=== PATIENT | female | born 1940 | race Asian ===

== ENCOUNTER 2018-07-10 20:07 | Observation (INO) | payer OTHER, MEDICARE ==
--- NOTE | 2018-07-10 20:14 | PDOC ---
History of Present Illness - General Stated Complaint: SICK Time Seen by Provider: 07/10/18 20:11 - History of Present Illness Initial Comments: 07/10/18 20:13 Ms. Ricardo is a 77 yo female w/ pmh of HTN and L ear tinnitus / hearing loss who presents for evaluation after syncopal episode earlier tonight. Patient reports she was with friends when she experienced blurry vision for 2-3 minutes before losing consciousness. Her friend caught her on the way down and she did not hit her head. Was unconcious for 2 minutes before waking up. Was not confused after. Currently back to her baseline. Ms. Ricardo also endorses approximately a month of increased weakness while on her feet. She also reports she had an echo in April which showed only mild mitral regurg and trace tricuspid regurg. The patient denies chest pain, shortness of breath, headache and dizziness. Denies fever, chills, nausea, vomit, diarrhea and constipation. Denies dysuria, frequency, urgency and hematuria. Past History - Past Medical History Allergies/Adverse Reactions: Allergies Allergy/AdvReac Type Severity Reaction Status Date / Time acetaminophen Allergy Mild Nausea Verified 07/10/18 20:14 [From Darvocet-N 100] propoxyphene napsylate Allergy Mild Nausea Verified 07/10/18 20:14 [From Darvocet-N 100] codeine Allergy Verified 07/10/18 20:14 Home Medications: Ambulatory Orders Amlodipine Besylate [Norvasc -] 5 mg PO DAILY 07/01/14 Lisinopril [Prinivil] 20 mg PO DAILY 07/01/14 Aspirin [ASA -] 81 mg PO DAILY 07/10/18 Simvastatin 5 mg PO HS 07/10/18 HTN: Yes - Immunization History Immunization Up to Date: Yes - Suicide/Smoking/Psychosocial Hx Smoking Status: No Smoking History: Never smoked Have you smoked in the past 12 months: No Number of Cigarettes Smoked Daily: 0 Hx Alcohol Use: No Drug/Substance Use Hx: No Substance Use Type: None Hx Substance Use Treatment: No Review of Systems - Review of Systems Comments:: 07/10/18 20:14 GENERAL/CONSTITUTIONAL: +Mild generalized weakness. No fever or chills. HEAD, EYES, EARS, NOSE AND THROAT: No change in vision. No ear pain or discharge. No sore throat. CARDIOVASCULAR: No chest pain or shortness of breath RESPIRATORY: No cough, wheezing, or hemoptysis. GASTROINTESTINAL: No nausea, vomiting, diarrhea or constipation. GENITOURINARY: No dysuria, frequency, or change in urination. MUSCULOSKELETAL: No joint or muscle swelling or pain. No neck or back pain. SKIN: No rash NEUROLOGIC: +LOC as described. No headache, vertigo, or change in strength/ sensation. ENDOCRINE: No increased thirst. No abnormal weight change HEMATOLOGIC/LYMPHATIC: No anemia, easy bleeding, or history of blood clots. ALLERGIC/IMMUNOLOGIC: No hives or skin allergy. *Physical Exam - Physical Exam Comments: 07/10/18 20:14 GENERAL: Awake, alert, and fully oriented, in no acute distress HEAD: No signs of trauma, normocephalic, atraumatic EYES: PERRLA, EOMI, sclera anicteric, conjunctiva clear ENT: Auricles normal inspection, hearing grossly normal, nares patent, oropharynx clear without exudates. Moist mucosa NECK: Normal ROM, supple, no lymphadenopathy, JVD, or masses LUNGS: No distress, speaks full sentences, clear to auscultation bilaterally HEART: Regular rate and rhythm, normal S1 and S2, no murmurs, rubs or gallops, peripheral pulses normal and equal bilaterally. ABDOMEN: Soft, nontender, normoactive bowel sounds. No guarding, no rebound. No masses EXTREMITIES: Normal inspection, Normal range of motion, no edema. No clubbing or cyanosis. NEUROLOGICAL: Cranial nerves II through XII grossly intact. Normal speech, normal gait, no focal sensorimotor deficits SKIN: Warm, Dry, normal turgor, no rashes or lesions noted. ED Treatment Course - LABORATORY CBC & Chemistry Diagram: 07/10/18 21:10 07/10/18 21:10 Medical Decision Making - Medical Decision Making 07/10/18 23:29 Ms. Ricardo is a 77 yo female w/ pmh as described who presents for evaluation after syncopal episode earlier this evening. Workup for cause done to include cardiac and neurological process as below. EKG non-concerning. CXR negative. Head CT negative. Labs grossly wnl as below. Will admit patient for tele-obs for further workup/evaluation. Laboratory Results - last 24 hr 07/10/18 07/10/18 07/10/18 21:10 21:10 21:10 WBC 9.2 RBC 4.40 Hgb 13.9 Hct 39.1 MCV 88.8 MCH 31.5 MCHC 35.5 RDW 14.2 Plt Count 246 MPV 8.6 Absolute Neuts (auto) 6.8 Neutrophils % 74.2 D Lymphocytes % 19.0 D Monocytes % 6.1 Eosinophils % 0.4 Basophils % 0.3 Nucleated RBC % 0 Sodium 144 Potassium 3.6 Chloride 109 H Carbon Dioxide 25 Anion Gap 10 BUN 13 Creatinine 0.8 Creat Clearance w eGFR > 60 Random Glucose 102 Calcium 7.7 L Total Bilirubin 0.2 AST 14 L ALT 24 Alkaline Phosphatase 53 Creatine Kinase Troponin I Total Protein 6.1 L Albumin 3.2 L Urine Color Urine Appearance Urine pH Ur Specific [place] Urine Protein Urine Glucose (UA) Urine Ketones Urine Blood Urine Nitrite Urine Bilirubin Urine Urobilinogen Ur Leukocyte Esterase Urine WBC (Auto) Urine RBC (Auto) Ur Epithelial Cells Hyaline Casts Urine Mucus Blood Type A POSITIVE Antibody Screen Negative 07/10/18 07/10/18 21:10 22:36 WBC RBC Hgb Hct MCV MCH MCHC RDW Plt Count MPV Absolute Neuts (auto) Neutrophils % Lymphocytes % Monocytes % Eosinophils % Basophils % Nucleated RBC % Sodium Potassium Chloride Carbon Dioxide Anion Gap BUN Creatinine Creat Clearance w eGFR Random Glucose Calcium Total Bilirubin AST ALT Alkaline Phosphatase Creatine Kinase 74 Troponin I < 0.02 Total Protein Albumin Urine Color Straw Urine Appearance Clear Urine pH 7.0 Ur Specific [place] 1.008 L Urine Protein Negative Urine Glucose (UA) 1+ H Urine Ketones Negative Urine Blood Negative Urine Nitrite Negative Urine Bilirubin Negative Urine Urobilinogen Negative Ur Leukocyte Esterase Trace Urine WBC (Auto) 2 Urine RBC (Auto) <1 Ur Epithelial Cells Rare Hyaline Casts 5 Urine Mucus Rare Blood Type Antibody Screen *DC/Admit/Observation/Transfer Diagnosis at time of Disposition: Blurry vision Syncope Qualifiers: Syncope type: unspecified Qualified Code(s): R55 - Syncope and collapse - Discharge Dispostion Decision to Admit order: Yes - Referrals Referrals: Jessie Elliott MD [Primary Care Provider] - - Patient Instructions - Post Discharge Activity
--- NOTE | 2018-07-10 20:54 | PDOC ---
Attending Attestation - HPI HPI: 07/10/18 21:47 77 year old female with past medical history of left ear hearing loss/tinnitus, hypertension who presents to the ED after syncopal episode this evening while with her friends when she experienced blurred vision and soon lost consciousness for about 1-2 minutes. Patients friends witnessed the incident. No head trauma, no seizure like activity. Patient reports a similar episode of blurred vision back in 2013 and reports shes felt weak for the past three month and stating she hasnt felt like herself. Had an echocardiogram in June by PCP and found she had mitral valve prolapse. Denies any focal neurological deficits. Denies fevers, chills, NVD, CP, palpitations, cough, SOB , or urinary complaints. - Physicial Exam PE: 07/10/18 21:47 GENERAL: Awake, alert, and fully oriented, in no acute distress HEAD: No signs of trauma EYES: PERRLA, EOMI NECK: Normal ROM, supple, no lymphadenopathy, JVD, or masses LUNGS: Clear to auscultation bilaterally. HEART: Regular rate and rhythm. ABDOMEN: Soft, nontender, normoactive bowel sounds. NEUROLOGICAL: Cranial nerves II through XII grossly intact. Normal speech, normal gait SKIN: Warm, Dry, normal turgor, no rashes - Medical Decision Making 07/10/18 21:48 Documentation prepared by Seema Johnson, acting as medical transcription for Dottie Vickers DO. <Seema Johnson - Last Filed: 07/10/18 21:47> - Resident Resident Name: Steven Messer - ED Attending Attestation I have performed the following: I have examined & evaluated the patient, The case was reviewed & discussed with the resident, I agree w/resident's findings & plan, Exceptions are as noted - Medical Decision Making 07/10/18 20:54 I, Dr. Dottie Vickers DO, attest that this document has been prepared under my direction and personally reviewed by me in its entirety. I further attest, that it accurately reflects all work, treatment, procedures and medical decision -making performed by me. 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, lightheaded, cp/sob/palpitations -pt denies abd pain, no n/v/d -no dysuria -will send labs, ekg, cxr, head ct -had blurred vision prior to syncopal episode -will most likely need obs for syncopal episode eval -pt also states she has felt weak for about 3 months, generalized weakness 07/10/18 23:[address] negative - pending official read cxr clear trop negative will place in obs for further eval of syncope 07/11/18 00:43 resident discussed the case with SMITH who accepts pt to service <Dottie Vickers - Last Filed: 07/11/18 00:43> Heart Score/ECG Review - ECG Intrepretation Comment:: 07/10/18 22:38 sinus at 78, nl axis, nl interval, no acute st/t wave findings <Dottie Vickers - Last Filed: 07/11/18 00:43>
[2018-07-10 21:23] LABS: BASO % 0.3 % (0-2.0); EOS % 0.4 % (0-4.5); HEMATOCRIT 39.1 % (32.4-45.2); HEMOGLOBIN 13.9 GM/dL (10.7-15.3); MCH 31.5 pg (25.7-33.7); MCHC 35.5 g/dl (32.0-36.0); MEAN CELL VOLUME 88.8 fl (80-96); MEAN PLT VOLUME 8.6 fl (7.5-11.1); MONO % 6.1 % (3.8-10.2); NEUT % 74.2 % (42.8-82.8); PLATELET COUNT 246 K/MM3 (134-434); RDW 14.2 % (11.6-15.6); WHITE BLOOD COUNT 9.2 K/mm3 (4.0-10.0)
[2018-07-10 21:44] LABS: ALBUMIN 3.2 g/dl (3.4-5.0); ALK PHOS 53 U/L (45-117); ANION GAP 10 MMOL/L (8-16); BILIRUBIN,TOTAL 0.2 mg/dL (0.2-1); BLOOD UREA NITROGEN 13 mg/dL (7-18); CALCIUM 7.7 mg/dL (8.5-10.1); CHLORIDE 109 mmol/L (98-107); CO2 25 mmol/L (21-32); CREATININE 0.8 mg/dL (0.55-1.3); GLUCOSE,RANDOM 102 mg/dL (74-106); POTASSIUM 3.6 mmol/L (3.5-5.1); SGOT/AST 14 U/L (15-37); SGPT/ALT 24 U/L (13-61); SODIUM 144 mmol/L (136-145); TOT PROT 6.1 g/dl (6.4-8.2)
[2018-07-10 22:52] LABS: URINE APPEARANCE CLEAR; URINE BILIRUBIN NEGATIVE (<2.0 mg/dL); URINE COLOR STRAW; URINE GLUCOSE (UA) 1+ (NEGATIVE); URINE KETONE NEGATIVE (NEGATIVE); URINE LEUK ESTERASE TRACE (NEGATIVE); URINE NITRITE NEGATIVE (NEGATIVE); URINE PROTEIN NEGATIVE (NEGATIVE); URINE UROBILINOGEN NEGATIVE mg/dL (0.2-1.0)
[2018-07-10 22:56] LABS: EPI CELLS RARE /HPF (FEW); URINE HYALINE CAST 5 /lpf; URINE MUCUS RARE
--- NOTE | 2018-07-11 00:32 | PN ---
Teaching Attending Note Name of Resident: Mil Sandoval ATTENDING PHYSICIAN STATEMENT I saw and evaluated the patient. I reviewed the resident's note and discussed the case with the resident. I agree with the resident's findings and plan as documented. SUBJECTIVE: Patient is a 77 year old woman with PMH of HTN, HLD and left ear hearing loss/ tinnitus, hypertension who presents to the ER after syncopal episode this evening while with her friends when she experienced blurred vision and soon lost consciousness for about 1-2 minutes. Patients friends witnessed the incident. No head trauma, no seizure like activity. Patient reports a similar episode of blurred vision back in 2013 and reports shes felt weak for the past three month and stating she hasnt felt like herself. Had an echocardiogram in June by PCP and found she had mitral valve prolapse. Denies any focal neurological deficits. Denies fevers, chills, NVD, CP, palpitations, cough, SOB , or urinary complaints. OBJECTIVE: Alert. Not orthostatic Vital Signs Period Temp Pulse Resp BP Sys/Zhong Pulse Ox Last 24 Hr 98.5 F 78 18 148/69 99 HEENT: No Jaundice, eye redness or discharge, PERRLA, EOMI. Normocephalic, atraumatic. External ears are normal and hearing is grossly intact. No nasal discharge. Neck: Supple, nontender. No palpable adenopathy or thyromegaly. No JVD Chest: Good effort. Clear to auscultation and percussion. Heart: Regular. No S3, rub or murmur Abdomen: Not distended, soft, nontender and no HSM. No rebound or guarding. Normoactive bowel sounds. Ext: Peripheral pulses intact. No leg edema. Skin: Warm and dry. No petechiae, rash or ecchymosis. Neuro: Alert. Oriented x3. CN 2-12 grossly intact. Sensation grossly intact in all four extremities and DTR are symmetric. Home Medications Medication Instructions Recorded Amlodipine Besylate [Norvasc -] 5 mg PO DAILY 07/01/14 Lisinopril [Prinivil] 20 mg PO DAILY 07/01/14 Aspirin [ASA -] 81 mg PO DAILY 07/10/18 Simvastatin 5 mg PO HS 07/10/18 Abnormal Lab Results 07/10/18 07/10/18 21:10 22:36 Chloride 109 H Calcium 7.7 L AST 14 L Total Protein 6.1 L Albumin 3.2 L Ur Specific [place] 1.008 L Urine Glucose (UA) 1+ H ASSESSMENT AND PLAN: 1. Syncope - No obvious etiology. No acute pathology on Head CT and EKG. Admit to telemetry, get ECHO, EEG, carotid doppler and brain MRI/MRA with additional inner ear cuts. Consult neurology. 2. DVT prophylaxis - Lovenox 40 mg SQ q 24 hours. 3. Advance directives - Full code
--- NOTE | 2018-07-11 02:53 | HP ---
CHIEF COMPLAINT: syncope PCP: Earl HISTORY OF PRESENT ILLNESS: Pt is a 77 y/o F with PMH L tinnitus, vertigo, HTN, HLD who presented to ED with complaint of fainting. Pt was at a friend's house with a group of friends and suddenly felt her vision become blurry. This lasted 2 min before she fell unconscious. Her friends caught her and prevented head trauma. She had no shaking, no loss of bowl/bladder control, no confusion on waking 2 min later. Denies palpitations or aura preceding syncople episode. Of note, pt had an echo in Apr, which revealed mild MR and trace TR. Pt has had similar episodes in the past consisting of vertigo, however, she has never passed out. She has been worked up in the past including a brain MRI in 2014, which has all been unremarkable. She saw Dr. Espana (neuro) in the past, as well as an ENT whose name she cannot recall. No other complaints. 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 ER course was notable for: (1) BP 148/69 (2) (3) Recent Travel: denies PAST MEDICAL HISTORY: as above PAST SURGICAL HISTORY: Social History: Smoking: denies Alcohol: denies Drugs: denies Family History: Allergies acetaminophen [From Darvocet-N 100] Allergy (Mild, Verified 07/10/18 20:14) Nausea propoxyphene napsylate [From Darvocet-N 100] Allergy (Mild, Verified 07/10/18 20 :14) Nausea codeine Allergy (Verified 07/10/18 20:14) HOME MEDICATIONS: Home Medications Medication Instructions Recorded Amlodipine Besylate [Norvasc -] 5 mg PO DAILY 07/01/14 Lisinopril [Prinivil] 20 mg PO DAILY 07/01/14 Aspirin [ASA -] 81 mg PO DAILY 07/10/18 Simvastatin 5 mg PO HS 07/10/18 REVIEW OF SYSTEMS CONSTITUTIONAL: Absent: fever, chills, diaphoresis, generalized weakness, malaise, loss of appetite, weight change HEENT: Absent: rhinorrhea, nasal congestion, throat pain, throat swelling, difficulty swallowing, mouth swelling, ear pain, eye pain, visual changes CARDIOVASCULAR: syncope, Absent: chest pain, palpitations, irregular heart rate, lightheadedness, peripheral edema RESPIRATORY: Absent: cough, shortness of breath, dyspnea with exertion, orthopnea, wheezing, stridor, hemoptysis GASTROINTESTINAL: Absent: abdominal pain, abdominal distension, nausea, vomiting, diarrhea, constipation, melena, hematochezia GENITOURINARY: Absent: dysuria, frequency, urgency, hesitancy, hematuria, flank pain, genital pain MUSCULOSKELETAL: Absent: myalgia, arthralgia, joint swelling, back pain, neck pain SKIN: Absent: rash, itching, pallor HEMATOLOGIC/IMMUNOLOGIC: Absent: easy bleeding, easy bruising, lymphadenopathy, frequent infections ENDOCRINE: Absent: unexplained weight gain, unexplained weight loss, heat intolerance, cold intolerance NEUROLOGIC: Absent: headache, focal weakness or paresthesias, dizziness, unsteady gait, seizure, mental status changes, bladder or bowel incontinence PSYCHIATRIC: Absent: anxiety, depression, suicidal or homicidal ideation, hallucinations. PHYSICAL EXAMINATION Vital Signs - 24 hr 07/10/18 20:15 Temperature 98.5 F Pulse Rate 78 Respiratory 18 Rate Blood Pressure 148/69 O2 Sat by Pulse 99 Oximetry (%) GEN: NAD, AAOx3 HEENT: NCAT, EOMI, PERRL Neck: supple, no jvd, no bruits Cardio: rrr, normal s1s2, no mrg Pulm: cta b/l Abd: nondistended, soft, nontender Ext: 2+ pulses, no edema Neuro: CN 2-12 intact, sensation intact throughout, strength intact throughout. Finger to nose, heel-lopez unremarkable, dysdiadochokinesia all negative. HINTS negative. Vertigo not postural. Laboratory Results - last 24 hr 07/10/18 07/10/18 07/10/18 21:10 21:10 21:10 WBC 9.2 RBC 4.40 Hgb 13.9 Hct 39.1 MCV 88.8 MCH 31.5 MCHC 35.5 RDW 14.2 Plt Count 246 MPV 8.6 Absolute Neuts (auto) 6.8 Neutrophils % 74.2 D Lymphocytes % 19.0 D Monocytes % 6.1 Eosinophils % 0.4 Basophils % 0.3 Nucleated RBC % 0 Sodium 144 Potassium 3.6 Chloride 109 H Carbon Dioxide 25 Anion Gap 10 BUN 13 Creatinine 0.8 Creat Clearance w eGFR > 60 Random Glucose 102 Calcium 7.7 L Total Bilirubin 0.2 AST 14 L ALT 24 Alkaline Phosphatase 53 Creatine Kinase Troponin I Total Protein 6.1 L Albumin 3.2 L Urine Color Urine Appearance Urine pH Ur Specific [place] Urine Protein Urine Glucose (UA) Urine Ketones Urine Blood Urine Nitrite Urine Bilirubin Urine Urobilinogen Ur Leukocyte Esterase Urine WBC (Auto) Urine RBC (Auto) Ur Epithelial Cells Hyaline Casts Urine Mucus Blood Type A POSITIVE Antibody Screen Negative 07/10/18 07/10/18 21:10 22:36 WBC RBC Hgb Hct MCV MCH MCHC RDW Plt Count MPV Absolute Neuts (auto) Neutrophils % Lymphocytes % Monocytes % Eosinophils % Basophils % Nucleated RBC % Sodium Potassium Chloride Carbon Dioxide Anion Gap BUN Creatinine Creat Clearance w eGFR Random Glucose Calcium Total Bilirubin AST ALT Alkaline Phosphatase Creatine Kinase 74 Troponin I < 0.02 Total Protein Albumin Urine Color Straw Urine Appearance Clear Urine pH 7.0 Ur Specific [place] 1.008 L Urine Protein Negative Urine Glucose (UA) 1+ H Urine Ketones Negative Urine Blood Negative Urine Nitrite Negative Urine Bilirubin Negative Urine Urobilinogen Negative Ur Leukocyte Esterase Trace Urine WBC (Auto) 2 Urine RBC (Auto) <1 Ur Epithelial Cells Rare Hyaline Casts 5 Urine Mucus Rare Blood Type Antibody Screen ASSESSMENT/PLAN: Pt is a pleasant 77 y/o F with PMH L tinnitus, vertigo, HLD, HTN who presented to ED with syncope. On tele/obs for monitoring. #Syncope/vertigo -unclear etiology. ? relation to vertigo -monitor for arrhythmia -MRI/MRA -Carotid duplex -Neuro consult #HTN -c/w home Norvasc, Lisinopril #HLD -c/w home ASA, simvastatin #FEN -not on fluids -lytes wnl -Na control diet #PPx hep subQ #Dispo -obs Mil Sandoval MD PGY-2 IM Visit type - Emergency Visit Emergency Visit: Yes ED Registration Date: 07/10/18 Care time: The patient presented to the Emergency Department on the above date and was hospitalized for further evaluation of their emergent condition. - New Patient This patient is new to me today: Yes Date on this admission: 07/11/18 - Critical Care Critical Care patient: No
[2018-07-11] MEDS ORDERED: HEPARIN NA (PORCINE) 5,000 UNITS/ML 1ML VIAL ONE ×2 (06:11→14:21)
[2018-07-11] MEDS: HEPARIN NA (PORCINE) 5,000 UNITS/ML 1ML VIAL SQ SCH ×3 (06:20→21:46)
[2018-07-11 07:52] LABS: HEMATOCRIT 39.5 % (32.4-45.2); MCH 31.6 pg (25.7-33.7); MCHC 35.4 g/dl (32.0-36.0); MEAN CELL VOLUME 89.2 fl (80-96); MEAN PLT VOLUME 8.8 fl (7.5-11.1); PLATELET COUNT 261 K/MM3 (134-434); RBC 4.43 M/mm3 (3.60-5.2); RDW 13.8 % (11.6-15.6)
[2018-07-11 08:17] LABS: ANION GAP 6 MMOL/L (8-16); BLOOD UREA NITROGEN 13 mg/dL (7-18); CALCIUM 8.9 mg/dL (8.5-10.1); CHLORIDE 105 mmol/L (98-107); CO2 27 mmol/L (21-32); CREATININE 0.7 mg/dL (0.55-1.3); GLUCOSE,RANDOM 107 mg/dL (74-106); POTASSIUM 4.2 mmol/L (3.5-5.1); SODIUM 139 mmol/L (136-145)
--- NOTE | 2018-07-11 13:33 | EKG ---
Test Reason : Blood Pressure : / mmHG Vent. Rate : 073 BPM Atrial Rate : 073 BPM P-R Int : 158 ms QRS Dur : 070 ms QT Int : 408 ms P-R-T Axes : 047 044 065 degrees QTc Int : 449 ms NORMAL SINUS RHYTHM NORMAL ECG WHEN COMPARED WITH ECG OF 10-JUL-2018 22:23, NO SIGNIFICANT CHANGE WAS FOUND Confirmed by AQUILINO NELSON MD ([id number]) on 07/11/2018 1:33:13 PM Referred By: Confirmed By:AQUILINO NELSON MD
--- NOTE | 2018-07-11 13:37 | EKG ---
Test Reason : Blood Pressure : / mmHG Vent. Rate : 078 BPM Atrial Rate : 078 BPM P-R Int : 152 ms QRS Dur : 070 ms QT Int : 382 ms P-R-T Axes : 049 025 034 degrees QTc Int : 435 ms NORMAL SINUS RHYTHM POSSIBLE LEFT ATRIAL ENLARGEMENT NONSPECIFIC ST ABNORMALITY ABNORMAL ECG WHEN COMPARED WITH ECG OF 03-MAY-2015 00:10, NO SIGNIFICANT CHANGE WAS FOUND Confirmed by AQUILINO NELSON MD ([id number]) on 07/11/2018 1:36:55 PM Referred By: Confirmed By:AQUILINO NELSON MD
[2018-07-11 16:48] VITALS: BMI 23.8
[2018-07-11] MEDS: LISINOPRIL 20 MG TABLET (FP) PO SCH (17:21)
[2018-07-11] MEDS: ASPIRIN 81 MG CHEWABLE TABLETS PO SCH (17:21)
[2018-07-11] MEDS: amLODIPine BESYLATE 5 MG TABLET (FP) PO SCH (17:21)
[2018-07-11] MEDS ORDERED: ATORVASTATIN CA 10 MG TABLET (FP) PO SCH (22:00)
[2018-07-12] MEDS ORDERED: IBUPROFEN 400 MG TABLET (FP) PO ONE (03:48)
[2018-07-12 05:48] VITALS: TEMP 97
[2018-07-12] MEDS: HEPARIN NA (PORCINE) 5,000 UNITS/ML 1ML VIAL SQ SCH (05:54)
--- NOTE | 2018-07-12 09:33 | CON.NEURO ---
Consult Consult Specialty:: [facility] Referred by:: PCP - History of Present Illness History of Present Illness: 77 years old woman with fainting spell - History Source History Provided By: Patient Limitations to Obtaining History: No Limitations - Past Medical History Cardio/Vascular: Yes: HTN - Past Surgical History Past Surgical History: Yes: None - Alcohol/Substance Use Hx Alcohol Use: No History of Substance Use: reports: None - Smoking History Smoking history: Never smoked Have you smoked in the past 12 months: No Aproximately how many cigarettes per day: 0 - Social History ADL: Independent History of Recent Travel: No Home Medications - Allergies Allergies/Adverse Reactions: Allergies Allergy/AdvReac Type Severity Reaction Status Date / Time acetaminophen Allergy Mild Nausea Verified 07/10/18 20:14 [From Darvocet-N 100] propoxyphene napsylate Allergy Mild Nausea Verified 07/10/18 20:14 [From Darvocet-N 100] codeine Allergy Verified 07/10/18 20:14 - Home Medications Home Medications: Ambulatory Orders Amlodipine Besylate [Norvasc -] 5 mg PO DAILY 07/01/14 Lisinopril [Prinivil] 20 mg PO DAILY 07/01/14 Aspirin [ASA -] 81 mg PO DAILY 07/10/18 Simvastatin 5 mg PO HS 07/10/18 Family Disease History - Family Disease History Family History: Denies (CVA) Review of Systems - Review of Systems Constitutional: reports: No Symptoms Eyes: reports: No Symptoms Physical Exam-Neuro Vital Signs: Vital Signs Temperature 97.0 F L 07/12/18 05:47 Pulse Rate 56 L 07/12/18 05:47 Respiratory Rate 20 07/12/18 05:47 Blood Pressure 122/57 L 07/12/18 05:47 O2 Sat by Pulse Oximetry (%) 96 07/12/18 02:00 Constitutional: Yes: Well Nourished Neck: Yes: WNL Cardiovascular: Yes: WNL Labs: CBC, BMP 07/11/18 06:47 07/11/18 06:47 Imaging - Results Cat Scan: Image Reviewed MRI: Image Reviewed Problem List - Problems (1) Syncope Code(s): R55 - SYNCOPE AND COLLAPSE Qualifiers: Syncope type: unspecified Qualified Code(s): R55 - Syncope and collapse
[2018-07-12] MEDS: ASPIRIN 81 MG CHEWABLE TABLETS PO SCH (10:09)
[2018-07-12] MEDS: LISINOPRIL 20 MG TABLET (FP) PO SCH (10:09)
[2018-07-12] MEDS: amLODIPine BESYLATE 5 MG TABLET (FP) PO SCH (10:09)
--- NOTE | 2018-07-12 10:13 | CON.CARD ---
Consult Consult Specialty:: Cardiology Referred by:: Hospitalist Medicine Reason for Consultation:: Syncope - History of Present Illness Chief Complaint: Syncope History of Present Illness: Patient is a 77 year old woman with PMH of HTN, HLD and left ear hearing loss/ tinnitus presented after syncopal episode preceded by blurred vision, but denies palpitations, orthopnea, diaphoresis, nausea, flushing, PND or LE edema. Reports sharp, pleuritic, reproducible left chest wall discomfort. Had an echocardiogram in June by PCP and found she had mitral valve prolapse. Denies any focal neurological deficits. - History Source History Provided By: Patient Limitations to Obtaining History: No Limitations - Past Medical History Cardio/Vascular: Yes: HTN - Past Surgical History Past Surgical History: Yes: None - Alcohol/Substance Use Hx Alcohol Use: No History of Substance Use: reports: None - Smoking History Smoking history: Never smoked Have you smoked in the past 12 months: No Aproximately how many cigarettes per day: 0 - Social History ADL: Independent History of Recent Travel: No Home Medications - Allergies Allergies/Adverse Reactions: Allergies Allergy/AdvReac Type Severity Reaction Status Date / Time acetaminophen Allergy Mild Nausea Verified 07/10/18 20:14 [From Darvocet-N 100] propoxyphene napsylate Allergy Mild Nausea Verified 07/10/18 20:14 [From Darvocet-N 100] codeine Allergy Verified 07/10/18 20:14 - Home Medications Home Medications: Ambulatory Orders Amlodipine Besylate [Norvasc -] 5 mg PO DAILY 07/01/14 Lisinopril [Prinivil] 20 mg PO DAILY 07/01/14 Aspirin [ASA -] 81 mg PO DAILY 07/10/18 Simvastatin 5 mg PO HS 07/10/18 Review of Systems - Review of Systems Eyes: reports: Blurred Vision Cardiovascular: reports: No Symptoms Respiratory: reports: No Symptoms Gastrointestinal: reports: No Symptoms Musculoskeletal: reports: No Symptoms Neurological: reports: No Symptoms, Syncope Vital Signs: Vital Signs Temperature 97.0 F L 07/12/18 05:47 Pulse Rate 66 07/12/18 10:00 Respiratory Rate 18 07/12/18 10:00 Blood Pressure 139/64 07/12/18 10:00 O2 Sat by Pulse Oximetry (%) 96 07/12/18 02:00 Constitutional: Yes: No Distress, Calm Neck: Yes: Supple Respiratory: Yes: Regular, CTA Bilaterally Gastrointestinal: Yes: Normal Bowel Sounds, Soft Cardiovascular: Yes: Regular Rate and Rhythm JVD: No Carotid Bruit: No Heart Sounds: Yes: S1, S2 Edema: No - Other Data Labs, Other Data: CBC, BMP 07/11/18 06:47 07/11/18 06:47 NSR @ 78 LAE Tele: No sustained arrhythmias Imaging - Results Chest X-ray: Report Reviewed (NAD) Cat Scan: Report Reviewed (Normal HCT) Ultrasound: Report Reviewed (No sig carotid steonsis) MRI: Report Reviewed (Brain MRI shows SVID o/w normal MRA/MRI) Problem List - Problems (1) Hyperlipidemia Code(s): E78.5 - HYPERLIPIDEMIA, UNSPECIFIED Qualifiers: Hyperlipidemia type: pure hypercholesterolemia Qualified Code(s): E78.00 - Pure hypercholesterolemia, unspecified; E78.0 - Pure hypercholesterolemia (2) Blurry vision Code(s): H53.8 - OTHER VISUAL DISTURBANCES (3) Syncope Code(s): R55 - SYNCOPE AND COLLAPSE Qualifiers: Syncope type: vasovagal syncope Qualified Code(s): R55 - Syncope and collapse (4) Hypertension Code(s): I10 - ESSENTIAL (PRIMARY) HYPERTENSION Qualifiers: Hypertension type: essential hypertension Qualified Code(s): I10 - Essential (primary) hypertension Assessment/Plan 03/30/2018 Echo: Normal LV size and fxn, LVEF 65%, tr MR, TR 1. Syncope - with prodromal sxs suspect neurocardiogenic/vasovagal etiology 2. HTN heart disease 3. Hyperlipidemia P:1. F/u repeat echo results, check orthostatic VS, addressed abortive maneuvers once prodromal sxs experienced 2. Continue ASA 81 qd, Norvasc 5 qd, lisinopril 20 qd, Zocor 5 qhs 3. F/u EEG results, sz unlikely 4. Thank you for consultative opportunity
--- NOTE | 2018-07-12 11:17 | ECHO ---
Name: JONAS CHINO Exam:Adult Echocardiogram Study Date: 07/12/2018 09:32 AM Age: 77 yrs Reason For Study: SYNCOPE Height: 65 in Weight: 142 lb BSA: 1.7 m2 MMode/2D Measurements & Calculations IVSd: 1.0 cm Ao root diam: 2.3 cm LVIDd: 3.5 cm ACS: 1.9 cm LVIDs: 2.8 cm LVPWd: 0.94 cm EDV(Teich): 49.5 ml LVOT diam: 1.8 cm ESV(Teich): 30.2 ml RV S Walter: 15.7 cm/sec Doppler Measurements & Calculations Med Peak E' Walter: 6.8 cm/sec Lat Peak E' Walter: 7.5 cm/sec Procedure A complete two-dimensional transthoracic echocardiogram was performed (2D, M-mode, Doppler and color flow Doppler). Technically limited study. Left Ventricle The left ventricle is normal in size. Left ventricular systolic function is normal. Ejection Fraction = 65- 70%. TDI reveals mild impaired relaxation with normal filling pressure (E/E' 12). No regional wall mo tion abnormalities noted. Right Ventricle The right ventricle is normal size. The right ventricular systolic function is normal. RV systolic TD I is 16 cm/s. Atria The left atrial size is normal. Right atrial size is normal. Mitral Valve The mitral valve is normal in structure and function. There is no mitral regurgitation noted. Tricuspid Valve The tricuspid valve is normal in structure and function. No tricuspid regurgitation. Aortic Valve There is mild aortic sclerosis.;. No aortic regurgitation is present. Pulmonic Valve The pulmonic valve is not well visualized. Great Vessels The aortic root is normal size. Pericardium/Pleura There is no pericardial effusion. Interpretation Summary Technically limited study The left ventricle is normal in size. Left ventricular systolic function is normal. No regional wall motion abnormalities noted. Ejection Fraction = 65-70%. TDI reveals mild impaired relaxation with normal filling pressure (E/E' 12) The right ventricular systolic function is normal. The left atrial size is normal. Right atrial size is normal. There is mild aortic sclerosis. No significant valvular regurgitations are seen There is no pericardial effusion. When compared to study dated 03/30/18, no significant changes are seen Shaun Hughes MD 07/12/2018 11:16 AM
[2018-07-12 12:04] VITALS: BP 157/61; PULSE 61
--- NOTE | 2018-07-12 13:20 | DS ---
Physical Examination Vital Signs: Vital Signs Temperature 97.0 F L 07/12/18 05:47 Pulse Rate 61 07/12/18 12:04 Respiratory Rate 18 07/12/18 10:00 Blood Pressure 157/61 07/12/18 12:04 O2 Sat by Pulse Oximetry (%) 96 07/12/18 02:00 Findings/Remarks: pt seen/ examined . feels well no complains wants to go home denies cp/sob/ abd pain denies headache/ dizziness Constitutional: Yes: No Distress Eyes: Yes: Conjunctiva Clear, PERRL HENT: Yes: WNL Neck: Yes: Supple, Trachea Midline Cardiovascular: Yes: Regular Rate and Rhythm Respiratory: Yes: CTA Bilaterally Gastrointestinal: Yes: Normal Bowel Sounds, Soft Edema: No Neurological: Yes: WNL, Alert Psychiatric: Yes: Alert Labs: CBC, BMP 07/11/18 06:47 07/11/18 06:47 Discharge Summary Reason For Visit: BLURRING OF VISUAL IMAGE,SYNCOPE Current Active Problems Blurry vision (Acute) Hyperlipidemia (Acute) Syncope (Acute) Hospital Course: Admitted for syncope work up essentially -ve eeg/ echo - pending pt stable and wants to go home f/u above studies as out pt d/c today pt strongly advised to follow with her pmd in one week. pt in agreement Discussed with nursing staff also. Condition: Stable - Instructions Referrals: Jessie Elliott MD [Primary Care Provider] - Disposition: HOME - Home Medications Comprehensive Discharge Medication List: Ambulatory Orders Amlodipine Besylate [Norvasc -] 5 mg PO DAILY 07/01/14 Lisinopril [Prinivil] 20 mg PO DAILY 07/01/14 Aspirin [ASA -] 81 mg PO DAILY 07/10/18 Simvastatin 5 mg PO HS 07/10/18
== END 2018-07-12 14:24 | disposition home or self-care (01) ==
LOC: SUPCPDRO 20:07 → JER 20:07 → JERBED 23:36 → J4W 07-11 16:55
PROVIDERS: ADMIT Internal Medicine; ATTEND Internal Medicine
PROC: 3E013GC Introduction of Other Therapeutic Substance into Subcutaneous Tissue, Percutaneous Approach (ICD-10-PCS; principal; 2018-07-10)
DX: R55 Syncope and collapse (principal); H53.8 Other visual disturbances; I10 Essential (primary) hypertension; H91.92 Unspecified hearing loss, left ear; H93.12 Tinnitus, left ear; E78.5 Hyperlipidemia, unspecified
CPT/HCPCS: 36415; 70450-TC; 70544-TC; 70551-TC; 71046-TC-FY; 80048; 80053; 81003; 81015; 82550; 83090; 84484; 85025; 85027; 86850; 86900; 86901; 87086; 93005; 93010; 93306-TC; 93880-TC; 95816; 96372; 99285-25; G0378; J1644

== ENCOUNTER 2018-12-24 22:20 | Inpatient (IN) | payer OTHER, MEDICARE ==
--- NOTE | 2018-12-24 22:49 | PDOC ---
History of Present Illness <Rubina Hoff - Last Filed: 12/25/18 00:23> - History of Present Illness Initial Comments: 12/24/18 23:06 78 yo F with PMhx of HTN and HLD presents with one week history of worsening abdominal pain. She describes progressive constant non radiating 9/10 RLQ abdominal pain. Aggrevated by movement and palpation. No alleviating factors. Denies fever or chills. Last BM was this morning and was watery. Decreased PO intake. Went to her PMD today and had CTAP this afternoon which showed <Homer Richardson - Last Filed: 12/25/18 20:31> - General Chief Complaint: Pain Stated Complaint: SENT BY HER DOCTOR Time Seen by Provider: 12/24/18 22:36 Past History <Rubina Hoff - Last Filed: 12/25/18 00:23> - Past Medical History COPD: No HTN: Yes Hypercholesterolemia: Yes - Immunization History Immunization Up to Date: Yes - Suicide/Smoking/Psychosocial Hx Smoking Status: No Smoking History: Never smoked Have you smoked in the past 12 months: No Number of Cigarettes Smoked Daily: 0 Information on smoking cessation initiated: No Hx Alcohol Use: No Drug/Substance Use Hx: No Substance Use Type: None Hx Substance Use Treatment: No <Homer Richardson - Last Filed: 12/25/18 20:31> - Past Medical History Allergies/Adverse Reactions: Allergies Allergy/AdvReac Type Severity Reaction Status Date / Time No Known Allergies Allergy Verified 12/25/18 06:35 Home Medications: Ambulatory Orders RX: Amlodipine Besylate [Norvasc -] 5 mg PO DAILY 07/01/14 RX: Lisinopril [Prinivil] 20 mg PO DAILY 07/01/14 RX: Aspirin [ASA -] 81 mg PO DAILY 07/10/18 RX: Simvastatin 5 mg PO HS 07/10/18 *Physical Exam - Vital Signs Last Vital Signs Temp Pulse Resp BP Pulse Ox 98.7 F 80 17 139/47 L 100 12/24/18 22:30 12/24/18 22:30 12/24/18 22:30 12/24/18 22:30 12/24/18 22:30 <Rubina Hoff - Last Filed: 12/25/18 00:23> - Vital Signs Last Vital Signs Temp Pulse Resp BP Pulse Ox 98.7 F 80 17 139/47 L 100 12/24/18 22:30 12/24/18 22:30 12/24/18 22:30 12/24/18 22:30 12/24/18 22:30 <Homer Richardson - Last Filed: 12/25/18 20:31> ED Treatment Course - LABORATORY CBC & Chemistry Diagram: 12/24/18 23:10 12/24/18 23:10 - ADDITIONAL ORDERS Additional order review: Laboratory Results 12/24/18 12/24/18 23:10 23:10 PT with INR 12.90 INR 1.09 Sodium 128 L Potassium 4.0 Chloride 94 L Carbon Dioxide 22 Anion Gap 11 BUN 11 Creatinine 0.5 L Est GFR (CKD-EPI)AfAm 107.44 Est GFR (CKD-EPI)NonAf 92.70 Random Glucose 100 Calcium 9.1 Total Bilirubin 1.0 AST 28 ALT 27 Alkaline Phosphatase 145 H Total Protein 6.7 Albumin 2.8 L 12/24/18 23:10 RBC 4.08 MCV 88.9 MCHC 33.2 RDW 13.8 MPV 8.8 Neutrophils % 87.1 H Lymphocytes % 6.7 L D Monocytes % 5.8 Eosinophils % 0.2 Basophils % 0.2 - Medications Given in the ED: ED Medications Discontinued Medications Generic Name Dose Route Start Last Admin Trade Name Freq PRN Reason Stop Dose Admin Piperacillin Sod/Tazobactam 100 mls @ 200 mls/hr 12/24/18 23:21 12/25/18 00: 16 Sod 4.5 gm/ Dextrose IVPB 12/24/18 23:50 200 mls/hr ONCE ONE Administration Protocol <Rubina Hoff - Last Filed: 12/25/18 00:23> - LABORATORY CBC & Chemistry Diagram: 12/25/18 09:55 12/25/18 09:55 <Homer Richardson - Last Filed: 12/25/18 20:31> *DC/Admit/Observation/Transfer - Discharge Dispostion Decision to Admit order: Yes <Rubina Hoff - Last Filed: 12/25/18 00:23> - Discharge Dispostion Decision to Admit order: Yes <Homer Richardson - Last Filed: 12/25/18 20:31> Diagnosis at time of Disposition: Phlegmonous peritonitis - Discharge Dispostion Condition at time of disposition: Guarded
[2018-12-24] MEDS ORDERED: PIPERACILLIN/TAZOB 4.5 GM 4.5 GM in DEXTROSE 5%-WATER 100 ML IVPB ONE (23:21)
[2018-12-24 23:22] LABS: BASO % 0.2 % (0-2.0); EOS % 0.2 % (0-4.5); HEMATOCRIT 36.2 % (32.4-45.2); LYMPH % 6.7 % (8-40); MCH 29.5 pg (25.7-33.7); MCHC 33.2 g/dl (32.0-36.0); MEAN CELL VOLUME 88.9 fl (80-96); MEAN PLT VOLUME 8.8 fl (7.5-11.1); MONO % 5.8 % (3.8-10.2); NEUT % 87.1 % (42.8-82.8); PLATELET COUNT 237 K/MM3 (134-434); RBC 4.08 M/mm3 (3.60-5.2); RDW 13.8 % (11.6-15.6); WHITE BLOOD COUNT 15.1 K/mm3 (4.0-10.0)
[2018-12-24 23:56] LABS: ALBUMIN 2.8 g/dl (3.4-5.0); CALCIUM 9.1 mg/dL (8.5-10.1); CREATININE 0.5 mg/dL (0.55-1.3); TOT PROT 6.7 g/dl (6.4-8.2)
[2018-12-25 00:02] LABS: INR 1.09 (0.83-1.09); PROTHROMBIN TIME (PATIENT) 12.9 SEC (9.7-13.0)
[2018-12-25] MEDS ORDERED: PIPERACILLIN/TAZOB 4.5 GM 4.5 GM/100 ML BAG IVPB ONE (00:12)
[2018-12-25] MEDS ORDERED: PIPERACILLIN/TAZOB 4.5 GM 4.5 GM in DEXTROSE 5%-WATER 100 ML IVPB ONE (00:16)
[2018-12-25] MEDS ORDERED: SODIUM CHLORIDE 1,000 ML IV STA (00:23)
--- NOTE | 2018-12-25 00:41 | PDOC ---
Documentation entered by Tanvi Cifuentes SCRIBE, acting as scribe for Rubina Hoff MD. Rubina Hoff MD: This documentation has been prepared by the cristy, Tanvi Cifuentes SCRIBE, under my direction and personally reviewed by me in its entirety. I confirm that the documentation accurately reflects all work, treatment, procedures, and medical decision making performed by me. History of Present Illness - General Chief Complaint: Pain Stated Complaint: SENT BY HER DOCTOR Time Seen by Provider: 12/24/18 22:36 Attending Attestation - Resident Resident Name: DylanHomer - ED Attending Attestation I have performed the following: I have examined & evaluated the patient, The case was reviewed & discussed with the resident, I agree w/resident's findings & plan - HPI HPI: 12/25/18 00:17 Pt was sent by PMErwin Elliott for phlegmon/diverticular abscess seen on CT scan. He requests Dr. Rubin for ID and Dr Avila for surg. Scottie requests a dose of zosyn Pt will have pre-op labs and she will likely have drainiage of the abscess possibly by interventional radiology - Physicial Exam PE: 12/25/18 00:19 Agree with resident exam - Medical Decision Making 12/25/18 00:19 Pt's labs are stable; ABX one dose given. Pt admitted to the hospitalists who cover PMD alina at night. Pt is stable at this time. Past History - Past Medical History Allergies/Adverse Reactions: Allergies Allergy/AdvReac Type Severity Reaction Status Date / Time No Known Allergies Allergy Verified 12/25/18 06:35 Home Medications: Ambulatory Orders Amlodipine Besylate [Norvasc -] 5 mg PO DAILY 07/01/14 Lisinopril [Prinivil] 20 mg PO DAILY 07/01/14 Aspirin [ASA -] 81 mg PO DAILY 07/10/18 Simvastatin 5 mg PO HS 07/10/18 COPD: No HTN: Yes Hypercholesterolemia: Yes - Immunization History Immunization Up to Date: Yes - Suicide/Smoking/Psychosocial Hx Smoking Status: No Smoking History: Never smoked Have you smoked in the past 12 months: No Number of Cigarettes Smoked Daily: 0 Information on smoking cessation initiated: No Hx Alcohol Use: No Drug/Substance Use Hx: No Substance Use Type: None Hx Substance Use Treatment: No *Physical Exam - Vital Signs Last Vital Signs Temp Pulse Resp BP Pulse Ox 98.7 F 80 17 139/47 L 100 12/24/18 22:30 12/24/18 22:30 12/24/18 22:30 12/24/18 22:30 12/24/18 22:30 ED Treatment Course - LABORATORY CBC & Chemistry Diagram: 12/24/18 23:10 12/24/18 23:10 - ADDITIONAL ORDERS Additional order review: Laboratory Results 12/24/18 12/24/18 23:10 23:10 PT with INR 12.90 INR 1.09 Sodium 128 L Potassium 4.0 Chloride 94 L Carbon Dioxide 22 Anion Gap 11 BUN 11 Creatinine 0.5 L Est GFR (CKD-EPI)AfAm 107.44 Est GFR (CKD-EPI)NonAf 92.70 Random Glucose 100 Calcium 9.1 Total Bilirubin 1.0 AST 28 ALT 27 Alkaline Phosphatase 145 H Total Protein 6.7 Albumin 2.8 L 12/24/18 23:10 RBC 4.08 MCV 88.9 MCHC 33.2 RDW 13.8 MPV 8.8 Neutrophils % 87.1 H Lymphocytes % 6.7 L D Monocytes % 5.8 Eosinophils % 0.2 Basophils % 0.2 - Medications Given in the ED: ED Medications Discontinued Medications Generic Name Dose Route Start Last Admin Trade Name Freq PRN Reason Stop Dose Admin Piperacillin Sod/Tazobactam 100 mls @ 200 mls/hr 12/24/18 23:21 12/25/18 00: 16 Sod 4.5 gm/ Dextrose IVPB 12/24/18 23:50 200 mls/hr ONCE ONE Administration Protocol *DC/Admit/Observation/Transfer Diagnosis at time of Disposition: Phlegmonous peritonitis - Discharge Dispostion Condition at time of disposition: Guarded Decision to Admit order: Yes - Referrals - Patient Instructions - Post Discharge Activity
[2018-12-25] MEDS ORDERED: D5-1/2NS+10 MEQ KCL - 10 MEQ/1,000 ML INFUS.BAG IV SCH ×2 (00:45→15:30)
--- NOTE | 2018-12-25 01:10 | PN ---
Teaching Attending Note Name of Resident: Paxton Rojas ATTENDING PHYSICIAN STATEMENT I saw and evaluated the patient. I reviewed the resident's note and discussed the case with the resident. I agree with the resident's findings and plan as documented. SUBJECTIVE: Patient is a 78 year old woman with PMH of HTN, Syncope and HLD who presents with one week history of worsening abdominal pain. She describes progressive constant non radiating 9/10 LLQ abdominal pain. Aggravated by movement and palpation. No alleviating factors. Denies fever or chills. Last BM was this morning and was watery. Has not had anything to eat in several days. Had a similar pain last year and took tylenol for it at home and pain resolved. Went to her PMD today and had CTAP this afternoon which showed mid sigmoid diverticulitis with associated perforation/phlegmon and abscess. OBJECTIVE: Alert Vital Signs Period Temp Pulse Resp BP Sys/Zhong Pulse Ox Last 24 Hr 98.4 F-98.7 F 76-80 17-18 120-139/47-48 97-100 HEENT: No Jaundice, eye redness or discharge, PERRLA, EOMI. Normocephalic, atraumatic. External ears are normal and hearing is grossly intact. No nasal discharge. Neck: Supple, nontender. No palpable adenopathy or thyromegaly. No JVD Chest: Good effort. Clear to auscultation and percussion. Heart: Regular. No S3, rub or murmur Abdomen: Not distended, soft, LLQ tenderness and no HSM. No rebound or guarding. Normal bowel sounds. Ext: Peripheral pulses intact. No leg edema. Skin: Warm and dry. No petechiae, rash or ecchymosis. Neuro: Alert. Oriented x3. CN 2-12 grossly intact. Sensation grossly intact in all four extremities and DTR are symmetric. Psych: Appropriate mood and affect. Good insight. Current Medications Generic Name Dose Route Start Last Admin Trade Name Freq PRN Reason Stop Dose Admin Sodium Chloride 1,000 mls @ 1,000 mls/hr 12/25/18 00:23 12/25/18 00:29 Normal Saline - IV 12/25/18 01:22 1,000 mls/hr ASDIR STA Administration Potassium Chloride/Dextrose/Sod Cl 10 meq in 1,000 mls @ 75 mls/hr 12/25/18 00 :45 D5-1/2ns+10 Meq Kcl - IV ASDIR BABITA Home Medications Medication Instructions Recorded Amlodipine Besylate [Norvasc -] 5 mg PO DAILY 07/01/14 Lisinopril [Prinivil] 20 mg PO DAILY 07/01/14 Aspirin [ASA -] 81 mg PO DAILY 07/10/18 Simvastatin 5 mg PO HS 07/10/18 Abnormal Lab Results 12/24/18 12/24/18 23:10 23:10 WBC 15.1 H Absolute Neuts (auto) 13.2 H Neutrophils % 87.1 H Lymphocytes % 6.7 L D Sodium 128 L Chloride 94 L Creatinine 0.5 L Alkaline Phosphatase 145 H Albumin 2.8 L ASSESSMENT AND PLAN: 1. Sigmoid diverticulitis with perforation/phlegmon and abscess - ID and surgery consulted. Being treated with IV Zosyn and IV NS. Hyponatremia likely due to poor solute intake. EKG shows NSR with no significant ST-T wave changes. Being kept NPO for possible surgery/abscess drainage. Will get PT/INR and type and hold blood. 2, Hypoalbuminemia - Possibly due to combined effects of malnutrition and inflammation associated with comorbid chronic conditions. Will ensure adequate dietary protein intake and also consult machining and assembly supervisor. 3. Hypertension - Restart outpatient antihypertensive drugs when clinically appropriate. Nonpharmacologic measures to control hypertension like weight loss , salt restriction and exercise discussed. 4. DVT prophylaxis - Lovenox 40 mg SQ q 24 hours. 5. Advance directives - Full code
[2018-12-25] MEDS ORDERED: ONDANSETRON 4 MG/2 ML VIAL IVPB PRN (01:39)
--- NOTE | 2018-12-25 01:45 | HP ---
CHIEF COMPLAINT: pain abdomen PCP: dr garcia HISTORY OF PRESENT ILLNESS: 78 yo F with PMhx of HTN and HLD presents with 3 day history of worsening abdominal pain. She states that pain started in LLQ 3 days ago 9/10 in intensity, non radiating, intemittent, sharp in nature, Aggravated by movement and palpation. No alleviating factors. Denies fever or chills. Denies abdominal distension. Denies nausea and vomiting. Last BM was this morning and was watery and small in quantity. states she is passing flatus. Denies loss of weight and appetite. Denies blood in stool. Never had colonoscopy. Denies burning micturation. Denies change in frequency of urination. Denies vaginal discharge. ER course was notable for: (1)cbc, cmp, ct abdomen (2)IV fluid (3) Recent Travel: no PAST MEDICAL HISTORY: as above PAST SURGICAL HISTORY: no Social History: Smoking:no Alcohol: Drugs: Family History: Allergies acetaminophen [From Darvocet-N 100] Allergy (Mild, Verified 12/24/18 22:32) Nausea propoxyphene napsylate [From Darvocet-N 100] Allergy (Mild, Verified 12/24/18 22 :32) Nausea codeine Allergy (Verified 12/24/18 22:32) HOME MEDICATIONS: Home Medications Medication Instructions Recorded Amlodipine Besylate [Norvasc -] 5 mg PO DAILY 07/01/14 Lisinopril [Prinivil] 20 mg PO DAILY 07/01/14 Aspirin [ASA -] 81 mg PO DAILY 07/10/18 Simvastatin 5 mg PO HS 07/10/18 REVIEW OF SYSTEMS CONSTITUTIONAL: Absent: fever, chills, diaphoresis, generalized weakness, malaise, loss of appetite, weight change HEENT: Absent: rhinorrhea, nasal congestion, throat pain, throat swelling, difficulty swallowing, mouth swelling, ear pain, eye pain, visual changes CARDIOVASCULAR: Absent: chest pain, syncope, palpitations, irregular heart rate, lightheadedness , peripheral edema RESPIRATORY: Absent: cough, shortness of breath, dyspnea with exertion, orthopnea, wheezing, stridor, hemoptysis GASTROINTESTINAL: Absent: abdominal pain, abdominal distension, nausea, vomiting, diarrhea, constipation, melena, hematochezia GENITOURINARY: Absent: dysuria, frequency, urgency, hesitancy, hematuria, flank pain, genital pain MUSCULOSKELETAL: Absent: myalgia, arthralgia, joint swelling, back pain, neck pain SKIN: Absent: rash, itching, pallor HEMATOLOGIC/IMMUNOLOGIC: Absent: easy bleeding, easy bruising, lymphadenopathy, frequent infections ENDOCRINE: Absent: unexplained weight gain, unexplained weight loss, heat intolerance, cold intolerance NEUROLOGIC: Absent: headache, focal weakness or paresthesias, dizziness, unsteady gait, seizure, mental status changes, bladder or bowel incontinence PSYCHIATRIC: Absent: anxiety, depression, suicidal or homicidal ideation, hallucinations. PHYSICAL EXAMINATION Vital Signs - 24 hr 12/24/18 12/25/18 22:30 00:59 Temperature 98.7 F 98.4 F Pulse Rate 80 Pulse Rate [ 76 Left Radial] Respiratory 17 18 Rate Blood Pressure 139/47 L Blood Pressure 120/48 L [Left Arm] O2 Sat by Pulse 100 97 Oximetry (%) GENERAL: Awake, alert, and fully oriented, in no acute distress. HEAD: Normal with no signs of trauma. EARS, NOSE, THROAT: Moist mucous membranes. LUNGS: Breath sounds equal, clear to auscultation bilaterally. No wheezes, and no crackles. No accessory muscle use. HEART: Regular rate and rhythm, normal S1 and S2 without murmur, rub or gallop. ABDOMEN: Soft, tender llq , not distended, normoactive bowel sounds, no guarding , no rebound, no masses. MUSCULOSKELETAL: Normal range of motion at all joints. UPPER EXTREMITIES: 2+ pulses, warm, well-perfused. LOWER EXTREMITIES: 2+ pulses, warm, well-perfused. SKIN: Warm, dry,Laboratory Results - last 24 hr 12/24/18 12/24/18 12/24/18 23:10 23:10 23:10 WBC 15.1 H RBC 4.08 Hgb 12.0 Hct 36.2 MCV 88.9 MCH 29.5 MCHC 33.2 RDW 13.8 Plt Count 237 MPV 8.8 Absolute Neuts (auto) 13.2 H Neutrophils % 87.1 H Lymphocytes % 6.7 L D Monocytes % 5.8 Eosinophils % 0.2 Basophils % 0.2 Nucleated RBC % 0 PT with INR 12.90 INR 1.09 Sodium 128 L Potassium 4.0 Chloride 94 L Carbon Dioxide 22 Anion Gap 11 BUN 11 Creatinine 0.5 L Est GFR (CKD-EPI)AfAm 107.44 Est GFR (CKD-EPI)NonAf 92.70 Random Glucose 100 Calcium 9.1 Total Bilirubin 1.0 AST 28 ALT 27 Alkaline Phosphatase 145 H Total Protein 6.7 Albumin 2.8 L ASSESSMENT/PLAN: Complicated/ perforated diverticulitis NPO IV fluid pain control zofran prn Iv antibiotic zosyn pt/inr trype and screen surgery and id consult monitor vital monitor intake/output htn monitor vitals hld hold statin hold aspirin for now fluid: d51/2 ns with 10meq kcl electrolyte; repeat in am nutrition: npo dvt pro; scd b/l gi pro; protinix dispo; med surg Visit type - Emergency Visit Emergency Visit: Yes ED Registration Date: 12/25/18 Care time: The patient presented to the Emergency Department on the above date and was hospitalized for further evaluation of their emergent condition. - New Patient This patient is new to me today: Yes Date on this admission: 12/25/18 - Critical Care Critical Care patient: No
[2018-12-25] MEDS ORDERED: HEPARIN NA (PORCINE) 5,000 UNITS/ML 1ML VIAL SQ SCH (02:00)
[2018-12-25] MEDS ORDERED: PIPERACILLIN/TAZOBACTAM 4.5 GM VIAL IVPB ONE ×4 (02:34→21:36)
[2018-12-25] MEDS ORDERED: DEXTROSE 5%-WATER 100 ML IVPB ONE ×4 (02:34→21:36)
[2018-12-25 02:55] VITALS: BMI 25.4
[2018-12-25] MEDS: PIPERACILLIN/TAZOB 4.5 GM 4.5 GM in DEXTROSE 5%-WATER 100 ML IVPB SCH ×4 (02:59→22:14)
[2018-12-25] MEDS ORDERED: PIPERACILLIN/TAZOB 4.5 GM 4.5 GM in DEXTROSE 5%-WATER 100 ML IVPB SCH (03:00)
[2018-12-25] MEDS: PANTOPRAZOLE SODIUM 40 MG VIAL IVPUSH SCH (10:27)
[2018-12-25 10:39] LABS: BASO % 0.2 % (0-2.0); EOS % 0.2 % (0-4.5); HEMATOCRIT 36.4 % (32.4-45.2); HEMOGLOBIN 12.2 GM/dL (10.7-15.3); LYMPH % 8.2 % (8-40); MCH 30.1 pg (25.7-33.7); MCHC 33.5 g/dl (32.0-36.0); MEAN CELL VOLUME 89.8 fl (80-96); MEAN PLT VOLUME 8.3 fl (7.5-11.1); MONO % 6.5 % (3.8-10.2); NEUT % 84.9 % (42.8-82.8); PLATELET COUNT 299 K/MM3 (134-434); RBC 4.06 M/mm3 (3.60-5.2); RDW 14.1 % (11.6-15.6); WHITE BLOOD COUNT 11.3 K/mm3 (4.0-10.0)
[2018-12-25 10:48] LABS: ALBUMIN 2.8 g/dl (3.4-5.0); BILIRUBIN,TOTAL 0.8 mg/dL (0.2-1); CALCIUM 8.8 mg/dL (8.5-10.1); CREATININE 0.6 mg/dL (0.55-1.3); MAGNESIUM 2.5 mg/dL (1.8-2.4); PHOSPHOROUS 2.9 mg/dL (2.5-4.9); POTASSIUM 3.3 mmol/L (3.5-5.1); TOT PROT 6.5 g/dl (6.4-8.2)
[2018-12-25] MEDS ORDERED: SODIUM CHLORIDE 1,000 ML IV SCH (11:30)
--- NOTE | 2018-12-25 11:41 | EKG ---
Test Reason : Blood Pressure : / mmHG Vent. Rate : 078 BPM Atrial Rate : 078 BPM P-R Int : 144 ms QRS Dur : 078 ms QT Int : 382 ms P-R-T Axes : 030 037 040 degrees QTc Int : 435 ms NORMAL SINUS RHYTHM NORMAL ECG WHEN COMPARED WITH ECG OF 11-JUL-2018 05:40, NO SIGNIFICANT CHANGE WAS FOUND Confirmed by JACINTA SUAREZ MD ([id number]) on 12/25/2018 11:41:19 AM Referred By: JEAN PIERRE Confirmed By:JACINTA SUAREZ MD
[2018-12-25] MEDS ORDERED: D5-1/2NS+20 MEQ KCL - 20 MEQ/1,000 ML INFUS.BAG IV SCH (11:45)
--- NOTE | 2018-12-25 11:53 | PN ---
Progress Note (short form) - Note Progress Note: Events noted Pt does not appear toxic She c.o abd pain 3 days h/o abd pain no constipation or diarrhea No nausea no fever Vital Signs - 24 hr 12/24/18 12/25/18 12/25/18 22:30 00:59 02:24 Temperature 98.7 F 98.4 F 98.8 F Pulse Rate 80 85 Pulse Rate [ 76 Left Radial] Respiratory 17 18 18 Rate Blood Pressure 139/47 L 136/67 Blood Pressure 120/48 L [Left Arm] O2 Sat by Pulse 100 97 Oximetry (%) 12/25/18 12/25/18 12/25/18 02:26 02:52 06:30 Temperature 98.8 F 99 F Pulse Rate 85 79 Pulse Rate [ Left Radial] Respiratory 18 18 Rate Blood Pressure 136/67 142/58 L Blood Pressure [Left Arm] O2 Sat by Pulse 97 Oximetry (%) Current Medications Generic Name Dose Route Start Last Admin Trade Name Freq PRN Reason Stop Dose Admin Piperacillin Sod/Tazobactam 100 mls @ 200 mls/hr 12/25/18 15:00 Sod 4.5 gm/ Dextrose IVPB Q6H-IV [facility]AB[facility] Protocol Potassium Chloride/Dextrose/Sod Cl 20 meq in 1,000 mls @ 83 mls/hr 12/25/18 11 :45 D5-1/2ns+20 Meq Kcl - IV ASDIR [facility] Lisinopril 10 mg 12/25/18 11:45 Prinivil PO DAILY [facility] Ondansetron HCl 8 mg 12/25/18 01:39 Zofran Injection IVPB Q8H PRN NAUSEA Pantoprazole Sodium 40 mg 12/25/18 10:00 12/25/18 10:27 Protonix Iv IVPUSH 40 mg DAILY [facility] Administration Laboratory Results - last 24 hr 12/24/18 12/24/18 12/24/18 23:10 23:10 23:10 WBC 15.1 H RBC 4.08 Hgb 12.0 Hct 36.2 MCV 88.9 MCH 29.5 MCHC 33.2 RDW 13.8 Plt Count 237 MPV 8.8 Absolute Neuts (auto) 13.2 H Neutrophils % 87.1 H Lymphocytes % 6.7 L D Monocytes % 5.8 Eosinophils % 0.2 Basophils % 0.2 Nucleated RBC % 0 PT with INR 12.90 INR 1.09 Sodium 128 L Potassium 4.0 Chloride 94 L Carbon Dioxide 22 Anion Gap 11 BUN 11 Creatinine 0.5 L Est GFR (CKD-EPI)AfAm 107.44 Est GFR (CKD-EPI)NonAf 92.70 Random Glucose 100 Calcium 9.1 Phosphorus Magnesium Total Bilirubin 1.0 AST 28 ALT 27 Alkaline Phosphatase 145 H Total Protein 6.7 Albumin 2.8 L Blood Type Antibody Screen 12/24/18 12/25/18 12/25/18 23:10 09:55 09:55 WBC 11.3 H RBC 4.06 Hgb 12.2 Hct 36.4 MCV 89.8 MCH 30.1 MCHC 33.5 RDW 14.1 Plt Count 299 D MPV 8.3 Absolute Neuts (auto) 9.6 H Neutrophils % 84.9 H Lymphocytes % 8.2 D Monocytes % 6.5 Eosinophils % 0.2 Basophils % 0.2 Nucleated RBC % 0 PT with INR INR Sodium 135 L Potassium 3.3 L Chloride 100 Carbon Dioxide 27 Anion Gap 8 BUN 7 Creatinine 0.6 Est GFR (CKD-EPI)AfAm 101.18 Est GFR (CKD-EPI)NonAf 87.30 Random Glucose 111 H Calcium 8.8 Phosphorus 2.9 Magnesium 2.5 H Total Bilirubin 0.8 AST 19 ALT 30 Alkaline Phosphatase 163 H Total Protein 6.5 Albumin 2.8 L Blood Type A POSITIVE Antibody Screen Negative No pallor S1 S2 RRR Lungs clear Abd- soft, tender left > right quadrant, BS=, not distended No edema PLAN diverticulitis, perforation, abscess -- ct abd and pelvis noted -- iv antibiotics -- iv fluids -- keep NPO -- spoke with surgery-- will be seeing her today HTN -- may restart Lisinopril ith small sips of water DVT prophylaxis-- heparin sc Problem List - Problems (1) Phlegmonous peritonitis Code(s): K65.0 - GENERALIZED (ACUTE) PERITONITIS (2) Hyperlipidemia Code(s): E78.5 - HYPERLIPIDEMIA, UNSPECIFIED Qualifiers: Hyperlipidemia type: pure hypercholesterolemia Qualified Code(s): E78.00 - Pure hypercholesterolemia, unspecified; E78.0 - Pure hypercholesterolemia (3) Hypertension Code(s): I10 - ESSENTIAL (PRIMARY) HYPERTENSION Qualifiers: Hypertension type: essential hypertension Qualified Code(s): I10 - Essential (primary) hypertension (4) Diverticulitis Code(s): K57.92 - DVTRCLI OF INTEST, PART UNSP, W/O PERF OR ABSCESS W/O BLEED (5) Diverticulitis of intestine with abscess Code(s): K57.80 - DVTRCLI OF INTEST, PART UNSP, W PERF AND ABSCESS W/O BLEED
[2018-12-25] MEDS: LISINOPRIL 10 MG TABLET (FP) PO SCH (12:34)
--- NOTE | 2018-12-25 12:35 | CONSULT ---
Consult Consult Specialty:: Surgery Referred by:: Harmony Sorensen Reason for Consultation:: Acute diverticulitis with phlegmon and microperforation. - History of Present Illness Chief Complaint: C/O abdominal pain in left lower quadrant of abdomen since Thursday , 12/21/2018. Pain got worse , and she went bto her primary doctor who requested a CT scan of the abdomen , revealing acute sigmoid diverticulitis with contained microperforation , with abscess. She is admitted and placed on antibiotics. She had similar symptoms about a year ago, but did not seed her physician , and did not see go to the hospital. Since admission she is feeling better, and has very minimal pain in the left lower quadrant of her abdomen. No diarrhea, no chills. - History Source History Provided By: Patient Limitations to Obtaining History: No Limitations - Past Medical History Cardio/Vascular: Yes: HTN - Past Surgical History Past Surgical History: Yes: None - Alcohol/Substance Use Hx Alcohol Use: No History of Substance Use: reports: None - Smoking History Smoking history: Never smoked Have you smoked in the past 12 months: No Aproximately how many cigarettes per day: 0 - Social History ADL: Independent History of Recent Travel: No Home Medications - Allergies Allergies/Adverse Reactions: Allergies Allergy/AdvReac Type Severity Reaction Status Date / Time No Known Allergies Allergy Verified 12/25/18 06:35 - Home Medications Home Medications: Ambulatory Orders Amlodipine Besylate [Norvasc -] 5 mg PO DAILY 07/01/14 Lisinopril [Prinivil] 20 mg PO DAILY 07/01/14 Aspirin [ASA -] 81 mg PO DAILY 07/10/18 Simvastatin 5 mg PO HS 07/10/18 Physical Exam Vital Signs: Vital Signs Temperature 99 F 12/25/18 06:30 Pulse Rate 79 12/25/18 06:30 Respiratory Rate 18 12/25/18 06:30 Blood Pressure 142/58 L 12/25/18 06:30 O2 Sat by Pulse Oximetry (%) 97 12/25/18 02:26 Gastrointestinal: Yes: Other (? soft nontender,?mass in left lower quadrant of abdomen, no guarding .) Labs: CBC, BMP 12/25/18 09:55 12/25/18 09:55 Imaging - Results Cat Scan: Report Reviewed, Image Reviewed Problem List - Problems (1) Hyperlipidemia Code(s): E78.5 - HYPERLIPIDEMIA, UNSPECIFIED Qualifiers: Hyperlipidemia type: pure hypercholesterolemia Qualified Code(s): E78.00 - Pure hypercholesterolemia, unspecified; E78.0 - Pure hypercholesterolemia (2) Tinnitus Code(s): H93.19 - TINNITUS, UNSPECIFIED EAR Qualifiers: Laterality: left Qualified Code(s): H93.12 - Tinnitus, left ear (3) Hypertension Code(s): I10 - ESSENTIAL (PRIMARY) HYPERTENSION Qualifiers: Hypertension type: essential hypertension Qualified Code(s): I10 - Essential (primary) hypertension (4) Diverticulitis of large intestine with perforation and abscess Code(s): K57.20 - DVTRCLI OF LG INT W PERFORATION AND ABSCESS W/O BLEEDING Assessment/Plan Acute sigmoid diverticulitis with microperforation and abscess, feeling better. On antibiotics, followed by ID, Keep NPO. Monitor , if improved will gradually feed patient. If progresses to a localised abscess, will consider CT guided drainage. Conyinue antibiotics. Hydration.
--- NOTE | 2018-12-25 13:02 | CON.ID ---
Consult - History of Present Illness History of Present Illness: 78 y.o. female with PMH of HLD and HTN with c/o sharp intermittent lower abdominal pain x 4 days associated with mild nausea. She states she went to her PMD and had a CT Abd/Pelvis done on 12/24/18 which revealed acute diverticulitis with perforation and abscess formation and presented to the ER. Pt denies fever , chill or vomiting at home but had episode of vomiting last night. In the ER she was found to have LLQ abd pain on exam with leukocytosis wbc 16.1K. She has been started on IV antibiotics and today states she feels more of an abdominal soreness than acute pain. Current temp of 99F but decrease in wbc. Currently is comfortable without any other complaints. - History Source History Provided By: Patient, Medical Record - Past Medical History Cardio/Vascular: Yes: HTN, Hyperlipdemia - Past Surgical History Past Surgical History: Yes: None - Alcohol/Substance Use Hx Alcohol Use: No History of Substance Use: reports: None - Smoking History Smoking history: Never smoked Have you smoked in the past 12 months: No Aproximately how many cigarettes per day: 0 - Social History ADL: Independent History of Recent Travel: No Home Medications - Allergies Allergies/Adverse Reactions: Allergies Allergy/AdvReac Type Severity Reaction Status Date / Time No Known Allergies Allergy Verified 12/25/18 06:35 - Home Medications Home Medications: Ambulatory Orders Amlodipine Besylate [Norvasc -] 5 mg PO DAILY 07/01/14 Lisinopril [Prinivil] 20 mg PO DAILY 07/01/14 Aspirin [ASA -] 81 mg PO DAILY 07/10/18 Simvastatin 5 mg PO HS 07/10/18 Review of Systems - Review of Systems Constitutional: reports: No Symptoms. denies: Chills, Diaphoresis, Fever, Lethargy, Loss of Appetite, Malaise, Night Sweats, Unintentional Wgt. Loss, Weakness, Other Eyes: reports: No Symptoms HENT: reports: No Symptoms Neck: reports: No Symptoms Cardiovascular: reports: No Symptoms. denies: Chest Pain, Edema, Palpitations, Shortness of Breath, Other Respiratory: reports: No Symptoms. denies: Cough, Exercise Intolerance, Hemoptysis, Orthopnea, PND, Snoring, SOB, SOB on Exertion, Wheezing, Other Gastrointestinal: reports: Abdominal Pain (mild LLQ) Genitourinary: reports: No Symptoms. denies: Burning, Discharge, Dysuria, Flank Pain, Frequency, Hematuria, Incontinence, Lesions, Menses, Pain, Testicular Mass, Testicular Pain, Testicular Swelling, Urgency, Vaginal Bleeding , Other Musculoskeletal: reports: No Symptoms. denies: Back Pain, Crepitus, Decreased ROM, Extremity Pain, Joint Pain, Joint Swelling, Muscle Pain, Muscle Cramps, Muscle Weakness, Other Integumentary: reports: No Symptoms. denies: Blister, Bruising, Change in Color , Eczema, Erythema, Incision, Lesions, Lump, Pallor, Pruritis, Rash, Wound, Other Neurological: reports: No Symptoms. denies: Change in LOC, Change in Speech, Confusion, Dizziness, Headache, Incoordination, Numbness, Parasthesia, Pre- Existing Deficit, Seizure, Syncope, Tremors, Unsteady Gait, Weakness, Other Endocrine: reports: No Symptoms. denies: Excessive Sweating, Flushing, Increased Hunger, Increased Thirst, Intolerance to Cold, Intolerance to Heat, Unexplained Weight Gain, Unexplained Weight Loss, Other Pain Intensity: 2 Physical Exam Vital Signs: Vital Signs Temperature 99 F 12/25/18 06:30 Pulse Rate 79 12/25/18 06:30 Respiratory Rate 18 12/25/18 06:30 Blood Pressure 142/58 L 12/25/18 06:30 O2 Sat by Pulse Oximetry (%) 97 12/25/18 02:26 Constitutional: Yes: No Distress, Calm Eyes: Yes: Conjunctiva Clear HENT: Yes: Atraumatic Neck: Yes: Supple Cardiovascular: Yes: Regular Rate and Rhythm Respiratory: Yes: CTA Bilaterally Gastrointestinal: Yes: Normal Bowel Sounds, Soft, Tenderness (minimal LLQ, no guarding/rigidity, no distension) Renal/: Yes: WNL Extremities: Yes: WNL Integumentary: Yes: WNL Neurological: Yes: Alert, Oriented Psychiatric: Yes: Alert Labs: CBC, BMP 12/25/18 09:55 12/25/18 09:55 Blood cultures pending Imaging - Results Cat Scan: Report Reviewed Problem List - Problems (1) Diverticulitis of large intestine with perforation and abscess Code(s): K57.20 - DVTRCLI OF LG INT W PERFORATION AND ABSCESS W/O BLEEDING (2) Hyperlipidemia Code(s): E78.5 - HYPERLIPIDEMIA, UNSPECIFIED Qualifiers: Hyperlipidemia type: pure hypercholesterolemia Qualified Code(s): E78.00 - Pure hypercholesterolemia, unspecified; E78.0 - Pure hypercholesterolemia (3) Hypertension Code(s): I10 - ESSENTIAL (PRIMARY) HYPERTENSION Qualifiers: Hypertension type: essential hypertension Qualified Code(s): I10 - Essential (primary) hypertension Assessment/Plan 78 y.o. female with HTN, HLD presenting with c/o LLQ abdominal pain x [address] revealing mid sigmoid inflammation with collection Acute Sigmoid diverticulitis with perforation/Abscess Leukocytosis -- continue Zosyn for now -- May need drainage of abscess -- follow up blood culture results -- wbc trending down, monitor temperature trend -- surgery following Will follow Thank you
--- NOTE | 2018-12-25 14:47 | HP ---
Admitting History and Physical - Primary Care Physician PCP: Jessie Elliott - Admission Chief Complaint: Abd pain for last 4days Limitations to Obtaining History: No Limitations - Past Medical History Cardiovascular: Yes: HTN, Hyperlipdemia Gastrointestinal: Yes: Diverticulitis, Diverticulosis Psych: Yes: Anxiety - Past Surgical History Past Surgical History: Yes: None - Smoking History Smoking history: Never smoked Have you smoked in the past 12 months: No Aproximately how many cigarettes per day: 0 - Alcohol/Substance Use Hx Alcohol Use: No History of Substance Use: reports: None - Social History ADL: Independent History of Recent Travel: No Home Medications - Allergies Allergies/Adverse Reactions: Allergies Allergy/AdvReac Type Severity Reaction Status Date / Time No Known Allergies Allergy Verified 12/25/18 06:35 - Home Medications Home Medications: Ambulatory Orders Amlodipine Besylate [Norvasc -] 5 mg PO DAILY 07/01/14 Lisinopril [Prinivil] 20 mg PO DAILY 07/01/14 Aspirin [ASA -] 81 mg PO DAILY 07/10/18 Simvastatin 5 mg PO HS 07/10/18 Review of Systems - Review of Systems Constitutional: reports: Loss of Appetite Cardiovascular: reports: Other (No chest pain) Respiratory: reports: Other (NO SOB) Gastrointestinal: reports: Abdominal Pain, Nausea (No Fever) Musculoskeletal: reports: Joint Pain Neurological: reports: Weakness Physical Examination Vital Signs: Vital Signs Temperature 99 F 12/25/18 10:00 Pulse Rate 70 12/25/18 10:00 Respiratory Rate 18 12/25/18 10:00 Blood Pressure 157/54 L 12/25/18 10:00 O2 Sat by Pulse Oximetry (%) 97 12/25/18 09:00 Constitutional: Yes: No Distress Eyes: Yes: EOM Intact HENT: Yes: Atraumatic, Normocephalic Neck: Yes: Supple, Trachea Midline Cardiovascular: Yes: Regular Rate and Rhythm Respiratory: Yes: Regular, CTA Bilaterally Gastrointestinal: Yes: Normal Bowel Sounds ([place] LLQ) ...Rectal Exam: Yes: Deferred Extremities: Yes: Calf Tenderness, Other (No Oedema) Labs: CBC, BMP 12/25/18 09:55 12/25/18 09:55 Imaging - Results Chest X-ray: Report Reviewed, Image Reviewed Cat Scan: Report Reviewed, Image Reviewed Problem List - Problems (1) Diverticulitis of large intestine with perforation and abscess Code(s): K57.20 - DVTRCLI OF LG INT W PERFORATION AND ABSCESS W/O BLEEDING (2) Hyperlipidemia Code(s): E78.5 - HYPERLIPIDEMIA, UNSPECIFIED Qualifiers: Hyperlipidemia type: pure hypercholesterolemia Qualified Code(s): E78.00 - Pure hypercholesterolemia, unspecified; E78.0 - Pure hypercholesterolemia (3) Hypertension Code(s): I10 - ESSENTIAL (PRIMARY) HYPERTENSION Qualifiers: Hypertension type: essential hypertension Qualified Code(s): I10 - Essential (primary) hypertension (4) Diverticulitis Code(s): K57.92 - DVTRCLI OF INTEST, PART UNSP, W/O PERF OR ABSCESS W/O BLEED (5) Hypokalemia Code(s): E87.6 - HYPOKALEMIA Assessment/Plan (1) Diverticulitis of large intestine with perforation and abscess Code(s): K57.20 - DVTRCLI OF LG INT W PERFORATION AND ABSCESS W/O BLEEDING (2) Hyperlipidemia Code(s): E78.5 - HYPERLIPIDEMIA, UNSPECIFIED Qualifiers: Hyperlipidemia type: pure hypercholesterolemia Qualified Code(s): E78.00 - Pure hypercholesterolemia, unspecified; E78.0 - Pure hypercholesterolemia (3) Hypertension Code(s): I10 - ESSENTIAL (PRIMARY) HYPERTENSION Qualifiers: Hypertension type: essential hypertension Qualified Code(s): I10 - Essential (primary) hypertension (4) Diverticulitis Code(s): K57.92 - DVTRCLI OF INTEST, PART UNSP, W/O PERF OR ABSCESS W/O BLEED (5) Hypokalemia Code(s): E87.6 - HYPOKALEMIA case Discussed Yesterday night with Dr Avila Surgeon and ID Dr Valenzuela spoke with Radiology yesterday asked Pt to come to ER Pt is feeling better No Fever Abd pain Decreasing Did not Move her bowels today passing flatus
[2018-12-25] MEDS ORDERED: POTASSIUM CHLORIDE TABS 20 MEQ TABLET.ER (FP) PO ONE ×2 (15:15→17:53)
[2018-12-25] MEDS: D5-NS + 20 MEQ KCL - 20 MEQ/1,000 ML INFUS.BAG IV SCH (15:32)
[2018-12-25] MEDS ORDERED: PT OWN MED DRAWER 7, Y5N ONE (15:53)
[2018-12-25] MEDS: HEPARIN NA (PORCINE) 5,000 UNITS/ML 1ML VIAL SQ SCH ×2 (22:15→22:24)
[2018-12-26] MEDS: PIPERACILLIN/TAZOB 4.5 GM 4.5 GM in DEXTROSE 5%-WATER 100 ML IVPB SCH ×4 (03:16→20:04)
[2018-12-26] MEDS ORDERED: PIPERACILLIN/TAZOBACTAM 4.5 GM VIAL IVPB ONE ×4 (03:17→19:46)
[2018-12-26] MEDS ORDERED: DEXTROSE 5%-WATER 100 ML IVPB ONE ×4 (03:18→19:46)
[2018-12-26] MEDS: D5-NS + 20 MEQ KCL - 20 MEQ/1,000 ML INFUS.BAG IV SCH ×2 (03:22→19:51)
[2018-12-26 07:55] LABS: BASO % 0.4 % (0-2.0); EOS % 0.5 % (0-4.5); HEMOGLOBIN 11.7 GM/dL (10.7-15.3); LYMPH % 15.8 % (8-40); MCH 30.2 pg (25.7-33.7); MCHC 33.6 g/dl (32.0-36.0); MONO % 8.4 % (3.8-10.2); NEUT % 74.9 % (42.8-82.8); PLATELET COUNT 310 K/MM3 (134-434); RBC 3.88 M/mm3 (3.60-5.2); RDW 13.8 % (11.6-15.6); WHITE BLOOD COUNT 10.2 K/mm3 (4.0-10.0)
[2018-12-26 08:22] LABS: ALBUMIN 2.6 g/dl (3.4-5.0); BILIRUBIN,TOTAL 0.6 mg/dL (0.2-1); CALCIUM 8.6 mg/dL (8.5-10.1); CREATININE 0.6 mg/dL (0.55-1.3); MAGNESIUM 2.5 mg/dL (1.8-2.4); PHOSPHOROUS 2.8 mg/dL (2.5-4.9); POTASSIUM 4.4 mmol/L (3.5-5.1); TOT PROT 6.3 g/dl (6.4-8.2)
[2018-12-26 09:10] LABS: INR 1.03 (0.83-1.09); PROTHROMBIN TIME (PATIENT) 12.2 SEC (9.7-13.0)
[2018-12-26 09:13] LABS: ACTIVATED PTT 30.4 SECONDS (25.2-36.5)
[2018-12-26] MEDS: LISINOPRIL 10 MG TABLET (FP) PO SCH (09:15)
[2018-12-26] MEDS: PANTOPRAZOLE SODIUM 40 MG VIAL IVPUSH SCH (09:15)
[2018-12-26] MEDS: HEPARIN NA (PORCINE) 5,000 UNITS/ML 1ML VIAL SQ SCH ×2 (09:15→22:47)
[2018-12-26] MEDS: LACTOBACILLUS ACIDOPHILUS 1 TABLET PO SCH (09:15)
--- NOTE | 2018-12-26 09:40 | PN ---
Progress Note, Physician Chief Complaint: Pt has no abd pain Had loose stools No Fever - Current Medication List Current Medications: Active Medications Heparin Sodium (Porcine) (Heparin -) 5,000 unit SQ BID [facility] Last Admin: 12/26/18 09:15 Dose: 5,000 unit Piperacillin Sod/Tazobactam (Sod 4.5 gm/ Dextrose) 100 mls @ 200 mls/hr IVPB Q6H-IV BABITA; Protocol Last Admin: 12/26/18 09:14 Dose: 200 mls/hr Dextrose/Sodium Chloride (Dextrose 5%-Normal Saline+20 Meq Kcl -) 20 meq in 1, 000 mls @ 75 mls/hr IV ASDIR [facility] Last Admin: 12/26/18 03:22 Dose: 75 mls/hr Lactobacillus Acidophilus (Bacid -) 1 tab PO DAILY [facility] Last Admin: 12/26/18 09:15 Dose: 1 tab Lisinopril (Prinivil) 10 mg PO DAILY [facility] Last Admin: 12/26/18 09:15 Dose: 10 mg Ondansetron HCl (Zofran Injection) 8 mg IVPB Q8H PRN PRN Reason: NAUSEA Pantoprazole Sodium (Protonix Iv) 40 mg IVPUSH DAILY [facility] Last Admin: 12/26/18 09:15 Dose: 40 mg - Objective Vital Signs: Vital Signs Temperature 97.7 F 12/26/18 05:00 Pulse Rate 75 12/26/18 05:00 Respiratory Rate 20 12/26/18 05:00 Blood Pressure 133/56 L 12/26/18 05:00 O2 Sat by Pulse Oximetry (%) 97 12/25/18 21:00 Constitutional: Yes: No Distress Eyes: Yes: Conjunctiva Clear HENT: Yes: Atraumatic, Normocephalic Neck: Yes: Supple, Trachea Midline Cardiovascular: Yes: Regular Rate and Rhythm, S1, S2 Respiratory: Yes: Regular, CTA Bilaterally Gastrointestinal: Yes: Normal Bowel Sounds, Soft Edema: No Labs: CBC, BMP 12/26/18 06:45 12/26/18 06:45 INR, PTT INR 1.03 (0.83-1.09) 12/26/18 06:45 Problem List - Problems (1) Diverticulitis of large intestine with perforation and abscess Code(s): K57.20 - DVTRCLI OF LG INT W PERFORATION AND ABSCESS W/O BLEEDING (2) Hyperlipidemia Code(s): E78.5 - HYPERLIPIDEMIA, UNSPECIFIED Qualifiers: Hyperlipidemia type: pure hypercholesterolemia Qualified Code(s): E78.00 - Pure hypercholesterolemia, unspecified; E78.0 - Pure hypercholesterolemia (3) Hypertension Code(s): I10 - ESSENTIAL (PRIMARY) HYPERTENSION Qualifiers: Hypertension type: essential hypertension Qualified Code(s): I10 - Essential (primary) hypertension (4) Diverticulitis Code(s): K57.92 - DVTRCLI OF INTEST, PART UNSP, W/O PERF OR ABSCESS W/O BLEED (5) Hypokalemia Code(s): E87.6 - HYPOKALEMIA Assessment/Plan (1) Diverticulitis of large intestine with perforation and abscess Code(s): K57.20 - DVTRCLI OF LG INT W PERFORATION AND ABSCESS W/O BLEEDING (2) Hyperlipidemia Code(s): E78.5 - HYPERLIPIDEMIA, UNSPECIFIED Qualifiers: Hyperlipidemia type: pure hypercholesterolemia Qualified Code(s): E78.00 - Pure hypercholesterolemia, unspecified; E78.0 - Pure hypercholesterolemia (3) Hypertension Code(s): I10 - ESSENTIAL (PRIMARY) HYPERTENSION Qualifiers: Hypertension type: essential hypertension Qualified Code(s): I10 - Essential (primary) hypertension (4) Diverticulitis Code(s): K57.92 - DVTRCLI OF INTEST, PART UNSP, W/O PERF OR ABSCESS W/O BLEED (5) Hypokalemia Code(s): E87.6 - HYPOKALEMIA WBC coming down Pt is feeling better No Fever Abd pain Decreasing Had loose stools NPO
--- NOTE | 2018-12-26 09:55 | PN ---
Progress Note, Physician Chief Complaint: pain is better pt sitting up in chair had watery bm today - Current Medication List Current Medications: Active Medications Heparin Sodium (Porcine) (Heparin -) 5,000 unit SQ BID [facility] Last Admin: 12/26/18 09:15 Dose: 5,000 unit Piperacillin Sod/Tazobactam (Sod 4.5 gm/ Dextrose) 100 mls @ 200 mls/hr IVPB Q6H-IV [facility]AB[facility]; Protocol Last Admin: 12/26/18 09:14 Dose: 200 mls/hr Dextrose/Sodium Chloride (Dextrose 5%-Normal Saline+20 Meq Kcl -) 20 meq in 1, 000 mls @ 75 mls/hr IV ASDIR [facility] Last Admin: 12/26/18 03:22 Dose: 75 mls/hr Lactobacillus Acidophilus (Bacid -) 1 tab PO DAILY [facility] Last Admin: 12/26/18 09:15 Dose: 1 tab Lisinopril (Prinivil) 10 mg PO DAILY [facility] Last Admin: 12/26/18 09:15 Dose: 10 mg Ondansetron HCl (Zofran Injection) 8 mg IVPB Q8H PRN PRN Reason: NAUSEA Pantoprazole Sodium (Protonix Iv) 40 mg IVPUSH DAILY [facility] Last Admin: 12/26/18 09:15 Dose: 40 mg - Objective Vital Signs: Vital Signs Temperature 97.7 F 12/26/18 05:00 Pulse Rate 75 12/26/18 05:00 Respiratory Rate 20 12/26/18 05:00 Blood Pressure 133/56 L 12/26/18 05:00 O2 Sat by Pulse Oximetry (%) 97 12/25/18 21:00 Constitutional: Yes: No Distress, Calm Cardiovascular: Yes: Regular Rate and Rhythm Respiratory: Yes: CTA Bilaterally Gastrointestinal: Yes: Normal Bowel Sounds, Soft, Tenderness (LLQ+). No: Abdomen, Obese, Distention, Vomiting Edema: No Labs: CBC, BMP 12/26/18 06:45 12/26/18 06:45 INR, PTT INR 1.03 (0.83-1.09) 12/26/18 06:45 Problem List - Problems (1) Phlegmonous peritonitis Code(s): K65.0 - GENERALIZED (ACUTE) PERITONITIS (2) Hyperlipidemia Code(s): E78.5 - HYPERLIPIDEMIA, UNSPECIFIED Qualifiers: Hyperlipidemia type: pure hypercholesterolemia Qualified Code(s): E78.00 - Pure hypercholesterolemia, unspecified; E78.0 - Pure hypercholesterolemia (3) Hypertension Code(s): I10 - ESSENTIAL (PRIMARY) HYPERTENSION Qualifiers: Hypertension type: essential hypertension Qualified Code(s): I10 - Essential (primary) hypertension (4) Diverticulitis Code(s): K57.92 - DVTRCLI OF INTEST, PART UNSP, W/O PERF OR ABSCESS W/O BLEED (5) Diverticulitis of intestine with abscess Code(s): K57.80 - DVTRCLI OF INTEST, PART UNSP, W PERF AND ABSCESS W/O BLEED Assessment/Plan PLAN diverticulitis, perforation, abscess -- ct abd and pelvis noted -- iv antibiotics -- Xray abd ordered -- iv fluids -- keep NPO -- spoke with surgery-- strict NPO HTN -- on Lisinopril with small sips of water DVT prophylaxis-- heparin sc
--- NOTE | 2018-12-26 12:59 | PN ---
Progress Note, Physician - Current Medication List Current Medications: Active Medications Heparin Sodium (Porcine) (Heparin -) 5,000 unit SQ BID [facility] Last Admin: 12/26/18 09:15 Dose: 5,000 unit Piperacillin Sod/Tazobactam (Sod 4.5 gm/ Dextrose) 100 mls @ 200 mls/hr IVPB Q6H-IV [facility]; Protocol Last Admin: 12/26/18 09:14 Dose: 200 mls/hr Dextrose/Sodium Chloride (Dextrose 5%-Normal Saline+20 Meq Kcl -) 20 meq in 1, 000 mls @ 75 mls/hr IV ASDIR [facility] Last Admin: 12/26/18 03:22 Dose: 75 mls/hr Lactobacillus Acidophilus (Bacid -) 1 tab PO DAILY [facility] Last Admin: 12/26/18 09:15 Dose: 1 tab Lisinopril (Prinivil) 10 mg PO DAILY [facility] Last Admin: 12/26/18 09:15 Dose: 10 mg Ondansetron HCl (Zofran Injection) 8 mg IVPB Q8H PRN PRN Reason: NAUSEA Pantoprazole Sodium (Protonix Iv) 40 mg IVPUSH DAILY [facility] Last Admin: 12/26/18 09:15 Dose: 40 mg - Objective Vital Signs: Vital Signs Temperature 98.3 F 12/26/18 09:00 Pulse Rate 63 12/26/18 09:00 Respiratory Rate 20 12/26/18 09:00 Blood Pressure 114/60 12/26/18 09:00 O2 Sat by Pulse Oximetry (%) 97 12/26/18 09:00 Labs: CBC, BMP 12/26/18 06:45 12/26/18 06:45 INR, PTT INR 1.03 (0.83-1.09) 12/26/18 06:45 Problem List - Problems (1) Hyperlipidemia Code(s): E78.5 - HYPERLIPIDEMIA, UNSPECIFIED Qualifiers: Hyperlipidemia type: pure hypercholesterolemia Qualified Code(s): E78.00 - Pure hypercholesterolemia, unspecified; E78.0 - Pure hypercholesterolemia (2) Tinnitus Code(s): H93.19 - TINNITUS, UNSPECIFIED EAR Qualifiers: Laterality: left Qualified Code(s): H93.12 - Tinnitus, left ear (3) Hypertension Code(s): I10 - ESSENTIAL (PRIMARY) HYPERTENSION Qualifiers: Hypertension type: essential hypertension Qualified Code(s): I10 - Essential (primary) hypertension (4) Diverticulitis of large intestine with perforation and abscess Code(s): K57.20 - DVTRCLI OF LG INT W PERFORATION AND ABSCESS W/O BLEEDING Assessment/Plan 12/26/2018: Surgery: Patient has very minimal pain in left lower quadrant, She is hungry and wanting to eat Has had 3 bowel movements. Abdominalm X-ray : no free air within the abdominal cavity. Temp; normal. WBC [id number] Continue antibiotcs. Keep NPO. IV fluids. \ Patient is explained.
--- NOTE | 2018-12-26 15:53 | PN ---
Progress Note, Physician History of Present Illness: Pt is alert, afebrile. States she is comfortable, feels better. Minimal LLQ tenderness. No other complaints. - Current Medication List Current Medications: Active Medications Heparin Sodium (Porcine) (Heparin -) 5,000 unit SQ BID [facility] Last Admin: 12/26/18 09:15 Dose: 5,000 unit Piperacillin Sod/Tazobactam (Sod 4.5 gm/ Dextrose) 100 mls @ 200 mls/hr IVPB Q6H-IV [facility]; Protocol Last Admin: 12/26/18 14:17 Dose: 200 mls/hr Dextrose/Sodium Chloride (Dextrose 5%-Normal Saline+20 Meq Kcl -) 20 meq in 1, 000 mls @ 75 mls/hr IV ASDIR [facility] Last Admin: 12/26/18 03:22 Dose: 75 mls/hr Lactobacillus Acidophilus (Bacid -) 1 tab PO DAILY [facility] Last Admin: 12/26/18 09:15 Dose: 1 tab Lisinopril (Prinivil) 10 mg PO DAILY [facility] Last Admin: 12/26/18 09:15 Dose: 10 mg Ondansetron HCl (Zofran Injection) 8 mg IVPB Q8H PRN PRN Reason: NAUSEA Pantoprazole Sodium (Protonix Iv) 40 mg IVPUSH DAILY [facility] Last Admin: 12/26/18 09:15 Dose: 40 mg - Objective Vital Signs: Vital Signs Temperature 98 F 12/26/18 15:00 Pulse Rate 65 12/26/18 15:00 Respiratory Rate 17 12/26/18 15:00 Blood Pressure 140/56 L 12/26/18 15:00 O2 Sat by Pulse Oximetry (%) 97 12/26/18 09:00 Constitutional: Yes: No Distress, Calm Cardiovascular: Yes: Regular Rate and Rhythm Respiratory: Yes: CTA Bilaterally Gastrointestinal: Yes: Normal Bowel Sounds, Soft, Other (minimal LLQ tenderness with deep palpation) Genitourinary: Yes: WNL Integumentary: Yes: WNL Labs: CBC, BMP 12/26/18 06:45 12/26/18 06:45 INR, PTT INR 1.03 (0.83-1.09) 12/26/18 06:45 Microbiology 12/24/18 23:10 Blood - Peripheral Venous Blood Culture - Preliminary NO GROWTH OBTAINED AFTER 24 HOURS, INCUBATION TO CONTINUE FOR 4 DAYS. 12/24/18 23:10 Blood - Peripheral Venous Blood Culture - Preliminary NO GROWTH OBTAINED AFTER 24 HOURS, INCUBATION TO CONTINUE FOR 4 DAYS. Problem List - Problems (1) Diverticulitis of large intestine with perforation and abscess Code(s): K57.20 - DVTRCLI OF LG INT W PERFORATION AND ABSCESS W/O BLEEDING (2) Hyperlipidemia Code(s): E78.5 - HYPERLIPIDEMIA, UNSPECIFIED Qualifiers: Hyperlipidemia type: pure hypercholesterolemia Qualified Code(s): E78.00 - Pure hypercholesterolemia, unspecified; E78.0 - Pure hypercholesterolemia (3) Hypertension Code(s): I10 - ESSENTIAL (PRIMARY) HYPERTENSION Qualifiers: Hypertension type: essential hypertension Qualified Code(s): I10 - Essential (primary) hypertension Assessment/Plan 78 y.o. female with HTN, HLD presenting with c/o LLQ abdominal pain x [address] revealing mid sigmoid inflammation with collection Acute Sigmoid diverticulitis with perforation/Abscess Leukocytosis -- continue Zosyn -- wbc trended down, pt afebrile, less abd pain -- blood cultures neg 24hr -- surgery following, NPO
[2018-12-27] MEDS ORDERED: PIPERACILLIN/TAZOBACTAM 4.5 GM VIAL IVPB ONE ×4 (01:58→20:49)
[2018-12-27] MEDS ORDERED: DEXTROSE 5%-WATER 100 ML IVPB ONE ×4 (01:58→20:49)
[2018-12-27] MEDS: PIPERACILLIN/TAZOB 4.5 GM 4.5 GM in DEXTROSE 5%-WATER 100 ML IVPB SCH ×4 (02:18→20:54)
[2018-12-27 06:39] LABS: BASO % 0.4 % (0-2.0); EOS % 0.9 % (0-4.5); HEMATOCRIT 32.8 % (32.4-45.2); LYMPH % 16.9 % (8-40); MCH 30.2 pg (25.7-33.7); MCHC 33.6 g/dl (32.0-36.0); MEAN PLT VOLUME 8.1 fl (7.5-11.1); MONO % 8.7 % (3.8-10.2); NEUT % 73.1 % (42.8-82.8); PLATELET COUNT 274 K/MM3 (134-434); RBC 3.64 M/mm3 (3.60-5.2); RDW 13.9 % (11.6-15.6); WHITE BLOOD COUNT 8.8 K/mm3 (4.0-10.0)
[2018-12-27 07:14] LABS: ALBUMIN 2.3 g/dl (3.4-5.0); BILIRUBIN,TOTAL 0.7 mg/dL (0.2-1); CREATININE 0.4 mg/dL (0.55-1.3); POTASSIUM 4.2 mmol/L (3.5-5.1); TOT PROT 5.5 g/dl (6.4-8.2)
[2018-12-27] MEDS: LACTOBACILLUS ACIDOPHILUS 1 TABLET PO SCH (09:25)
[2018-12-27] MEDS: PANTOPRAZOLE SODIUM 40 MG VIAL IVPUSH SCH (09:25)
[2018-12-27] MEDS: LISINOPRIL 10 MG TABLET (FP) PO SCH (09:25)
[2018-12-27] MEDS: HEPARIN NA (PORCINE) 5,000 UNITS/ML 1ML VIAL SQ SCH ×3 (09:25→21:17)
--- NOTE | 2018-12-27 10:17 | PN ---
Progress Note, Physician History of Present Illness: patient doing well very minimal abd pain now wbc has normalized - Current Medication List Current Medications: Active Medications Heparin Sodium (Porcine) (Heparin -) 5,000 unit SQ BID [facility] Last Admin: 12/27/18 09:45 Dose: Not Given Piperacillin Sod/Tazobactam (Sod 4.5 gm/ Dextrose) 100 mls @ 200 mls/hr IVPB Q6H-IV [facility]; Protocol Last Admin: 12/27/18 09:24 Dose: 200 mls/hr Dextrose/Sodium Chloride (Dextrose 5%-Normal Saline+20 Meq Kcl -) 20 meq in 1, 000 mls @ 75 mls/hr IV ASDIR [facility] Last Admin: 12/26/18 19:51 Dose: 75 mls/hr Lactobacillus Acidophilus (Bacid -) 1 tab PO DAILY [facility] Last Admin: 12/27/18 09:25 Dose: 1 tab Lisinopril (Prinivil) 10 mg PO DAILY [facility] Last Admin: 12/27/18 09:25 Dose: 10 mg Ondansetron HCl (Zofran Injection) 8 mg IVPB Q8H PRN PRN Reason: NAUSEA Pantoprazole Sodium (Protonix Iv) 40 mg IVPUSH DAILY [facility] Last Admin: 12/27/18 09:25 Dose: 40 mg - Objective Vital Signs: Vital Signs Temperature 98.3 F 12/27/18 06:00 Pulse Rate 72 12/27/18 06:00 Respiratory Rate 20 12/27/18 06:00 Blood Pressure 151/62 12/27/18 06:00 O2 Sat by Pulse Oximetry (%) 97 12/26/18 09:00 Constitutional: Yes: No Distress, Calm Cardiovascular: Yes: S1, S2 Respiratory: Yes: Regular, CTA Bilaterally Gastrointestinal: Yes: Soft, Hypoactive Bowel Sounds Musculoskeletal: Yes: WNL Extremities: Yes: WNL Neurological: Yes: Alert, Oriented Psychiatric: Yes: Alert, Oriented Labs: CBC, BMP 12/27/18 05:30 12/27/18 05:30 INR, PTT INR 1.03 (0.83-1.09) 12/26/18 06:45 Assessment/Plan Problem List - Problems (1) Diverticulitis of large intestine with perforation and abscess Code(s): K57.20 - DVTRCLI OF LG INT W PERFORATION AND ABSCESS W/O BLEEDING (2) Hyperlipidemia Code(s): E78.5 - HYPERLIPIDEMIA, UNSPECIFIED Qualifiers: Hyperlipidemia type: pure hypercholesterolemia Qualified Code(s): E78.00 - Pure hypercholesterolemia, unspecified; E78.0 - Pure hypercholesterolemia (3) Hypertension Code(s): I10 - ESSENTIAL (PRIMARY) HYPERTENSION Qualifiers: Hypertension type: essential hypertension Qualified Code(s): I10 - Essential (primary) hypertension Assessment/Plan 78 y.o. female with HTN, HLD presenting with c/o LLQ abdominal pain x [address] revealing mid sigmoid inflammation with collection Acute Sigmoid diverticulitis with perforation/Abscess Leukocytosis -- continue Zosyn rest as per surgery and the team
--- NOTE | 2018-12-27 10:36 | ECHO ---
Name: JONAS CHINO Exam:Adult Echocardiogram Study Date: 12/27/2018 08:03 AM Age: 78 yrs Reason For Study: Cardiomyopathy Height: 64 in Weight: 148 lb BSA: 1.7 m2 MMode/2D Measurements & Calculations IVSd: 0.96 cm Ao root diam: 2.9 cm LVIDd: 4.1 cm LA dimension: 3.4 cm LVIDs: 2.4 cm LVPWd: 0.83 cm EDV(Teich): 75.6 ml LVOT diam: 2.0 cm ESV(Teich): 19.4 ml LAV (MOD-bp): 67.5 ml Doppler Measurements & Calculations MV E max walter: 115.0 cm/sec Ao V2 max: 184.6 cm/sec MV A max walter: 75.7 cm/sec Ao max P.6 mmHg MV E/A: 1.5 MV dec time: 0.17 sec ALEXANDRA(V,D): 1.6 cm2 LV V1 max P.6 mmHg MR max walter: 561.2 cm/sec LV V1 max: 94.6 cm/sec MR max P.0 mmHg TR max walter: 286.4 cm/sec PA V2 max: 99.1 cm/sec TR max P.0 mmHg PA max P.9 mmHg Med Peak E' Walter: 7.9 cm/sec PI Vmax: 198.2 cm/sec Med E/e': 14.5 Lat Peak E' Walter: 9.0 cm/sec Lat E/e': 12.7 Procedure A complete two-dimensional transthoracic echocardiogram was performed (2D, M-mode, Doppler and color flow Doppler). Left Ventricle The left ventricle is normal in size. Left ventricular systolic function is normal. Ejection Fraction = >70%. No regional wall motion abnormalities noted. Right Ventricle The right ventricle is normal size. The right ventricular systolic function is normal. Atria The left atrium is mildly dilated. LA volume index is 39 ml/m2. Right atrial size is normal. Mitral Valve There is mild mitral annular calcification. There is mild to moderate mitral regurgitation. Tricuspid Valve The tricuspid valve is normal in structure and function. There is mild tricuspid regurgitation. Pulmo nary artery systolic pressure is at least 41 mmHg assuming RA pressure of 3 mmHg. Aortic Valve The aortic valve is normal in structure and function. No aortic regurgitation is present. Pulmonic Valve The pulmonic valve is not well visualized. Trace pulmonic valvular regurgitation. Great Vessels The aortic root is normal size. Pericardium/Pleura There is no pericardial effusion. Interpretation Summary The left ventricle is normal in size. Left ventricular systolic function is normal. No regional wall motion abnormalities noted. Ejection Fraction = >70%. The right ventricular systolic function is normal. The left atrium is mildly dilated. LA volume index is 39 ml/m2 Right atrial size is normal. There is mild mitral annular calcification. There is mild to moderate mitral regurgitation. There is mild tricuspid regurgitation. Pulmonary artery systolic pressure is at least 41 mmHg assuming RA pressure of 3 mmHg Trace pulmonic valvular regurgitation. There is no pericardial effusion. Shaun Hughes MD 12/27/2018 10:35 AM
[2018-12-27] MEDS: D5-NS + 20 MEQ KCL - 20 MEQ/1,000 ML INFUS.BAG IV SCH (12:35)
--- NOTE | 2018-12-27 14:29 | PN ---
Progress Note (short form) - Note Progress Note: pt seen/ examined chart reviewed feels better denies pain has bm Vital Signs Temp 97.8 F 12/27/18 10:00 Pulse 64 12/27/18 10:00 Resp 18 12/27/18 10:00 BP 139/77 12/27/18 10:00 Pulse Ox 97 12/26/18 09:00 Intake & Output 12/26/18 12/27/18 12/27/18 23:59 11:59 23:59 Other: Voiding Method Toilet Toilet # Unmeasured Voids Void 2 3 Active Medications Heparin Sodium (Porcine) (Heparin -) 5,000 unit SQ BID [facility] Last Admin: 12/27/18 09:45 Dose: Not Given Piperacillin Sod/Tazobactam (Sod 4.5 gm/ Dextrose) 100 mls @ 200 mls/hr IVPB Q6H-IV [facility]; Protocol Last Admin: 12/27/18 09:24 Dose: 200 mls/hr Dextrose/Sodium Chloride (Dextrose 5%-Normal Saline+20 Meq Kcl -) 20 meq in 1, 000 mls @ 75 mls/hr IV ASDIR [facility] Last Admin: 12/27/18 12:35 Dose: 75 mls/hr Lactobacillus Acidophilus (Bacid -) 1 tab PO DAILY [facility] Last Admin: 12/27/18 09:25 Dose: 1 tab Lisinopril (Prinivil) 10 mg PO DAILY [facility] Last Admin: 12/27/18 09:25 Dose: 10 mg Ondansetron HCl (Zofran Injection) 8 mg IVPB Q8H PRN PRN Reason: NAUSEA Pantoprazole Sodium (Protonix Iv) 40 mg IVPUSH DAILY [facility] Last Admin: 12/27/18 09:25 Dose: 40 mg CBC, BMP 12/27/18 05:30 12/27/18 05:30 Microbiology 12/24/18 23:10 Blood Culture - Preliminary Blood - Peripheral Venous NO GROWTH OBTAINED AFTER 48 HOURS, INCUBATION TO CONTINUE FOR 3 DAYS. 12/24/18 23:10 Blood Culture - Preliminary Blood - Peripheral Venous NO GROWTH OBTAINED AFTER 48 HOURS, INCUBATION TO CONTINUE FOR 3 DAYS. Physical Constitutional: Yes: No Distress, Calm Cardiovascular: Yes: Regular Rate and Rhythm Respiratory: Yes: CTA Bilaterally Gastrointestinal: Yes: Normal Bowel Sounds, Soft, . No: Abdomen, Obese, Distention, Vomiting Edema: No Problem List - Problems (1) Phlegmonous peritonitis Code(s): K65.0 - GENERALIZED (ACUTE) PERITONITIS (2) Hyperlipidemia Code(s): E78.5 - HYPERLIPIDEMIA, UNSPECIFIED Qualifiers: Hyperlipidemia type: pure hypercholesterolemia Qualified Code(s): E78.00 - Pure hypercholesterolemia, unspecified; E78.0 - Pure hypercholesterolemia (3) Hypertension Code(s): I10 - ESSENTIAL (PRIMARY) HYPERTENSION Qualifiers: Hypertension type: essential hypertension Qualified Code(s): I10 - Essential (primary) hypertension (4) Diverticulitis Code(s): K57.92 - DVTRCLI OF INTEST, PART UNSP, W/O PERF OR ABSCESS W/O BLEED (5) Diverticulitis of intestine with abscess Code(s): K57.80 - DVTRCLI OF INTEST, PART UNSP, W PERF AND ABSCESS W/O BLEED Assessment/Plan PLAN diverticulitis, perforation, abscess -- ct abd and pelvis noted -- iv antibiotics -- Xray abd ordered -- iv fluids -- keep NPO till cleared by surgery-- later today ? will follow
--- NOTE | 2018-12-27 19:33 | PN ---
Progress Note, Physician - Current Medication List Current Medications: Active Medications Heparin Sodium (Porcine) (Heparin -) 5,000 unit SQ BID [facility] Last Admin: 12/27/18 09:45 Dose: Not Given Piperacillin Sod/Tazobactam (Sod 4.5 gm/ Dextrose) 100 mls @ 200 mls/hr IVPB Q6H-IV [facility]; Protocol Last Admin: 12/27/18 15:16 Dose: 200 mls/hr Dextrose/Sodium Chloride (Dextrose 5%-Normal Saline+20 Meq Kcl -) 20 meq in 1, 000 mls @ 75 mls/hr IV ASDIR [facility] Last Admin: 12/27/18 12:35 Dose: 75 mls/hr Lactobacillus Acidophilus (Bacid -) 1 tab PO DAILY [facility] Last Admin: 12/27/18 09:25 Dose: 1 tab Lisinopril (Prinivil) 10 mg PO DAILY [facility] Last Admin: 12/27/18 09:25 Dose: 10 mg Ondansetron HCl (Zofran Injection) 8 mg IVPB Q8H PRN PRN Reason: NAUSEA Pantoprazole Sodium (Protonix Iv) 40 mg IVPUSH DAILY [facility] Last Admin: 12/27/18 09:25 Dose: 40 mg - Objective Vital Signs: Vital Signs Temperature 98.4 F 12/27/18 17:41 Pulse Rate 67 12/27/18 17:41 Respiratory Rate 18 12/27/18 17:41 Blood Pressure 142/66 12/27/18 17:41 O2 Sat by Pulse Oximetry (%) 97 12/26/18 09:00 Labs: CBC, BMP 12/27/18 05:30 12/27/18 05:30 INR, PTT INR 1.03 (0.83-1.09) 12/26/18 06:45 Problem List - Problems (1) Hyperlipidemia Code(s): E78.5 - HYPERLIPIDEMIA, UNSPECIFIED Qualifiers: Hyperlipidemia type: pure hypercholesterolemia Qualified Code(s): E78.00 - Pure hypercholesterolemia, unspecified; E78.0 - Pure hypercholesterolemia (2) Tinnitus Code(s): H93.19 - TINNITUS, UNSPECIFIED EAR Qualifiers: Laterality: left Qualified Code(s): H93.12 - Tinnitus, left ear (3) Hypertension Code(s): I10 - ESSENTIAL (PRIMARY) HYPERTENSION Qualifiers: Hypertension type: essential hypertension Qualified Code(s): I10 - Essential (primary) hypertension (4) Diverticulitis of large intestine with perforation and abscess Code(s): K57.20 - DVTRCLI OF LG INT W PERFORATION AND ABSCESS W/O BLEEDING Assessment/Plan Surgery: Patient has no complaints. Has no abdominal pain. Abdomn is soft , not tender. She has had bowel movement. Wants to have some liquids. will start some clear liquids by mouth. Follow up abdominal CT scan on Thursday, 2018.
[2018-12-28] MEDS: D5-NS + 20 MEQ KCL - 20 MEQ/1,000 ML INFUS.BAG IV SCH ×2 (02:10→18:14)
[2018-12-28] MEDS ORDERED: DEXTROSE 5%-WATER 100 ML IVPB ONE ×4 (02:12→20:32)
[2018-12-28] MEDS ORDERED: PIPERACILLIN/TAZOBACTAM 4.5 GM VIAL IVPB ONE ×4 (02:12→20:31)
[2018-12-28] MEDS: PIPERACILLIN/TAZOB 4.5 GM 4.5 GM in DEXTROSE 5%-WATER 100 ML IVPB SCH ×4 (02:19→20:49)
[2018-12-28 06:26] LABS: BASO % 0.4 % (0-2.0); EOS % 0.8 % (0-4.5); HEMATOCRIT 37.3 % (32.4-45.2); HEMOGLOBIN 12.6 GM/dL (10.7-15.3); LYMPH % 19.1 % (8-40); MCH 30.1 pg (25.7-33.7); MCHC 33.8 g/dl (32.0-36.0); MEAN CELL VOLUME 89.1 fl (80-96); MEAN PLT VOLUME 7.6 fl (7.5-11.1); MONO % 8.3 % (3.8-10.2); NEUT % 71.4 % (42.8-82.8); PLATELET COUNT 357 K/MM3 (134-434); RBC 4.18 M/mm3 (3.60-5.2); RDW 14.1 % (11.6-15.6); WHITE BLOOD COUNT 8.9 K/mm3 (4.0-10.0)
[2018-12-28 07:05] LABS: ALBUMIN 2.7 g/dl (3.4-5.0); BILIRUBIN,TOTAL 0.6 mg/dL (0.2-1); CALCIUM 8.5 mg/dL (8.5-10.1); CREATININE 0.5 mg/dL (0.55-1.3); POTASSIUM 3.5 mmol/L (3.5-5.1); TOT PROT 6.6 g/dl (6.4-8.2)
--- NOTE | 2018-12-28 09:06 | PN ---
Progress Note, Physician History of Present Illness: theo no complaints abd soft - Current Medication List Current Medications: Active Medications Heparin Sodium (Porcine) (Heparin -) 5,000 unit SQ BID [facility] Last Admin: 12/27/18 21:17 Dose: Not Given Piperacillin Sod/Tazobactam (Sod 4.5 gm/ Dextrose) 100 mls @ 200 mls/hr IVPB Q6H-IV [facility]; Protocol Last Admin: 12/28/18 02:19 Dose: 200 mls/hr Dextrose/Sodium Chloride (Dextrose 5%-Normal Saline+20 Meq Kcl -) 20 meq in 1, 000 mls @ 75 mls/hr IV ASDIR [facility] Last Admin: 12/28/18 02:10 Dose: 75 mls/hr Lactobacillus Acidophilus (Bacid -) 1 tab PO DAILY [facility] Last Admin: 12/27/18 09:25 Dose: 1 tab Lisinopril (Prinivil) 10 mg PO DAILY [facility] Last Admin: 12/27/18 09:25 Dose: 10 mg Ondansetron HCl (Zofran Injection) 8 mg IVPB Q8H PRN PRN Reason: NAUSEA Pantoprazole Sodium (Protonix Iv) 40 mg IVPUSH DAILY [facility] Last Admin: 12/27/18 09:25 Dose: 40 mg - Objective Vital Signs: Vital Signs Temperature 98.6 F 12/28/18 06:00 Pulse Rate 69 12/28/18 06:00 Respiratory Rate 18 12/28/18 06:00 Blood Pressure 147/62 12/28/18 06:00 O2 Sat by Pulse Oximetry (%) 97 12/26/18 09:00 Constitutional: Yes: No Distress, Calm Cardiovascular: Yes: Regular Rate and Rhythm Respiratory: Yes: Regular, CTA Bilaterally Gastrointestinal: Yes: Normal Bowel Sounds, Soft Musculoskeletal: Yes: WNL Extremities: Yes: WNL Neurological: Yes: Alert, Oriented Psychiatric: Yes: Alert, Oriented Labs: CBC, BMP 12/28/18 05:20 12/28/18 05:20 INR, PTT INR 1.03 (0.83-1.09) 12/26/18 06:45 Assessment/Plan Problem List - Problems (1) Diverticulitis of large intestine with perforation and abscess Code(s): K57.20 - DVTRCLI OF LG INT W PERFORATION AND ABSCESS W/O BLEEDING (2) Hyperlipidemia Code(s): E78.5 - HYPERLIPIDEMIA, UNSPECIFIED Qualifiers: Hyperlipidemia type: pure hypercholesterolemia Qualified Code(s): E78.00 - Pure hypercholesterolemia, unspecified; E78.0 - Pure hypercholesterolemia (3) Hypertension Code(s): I10 - ESSENTIAL (PRIMARY) HYPERTENSION Qualifiers: Hypertension type: essential hypertension Qualified Code(s): I10 - Essential (primary) hypertension Assessment/Plan 78 y.o. female with HTN, HLD presenting with c/o LLQ abdominal pain x [address] revealing mid sigmoid inflammation with collection Acute Sigmoid diverticulitis with perforation/Abscess Leukocytosis continue abx repeat ct tomorrow surgery on case rest as per the team
[2018-12-28] MEDS: HEPARIN NA (PORCINE) 5,000 UNITS/ML 1ML VIAL SQ SCH ×2 (09:27→21:04)
[2018-12-28] MEDS: PANTOPRAZOLE SODIUM 40 MG VIAL IVPUSH SCH (09:28)
[2018-12-28] MEDS: LISINOPRIL 10 MG TABLET (FP) PO SCH (09:28)
[2018-12-28] MEDS: LACTOBACILLUS ACIDOPHILUS 1 TABLET PO SCH (09:28)
[2018-12-28 10:03] LABS: ANISOCYTOSIS 0; MACROCYTOSIS 0; PLATELET ESTIMATE NORMAL
--- NOTE | 2018-12-28 10:54 | PN ---
Progress Note, Physician - Current Medication List Current Medications: Active Medications Heparin Sodium (Porcine) (Heparin -) 5,000 unit SQ BID [facility] Last Admin: 12/28/18 09:27 Dose: Not Given Piperacillin Sod/Tazobactam (Sod 4.5 gm/ Dextrose) 100 mls @ 200 mls/hr IVPB Q6H-IV [facility]; Protocol Last Admin: 12/28/18 09:29 Dose: 200 mls/hr Dextrose/Sodium Chloride (Dextrose 5%-Normal Saline+20 Meq Kcl -) 20 meq in 1, 000 mls @ 75 mls/hr IV ASDIR [facility] Last Admin: 12/28/18 02:10 Dose: 75 mls/hr Lactobacillus Acidophilus (Bacid -) 1 tab PO DAILY [facility] Last Admin: 12/28/18 09:28 Dose: 1 tab Lisinopril (Prinivil) 10 mg PO DAILY [facility] Last Admin: 12/28/18 09:28 Dose: 10 mg Ondansetron HCl (Zofran Injection) 8 mg IVPB Q8H PRN PRN Reason: NAUSEA Pantoprazole Sodium (Protonix Iv) 40 mg IVPUSH DAILY [facility] Last Admin: 12/28/18 09:28 Dose: 40 mg - Objective Vital Signs: Vital Signs Temperature 98.1 F 12/28/18 09:12 Pulse Rate 72 12/28/18 09:12 Respiratory Rate 18 12/28/18 09:12 Blood Pressure 153/66 12/28/18 09:12 O2 Sat by Pulse Oximetry (%) 97 12/26/18 09:00 Labs: CBC, BMP 12/28/18 05:20 12/28/18 05:20 INR, PTT INR 1.03 (0.83-1.09) 12/26/18 06:45 Problem List - Problems (1) Hyperlipidemia Code(s): E78.5 - HYPERLIPIDEMIA, UNSPECIFIED Qualifiers: Hyperlipidemia type: pure hypercholesterolemia Qualified Code(s): E78.00 - Pure hypercholesterolemia, unspecified; E78.0 - Pure hypercholesterolemia (2) Tinnitus Code(s): H93.19 - TINNITUS, UNSPECIFIED EAR Qualifiers: Laterality: left Qualified Code(s): H93.12 - Tinnitus, left ear (3) Hypertension Code(s): I10 - ESSENTIAL (PRIMARY) HYPERTENSION Qualifiers: Hypertension type: essential hypertension Qualified Code(s): I10 - Essential (primary) hypertension (4) Diverticulitis of large intestine with perforation and abscess Code(s): K57.20 - DVTRCLI OF LG INT W PERFORATION AND ABSCESS W/O BLEEDING Assessment/Plan Surgery: Patient is comfortable, Denies any abdominal pain, She is having bowel movements, Abdomen is soft, not tender. Will start full liquid diet today, and diet after abdominal Ct scan, tomorrow. Continue antibiotics. If inflammation has resolved, will start regular diet tomorrow, and discharge planning.
--- NOTE | 2018-12-28 12:21 | PN ---
Progress Note (short form) - Note Progress Note: Events noted feels well had bm today Vital Signs - 24 hr 12/27/18 12/27/18 12/27/18 14:00 17:41 20:19 Temperature 98.3 F 98.4 F 98 F Pulse Rate 63 67 66 Respiratory 18 18 18 Rate Blood Pressure 150/78 142/66 141/65 12/28/18 12/28/18 06:00 09:12 Temperature 98.6 F 98.1 F Pulse Rate 69 72 Respiratory 18 18 Rate Blood Pressure 147/62 153/66 Current Medications Generic Name Dose Route Start Last Admin Trade Name Freq PRN Reason Stop Dose Admin Heparin Sodium (Porcine) 5,000 unit 12/25/18 22:00 12/28/18 09:27 Heparin - SQ Not Given BID [facility] Piperacillin Sod/Tazobactam 100 mls @ 200 mls/hr 12/25/18 15:00 12/28/18 09: 29 Sod 4.5 gm/ Dextrose IVPB 200 mls/hr Q6H-IV [facility] Administration Protocol Dextrose/Sodium Chloride 20 meq in 1,000 mls @ 75 mls/hr 12/25/18 14:15 12/28 02:10 Dextrose 5%-Normal Saline+20 Meq Kcl - IV 75 mls/hr ASD[facility] Administration Lactobacillus Acidophilus 1 tab 12/26/18 10:00 12/28/18 09:28 Bacid - PO 1 tab DAILY [facility] Administration Lisinopril 10 mg 12/25/18 11:45 12/28/18 09:28 Prinivil PO 10 mg DAILY [facility] Administration Ondansetron HCl 8 mg 12/25/18 01:39 Zofran Injection IVPB Q8H PRN NAUSEA Pantoprazole Sodium 40 mg 12/25/18 10:00 12/28/18 09:28 Protonix Iv IVPUSH 40 mg DAILY [facility] Administration Laboratory Results - last 24 hr 12/28/18 12/28/18 05:20 05:20 WBC 8.9 RBC 4.18 Hgb 12.6 Hct 37.3 MCV 89.1 MCH 30.1 MCHC 33.8 RDW 14.1 Plt Count 357 D MPV 7.6 Absolute Neuts (auto) 6.3 Neutrophils % 71.4 Neutrophils % (Manual) 75.7 Band Neutrophils % 0.0 Lymphocytes % 19.1 Lymphocytes % (Manual) 15.9 Monocytes % 8.3 Monocytes % (Manual) 8 Eosinophils % 0.8 Eosinophils % (Manual) 0.9 Basophils % 0.4 Basophils % (Manual) 0.0 Myelocytes % (Man) 0 Promyelocytes % (Man) 0 Blast Cells % (Manual) 0 Nucleated RBC % 0 Metamyelocytes 0 Hypochromia 0 Platelet Estimate Normal Polychromasia 0 Poikilocytosis 0 Anisocytosis 0 Microcytosis 0 Macrocytosis 0 Sodium 139 Potassium 3.5 Chloride 108 H Carbon Dioxide 26 Anion Gap 6 L BUN 3 L Creatinine 0.5 L Est GFR (CKD-EPI)AfAm 107.44 Est GFR (CKD-EPI)NonAf 92.70 Random Glucose 88 Calcium 8.5 Total Bilirubin 0.6 AST 22 ALT 32 Alkaline Phosphatase 186 H Total Protein 6.6 Albumin 2.7 L No pallor S1 S2 RRR Lungs clear Abd- soft, tender left > right quadrant, BS=, not distended No edema PLAN diverticulitis, perforation, abscess -- ct abd and pelvis noted -- iv antibiotics -- iv fluids -- starting full liquids now -- repeat cT abd tomorrow HTN -- lisinopril DVT prophylaxis-- heparin sc Problem List - Problems (1) Phlegmonous peritonitis Code(s): K65.0 - GENERALIZED (ACUTE) PERITONITIS (2) Hyperlipidemia Code(s): E78.5 - HYPERLIPIDEMIA, UNSPECIFIED Qualifiers: Hyperlipidemia type: pure hypercholesterolemia Qualified Code(s): E78.00 - Pure hypercholesterolemia, unspecified; E78.0 - Pure hypercholesterolemia (3) Hypertension Code(s): I10 - ESSENTIAL (PRIMARY) HYPERTENSION Qualifiers: Hypertension type: essential hypertension Qualified Code(s): I10 - Essential (primary) hypertension (4) Diverticulitis Code(s): K57.92 - DVTRCLI OF INTEST, PART UNSP, W/O PERF OR ABSCESS W/O BLEED (5) Diverticulitis of intestine with abscess Code(s): K57.80 - DVTRCLI OF INTEST, PART UNSP, W PERF AND ABSCESS W/O BLEED
[2018-12-29] MEDS ORDERED: DEXTROSE 5%-WATER 100 ML IVPB ONE ×4 (01:46→20:10)
[2018-12-29] MEDS ORDERED: PIPERACILLIN/TAZOBACTAM 4.5 GM VIAL IVPB ONE ×4 (01:46→20:10)
[2018-12-29] MEDS: PIPERACILLIN/TAZOB 4.5 GM 4.5 GM in DEXTROSE 5%-WATER 100 ML IVPB SCH ×4 (02:14→20:53)
[2018-12-29] MEDS: PANTOPRAZOLE SODIUM 40 MG VIAL IVPUSH SCH (09:20)
[2018-12-29] MEDS: LISINOPRIL 10 MG TABLET (FP) PO SCH (09:20)
[2018-12-29] MEDS: LACTOBACILLUS ACIDOPHILUS 1 TABLET PO SCH (09:20)
[2018-12-29] MEDS: HEPARIN NA (PORCINE) 5,000 UNITS/ML 1ML VIAL SQ SCH ×2 (09:20→21:21)
--- NOTE | 2018-12-29 11:39 | PN ---
Progress Note, Physician History of Present Illness: patient improving pain resolving tolerating liquids repeat ct done - Current Medication List Current Medications: Active Medications Heparin Sodium (Porcine) (Heparin -) 5,000 unit SQ BID [facility] Last Admin: 12/29/18 09:20 Dose: Not Given Piperacillin Sod/Tazobactam (Sod 4.5 gm/ Dextrose) 100 mls @ 200 mls/hr IVPB Q6H-IV [facility]; Protocol Last Admin: 12/29/18 09:20 Dose: 200 mls/hr Dextrose/Sodium Chloride (Dextrose 5%-Normal Saline+20 Meq Kcl -) 20 meq in 1, 000 mls @ 75 mls/hr IV ASDIR [facility] Last Admin: 12/28/18 18:14 Dose: 75 mls/hr Lactobacillus Acidophilus (Bacid -) 1 tab PO DAILY [facility] Last Admin: 12/29/18 09:20 Dose: 1 tab Lisinopril (Prinivil) 10 mg PO DAILY [facility] Last Admin: 12/29/18 09:20 Dose: 10 mg Ondansetron HCl (Zofran Injection) 8 mg IVPB Q8H PRN PRN Reason: NAUSEA Pantoprazole Sodium (Protonix Iv) 40 mg IVPUSH DAILY [facility] Last Admin: 12/29/18 09:20 Dose: 40 mg - Objective Vital Signs: Vital Signs Temperature 98.4 F 12/29/18 06:00 Pulse Rate 71 12/29/18 06:00 Respiratory Rate 20 12/29/18 06:00 Blood Pressure 159/71 12/29/18 06:00 O2 Sat by Pulse Oximetry (%) 98 12/28/18 21:00 Constitutional: Yes: No Distress, Calm Cardiovascular: Yes: Regular Rate and Rhythm Respiratory: Yes: Regular, CTA Bilaterally Gastrointestinal: Yes: Normal Bowel Sounds, Soft Musculoskeletal: Yes: WNL Extremities: Yes: WNL Neurological: Yes: Alert, Oriented Psychiatric: Yes: Alert, Oriented Labs: CBC, BMP 12/28/18 05:20 12/28/18 05:20 INR, PTT INR 1.03 (0.83-1.09) 12/26/18 06:45 Assessment/Plan Problem List - Problems (1) Diverticulitis of large intestine with perforation and abscess Code(s): K57.20 - DVTRCLI OF LG INT W PERFORATION AND ABSCESS W/O BLEEDING (2) Hyperlipidemia Code(s): E78.5 - HYPERLIPIDEMIA, UNSPECIFIED Qualifiers: Hyperlipidemia type: pure hypercholesterolemia Qualified Code(s): E78.00 - Pure hypercholesterolemia, unspecified; E78.0 - Pure hypercholesterolemia (3) Hypertension Code(s): I10 - ESSENTIAL (PRIMARY) HYPERTENSION Qualifiers: Hypertension type: essential hypertension Qualified Code(s): I10 - Essential (primary) hypertension Assessment/Plan 78 y.o. female with HTN, HLD presenting with c/o LLQ abdominal pain x [address] revealing mid sigmoid inflammation with collection Acute Sigmoid diverticulitis with perforation/Abscess Leukocytosis continue abx await for ct scan report rest as per the team and surgery
--- NOTE | 2018-12-29 11:48 | PN ---
Progress Note (short form) - Note Progress Note: Events noted feels well had bm today tolerated full liquids Vital Signs - 24 hr 12/28/18 12/28/18 12/28/18 14:00 16:57 20:00 Temperature 97.9 F 98.4 F 98.0 F Pulse Rate 68 72 59 L Respiratory 18 20 20 Rate Blood Pressure 154/69 123/71 138/66 O2 Sat by Pulse Oximetry (%) 12/28/18 12/29/18 21:00 06:00 Temperature 98.4 F Pulse Rate 71 Respiratory 20 Rate Blood Pressure 159/71 O2 Sat by Pulse 98 Oximetry (%) Current Medications Generic Name Dose Route Start Last Admin Trade Name Freq PRN Reason Stop Dose Admin Heparin Sodium (Porcine) 5,000 unit 12/25/18 22:00 12/29/18 09:20 Heparin - SQ Not Given BID [facility] Piperacillin Sod/Tazobactam 100 mls @ 200 mls/hr 12/25/18 15:00 12/29/18 09: 20 Sod 4.5 gm/ Dextrose IVPB 200 mls/hr Q6H-IV [facility] Administration Protocol Dextrose/Sodium Chloride 20 meq in 1,000 mls @ 75 mls/hr 12/25/18 14:15 12/28 18:14 Dextrose 5%-Normal Saline+20 Meq Kcl - IV 75 mls/hr ASDIR [facility] Administration Lactobacillus Acidophilus 1 tab 12/26/18 10:00 12/29/18 09:20 Bacid - PO 1 tab DAILY [facility] Administration Lisinopril 10 mg 12/25/18 11:45 12/29/18 09:20 Prinivil PO 10 mg DAILY [facility] Administration Ondansetron HCl 8 mg 12/25/18 01:39 Zofran Injection IVPB Q8H PRN NAUSEA Pantoprazole Sodium 40 mg 12/25/18 10:00 12/29/18 09:20 Protonix Iv IVPUSH 40 mg DAILY [facility] Administration No pallor S1 S2 RRR Lungs clear Abd- soft, NT , ND No edema PLAN diverticulitis, perforation, abscess -- ct abd and pelvis repeated -- iv antibiotics -- iv fluids-->dc -- on full liquids -- awaiting repeat ct results, will advance diet if CT shows resolved inflammation HTN -- lisinopril -- resume Norvasc DVT prophylaxis-- heparin sc Problem List - Problems (1) Phlegmonous peritonitis Code(s): K65.0 - GENERALIZED (ACUTE) PERITONITIS (2) Hyperlipidemia Code(s): E78.5 - HYPERLIPIDEMIA, UNSPECIFIED Qualifiers: Hyperlipidemia type: pure hypercholesterolemia Qualified Code(s): E78.00 - Pure hypercholesterolemia, unspecified; E78.0 - Pure hypercholesterolemia (3) Hypertension Code(s): I10 - ESSENTIAL (PRIMARY) HYPERTENSION Qualifiers: Hypertension type: essential hypertension Qualified Code(s): I10 - Essential (primary) hypertension (4) Diverticulitis Code(s): K57.92 - DVTRCLI OF INTEST, PART UNSP, W/O PERF OR ABSCESS W/O BLEED (5) Diverticulitis of intestine with abscess Code(s): K57.80 - DVTRCLI OF INTEST, PART UNSP, W PERF AND ABSCESS W/O BLEED
[2018-12-29] MEDS ORDERED: amLODIPine BESYLATE 5 MG TABLET (FP) PO ONE (12:15)
[2018-12-29] MEDS: D5-1/2NS+20 MEQ KCL - 20 MEQ/1,000 ML INFUS.BAG IV SCH (14:33)
--- NOTE | 2018-12-29 19:48 | PN ---
Progress Note, Physician - Current Medication List Current Medications: Active Medications Amlodipine Besylate (Norvasc -) 5 mg PO DAILY [facility] Heparin Sodium (Porcine) (Heparin -) 5,000 unit SQ BID [facility] Last Admin: 12/29/18 09:20 Dose: Not Given Piperacillin Sod/Tazobactam (Sod 4.5 gm/ Dextrose) 100 mls @ 200 mls/hr IVPB Q6H-IV [facility]; Protocol Last Admin: 12/29/18 14:34 Dose: 200 mls/hr Potassium Chloride/Dextrose/Sod Cl (D5-1/2ns+20 Meq Kcl -) 20 meq in 1,000 mls @ 83 mls/hr IV ASDIR [facility] Last Admin: 12/29/18 14:33 Dose: 83 mls/hr Lactobacillus Acidophilus (Bacid -) 1 tab PO DAILY [facility] Last Admin: 12/29/18 09:20 Dose: 1 tab Lisinopril (Prinivil) 20 mg PO DAILY [facility] Ondansetron HCl (Zofran Injection) 8 mg IVPB Q8H PRN PRN Reason: NAUSEA Pantoprazole Sodium (Protonix Iv) 40 mg IVPUSH DAILY [facility] Last Admin: 12/29/18 09:20 Dose: 40 mg - Objective Vital Signs: Vital Signs Temperature 98.1 F 12/29/18 17:12 Pulse Rate 76 12/29/18 17:12 Respiratory Rate 20 12/29/18 17:12 Blood Pressure 151/95 12/29/18 17:12 O2 Sat by Pulse Oximetry (%) 97 12/29/18 09:00 Labs: CBC, BMP 12/28/18 05:20 12/28/18 05:20 INR, PTT INR 1.03 (0.83-1.09) 12/26/18 06:45 Problem List - Problems (1) Hyperlipidemia Code(s): E78.5 - HYPERLIPIDEMIA, UNSPECIFIED Qualifiers: Hyperlipidemia type: pure hypercholesterolemia Qualified Code(s): E78.00 - Pure hypercholesterolemia, unspecified; E78.0 - Pure hypercholesterolemia (2) Tinnitus Code(s): H93.19 - TINNITUS, UNSPECIFIED EAR Qualifiers: Laterality: left Qualified Code(s): H93.12 - Tinnitus, left ear (3) Hypertension Code(s): I10 - ESSENTIAL (PRIMARY) HYPERTENSION Qualifiers: Hypertension type: essential hypertension Qualified Code(s): I10 - Essential (primary) hypertension (4) Diverticulitis of large intestine with perforation and abscess Code(s): K57.20 - DVTRCLI OF LG INT W PERFORATION AND ABSCESS W/O BLEEDING Assessment/Plan Surgery: Patient is afebrile, has no abdominal pain. Abdomen is soft , not tender. Has been having bowel movements. CT scan shows a 4cm. abscess Plan : Continue antibiotics, Possible CT guided drainage by IR., If fails and does not improve may need sigmoid resection and Brian procedure. Patient is informed. Patient is clinically looking better , may respond to antibiotics with draiange of abscess, by IR.
[2018-12-30] MEDS ORDERED: PIPERACILLIN/TAZOBACTAM 4.5 GM VIAL IVPB ONE ×4 (03:00→20:17)
[2018-12-30] MEDS ORDERED: DEXTROSE 5%-WATER 100 ML IVPB ONE ×4 (03:00→20:17)
[2018-12-30] MEDS: PIPERACILLIN/TAZOB 4.5 GM 4.5 GM in DEXTROSE 5%-WATER 100 ML IVPB SCH ×4 (03:24→20:52)
[2018-12-30] MEDS: D5-1/2NS+20 MEQ KCL - 20 MEQ/1,000 ML INFUS.BAG IV SCH ×2 (03:28→17:21)
[2018-12-30] MEDS: amLODIPine BESYLATE 5 MG TABLET (FP) PO SCH (09:25)
[2018-12-30] MEDS: LACTOBACILLUS ACIDOPHILUS 1 TABLET PO SCH (09:25)
[2018-12-30] MEDS: LISINOPRIL 20 MG TABLET (FP) PO SCH (09:25)
[2018-12-30] MEDS: HEPARIN NA (PORCINE) 5,000 UNITS/ML 1ML VIAL SQ SCH ×2 (09:33→21:50)
--- NOTE | 2018-12-30 09:46 | PN ---
Progress Note, Physician History of Present Illness: stable plan for abscess drainage by ir - Current Medication List Current Medications: Active Medications Amlodipine Besylate (Norvasc -) 5 mg PO DAILY [facility] Last Admin: 12/30/18 09:25 Dose: 5 mg Heparin Sodium (Porcine) (Heparin -) 5,000 unit SQ BID [facility] Last Admin: 12/30/18 09:33 Dose: Not Given Piperacillin Sod/Tazobactam (Sod 4.5 gm/ Dextrose) 100 mls @ 200 mls/hr IVPB Q6H-IV [facility]; Protocol Last Admin: 12/30/18 09:33 Dose: 200 mls/hr Potassium Chloride/Dextrose/Sod Cl (D5-1/2ns+20 Meq Kcl -) 20 meq in 1,000 mls @ 83 mls/hr IV ASDIR [facility] Last Admin: 12/30/18 03:28 Dose: 83 mls/hr Lactobacillus Acidophilus (Bacid -) 1 tab PO DAILY [facility] Last Admin: 12/30/18 09:25 Dose: 1 tab Lisinopril (Prinivil) 20 mg PO DAILY [facility] Last Admin: 12/30/18 09:25 Dose: 20 mg Ondansetron HCl (Zofran Injection) 8 mg IVPB Q8H PRN PRN Reason: NAUSEA Pantoprazole Sodium (Protonix Iv) 40 mg IVPUSH DAILY [facility] Last Admin: 12/29/18 09:20 Dose: 40 mg - Objective Vital Signs: Vital Signs Temperature 97.9 F 12/30/18 06:00 Pulse Rate 81 12/30/18 06:00 Respiratory Rate 20 12/30/18 06:00 Blood Pressure 155/70 12/30/18 06:00 O2 Sat by Pulse Oximetry (%) 98 12/29/18 21:00 Constitutional: Yes: No Distress, Calm Cardiovascular: Yes: S1, S2 Respiratory: Yes: Regular, CTA Bilaterally Gastrointestinal: Yes: Normal Bowel Sounds, Soft Musculoskeletal: Yes: WNL Extremities: Yes: WNL Neurological: Yes: Alert, Oriented Psychiatric: Yes: Alert, Oriented Labs: CBC, BMP 12/28/18 05:20 12/28/18 05:20 INR, PTT INR 1.03 (0.83-1.09) 12/26/18 06:45 Assessment/Plan Problem List - Problems (1) Diverticulitis of large intestine with perforation and abscess Code(s): K57.20 - DVTRCLI OF LG INT W PERFORATION AND ABSCESS W/O BLEEDING (2) Hyperlipidemia Code(s): E78.5 - HYPERLIPIDEMIA, UNSPECIFIED Qualifiers: Hyperlipidemia type: pure hypercholesterolemia Qualified Code(s): E78.00 - Pure hypercholesterolemia, unspecified; E78.0 - Pure hypercholesterolemia (3) Hypertension Code(s): I10 - ESSENTIAL (PRIMARY) HYPERTENSION Qualifiers: Hypertension type: essential hypertension Qualified Code(s): I10 - Essential (primary) hypertension Assessment/Plan 78 y.o. female with HTN, HLD presenting with c/o LLQ abdominal pain x [address] revealing mid sigmoid inflammation with collection Acute Sigmoid diverticulitis with perforation/Abscess Leukocytosis continue abx send cx post drainage stable rest as per the team
[2018-12-30] MEDS: PANTOPRAZOLE SODIUM 40 MG VIAL IVPUSH SCH (10:50)
--- NOTE | 2018-12-30 12:33 | PN ---
Progress Note (short form) - Note Progress Note: Events noted NPO for abscess drainage by IR has pain in LLQ bm today Vital Signs - 24 hr 12/29/18 12/29/18 12/29/18 15:30 17:12 21:00 Temperature 98.0 F 98.1 F Pulse Rate 79 76 Respiratory 18 20 Rate Blood Pressure 155/87 151/95 O2 Sat by Pulse 98 Oximetry (%) 12/29/18 12/30/18 12/30/18 22:00 06:00 09:00 Temperature 98.0 F 97.9 F Pulse Rate 65 81 Respiratory 20 20 Rate Blood Pressure 136/55 L 155/70 O2 Sat by Pulse 96 Oximetry (%) 12/30/18 10:00 Temperature 98.1 F Pulse Rate 67 Respiratory 18 Rate Blood Pressure 142/70 O2 Sat by Pulse Oximetry (%) Current Medications Generic Name Dose Route Start Last Admin Trade Name Freq PRN Reason Stop Dose Admin Amlodipine Besylate 5 mg 12/30/18 10:00 12/30/18 09:25 Norvasc - PO 5 mg DAILY [facility] Administration Heparin Sodium (Porcine) 5,000 unit 12/25/18 22:00 12/30/18 09:33 Heparin - SQ Not Given BID [facility] Piperacillin Sod/Tazobactam 100 mls @ 200 mls/hr 12/25/18 15:00 12/30/18 09: 33 Sod 4.5 gm/ Dextrose IVPB 200 mls/hr Q6H-IV [facility] Administration Protocol Potassium Chloride/Dextrose/Sod Cl 20 meq in 1,000 mls @ 83 mls/hr 12/29/18 13 :00 12/30/18 03:28 D5-1/2ns+20 Meq Kcl - IV 83 mls/hr ASDIR [facility] Administration Lactobacillus Acidophilus 1 tab 12/26/18 10:00 12/30/18 09:25 Bacid - PO 1 tab DAILY [facility] Administration Lisinopril 20 mg 12/29/18 11:49 12/30/18 09:25 Prinivil PO 20 mg DAILY [facility] Administration Ondansetron HCl 8 mg 12/25/18 01:39 Zofran Injection IVPB Q8H PRN NAUSEA Pantoprazole Sodium 40 mg 12/25/18 10:00 12/30/18 10:50 Protonix Iv IVPUSH 40 mg DAILY [facility] Administration No pallor S1 S2 RRR Lungs clear Abd- soft, NT , ND No edema PLAN diverticulitis, perforation, abscess -- ct abd and pelvis repeated--> acute sigmoid diverticulitis with developing abscess -- iv antibiotics -- iv fluids-->dc -- NPO -- IR for drainage HTN -- lisinopril -- resume Norvasc DVT prophylaxis-- heparin sc Problem List - Problems (1) Phlegmonous peritonitis Code(s): K65.0 - GENERALIZED (ACUTE) PERITONITIS (2) Hyperlipidemia Code(s): E78.5 - HYPERLIPIDEMIA, UNSPECIFIED Qualifiers: Hyperlipidemia type: pure hypercholesterolemia Qualified Code(s): E78.00 - Pure hypercholesterolemia, unspecified; E78.0 - Pure hypercholesterolemia (3) Hypertension Code(s): I10 - ESSENTIAL (PRIMARY) HYPERTENSION Qualifiers: Hypertension type: essential hypertension Qualified Code(s): I10 - Essential (primary) hypertension (4) Diverticulitis Code(s): K57.92 - DVTRCLI OF INTEST, PART UNSP, W/O PERF OR ABSCESS W/O BLEED (5) Diverticulitis of intestine with abscess Code(s): K57.80 - DVTRCLI OF INTEST, PART UNSP, W PERF AND ABSCESS W/O BLEED
--- NOTE | 2018-12-30 17:00 | PN ---
Progress Note, Physician History of Present Illness: Patient has no abdominal pain , and no complaints. - Current Medication List Current Medications: Active Medications Amlodipine Besylate (Norvasc -) 5 mg PO DAILY [facility] Last Admin: 12/30/18 09:25 Dose: 5 mg Heparin Sodium (Porcine) (Heparin -) 5,000 unit SQ BID [facility] Last Admin: 12/30/18 09:33 Dose: Not Given Piperacillin Sod/Tazobactam (Sod 4.5 gm/ Dextrose) 100 mls @ 200 mls/hr IVPB Q6H-IV [facility]; Protocol Last Admin: 12/30/18 14:54 Dose: 200 mls/hr Potassium Chloride/Dextrose/Sod Cl (D5-1/2ns+20 Meq Kcl -) 20 meq in 1,000 mls @ 83 mls/hr IV ASDIR [facility] Last Admin: 12/30/18 03:28 Dose: 83 mls/hr Lactobacillus Acidophilus (Bacid -) 1 tab PO DAILY [facility] Last Admin: 12/30/18 09:25 Dose: 1 tab Lisinopril (Prinivil) 20 mg PO DAILY [facility] Last Admin: 12/30/18 09:25 Dose: 20 mg Ondansetron HCl (Zofran Injection) 8 mg IVPB Q8H PRN PRN Reason: NAUSEA Pantoprazole Sodium (Protonix Iv) 40 mg IVPUSH DAILY [facility] Last Admin: 12/30/18 10:50 Dose: 40 mg - Objective Vital Signs: Vital Signs Temperature 97.9 F 12/30/18 15:00 Pulse Rate 75 12/30/18 15:00 Respiratory Rate 18 12/30/18 15:00 Blood Pressure 155/67 12/30/18 15:00 O2 Sat by Pulse Oximetry (%) 96 12/30/18 09:00 Gastrointestinal: Yes: Other (Abdomen is oft , not tender , no nausea, no vomiting.) Labs: CBC, BMP 12/28/18 05:20 12/28/18 05:20 INR, PTT INR 1.03 (0.83-1.09) 12/26/18 06:45 Problem List - Problems (1) Hyperlipidemia Code(s): E78.5 - HYPERLIPIDEMIA, UNSPECIFIED Qualifiers: Hyperlipidemia type: pure hypercholesterolemia Qualified Code(s): E78.00 - Pure hypercholesterolemia, unspecified; E78.0 - Pure hypercholesterolemia (2) Tinnitus Code(s): H93.19 - TINNITUS, UNSPECIFIED EAR Qualifiers: Laterality: left Qualified Code(s): H93.12 - Tinnitus, left ear (3) Hypertension Code(s): I10 - ESSENTIAL (PRIMARY) HYPERTENSION Qualifiers: Hypertension type: essential hypertension Qualified Code(s): I10 - Essential (primary) hypertension (4) Diverticulitis of large intestine with perforation and abscess Code(s): K57.20 - DVTRCLI OF LG INT W PERFORATION AND ABSCESS W/O BLEEDING Assessment/Plan CT scan was discussed with Dr. Panda Mao. radiologist , who finds no access to drain the pelvic abscess. However he notes that the uterine lining idoes not appear normal. ? Inflammation , infective, vs neoplasm, vs impending fistula. [employer] consult requested. Continue antibiotics. Start clear liquids
[2018-12-31] MEDS ORDERED: PIPERACILLIN/TAZOBACTAM 4.5 GM VIAL IVPB ONE ×4 (02:04→20:21)
[2018-12-31] MEDS ORDERED: DEXTROSE 5%-WATER 100 ML IVPB ONE ×4 (02:04→20:21)
[2018-12-31] MEDS: PIPERACILLIN/TAZOB 4.5 GM 4.5 GM in DEXTROSE 5%-WATER 100 ML IVPB SCH ×4 (02:14→20:33)
[2018-12-31] MEDS: D5-1/2NS+20 MEQ KCL - 20 MEQ/1,000 ML INFUS.BAG IV SCH (06:14)
[2018-12-31] MEDS: amLODIPine BESYLATE 5 MG TABLET (FP) PO SCH (10:23)
[2018-12-31] MEDS: LISINOPRIL 20 MG TABLET (FP) PO SCH (10:23)
[2018-12-31] MEDS: PANTOPRAZOLE SODIUM 40 MG VIAL IVPUSH SCH (10:23)
[2018-12-31] MEDS: HEPARIN NA (PORCINE) 5,000 UNITS/ML 1ML VIAL SQ SCH ×2 (10:23→21:21)
[2018-12-31] MEDS: LACTOBACILLUS ACIDOPHILUS 1 TABLET PO SCH (10:23)
--- NOTE | 2018-12-31 10:33 | PN ---
Progress Note (short form) - Note Progress Note: pt seen/ examined all f/u noted awake/comfortable taking liquids denies pain anxious Vital Signs Temp 98.5 F 12/31/18 06:09 Pulse 70 12/31/18 06:09 Resp 18 12/31/18 06:09 BP 148/64 12/31/18 06:09 Pulse Ox 96 12/30/18 21:00 Intake & Output 12/30/18 12/30/18 12/31/18 11:59 23:59 11:59 Intake Total 681 1100 900 Balance 681 1100 900 Intake: IV 581 900 900 D5-1/2NS+20 MEQ KCL - 20 581 900 900 meq In 1,000 ml @ 83 mls/ hr IV ASDIR [facility] Rx#: [id number] IVPB 100 200 Other: Voiding Method Toilet Toilet # Unmeasured Voids Void 2 1 1 Bowel Movement Yes: loose brown No Active Medications Amlodipine Besylate (Norvasc -) 5 mg PO DAILY [facility] Last Admin: 12/31/18 10:23 Dose: 5 mg Heparin Sodium (Porcine) (Heparin -) 5,000 unit SQ BID [facility] Last Admin: 12/31/18 10:23 Dose: Not Given Piperacillin Sod/Tazobactam (Sod 4.5 gm/ Dextrose) 100 mls @ 200 mls/hr IVPB Q6H-IV [facility]; Protocol Last Admin: 12/31/18 10:22 Dose: 200 mls/hr Potassium Chloride/Dextrose/Sod Cl (D5-1/2ns+20 Meq Kcl -) 20 meq in 1,000 mls @ 83 mls/hr IV ASDIR [facility] Last Admin: 12/31/18 06:14 Dose: 83 mls/hr Lactobacillus Acidophilus (Bacid -) 1 tab PO DAILY [facility] Last Admin: 12/31/18 10:23 Dose: 1 tab Lisinopril (Prinivil) 20 mg PO DAILY [facility] Last Admin: 12/31/18 10:23 Dose: 20 mg Ondansetron HCl (Zofran Injection) 8 mg IVPB Q8H PRN PRN Reason: NAUSEA Pantoprazole Sodium (Protonix Iv) 40 mg IVPUSH DAILY [facility] Last Admin: 12/31/18 10:23 Dose: 40 mg CBC, BMP 12/28/18 05:20 12/28/18 05:20 Physical comfortable S1 S2 RRR Lungs clear Abd- soft, NT No edema PLAN diverticulitis, perforation, abscess -- stable -- iv antibiotics -- liquid diet -medical supervisor consult pending will follow Problem List - Problems (1) Diverticulitis of intestine with abscess Code(s): K57.80 - DVTRCLI OF INTEST, PART UNSP, W PERF AND ABSCESS W/O BLEED (2) Hypertension Code(s): I10 - ESSENTIAL (PRIMARY) HYPERTENSION Qualifiers: Hypertension type: essential hypertension Qualified Code(s): I10 - Essential (primary) hypertension
--- NOTE | 2018-12-31 11:38 | PN ---
Progress Note, Physician - Current Medication List Current Medications: Active Medications Amlodipine Besylate (Norvasc -) 5 mg PO DAILY [facility] Last Admin: 12/31/18 10:23 Dose: 5 mg Heparin Sodium (Porcine) (Heparin -) 5,000 unit SQ BID [facility] Last Admin: 12/31/18 10:23 Dose: Not Given Piperacillin Sod/Tazobactam (Sod 4.5 gm/ Dextrose) 100 mls @ 200 mls/hr IVPB Q6H-IV [facility]; Protocol Last Admin: 12/31/18 10:22 Dose: 200 mls/hr Potassium Chloride/Dextrose/Sod Cl (D5-1/2ns+20 Meq Kcl -) 20 meq in 1,000 mls @ 83 mls/hr IV ASDIR [facility] Last Admin: 12/31/18 06:14 Dose: 83 mls/hr Lactobacillus Acidophilus (Bacid -) 1 tab PO DAILY [facility] Last Admin: 12/31/18 10:23 Dose: 1 tab Lisinopril (Prinivil) 20 mg PO DAILY [facility] Last Admin: 12/31/18 10:23 Dose: 20 mg Ondansetron HCl (Zofran Injection) 8 mg IVPB Q8H PRN PRN Reason: NAUSEA Pantoprazole Sodium (Protonix Iv) 40 mg IVPUSH DAILY [facility] Last Admin: 12/31/18 10:23 Dose: 40 mg - Objective Vital Signs: Vital Signs Temperature 98.5 F 12/31/18 06:09 Pulse Rate 70 12/31/18 06:09 Respiratory Rate 18 12/31/18 06:09 Blood Pressure 148/64 12/31/18 06:09 O2 Sat by Pulse Oximetry (%) 96 12/30/18 21:00 Labs: CBC, BMP 12/28/18 05:20 12/28/18 05:20 INR, PTT INR 1.03 (0.83-1.09) 12/26/18 06:45 Problem List - Problems (1) Hyperlipidemia Code(s): E78.5 - HYPERLIPIDEMIA, UNSPECIFIED Qualifiers: Hyperlipidemia type: pure hypercholesterolemia Qualified Code(s): E78.00 - Pure hypercholesterolemia, unspecified; E78.0 - Pure hypercholesterolemia (2) Tinnitus Code(s): H93.19 - TINNITUS, UNSPECIFIED EAR Qualifiers: Laterality: left Qualified Code(s): H93.12 - Tinnitus, left ear (3) Hypertension Code(s): I10 - ESSENTIAL (PRIMARY) HYPERTENSION Qualifiers: Hypertension type: essential hypertension Qualified Code(s): I10 - Essential (primary) hypertension (4) Diverticulitis of large intestine with perforation and abscess Code(s): K57.20 - DVTRCLI OF LG INT W PERFORATION AND ABSCESS W/O BLEEDING Assessment/Plan Surgery: Patient is afebrile. She has no abdominal pain, or tenderness. She is having normal bowel movement. She has tolerated clear liquids and is requesting full liquid diet. WBC is normal. 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 Pelvic ultrasound, suggest a thickened endometrium for her age. Continue antibiotics. Will progress to full liquid diet.
--- NOTE | 2018-12-31 12:28 | PN ---
Progress Note, Physician History of Present Illness: results noted of the scan awaiting material man to see the patient - Current Medication List Current Medications: Active Medications Amlodipine Besylate (Norvasc -) 5 mg PO DAILY [facility] Last Admin: 12/31/18 10:23 Dose: 5 mg Heparin Sodium (Porcine) (Heparin -) 5,000 unit SQ BID [facility] Last Admin: 12/31/18 10:23 Dose: Not Given Piperacillin Sod/Tazobactam (Sod 4.5 gm/ Dextrose) 100 mls @ 200 mls/hr IVPB Q6H-IV [facility]; Protocol Last Admin: 12/31/18 10:22 Dose: 200 mls/hr Potassium Chloride/Dextrose/Sod Cl (D5-1/2ns+20 Meq Kcl -) 20 meq in 1,000 mls @ 83 mls/hr IV ASDIR [facility] Last Admin: 12/31/18 06:14 Dose: 83 mls/hr Lactobacillus Acidophilus (Bacid -) 1 tab PO DAILY [facility] Last Admin: 12/31/18 10:23 Dose: 1 tab Lisinopril (Prinivil) 20 mg PO DAILY [facility] Last Admin: 12/31/18 10:23 Dose: 20 mg Ondansetron HCl (Zofran Injection) 8 mg IVPB Q8H PRN PRN Reason: NAUSEA Pantoprazole Sodium (Protonix Iv) 40 mg IVPUSH DAILY [facility] Last Admin: 12/31/18 10:23 Dose: 40 mg - Objective Vital Signs: Vital Signs Temperature 98.5 F 12/31/18 06:09 Pulse Rate 70 12/31/18 06:09 Respiratory Rate 18 12/31/18 06:09 Blood Pressure 148/64 12/31/18 06:09 O2 Sat by Pulse Oximetry (%) 96 12/30/18 21:00 Constitutional: Yes: No Distress, Calm Cardiovascular: Yes: Regular Rate and Rhythm Respiratory: Yes: Regular, CTA Bilaterally Gastrointestinal: Yes: Soft, Hypoactive Bowel Sounds Musculoskeletal: Yes: WNL Extremities: Yes: WNL Neurological: Yes: Alert, Oriented Psychiatric: Yes: Alert, Oriented Labs: CBC, BMP 12/28/18 05:20 12/28/18 05:20 INR, PTT INR 1.03 (0.83-1.09) 12/26/18 06:45 Assessment/Plan Problem List - Problems (1) Diverticulitis of large intestine with perforation and abscess Code(s): K57.20 - DVTRCLI OF LG INT W PERFORATION AND ABSCESS W/O BLEEDING (2) Hyperlipidemia Code(s): E78.5 - HYPERLIPIDEMIA, UNSPECIFIED Qualifiers: Hyperlipidemia type: pure hypercholesterolemia Qualified Code(s): E78.00 - Pure hypercholesterolemia, unspecified; E78.0 - Pure hypercholesterolemia (3) Hypertension Code(s): I10 - ESSENTIAL (PRIMARY) HYPERTENSION Qualifiers: Hypertension type: essential hypertension Qualified Code(s): I10 - Essential (primary) hypertension Assessment/Plan 78 y.o. female with HTN, HLD presenting with c/o LLQ abdominal pain x [address] revealing mid sigmoid inflammation with collection Acute Sigmoid diverticulitis with perforation/Abscess Leukocytosis continue abx await for gynac rest as per the team final plan
[2019-01-01] MEDS ORDERED: PIPERACILLIN/TAZOBACTAM 4.5 GM VIAL IVPB ONE ×2 (02:06→09:10)
[2019-01-01] MEDS ORDERED: DEXTROSE 5%-WATER 100 ML IVPB ONE ×2 (02:06→09:11)
[2019-01-01] MEDS: PIPERACILLIN/TAZOB 4.5 GM 4.5 GM in DEXTROSE 5%-WATER 100 ML IVPB SCH ×2 (02:11→09:17)
[2019-01-01] MEDS: D5-1/2NS+20 MEQ KCL - 20 MEQ/1,000 ML INFUS.BAG IV SCH ×2 (09:16→23:50)
--- NOTE | 2019-01-01 09:30 | PN ---
Progress Note (short form) - Note Progress Note: pt seen/ examined all f/u noted Vital Signs Temp 97.2 F L 12/31/18 19:35 Pulse 72 12/31/18 19:35 Resp 20 12/31/18 19:35 BP 156/75 12/31/18 19:35 Pulse Ox 99 12/31/18 20:02 Intake & Output 12/31/18 12/31/18 01/01/19 11:59 23:59 11:59 Intake Total 1280 1762 681 Balance 1280 1762 681 Intake: IV 900 1162 581 D5-1/2NS+20 MEQ KCL - 20 900 1162 581 meq In 1,000 ml @ 83 mls/ hr IV ASDIR [facility] Rx#: [id number] IVPB 100 100 Oral 380 500 Other: Voiding Method Toilet Toilet # Unmeasured Voids Void 1 1 1 Active Medications Amlodipine Besylate (Norvasc -) 5 mg PO DAILY [facility] Last Admin: 12/31/18 10:23 Dose: 5 mg Heparin Sodium (Porcine) (Heparin -) 5,000 unit SQ BID [facility] Last Admin: 12/31/18 21:21 Dose: Not Given Piperacillin Sod/Tazobactam (Sod 4.5 gm/ Dextrose) 100 mls @ 200 mls/hr IVPB Q6H-IV [facility]; Protocol Last Admin: 01/01/19 09:17 Dose: 200 mls/hr Potassium Chloride/Dextrose/Sod Cl (D5-1/2ns+20 Meq Kcl -) 20 meq in 1,000 mls @ 83 mls/hr IV ASDIR [facility] Last Admin: 01/01/19 09:16 Dose: 83 mls/hr Lactobacillus Acidophilus (Bacid -) 1 tab PO DAILY [facility] Last Admin: 12/31/18 10:23 Dose: 1 tab Lisinopril (Prinivil) 20 mg PO DAILY [facility] Last Admin: 12/31/18 10:23 Dose: 20 mg Ondansetron HCl (Zofran Injection) 8 mg IVPB Q8H PRN PRN Reason: NAUSEA Pantoprazole Sodium (Protonix Iv) 40 mg IVPUSH DAILY [facility] Last Admin: 12/31/18 10:23 Dose: 40 mg CBC, BMP 12/28/18 05:20 12/28/18 05:20 Today labs-- Ordered Physical comfortable S1 S2 RRR Lungs clear Abd- soft, NT No edema PLAN diverticulitis, perforation, abscess -- stable -- iv antibiotics -- liquid diet -manager gyn consult pending will follow Problem List - Problems (1) Diverticulitis of intestine with abscess Code(s): K57.80 - DVTRCLI OF INTEST, PART UNSP, W PERF AND ABSCESS W/O BLEED (2) Hypertension Code(s): I10 - ESSENTIAL (PRIMARY) HYPERTENSION Qualifiers: Hypertension type: essential hypertension Qualified Code(s): I10 - Essential (primary) hypertension
[2019-01-01 10:24] LABS: EOS % 1.3 % (0-4.5); HEMATOCRIT 40.2 % (32.4-45.2); HEMOGLOBIN 13.4 GM/dL (10.7-15.3); LYMPH % 19.8 % (8-40); MCH 29.9 pg (25.7-33.7); MCHC 33.4 g/dl (32.0-36.0); MEAN CELL VOLUME 89.7 fl (80-96); MEAN PLT VOLUME 7.1 fl (7.5-11.1); MONO % 6.9 % (3.8-10.2); PLATELET COUNT 427 K/MM3 (134-434); RBC 4.48 M/mm3 (3.60-5.2); RDW 14.2 % (11.6-15.6); WHITE BLOOD COUNT 5.7 K/mm3 (4.0-10.0)
[2019-01-01 10:59] LABS: ALBUMIN 3.1 g/dl (3.4-5.0); BILIRUBIN,TOTAL 0.4 mg/dL (0.2-1); CALCIUM 9.1 mg/dL (8.5-10.1); CREATININE 0.7 mg/dL (0.55-1.3); POTASSIUM 3.6 mmol/L (3.5-5.1); TOT PROT 7.3 g/dl (6.4-8.2)
[2019-01-01] MEDS: amLODIPine BESYLATE 5 MG TABLET (FP) PO SCH (11:22)
[2019-01-01] MEDS: LACTOBACILLUS ACIDOPHILUS 1 TABLET PO SCH (11:22)
[2019-01-01] MEDS: LISINOPRIL 20 MG TABLET (FP) PO SCH (11:22)
[2019-01-01] MEDS: HEPARIN NA (PORCINE) 5,000 UNITS/ML 1ML VIAL SQ SCH (11:23)
[2019-01-01] MEDS: PANTOPRAZOLE SODIUM 40 MG VIAL IVPUSH SCH (11:23)
--- NOTE | 2019-01-01 11:53 | CONSULT ---
Consult - text type - Consultation Consultation Note: 78yo F with LLQ pain secondary to sigmoid diverticulitis and abscess development admitted in house for management. Had bladder US findings showing a normal size uterus with a thickened endometrium of 8mm. This is an incidental finding and not an active issue (ie vaginal bleeding) for her at present, nor contributing to her LLQ pain. Of further note, this finding was seen on transabdominal imaging and not with transvaginal which may give better detail. At this time, the patient can follow up as an outpatient where, if needed, endometrial sampling can be done. Maribeth Pa MD OBGYN
--- NOTE | 2019-01-01 11:59 | PN ---
Progress Note, Physician History of Present Illness: patient stable no complaints - Current Medication List Current Medications: Active Medications Amlodipine Besylate (Norvasc -) 5 mg PO DAILY [facility] Last Admin: 01/01/19 11:22 Dose: 5 mg Heparin Sodium (Porcine) (Heparin -) 5,000 unit SQ BID [facility] Last Admin: 01/01/19 11:23 Dose: Not Given Piperacillin Sod/Tazobactam (Sod 4.5 gm/ Dextrose) 100 mls @ 200 mls/hr IVPB Q6H-IV [facility]ABITA; Protocol Last Admin: 01/01/19 09:17 Dose: 200 mls/hr Potassium Chloride/Dextrose/Sod Cl (D5-1/2ns+20 Meq Kcl -) 20 meq in 1,000 mls @ 83 mls/hr IV ASDIR [facility] Last Admin: 01/01/19 09:16 Dose: 83 mls/hr Lactobacillus Acidophilus (Bacid -) 1 tab PO DAILY [facility] Last Admin: 01/01/19 11:22 Dose: 1 tab Lisinopril (Prinivil) 20 mg PO DAILY [facility] Last Admin: 01/01/19 11:22 Dose: 20 mg Ondansetron HCl (Zofran Injection) 8 mg IVPB Q8H PRN PRN Reason: NAUSEA Pantoprazole Sodium (Protonix Iv) 40 mg IVPUSH DAILY [facility] Last Admin: 01/01/19 11:23 Dose: 40 mg - Objective Vital Signs: Vital Signs Temperature 98.1 F 01/01/19 10:00 Pulse Rate 79 01/01/19 10:00 Respiratory Rate 18 01/01/19 10:00 Blood Pressure 149/65 01/01/19 10:00 O2 Sat by Pulse Oximetry (%) 99 12/31/18 20:02 Constitutional: Yes: No Distress, Calm Cardiovascular: Yes: Regular Rate and Rhythm Respiratory: Yes: Regular, CTA Bilaterally Gastrointestinal: Yes: Normal Bowel Sounds, Soft Genitourinary: Yes: WNL Musculoskeletal: Yes: WNL Extremities: Yes: WNL Neurological: Yes: Alert, Oriented Psychiatric: Yes: Alert, Oriented Labs: CBC, BMP 01/01/19 09:47 01/01/19 09:47 INR, PTT INR 1.03 (0.83-1.09) 12/26/18 06:45 Assessment/Plan Problem List - Problems (1) Diverticulitis of large intestine with perforation and abscess Code(s): K57.20 - DVTRCLI OF LG INT W PERFORATION AND ABSCESS W/O BLEEDING (2) Hyperlipidemia Code(s): E78.5 - HYPERLIPIDEMIA, UNSPECIFIED Qualifiers: Hyperlipidemia type: pure hypercholesterolemia Qualified Code(s): E78.00 - Pure hypercholesterolemia, unspecified; E78.0 - Pure hypercholesterolemia (3) Hypertension Code(s): I10 - ESSENTIAL (PRIMARY) HYPERTENSION Qualifiers: Hypertension type: essential hypertension Qualified Code(s): I10 - Essential (primary) hypertension Assessment/Plan 78 y.o. female with HTN, HLD presenting with c/o LLQ abdominal pain x [address] revealing mid sigmoid inflammation with collection Acute Sigmoid diverticulitis with perforation/Abscess Leukocytosis continue abx await for gynac rest as per the team final plan
--- NOTE | 2019-01-01 14:27 | PN ---
Progress Note, Physician History of Present Illness: Patient has no abdominal pain, has been having bowel movements. Afebrile, WBC is normal. Abdomen is soft , not tender, no palapble masss. 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 Will continue antibiotics. Tolerating full liquid diet. Will progress to low residue diet. Possible discharge on Thursday, with antibiotics. Follow up Ct scan of abdomen in one week. - Current Medication List Current Medications: Active Medications Amlodipine Besylate (Norvasc -) 5 mg PO DAILY [facility] Last Admin: 01/01/19 11:22 Dose: 5 mg Heparin Sodium (Porcine) (Heparin -) 5,000 unit SQ BID [facility] Last Admin: 01/01/19 11:23 Dose: Not Given Piperacillin Sod/Tazobactam (Sod 4.5 gm/ Dextrose) 100 mls @ 200 mls/hr IVPB Q6H-IV BABITA; Protocol Last Admin: 01/01/19 09:17 Dose: 200 mls/hr Potassium Chloride/Dextrose/Sod Cl (D5-1/2ns+20 Meq Kcl -) 20 meq in 1,000 mls @ 83 mls/hr IV ASDIR [facility] Last Admin: 01/01/19 09:16 Dose: 83 mls/hr Lactobacillus Acidophilus (Bacid -) 1 tab PO DAILY [facility] Last Admin: 01/01/19 11:22 Dose: 1 tab Lisinopril (Prinivil) 20 mg PO DAILY [facility] Last Admin: 01/01/19 11:22 Dose: 20 mg Ondansetron HCl (Zofran Injection) 8 mg IVPB Q8H PRN PRN Reason: NAUSEA Pantoprazole Sodium (Protonix Iv) 40 mg IVPUSH DAILY [facility] Last Admin: 01/01/19 11:23 Dose: 40 mg - Objective Vital Signs: Vital Signs Temperature 98.1 F 01/01/19 10:00 Pulse Rate 79 01/01/19 10:00 Respiratory Rate 18 01/01/19 10:00 Blood Pressure 149/65 01/01/19 10:00 O2 Sat by Pulse Oximetry (%) 99 12/31/18 20:02 Labs: CBC, BMP 01/01/19 09:47 01/01/19 09:47 INR, PTT INR 1.03 (0.83-1.09) 12/26/18 06:45 Problem List - Problems (1) Hyperlipidemia Code(s): E78.5 - HYPERLIPIDEMIA, UNSPECIFIED Qualifiers: Hyperlipidemia type: pure hypercholesterolemia Qualified Code(s): E78.00 - Pure hypercholesterolemia, unspecified; E78.0 - Pure hypercholesterolemia (2) Tinnitus Code(s): H93.19 - TINNITUS, UNSPECIFIED EAR Qualifiers: Laterality: left Qualified Code(s): H93.12 - Tinnitus, left ear (3) Hypertension Code(s): I10 - ESSENTIAL (PRIMARY) HYPERTENSION Qualifiers: Hypertension type: essential hypertension Qualified Code(s): I10 - Essential (primary) hypertension (4) Diverticulitis of large intestine with perforation and abscess Code(s): K57.20 - DVTRCLI OF LG INT W PERFORATION AND ABSCESS W/O BLEEDING
[2019-01-01] MEDS ORDERED: PIPERACILLIN/TAZOBACTAM 3.375 GM VIAL IVPB ONE ×2 (15:44→20:13)
[2019-01-01] MEDS ORDERED: DEXTROSE 5%-WATER - 50 ML IVPB ONE ×2 (15:44→20:13)
[2019-01-01] MEDS: PIPERACILLIN/TAZOB 3.375 GM 3.375 GM in DEXTROSE 5%-WATER - 50 ML IVPB SCH ×2 (15:47→20:47)
[2019-01-02] MEDS ORDERED: PIPERACILLIN/TAZOBACTAM 3.375 GM VIAL IVPB ONE ×2 (02:18→09:27)
[2019-01-02] MEDS ORDERED: DEXTROSE 5%-WATER - 50 ML IVPB ONE ×2 (02:18→09:27)
[2019-01-02] MEDS: PIPERACILLIN/TAZOB 3.375 GM 3.375 GM in DEXTROSE 5%-WATER - 50 ML IVPB SCH (02:23)
[2019-01-02] MEDS: LISINOPRIL 20 MG TABLET (FP) PO SCH (09:30)
[2019-01-02] MEDS: amLODIPine BESYLATE 5 MG TABLET (FP) PO SCH (09:30)
[2019-01-02] MEDS: LACTOBACILLUS ACIDOPHILUS 1 TABLET PO SCH (09:30)
[2019-01-02] MEDS: PANTOPRAZOLE SODIUM 40 MG VIAL IVPUSH SCH (09:31)
[2019-01-02] MEDS ORDERED: PIPERACILLIN/TAZOB 3.375 GM 3.375 GM in DEXTROSE 5%-WATER - 50 ML IVPB SCH (10:00)
--- NOTE | 2019-01-02 10:31 | PN ---
Progress Note, Physician History of Present Illness: patient doing well no issues - Current Medication List Current Medications: Active Medications Amlodipine Besylate (Norvasc -) 5 mg PO DAILY [facility] Last Admin: 01/02/19 09:30 Dose: 5 mg Potassium Chloride/Dextrose/Sod Cl (D5-1/2ns+20 Meq Kcl -) 20 meq in 1,000 mls @ 83 mls/hr IV ASDIR [facility] Last Admin: 01/01/19 23:50 Dose: 83 mls/hr Piperacillin Sod/Tazobactam (Sod 3.375 gm/ Dextrose) 50 mls @ 100 mls/hr IVPB Q8H-IV [facility] Last Admin: 01/02/19 09:31 Dose: 100 mls/hr Lactobacillus Acidophilus (Bacid -) 1 tab PO DAILY [facility] Last Admin: 01/02/19 09:30 Dose: 1 tab Lisinopril (Prinivil) 20 mg PO DAILY [facility] Last Admin: 01/02/19 09:30 Dose: 20 mg Ondansetron HCl (Zofran Injection) 8 mg IVPB Q8H PRN PRN Reason: NAUSEA Pantoprazole Sodium (Protonix Iv) 40 mg IVPUSH DAILY [facility] Last Admin: 01/02/19 09:31 Dose: 40 mg - Objective Vital Signs: Vital Signs Temperature 98.1 F 01/02/19 06:00 Pulse Rate 63 01/02/19 06:00 Respiratory Rate 20 01/02/19 06:00 Blood Pressure 149/75 01/02/19 06:00 O2 Sat by Pulse Oximetry (%) 97 01/01/19 21:00 Constitutional: Yes: No Distress, Calm Cardiovascular: Yes: Regular Rate and Rhythm Respiratory: Yes: Regular, CTA Bilaterally Gastrointestinal: Yes: Normal Bowel Sounds, Soft Musculoskeletal: Yes: WNL Extremities: Yes: WNL Neurological: Yes: Alert, Oriented Psychiatric: Yes: Alert, Oriented Labs: CBC, BMP 01/01/19 09:47 01/01/19 09:47 INR, PTT INR 1.03 (0.83-1.09) 12/26/18 06:45 Assessment/Plan Problem List - Problems (1) Diverticulitis of large intestine with perforation and abscess Code(s): K57.20 - DVTRCLI OF LG INT W PERFORATION AND ABSCESS W/O BLEEDING (2) Hyperlipidemia Code(s): E78.5 - HYPERLIPIDEMIA, UNSPECIFIED Qualifiers: Hyperlipidemia type: pure hypercholesterolemia Qualified Code(s): E78.00 - Pure hypercholesterolemia, unspecified; E78.0 - Pure hypercholesterolemia (3) Hypertension Code(s): I10 - ESSENTIAL (PRIMARY) HYPERTENSION Qualifiers: Hypertension type: essential hypertension Qualified Code(s): I10 - Essential (primary) hypertension Assessment/Plan 78 y.o. female with HTN, HLD presenting with c/o LLQ abdominal pain x [address] revealing mid sigmoid inflammation with collection Acute Sigmoid diverticulitis with perforation/Abscess Leukocytosis will change to po abx monitor how she does on regular diet if tolerated continue abx for another 5 more days
[2019-01-02 12:00] VITALS: BP 157/62; PULSE 59; TEMP 97.7
--- NOTE | 2019-01-02 13:05 | DS ---
Physical Examination Vital Signs: Vital Signs Temperature 97.7 F 01/02/19 10:00 Pulse Rate 59 L 01/02/19 10:00 Respiratory Rate 18 01/02/19 10:00 Blood Pressure 157/62 01/02/19 10:00 O2 Sat by Pulse Oximetry (%) 97 01/01/19 21:00 Findings/Remarks: feels well no complains tolerating diet denies pain afebrile abx - changed to po Constitutional: Yes: Well Nourished, No Distress Eyes: Yes: Conjunctiva Clear Neck: Yes: Supple Cardiovascular: Yes: Regular Rate and Rhythm Respiratory: Yes: CTA Bilaterally Gastrointestinal: Yes: Normal Bowel Sounds, Soft Edema: No Labs: CBC, BMP 01/01/19 09:47 01/01/19 09:47 Discharge Summary Reason For Visit: PURULENT PERITONITIS Current Active Problems Diverticulitis (Acute) Diverticulitis of intestine with abscess (Acute) Diverticulitis of large intestine with perforation and abscess (Acute) Hypokalemia (Acute) Phlegmonous peritonitis (Acute) Hospital Course: admitted for diverticulitis ct scan- 12/24-- devolving abscess thickened endometrium did well on abx media production manager/ surgery/ i/d followed stable for d/c pt to follow with her pmd-one week media production manager f/u as out pt . surgery f/u in one week repeat ct abd - on e week Pt in agreement abx send discussed with nursing staff also Condition: Stable - Instructions Referrals: Venu Avila MD [Staff Physician] - Jaime Dai MD [Staff Physician] - Maribeth Pa MD [Staff Physician] - Disposition: HOME - Home Medications Comprehensive Discharge Medication List: Ambulatory Orders Amlodipine Besylate [Norvasc -] 5 mg PO DAILY 07/01/14 Lisinopril [Prinivil] 20 mg PO DAILY 07/01/14 Aspirin [ASA -] 81 mg PO DAILY 07/10/18 Simvastatin 5 mg PO HS 07/10/18 Amox-Tr/K Cl [Augmentin 875-125mg Tablet -] 1 tab PO BID@0800,1730 5 Days #10 tablet 01/02/19
[2019-01-02] MEDS ORDERED: AMOX TR/POT CLAV 875MG/125MG TABLETS (FP) PO SCH (17:30)
== END 2019-01-02 14:48 | disposition home or self-care (01) | DRG 391 ==
LOC: JER 22:20 → JERBED 12-25 00:23 → J8W 12-25 02:24
PROVIDERS: ADMIT Internal Medicine; ATTEND Internal Medicine
DX: K57.20 Diverticulitis of large intestine with perforation and abscess without bleeding (principal); K65.8 Other peritonitis; E46 Unspecified protein-calorie malnutrition; E87.1 Hypo-osmolality and hyponatremia; I10 Essential (primary) hypertension; E78.5 Hyperlipidemia, unspecified; E88.09 Other disorders of plasma-protein metabolism, not elsewhere classified; H93.12 Tinnitus, left ear; K57.90 Diverticulosis of intestine, part unspecified, without perforation or abscess without bleeding; F41.9 Anxiety disorder, unspecified; E87.6 Hypokalemia; D72.829 Elevated white blood cell count, unspecified
CPT/HCPCS: 36415; 74019-TC-FY; 74176-TC; 74177-TC; 76856-TC; 80053; 80061; 83605; 83721; 83735; 84100; 85025; 85027; 85610; 85730; 86850; 86900; 86901; 87040; 93005; 93010; 93306-TC; 99282-25; J1644; J7030

== ENCOUNTER 2019-01-27 17:25 | Inpatient (IN) | payer OTHER, MEDICARE | END 2019-02-15 17:15 | disposition home or self-care (01) | LOC: J7W 01-31 21:25 → JER 17:25 → JERBED 19:17 → J7W 20:31 ==

== ENCOUNTER 2019-06-01 08:55 | Day surgery (SDC) | payer OTHER, MEDICARE ==
[2019-05-31 15:18] VITALS: BMI 23.9
[2019-06-01 12:33] VITALS: PULSE 62
[2019-06-01 13:19] VITALS: BP 147/51; TEMP 97.9
== END 2019-06-01 13:10 | disposition home or self-care (01) ==
LOC: JASU-ENDO 08:55
PROVIDERS: ATTEND Internal Medicine Gastroenterology
PROC: 0DJD8ZZ Inspection of Lower Intestinal Tract, Via Natural or Artificial Opening Endoscopic (ICD-10-PCS; principal; 2019-06-01 10:45)
DX: Z12.11 Encounter for screening for malignant neoplasm of colon (principal); Z80.0 Family history of malignant neoplasm of digestive organs; K57.30 Diverticulosis of large intestine without perforation or abscess without bleeding

== ENCOUNTER 2019-08-01 06:23 | Inpatient (IN) | payer OTHER, MEDICARE ==
[2019-07-26 12:14] VITALS: BMI 24.7
[2019-08-01] MEDS ORDERED: fentaNYL CITRATE 250 MCG/5 ML VIAL ONE ×2 (07:10→07:11)
[2019-08-01] MEDS ORDERED: MIDAZOLAM HCL 2 MG/2 ML SINGLE DOSE VIAL ONE (07:11)
[2019-08-01] MEDS ORDERED: ROCURONIUM BROMIDE 50 MG/5 ML SYRINGE ONE ×2 (07:11→10:25)
[2019-08-01] MEDS ORDERED: PROPOFOL 20 ML ONE ×2 (07:11)
[2019-08-01] MEDS ORDERED: PHENYLEPHRINE HCL 10 MG/1 ML SINGLE DOSE VIAL ONE (07:35)
[2019-08-01] MEDS ORDERED: CEFOXITIN SODIUM 1 GM IVPB ONE (08:03)
[2019-08-01] MEDS ORDERED: HEPARIN NA (PORCINE) 5,000 UNITS/ML 1ML VIAL ONE (08:03)
[2019-08-01] MEDS ORDERED: cefOXitin SODIUM 2 GM VIAL (RESTRICTED TO ID) IVPB ONE (08:04)
[2019-08-01] MEDS ORDERED: cefOXitin SODIUM 1 GM VIAL (RESTRICTED TO ID) IVPB ONE (08:10)
[2019-08-01] MEDS ORDERED: hydrALAZINE HCL 20 MG/ML VIAL ONE (10:15)
--- NOTE | 2019-08-01 10:17 | CON.OBG ---
Consult Consult Specialty:: ab initio etl developer Referred by:: Dr Avila Reason for Consultation:: intraoperative exploration - History of Present Illness Chief Complaint: Hx of diverticulitis and colovaginal fistula. Patient had colostomy which is now being reversed. Intraoperative ab initio etl developer consult is bveing requested. 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 History of Recent Travel: No Home Medications - Allergies Allergies/Adverse Reactions: Allergies Allergy/AdvReac Type Severity Reaction Status Date / Time No Known Allergies Allergy Verified 08/01/19 06:45 - Home Medications Home Medications: Ambulatory Orders Lisinopril [Prinivil] 20 mg PO DAILY 07/01/14 Aspirin [ASA -] 81 mg PO DAILY 07/10/18 Simvastatin 5 mg PO HS 07/10/18 Ascorbic Acid/Ascorbate Sodium [Vitamin C 250 mg Tablet Chew] 500 mg PO DAILY Metoprolol Succinate [Toprol Xl] 50 mg PO DAILY 05/31/19 Mirtazapine [Remeron -] 7.5 mg PO HS 05/31/19 Vitamin B Complex 1 each PO DAILY 05/31/19 Hydralazine HCl 10 mg PO DAILY 08/01/19 Physical Exam-[employer] Vital Signs: Vital Signs Temperature 98.1 F 08/01/19 06:38 Pulse Rate 64 08/01/19 06:38 Respiratory Rate 20 08/01/19 06:38 Blood Pressure 156/72 08/01/19 06:38 O2 Sat by Pulse Oximetry (%) 97 08/01/19 06:38 Problem List - Problems (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 Examination carried out. Uterus N/S, A/V. Adnexa WNL. Extensive adhesions between left adnexum and pelvic sidewall. Cul-de-sac obliterated with adhesions as well. No bleeding, no acute pathology requiring intervention noted.
[2019-08-01] MEDS ORDERED: LACTATED RINGERS SOLUTION 1,000 ML IV SCH (11:30)
[2019-08-01] MEDS ORDERED: GLYCOPYRROLATE 0.2 MG/1 ML VIAL ONE (11:55)
[2019-08-01] MEDS ORDERED: NEOSTIGMINE METHYLSULFATE 0.5 MG/ML - 10 ML MDV ONE (11:55)
[2019-08-01] MEDS ORDERED: BUPIVACAINE LIPOSOME/PF (EXPAREL) 266 MG/20 ML VIAL ONE (12:02)
[2019-08-01] MEDS ORDERED: BUPIVACAINE HCL/PF 0.25% (2.5MG/ML) 10 ML VIAL ONE (12:03)
[2019-08-01] MEDS ORDERED: BUPIVACAINE HCL/PF 0.5% (5 MG/ML) 30 ML VIAL IJ ONE (12:03)
[2019-08-01] MEDS ORDERED: BUPIVACAINE HCL/PF 0.5% (5MG/ML) 10 ML VIAL IJ ONE (12:16)
[2019-08-01] MEDS ORDERED: BUPIVACAINE LIPOSOME/PF (EXPAREL) 266 MG/20 ML VIAL IJ ONE (12:16)
[2019-08-01] MEDS ORDERED: BUPIVACAINE HCL/PF 0.25% (2.5MG/ML) 10 ML VIAL IJ ONE (12:16)
[2019-08-01] MEDS ORDERED: BUPIVACAINE LIPOSOME/PF (EXPAREL) 266 MG/20 ML VIAL NR ONE (12:16)
[2019-08-01] MEDS ORDERED: BUPIVACAINE HCL/PF 0.5% (5MG/ML) 10 ML VIAL NR ONE (12:17)
[2019-08-01] MEDS ORDERED: SIMETHICONE 80 MG TAB.CHEW (FP) PO PRN (13:14)
--- NOTE | 2019-08-01 13:37 | CONS ---
INTRAOPERATIVE CONSULTATION DATE OF CONSULTATION: DATE OF DICTATION: 08/01/2019 I was called for the intraoperative consultation by Dr. Avila. Patient had a history of diverticulitis with abscess and resulting colouterine fistula. This was treated appropriately at that time. A colostomy was performed. At present, colostomy is being taken down, and reanastamosis is being planned. I was requested to assess pelvic organs. I scrubbed in and examined the pelvis. Uterus is anteverted, normal size. There is no obvious adnexal pathology noted. Left adnexa is plastered against pelvic sidewall and firmly adherent. There are also extensive adhesions and scar tissue in the cul-de-sac. This is undoubtedly secondary diverticula disease and abscess. After examination, I noted no bleeding and no acute pathology in the pelvis. I do not believe at that stage any LONG WINDER TENDER surgical intervention is needed. Dr. Avila is in agreement. ULISES STEINBERG MD [id number]
[2019-08-01] MEDS ORDERED: ONDANSETRON 4 MG/2 ML VIAL ONE (13:53)
[2019-08-01] MEDS ORDERED: ONDANSETRON 4 MG/2 ML VIAL IVPUSH ONE (13:55)
--- NOTE | 2019-08-01 14:09 | OP ---
Operative Note - Note: Operative Date: 08/01/19 Pre-Operative Diagnosis: S/P descending colostomy , cross procedure for colovaginal fistula. For reversal of colostomy. Operation: Flexible sigmoidoscopy ,. Take down of colostomy . Mobilisation of the splenic flexure of colon ,. Colocolostomy . Lysis of small intestinal adhesions. Findings: Adhesions of small intestine to anterior peritoneum, Sigmoid colon to the uterus and left fallopian tube,. Normal distal limb, past the colostomy. Adhesions of sigmoid colon to the uterus on the left side. Sigmoidoscopy , normal colon upto 32 cms from anal verge. Post-Operative Diagnosis: Other (Intestinal adhesions, adhesion of sigmoid colon to uterus.) Surgeon: Venu Avila Anesthesiologist/FISHING TOOL SUPERVISOR: Arabella Falcon Anesthesia: General Specimens Removed: Colostomy , proximal sigmoid colon. Estimated Blood Loss (mls): 100 Instrument used (Debridements only): RADHA stapling device , with hand sown anastamosis. Operative Report Dictated: Yes
[2019-08-01] MEDS ORDERED: FAMOTIDINE 20 MG/50 ML IVPB 20 MG/50 ML MG IVPB ONE ×2 (14:59→15:55)
[2019-08-01] MEDS ORDERED: FAMOTIDINE 20 MG PREMIXED IVPB IVPB ONE (15:00)
--- NOTE | 2019-08-01 15:01 | HP ---
Admitting History and Physical - Primary Care Physician PCP: Jessie Elliott - Admission Chief Complaint: REversal of colostomy History of Present Illness: 78 yrs old F with H/O HTN, Dyslipedemia anxiety, Pt diagnosed with Diverticulitis with micro-perforation and Pt had Diverticular abscess and Pt had colostomy. 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), Diverticulosis, Other (Deerticular abcess ) Psych: Yes: Anxiety - Past Surgical History Past Surgical History: Yes: None - Smoking History Smoking history: Never smoked Have you smoked in the past 12 months: No Aproximately how many cigarettes per day: 0 - Alcohol/Substance Use Hx Alcohol Use: No History of Substance Use: reports: None - Social History ADL: Independent 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 History of Recent Travel: No Home Medications - Allergies Allergies/Adverse Reactions: Allergies Allergy/AdvReac Type Severity Reaction Status Date / Time No Known Allergies Allergy Verified 08/01/19 06:45 - Home Medications Home Medications: Ambulatory Orders Lisinopril [Prinivil] 20 mg PO DAILY 07/01/14 Aspirin [ASA -] 81 mg PO DAILY 07/10/18 Simvastatin 5 mg PO HS 07/10/18 Ascorbic Acid/Ascorbate Sodium [Vitamin C 250 mg Tablet Chew] 500 mg PO DAILY Metoprolol Succinate [Toprol Xl] 50 mg PO DAILY 05/31/19 Mirtazapine [Remeron -] 7.5 mg PO HS 05/31/19 Vitamin B Complex 1 each PO DAILY 05/31/19 Hydralazine HCl 10 mg PO DAILY 08/01/19 Physical Examination Vital Signs: Vital Signs Temperature 97.4 F L 08/01/19 13:38 Pulse Rate 74 08/01/19 14:30 Respiratory Rate 15 08/01/19 14:30 Blood Pressure 178/66 H 08/01/19 14:30 O2 Sat by Pulse Oximetry (%) 100 08/01/19 14:30 Problem List - Problems (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 (2) Diverticulitis Code(s): K57.92 - DVTRCLI OF INTEST, PART UNSP, W/O PERF OR ABSCESS W/O BLEED (3) Diverticulitis of intestine with abscess Code(s): K57.80 - DVTRCLI OF INTEST, PART UNSP, W PERF AND ABSCESS W/O BLEED (4) Dyspepsia Code(s): R10.13 - EPIGASTRIC PAIN (5) HTN (hypertension) Code(s): I10 - ESSENTIAL (PRIMARY) HYPERTENSION (6) Hyperlipidemia Code(s): E78.5 - HYPERLIPIDEMIA, UNSPECIFIED Qualifiers: Hyperlipidemia type: pure hypercholesterolemia Qualified Code(s): E78.00 - Pure hypercholesterolemia, unspecified; E78.0 - Pure hypercholesterolemia (7) Insomnia disorder Code(s): G47.00 - INSOMNIA, UNSPECIFIED (8) History of colostomy reversal Problems reviewed: Yes Code(s): Z98.890 - OTHER SPECIFIED POSTPROCEDURAL STATES Assessment/Plan (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 (2) Diverticulitis Code(s): K57.92 - DVTRCLI OF INTEST, PART UNSP, W/O PERF OR ABSCESS W/O BLEED (3) Diverticulitis of intestine with abscess Code(s): K57.80 - DVTRCLI OF INTEST, PART UNSP, W PERF AND ABSCESS W/O BLEED (4) Dyspepsia Code(s): R10.13 - EPIGASTRIC PAIN (5) HTN (hypertension) Code(s): I10 - ESSENTIAL (PRIMARY) HYPERTENSION (6) Hyperlipidemia Code(s): E78.5 - HYPERLIPIDEMIA, UNSPECIFIED Qualifiers: Hyperlipidemia type: pure hypercholesterolemia Qualified Code(s): E78.00 - Pure hypercholesterolemia, unspecified; E78.0 - Pure hypercholesterolemia (7) Insomnia disorder Code(s): G47.00 - INSOMNIA, UNSPECIFIED (8) History of colostomy reversal Problems reviewed: Yes Code(s): Z98.890 - OTHER SPECIFIED POSTPROCEDURAL STATES Flexible sigmoidoscopy ,. Take down of colostomy . Mobilisation of the splenic flexure of colon ,. Colocolostomy . Lysis of small intestinal adhesions. Case discussed with Surgeon Dr Avila
--- NOTE | 2019-08-01 15:57 | SURG ---
Surgery Tooling Supervisor Note Tooling Supervisor: Arabella Falcon PA-C Date of Service: 08/01/19 Diagnosis: S/P descending colostomy , cross procedure for colovaginal fistula. For reversal of colostomy. Procedure: Flexible sigmoidoscopy . Take down of colostomy . Mobilization of the splenic flexure of colon ,. Colocolostomy . Lysis of small intestinal adhesions. I was present for the entirety of the operative procedure. For further detail, please refer to operative report. Visit type - Case Type Case Type: Scheduled - Emergency Emergency Visit: No - New patient This patient is new to me today: Yes Date on this admission: 08/01/19
[2019-08-01] MEDS ORDERED: HALOPERIDOL LACTATE 5 MG/ML IV ONE ×2 (16:00→16:32)
[2019-08-01] MEDS ORDERED: HYDROmorphone *PCA* 10MG/50ML DISP.SYRIN ONE (17:36)
[2019-08-01] MEDS ORDERED: HYDROmorphone *PCA* 10MG/50ML DISP.SYRIN PCA ONE (17:45)
[2019-08-01] MEDS: ONDANSETRON 4 MG/2 ML VIAL IVPUSH PRN (19:56)
[2019-08-01] MEDS ORDERED: MIRTAZAPINE 15 MG TABLET (FP) PO SCH (22:00)
[2019-08-01] MEDS ORDERED: ATORVASTATIN CA 10 MG TABLET (FP) PO SCH (22:00)
[2019-08-01] MEDS: PANTOPRAZOLE SODIUM 40 MG VIAL IVPUSH SCH (22:15)
[2019-08-01] MEDS: MIRTAZAPINE 15 MG TABLET (FP) PO SCH (22:16)
[2019-08-02] MEDS: SODIUM CHLORIDE 1,000 ML IV SCH ×2 (01:25→21:12)
[2019-08-02 08:02] LABS: BASO % 0.1 % (0-2.0); HEMATOCRIT 33.7 % (32.4-45.2); HEMOGLOBIN 11.4 GM/dL (10.7-15.3); LYMPH % 9.1 % (8-40); MCH 30.5 pg (25.7-33.7); MCHC 33.8 g/dl (32.0-36.0); MEAN CELL VOLUME 90.3 fl (80-96); MONO % 6.1 % (3.8-10.2); NEUT % 84.7 % (42.8-82.8); PLATELET COUNT 209 K/MM3 (134-434); RBC 3.73 M/mm3 (3.60-5.2); RDW 14.8 % (11.6-15.6); WHITE BLOOD COUNT 9.8 K/mm3 (4.0-10.0)
--- NOTE | 2019-08-02 08:10 | PN ---
Progress Note (short form) - Note Progress Note: POD #1 Hartmans reversal with KURTIS.Patient seen and examined at bedside with no complaints. Patient is using her POTATO CHIP PROCESSING SUPERVISOR intermittently and her pain is controlled. She denies any CP, SOB, N/V, Fever or chills. She still has her araiza, has not passes flatus and is NPO. Vital Signs Temp 99.3 F 08/02/19 06:00 Pulse 71 08/02/19 06:00 Resp 20 08/02/19 06:00 BP 134/61 08/02/19 06:00 Pulse Ox 98 08/01/19 21:00 Intake & Output 08/01/19 08/01/19 08/02/19 11:59 23:59 11:59 Intake Total 3000 1100 1500 Output Total 650 900 500 Balance 2350 200 1000 Intake: IV 3000 1100 1500 Normal Saline - 1,000 ml 500 1500 @ 125 mls/hr IV ASDIR [facility] Rx#:[id number] IVPB 0 0 Oral 0 0 Output: Urine 450 900 500 Araiza 500 Estimated Blood Loss 200 Other: Voiding Method Indwelling Catheter Bowel Movement No No CBC, BMP 08/02/19 06:09 08/02/19 06:09 PE: A&Ox3, NAD unlabored resp on RA ABD: soft, ND with diffuse TTP throughout-appropriate to status. midline incision with crispin insitu and surrounding tissue intact with mild ecchymosis at margins, no tracking erythema no evidence of collection or active d/c. Ostomy site-packing removed and irrigated with NS, wound clean with clean edges and beefy red base, good perfusion throughout- and fascia is closed. re-packed with Iodoform dressing under sutures. Clean dry dressing applied to both wounds. B/L LE compartments soft, supple and non-tender to palpation <Arabella Falcon - Last Filed: 08/02/19 12:28> - Note Progress Note: Patient was seen and examined at 6:00 pm. Alert and oriented. Surgical procedure was explained. Wound is clean. No nausea and vomiting. Agree with above note. <Venu Avila - Last Filed: 08/03/19 11:36> Problem List - Problems (1) History of colostomy reversal Assessment/Plan: POD #1 patient dong well. -OOB as tolerated, encourage up to chair at least TID in addition to ambulation with assist. -Pain control with POTATO CHIP PROCESSING SUPERVISOR -Strict NPO until passing flatus -encourage IS -daily dressing/packing change -d/c planning to rehab vs home with VNS Code(s): Z98.890 - OTHER SPECIFIED POSTPROCEDURAL STATES <Arabella Falcon - Last Filed: 08/02/19 12:28>
[2019-08-02 08:40] LABS: BLOOD UREA NITROGEN 9.3 mg/dL (7-18); CALCIUM 7.8 mg/dL (8.5-10.1); CREATININE 0.7 mg/dL (0.55-1.3); POTASSIUM 3.5 mmol/L (3.5-5.1)
--- NOTE | 2019-08-02 08:56 | OP ---
DATE OF OPERATION: 08/01/2019 PREOPERATIVE DIAGNOSES: 1. Status post descending colostomy, with a Santacruz procedure for colovaginal fistula. 2. Recently brought in for reversal of colostomy. 3. Hypertension. 4. Anxiety. POSTOPERATIVE DIAGNOSES: 1. Status post descending colostomy, with a Santacruz procedure for colovaginal fistula. 2. Recently brought in for reversal of colostomy. 3. Hypertension. 4. Anxiety. 5. Small intestinal adhesions as well as adhesion of the distal sigmoid colon to the left side of the uterus and left fallopian tube. OPERATIVE PROCEDURE: 1. Flexible sigmoidoscopy. 2. Take down of colostomy. 3. Mobilization of the splenic flexure of the colon. 4. Partial colectomy of the distal colon and colocolostomy. 5. Lysis of small intestinal adhesions. SURGEON: Mayda Avila MD. ELECTRIC SHOVEL OPERATOR: Arabella Falcon PA-C. ANESTHESIA: General anesthesia. 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 She is brought in for reversal of colostomy. Consent is obtained. Risks, benefits and complications were discussed with the patient. The patient had a CAT scan with contrast from the rectum as well as from the colostomy. The distal ileum was normal; however, there was a small sinus from the proximal colostomy. The patient was brought in and consent was obtained. The risks, benefits, and complications were discussed with the patient. The patient was placed on the operating room table with both legs . General anesthesia was administered and the Navas catheter was placed in the bladder and removed after the surgery. A flexible sigmoidoscopy was performed after 30 cm and there were no colonic lesion or rectal lesions identified. The abdomen was then painted and draped. A time-out was called. An incision was made on the colostomy for about 2 mm of the skin beyond the stoma. This was carried down through the skin and subcutaneous tissue and the subcutaneous fat. The stoma was then from the anterior abdominal wall. Prior to the procedure the stoma was sewn with continuous 2-0 silk sutures to prevent any spillage into the wound after which the abdomen was painted and draped. Once the colostomy was taken down through the skin and subcutaneous fat to the abdominal wall, the multiple adhesions were noted to the anterior abdominal wall and the abdominal cavity underneath. The abdomen was thus opened through a vertical midline incision. This was all above the umbilicus all the way down to the pubic symphysis. The abdominal cavity was entered. There were small bowel adhesions to the colostomy stoma, which was carefully lysed with sharp and blunt dissection as well. The colostomy was then taken down into the abdominal cavity, going through extensive adhesions, that were lysed. The distal Santacruz pouch was identified with a suture, that had been used as a tag. This was then carried down all the way down to the uterus, wherein some adhesions were noted to the left side of the uterus, and the fornix, and to the left fallopian tube. This was carefully taken down. Diverticulum with some fecal matter was noted in the sigmoid colon, which was attached to these adhesions. This was then and the sigmoid colon beyond this inflammation was divided using a RADHA stapling device. This segment of the colon going to the stoma was excised, and sent to Pathology separately. The colostomy was then first taken down into the abdominal cavity and the descending colon was mobilized all the way down to the splenic flexure after incising the lateral peritoneal reflection. The splenic flexure was also taken down, mobilised and the omentum from the distal transverse colon. Once this was done, the descending colon was divided proximal to the stoma, using the EndoGIA stapling device. This was also sent to Pathology. Once this was done the 2 ends of the colon proximally, as well as distally at the rectosigmoid was approximated together. The edges (ends), of the colon was then excised and freshened. An anastomosis was performed in a 2-layered fashion. We made a continuous [id number] Vicryl sutures, followed by a second layer of seromuscular with 3-0 silk. The anastomosis was adequate, in terms of its patency and blood supply. After the anastomosis, a catheter was placed in the rectum and the rectum was inflated with air: there was no leak of air from the anastomosi, and distention of the colon proximal to the anastomosis was noted. Hemostasis was satisfactory. The anastomosis had good blood supply. The abdominal cavity was then examined. The small intestine was run from the duodenojejunal flexure all the way down to the ileocecal valve. Small serosal tears of the proximal small intestine were repaired, with interrupted 3-0 silk sutures. Hemostasis was satisfactory. The colostomy wound was then closed closing the inner layers of muscle, with No. 1 PDS sutures. The anterior rectus sheath was then reapproximated with interrupted No. 1 PDS. The abdomen was then closed in a running fashion using No. 1 PDS. The closure was adequate. Local anesthesia was injected around the wound. At the completion the midline abdominal wound was closed closing crispin. The subcutaneous fat at the colostomy, and the deep fascia was approximated with buried interrupted 3-0 Vicryl sutures. The skin was left opened, at the colostomy site , and the wound was irrigated. The skin edges were sewn with 3-0 Prolene, but not approximated. The sutures will be approximated later when the wound is clean. The wound was packed with Iodoform gauze and dressing. The abdominal wound was also closed with a dressing and it was satisfactory. Estimated blood loss was 400 mL. The patient tolerated the procedure, was extubated, and sent to the recovery room in satisfactory and sterile condition. Syed [id number] MTDD
--- NOTE | 2019-08-02 08:56 | PN ---
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; Protocol Stop: 08/08/19 11:21 Metronidazole (Flagyl 500mg Premixed Ivpb -) 500 mg in 100 mls @ 100 mls/hr IVPB Q8H-IV BABITA Stop: 08/02/19 15:59 Last Admin: 08/02/19 01:25 Dose: 100 mls/hr Ceftriaxone Sodium 1 gm/ (Dextrose) 50 mls @ 200 mls/hr IVPB ONCE ONE; Protocol Stop: 08/02/19 09:14 Sodium Chloride (Normal Saline -) 1,000 mls @ 125 mls/hr IV ASDIR BABITA Last Admin: 08/02/19 01:25 Dose: 125 mls/hr Metoprolol Tartrate (Lopressor -) 50 mg PO DAILY BABITA Mirtazapine (Remeron -) 15 mg PO HS BABITA Last Admin: 08/01/19 22:16 Dose: 15 mg Ondansetron HCl (Zofran Injection) 4 mg IVPUSH Q6H PRN PRN Reason: NAUSEA AND/OR VOMITING Last Admin: 08/01/19 19:56 Dose: 4 mg Pantoprazole Sodium (Protonix Iv) 40 mg IVPUSH BID [facility] Last Admin: 08/01/19 22:15 Dose: 40 mg - Objective Vital Signs: Vital Signs Temperature 99.3 F 08/02/19 06:00 Pulse Rate 71 08/02/19 06:00 Respiratory Rate 20 08/02/19 06:00 Blood Pressure 134/61 08/02/19 06:00 O2 Sat by Pulse Oximetry (%) 98 08/01/19 21:00 Constitutional: Yes: Anxious Eyes: Yes: Conjunctiva Clear, EOM Intact HENT: Yes: Atraumatic, Normocephalic Neck: Yes: Supple, Trachea Midline Cardiovascular: Yes: Regular Rate and Rhythm, S1, S2 Respiratory: Yes: Regular, CTA Bilaterally Gastrointestinal: Yes: Soft, Other (Post op site No discharge) ...Rectal Exam: Yes: Deferred Genitourinary: Yes: Incontinence Musculoskeletal: Yes: Joint Stiffness Edema: No Peripheral Pulses WNL: Yes Labs: CBC, BMP 08/02/19 06:09 08/02/19 06:09 Problem List - Problems (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 (2) Diverticulitis Code(s): K57.92 - DVTRCLI OF INTEST, PART UNSP, W/O PERF OR ABSCESS W/O BLEED (3) Diverticulitis of intestine with abscess Code(s): K57.80 - DVTRCLI OF INTEST, PART UNSP, W PERF AND ABSCESS W/O BLEED (4) Dyspepsia Code(s): R10.13 - EPIGASTRIC PAIN (5) HTN (hypertension) Code(s): I10 - ESSENTIAL (PRIMARY) HYPERTENSION (6) Hyperlipidemia Code(s): E78.5 - HYPERLIPIDEMIA, UNSPECIFIED Qualifiers: Hyperlipidemia type: pure hypercholesterolemia Qualified Code(s): E78.00 - Pure hypercholesterolemia, unspecified; E78.0 - Pure hypercholesterolemia (7) Insomnia disorder Code(s): G47.00 - INSOMNIA, UNSPECIFIED (8) History of colostomy reversal Code(s): Z98.890 - OTHER SPECIFIED POSTPROCEDURAL STATES Assessment/Plan (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 (2) Diverticulitis Code(s): K57.92 - DVTRCLI OF INTEST, PART UNSP, W/O PERF OR ABSCESS W/O BLEED (3) Diverticulitis of intestine with abscess Code(s): K57.80 - DVTRCLI OF INTEST, PART UNSP, W PERF AND ABSCESS W/O BLEED (4) Dyspepsia Code(s): R10.13 - EPIGASTRIC PAIN (5) HTN (hypertension) Code(s): I10 - ESSENTIAL (PRIMARY) HYPERTENSION (6) Hyperlipidemia Code(s): E78.5 - HYPERLIPIDEMIA, UNSPECIFIED Qualifiers: Hyperlipidemia type: pure hypercholesterolemia Qualified Code(s): E78.00 - Pure hypercholesterolemia, unspecified; E78.0 - Pure hypercholesterolemia (7) Insomnia disorder Code(s): G47.00 - INSOMNIA, UNSPECIFIED (8) History of colostomy reversal Problems reviewed: Yes Code(s): Z98.890 - OTHER SPECIFIED POSTPROCEDURAL STATES Flexible sigmoidoscopy ,. Take down of colostomy . Mobilisation of the splenic flexure of colon ,. Colocolostomy . Lysis of small intestinal adhesions. Posop day 1 IV antibiotics IV Metoprolol to control BP WBC normal
[2019-08-02] MEDS ORDERED: CEFTRIAXONE 1 GM in DEXTROSE 5%-WATER - 50 ML IVPB ONE (09:00)
[2019-08-02] MEDS ORDERED: hydrALAZINE HCL 10 MG TABLET PO SCH (10:00)
[2019-08-02] MEDS ORDERED: LISINOPRIL 20 MG TABLET (FP) PO SCH (10:00)
[2019-08-02] MEDS ORDERED: ASCORBIC ACID 500 MG TABLET (FP) PO SCH (10:00)
[2019-08-02] MEDS ORDERED: VITAMIN B COMPLEX W/C COMBO TABLET (FP) PO SCH (10:00)
[2019-08-02] MEDS: PANTOPRAZOLE SODIUM 40 MG VIAL IVPUSH SCH ×2 (10:25→21:12)
[2019-08-02] MEDS: ENOXAPARIN NA (PORCINE) 40 MG/0.4 ML DISP.SYRIN SQ SCH (10:25)
[2019-08-02] MEDS: METOPROLOL TARTRATE 50 MG TABLET (FP) PO SCH (11:02)
[2019-08-02] MEDS ORDERED: cefTRIAXone SODIUM 1 GM VIAL ONE (12:15)
[2019-08-02] MEDS ORDERED: DEXTROSE 5%-WATER - 50 ML IVPB ONE ×2 (12:16→20:41)
[2019-08-02] MEDS: ONDANSETRON 4 MG/2 ML VIAL IVPUSH PRN (13:08)
--- NOTE | 2019-08-02 14:07 | CON.ID ---
Consult - History of Present Illness History of Present Illness: 78 y.o. 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 She is now s/p colostomy takedown/re-anastomosis and KURTIS POD #1. Currently without significant abd pain, only with movement. Denies flatus or BMs as of yet. Temp of 99.3. She has no other specific complaints. - History Source History Provided By: Patient Limitations to Obtaining History: No Limitations 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), Diverticulosis, Other (Diverticular abscess, colovaginal fistula) Psych: Yes: Anxiety - Past Surgical History Past Surgical History: Yes: None - Alcohol/Substance Use Hx Alcohol Use: No History of Substance Use: reports: None - Smoking History Smoking history: Never smoked Have you smoked in the past 12 months: No Aproximately how many cigarettes per day: 0 - Social History Usual Living Arrangement: Alone ADL: Independent 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 History of Recent Travel: No Home Medications - Allergies Allergies/Adverse Reactions: Allergies Allergy/AdvReac Type Severity Reaction Status Date / Time No Known Allergies Allergy Verified 08/01/19 06:45 - Home Medications Home Medications: Ambulatory Orders Lisinopril [Prinivil] 20 mg PO DAILY 07/01/14 Aspirin [ASA -] 81 mg PO DAILY 07/10/18 Simvastatin 5 mg PO HS 07/10/18 Ascorbic Acid/Ascorbate Sodium [Vitamin C 250 mg Tablet Chew] 500 mg PO DAILY Metoprolol Succinate [Toprol Xl] 50 mg PO DAILY 05/31/19 Mirtazapine [Remeron -] 7.5 mg PO HS 05/31/19 Vitamin B Complex 1 each PO DAILY 05/31/19 Hydralazine HCl 10 mg PO DAILY 08/01/19 Review of Systems - Review of Systems Constitutional: reports: Weakness. denies: No Symptoms, Chills, Diaphoresis, Fever, Lethargy, Loss of Appetite, Malaise, Night Sweats, Unintentional Wgt. Loss, Other Eyes: reports: No Symptoms. denies: Blind Spots, Blurred Vision, Double Vision , Eye Pain, Floaters, Photophobia, Recent Change in Vision, Other HENT: reports: No Symptoms. denies: Difficult Swallowing, Ear Discharge, Ear Pain, Epistaxis, Gingival Bleeding, Hearing Loss, Mouth Swelling, Nasal Congestion, Ocular Prosthesis, Throat Pain, Toothache, Ringing in Ears, Other Neck: reports: No Symptoms. denies: Decreased ROM, Lumps, Pain on Movement, Stiffness, Swollen Glands, Tenderness, Other Cardiovascular: reports: No Symptoms. denies: Chest Pain, Edema, Palpitations, Shortness of Breath, Other Respiratory: reports: No Symptoms. denies: Cough, Exercise Intolerance, Hemoptysis, Orthopnea, PND, Snoring, SOB, SOB on Exertion, Wheezing, Other Gastrointestinal: reports: Abdominal Pain Genitourinary: reports: No Symptoms. denies: Burning, Discharge, Dysuria, Flank Pain, Frequency, Hematuria, Incontinence, Lesions, Menses, Pain, Testicular Mass, Testicular Pain, Testicular Swelling, Urgency, Vaginal Bleeding , Other Musculoskeletal: reports: No Symptoms. denies: Back Pain, Crepitus, Decreased ROM, Extremity Pain, Joint Pain, Joint Swelling, Muscle Pain, Muscle Cramps, Muscle Weakness, Other Integumentary: reports: No Symptoms. denies: Blister, Bruising, Change in Color , Eczema, Erythema, Incision, Lesions, Lump, Pallor, Pruritis, Rash, Wound, Other Neurological: reports: No Symptoms. denies: Change in LOC, Change in Speech, Confusion, Dizziness, Headache, Incoordination, Numbness, Parasthesia, Pre- Existing Deficit, Seizure, Syncope, Tremors, Unsteady Gait, Weakness, Other Endocrine: reports: No Symptoms. denies: Excessive Sweating, Flushing, Increased Hunger, Increased Thirst, Intolerance to Cold, Intolerance to Heat, Unexplained Weight Gain, Unexplained Weight Loss, Other Hematology/Lymphatic: reports: No Symptoms. denies: Easily Bruised, Excessive Bleeding, Swollen Glands, Other Physical Exam Vital Signs: Vital Signs Temperature 99.3 F 08/02/19 06:00 Pulse Rate 71 08/02/19 06:00 Respiratory Rate 20 08/02/19 06:00 Blood Pressure 134/61 08/02/19 06:00 O2 Sat by Pulse Oximetry (%) 98 08/02/19 09:00 Constitutional: Yes: No Distress, Calm Eyes: Yes: Conjunctiva Clear, EOM Intact HENT: Yes: Atraumatic, Normocephalic Neck: Yes: Supple Cardiovascular: Yes: Regular Rate and Rhythm Respiratory: Yes: CTA Bilaterally Gastrointestinal: Yes: Hypoactive Bowel Sounds, Tenderness (mild with palpation) Renal/: Yes: Vaginal Discharge Musculoskeletal: Yes: WNL Extremities: Yes: WNL Integumentary: Yes: WNL Wound/Incision: Yes: Dressing Dry and Intact Neurological: Yes: Alert, Oriented Labs: CBC, BMP 08/02/19 06:09 08/02/19 06:09 Laboratory Tests 08/02/19 08/02/19 06:09 06:09 WBC 9.8 RBC 3.73 Hgb 11.4 Hct 33.7 D MCV 90.3 MCH 30.5 MCHC 33.8 RDW 14.8 Plt Count 209 MPV 9.0 D Absolute Neuts (auto) 8.3 H Neutrophils % 84.7 H D Lymphocytes % 9.1 D Monocytes % 6.1 Eosinophils % 0.0 D Basophils % 0.1 Nucleated RBC % 0 Sodium 144 Potassium 3.5 Chloride 111 H Carbon Dioxide 25 Anion Gap 8 BUN 9.3 Creatinine 0.7 Est GFR (CKD-EPI)AfAm 96.18 Est GFR (CKD-EPI)NonAf 82.99 Random Glucose 111 H Calcium 7.8 L Problem List - Problems (1) History of colostomy reversal Code(s): Z98.890 - OTHER SPECIFIED POSTPROCEDURAL STATES (2) C. 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 s/p Colostomy reversal / KURTIS POD#1 Hx of Diverticulitis/Abscess Hx of Colouterine fistula s/p Colostomy HTN HLD -- start Zosyn empirically for now -- mild temp elevation today, monitor trend -- Surgery/GI following -- monitor vitals Will follow Thank you
[2019-08-02] MEDS: METOPROLOL TARTRATE 5 MG/5 ML VIAL IVPB SCH (16:53)
[2019-08-02] MEDS: PIPERACILLIN/TAZOB 3.375 GM 3.375 GM in DEXTROSE 5%-WATER - 50 ML IVPB SCH (20:30)
[2019-08-02] MEDS ORDERED: PIPERACILLIN/TAZOBACTAM 3.375 GM VIAL IVPB ONE (20:41)
[2019-08-02] MEDS: MIRTAZAPINE 15 MG TABLET (FP) PO SCH (21:13)
[2019-08-03] MEDS ORDERED: DEXTROSE 5%-WATER - 50 ML IVPB ONE ×3 (01:19→18:14)
[2019-08-03] MEDS ORDERED: PIPERACILLIN/TAZOBACTAM 3.375 GM VIAL IVPB ONE ×3 (01:19→18:14)
[2019-08-03] MEDS: PIPERACILLIN/TAZOB 3.375 GM 3.375 GM in DEXTROSE 5%-WATER - 50 ML IVPB SCH ×3 (01:31→18:28)
[2019-08-03] MEDS: METOPROLOL TARTRATE 5 MG/5 ML VIAL IVPB SCH ×3 (02:00→18:22)
[2019-08-03] MEDS: SODIUM CHLORIDE 1,000 ML IV SCH ×3 (06:53→16:28)
[2019-08-03] MEDS: HYDROmorphone *PCA* 10MG/50ML DISP.SYRIN PCA SCH ×3 (07:56→15:41)
[2019-08-03] MEDS: METOPROLOL TARTRATE 50 MG TABLET (FP) PO SCH (07:57)
[2019-08-03 08:17] LABS: BASO % 0.3 % (0-2.0); HEMATOCRIT 31.5 % (32.4-45.2); HEMOGLOBIN 10.7 GM/dL (10.7-15.3); LYMPH % 11.4 % (8-40); MCH 30.3 pg (25.7-33.7); MCHC 34.1 g/dl (32.0-36.0); MEAN CELL VOLUME 89.1 fl (80-96); MEAN PLT VOLUME 8.7 fl (7.5-11.1); MONO % 5.8 % (3.8-10.2); NEUT % 82.5 % (42.8-82.8); PLATELET COUNT 203 K/MM3 (134-434); RBC 3.54 M/mm3 (3.60-5.2); RDW 14.7 % (11.6-15.6); WHITE BLOOD COUNT 10.7 K/mm3 (4.0-10.0)
[2019-08-03 08:46] LABS: BLOOD UREA NITROGEN 8.4 mg/dL (7-18); CALCIUM 8.1 mg/dL (8.5-10.1); CREATININE 0.7 mg/dL (0.55-1.3); POTASSIUM 3.1 mmol/L (3.5-5.1)
[2019-08-03] MEDS ORDERED: ACETAMINOPHEN 1000 MG/100 ML VIAL (NON FORMULARY) IVPB PRN (09:25)
--- NOTE | 2019-08-03 09:25 | PN ---
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 Pt is doing well today, pain is well-controlled. 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 Will add ofirmev for now. No anesthetic issues/complications noted.
[2019-08-03] MEDS: ENOXAPARIN NA (PORCINE) 40 MG/0.4 ML DISP.SYRIN SQ SCH (09:58)
[2019-08-03] MEDS: PANTOPRAZOLE SODIUM 40 MG VIAL IVPUSH SCH ×2 (09:58→21:22)
--- NOTE | 2019-08-03 10:31 | PN ---
Progress Note (short form) - Note Progress Note: POD #2, s/p Hartmans reversal with KURTIS. Patient seen and examined. Has been using DESIGN TECH minimally, does not like pain meds. Tylenol offered, pt agreeable. Has been oob ambulating. Navas removed yesterday, voiding without issue. She denies any CP, SOB, N/V, Fever or chills. Has not passes flatus and is NPO. Vital Signs Temp 98.1 F 08/03/19 10:09 Pulse 65 08/03/19 10:09 Resp 19 08/03/19 10:09 BP 130/57 L 08/03/19 10:09 Pulse Ox 98 08/03/19 06:59 Intake & Output 08/02/19 08/02/19 08/03/19 11:59 23:59 11:59 Intake Total 1500 1351 1500 Output Total 500 200 Balance 1000 1151 1500 Intake: IV 1500 1250 1500 Normal Saline - 1,000 ml 1500 1250 1500 @ 125 mls/hr IV ASDIR BABITA Rx#:[id number] IVPB 0 100 Oral 0 1 0 Output: Urine 500 200 Navas 500 Void 200 Other: Voiding Method Indwelling Catheter Toilet Toilet # Unmeasured Voids Navas 1 Void 1 Bowel Movement No No CBC, BMP 08/03/19 07:57 08/03/19 07:57 PE: Gen: A&Ox3, NAD Resp: unlabored resp on RA ABD: soft, minimally distended with diffuse TTP throughout-appropriate to status. midline incision with crispin in place. Mild ecchymosis at margins, no tracking erythema no evidence of collection or active drainage. Ostomy site- packing removed and irrigated with NS, wound clean with clean edges and beefy red base. Re-packed with Iodoform dressing under sutures. Clean dry dressing applied to both wounds. LE's: B/L LE compartments soft, supple and non-tender to palpation A/P: 78 y/o F with PMHx HTN, Dyslipedemia anxiety, diverticulitis/colouterine fistula, s/p Laparoscopy , lysis of adhesions, descending colostomy in January 2019, now POD #2, s/p Hartmans reversal with KURTIS. afebrile, vss Leukocytosis trending up Wound stable, no flatus -OOB as tolerated, encourage up to chair at least TID in addition to ambulation with assist. -Pain control with DESIGN TECH, ofirmev 1g q6hrs added -Strict NPO until passing flatus -encourage IS -daily dressing/packing change -d/c planning to rehab vs home with VNS <Godfrey Bueno - Last Filed: 08/03/19 10:43> - Note Progress Note: Surgery : Patient is seen and examined . Out of bed , ambulating . Wound is clean. Labs : Normal. <Venu Avila - Last Filed: 08/03/19 11:42>
--- NOTE | 2019-08-03 11:35 | CON.CARD ---
Cardiology Consult (text) - Consultation Consultation Note: Consult Consult Specialty:: Cardiology Referred by:: Medicine Reason for Consultation:: HTN - History of Present Illness Chief Complaint: Preop History of Present Illness: 78F h/o HTN, HLD, anxiety p/w LLQ pain, tenderness, diverticulitis. Recent admission s/p colostomy, now here after colostomy reversal, POD 2. No chest pain, palps, dizziness, dyspnea. Has been NPO, BP elevated yesterday improved today with IV meds. Postop pain improving - Past Medical History Cardio/Vascular: Yes: HTN, Hyperlipdemia Gastrointestinal: Yes: Diverticulitis, Diverticulosis Psych: Yes: Anxiety - Past Surgical History Past Surgical History: Yes: None - Alcohol/Substance Use Hx Alcohol Use: No History of Substance Use: reports: None - Smoking History Smoking history: Never smoked Have you smoked in the past 12 months: No Aproximately how many cigarettes per day: 0 - Social History ADL: Independent History of Recent Travel: No Home Medications - Allergies Allergies/Adverse Reactions: Allergies Allergy/AdvReac Type Severity Reaction Status Date / Time No Known Allergies Allergy Verified 08/01/19 06:45 Home Medications Medication Instructions Recorded Lisinopril [Prinivil] 20 mg PO DAILY 07/01/14 Aspirin [ASA -] 81 mg PO DAILY 07/10/18 Simvastatin 5 mg PO HS 07/10/18 Ascorbic Acid/Ascorbate Sodium 500 mg PO DAILY 05/31/19 [Vitamin C 250 mg Tablet Chew] Metoprolol Succinate [Toprol Xl] 50 mg PO DAILY 05/31/19 Mirtazapine [Remeron -] 7.5 mg PO HS 05/31/19 Vitamin B Complex 1 each PO DAILY 05/31/19 Hydralazine HCl 10 mg PO DAILY 08/01/19 Family Disease History - Family Disease History Family History: Unremarkable Review of Systems - Review of Systems Constitutional: reports: No Symptoms Eyes: reports: No Symptoms HENT: reports: No Symptoms Neck: reports: No Symptoms Cardiovascular: reports: No Symptoms Respiratory: reports: No Symptoms Gastrointestinal: reports: Abdominal Pain Genitourinary: reports: No Symptoms Musculoskeletal: reports: No Symptoms Integumentary: reports: No Symptoms Neurological: reports: No Symptoms Endocrine: reports: No Symptoms Hematology/Lymphatic: reports: No Symptoms Psychiatric: reports: No Symptoms Vital Signs: Vital Signs Period Temp Pulse Resp BP Sys/Zhong Pulse Ox Last 24 Hr 98.1 F-98.9 F 65-75 18-20 130-169/51-67 98-100 Constitutional: Yes: Well Nourished, No Distress, Calm Eyes: Yes: Conjunctiva Clear, EOM Intact HENT: Yes: Atraumatic, Normocephalic Neck: Yes: Supple, Trachea Midline Respiratory: Yes: Regular, CTA Bilaterally Gastrointestinal: Yes: Normal Bowel Sounds, Soft Cardiovascular: Yes: Regular Rate and Rhythm JVD: No Carotid Bruit: No PMI: Non-Displaced Heart Sounds: Yes: S1, S2 Murmur: No: Systolic Murmur Musculoskeletal: No: Back Pain Extremities: No: Cold Edema: No Peripheral Pulses WNL: Yes Peripheral Pulses: 2+ Left Doralis Pedis, 2+ Right Dorsalis Pedis Integumentary: No: Jaundice Neurological: Yes: Alert, Oriented Psychiatric: No: Agitated Laboratory Last Values WBC 10.7 K/mm3 (4.0-10.0) H 08/03/19 07:57 RBC 3.54 M/mm3 (3.60-5.2) L 08/03/19 07:57 Hgb 10.7 GM/dL (10.7-15.3) 08/03/19 07:57 Hct 31.5 % (32.4-45.2) L 08/03/19 07:57 MCV 89.1 fl (80-96) 08/03/19 07:57 MCH 30.3 pg (25.7-33.7) 08/03/19 07:57 MCHC 34.1 g/dl (32.0-36.0) 08/03/19 07:57 RDW 14.7 % (11.6-15.6) 08/03/19 07:57 Plt Count 203 K/MM3 (134-434) 08/03/19 07:57 MPV 8.7 fl (7.5-11.1) 08/03/19 07:57 Absolute Neuts (auto) 8.9 K/mm3 (1.5-8.0) H 08/03/19 07:57 Neutrophils % 82.5 % (42.8-82.8) 08/03/19 07:57 Lymphocytes % 11.4 % (8-40) D 08/03/19 07:57 Monocytes % 5.8 % (3.8-10.2) 08/03/19 07:57 Eosinophils % 0.0 % (0-4.5) 08/03/19 07:57 Basophils % 0.3 % (0-2.0) 08/03/19 07:57 Nucleated RBC % 0 % (0-0) 08/03/19 07:57 Sodium 144 mmol/L (136-145) 08/03/19 07:57 Potassium 3.1 mmol/L (3.5-5.1) L 08/03/19 07:57 Chloride 111 mmol/L (98-107) H 08/03/19 07:57 Carbon Dioxide 26 mmol/L (21-32) 08/03/19 07:57 Anion Gap 7 MMOL/L (8-16) L 08/03/19 07:57 BUN 8.4 mg/dL (7-18) 08/03/19 07:57 Creatinine 0.7 mg/dL (0.55-1.3) 08/03/19 07:57 Est GFR (CKD-EPI)AfAm 96.18 08/03/19 07:57 Est GFR (CKD-EPI)NonAf 82.99 08/03/19 07:57 Random Glucose 102 mg/dL (74-106) 08/03/19 07:57 Calcium 8.1 mg/dL (8.5-10.1) L 08/03/19 07:57 Assessment/Plan EKG: sinus, nl intervals, no ischemic changes echo 12/2018 nl LV/RV function, LA mildly dilated, mild MAC, mild to mod MR, mild TR, PASP at leat 41 mmHG, tr DE s/p colostomy reversal - manage per surgery HTN - improving now with IV metoprolol, pain control - continue IV metoprolol while NPO, restart home meds when able to take PO HLD - cont statin when able to take PO
[2019-08-03] MEDS: ACETAMINOPHEN 1000 MG/100 ML VIAL (NON FORMULARY) IVPB SCH ×3 (12:00→22:44)
--- NOTE | 2019-08-03 12:53 | PN ---
Progress Note, Physician History of Present Illness: stable no new issues - Current Medication List Current Medications: Active Medications Acetaminophen (Ofirmev Injection -) 1,000 mg IVPB Q6H [facility] Stop: 08/04/19 04:46 Last Admin: 08/03/19 12:00 Dose: 1,000 mg Enoxaparin Sodium (Lovenox -) 40 mg SQ DAILY [facility] Last Admin: 08/03/19 09:58 Dose: 40 mg Fentanyl (Sublimaze Injection -) 25 mcg IVPUSH [id number] PRN PRN Reason: PAIN-PACU ORDER X 4 DOSES ONLY Hydromorphone HCl (Hydromorphone 10 Mg/50 Ml-Ns) 10 mg AIRPLANE DISPATCHER AIRPLANE DISPATCHER [facility]; Protocol Stop: 08/08/19 11:21 Last Admin: 08/03/19 07:57 Dose: Not Given Sodium Chloride (Normal Saline -) 1,000 mls @ 125 mls/hr IV ASDIR [facility] Last Admin: 08/03/19 07:56 Dose: Not Given Piperacillin Sod/Tazobactam (Sod 3.375 gm/ Dextrose) 50 mls @ 100 mls/hr IVPB Q8H-IV [facility]; Protocol Last Admin: 08/03/19 09:58 Dose: 100 mls/hr Metoprolol Tartrate (Lopressor Injection -) 5 mg IVPB Q8H-IV [facility] Last Admin: 08/03/19 10:04 Dose: 5 mg Mirtazapine (Remeron -) 15 mg PO HS [facility] Last Admin: 08/02/19 21:13 Dose: Not Given Pantoprazole Sodium (Protonix Iv) 40 mg IVPUSH BID [facility] Last Admin: 08/03/19 09:58 Dose: 40 mg - Objective Vital Signs: Vital Signs Temperature 98.1 F 08/03/19 10:09 Pulse Rate 65 08/03/19 10:09 Respiratory Rate 19 08/03/19 10:09 Blood Pressure 130/57 L 08/03/19 10:09 O2 Sat by Pulse Oximetry (%) 98 08/03/19 09:00 Constitutional: Yes: No Distress, Calm Cardiovascular: Yes: S1, S2 Respiratory: Yes: Regular, CTA Bilaterally Gastrointestinal: Yes: Normal Bowel Sounds, Soft Musculoskeletal: Yes: WNL Extremities: Yes: WNL Wound/Incision: Yes: Dressing Dry and Intact Neurological: Yes: Alert, Oriented Psychiatric: Yes: Alert, Oriented Labs: CBC, BMP 08/03/19 07:57 08/03/19 07:57 Assessment/Plan Problem List - Problems (1) History of colostomy reversal Code(s): Z98.890 - OTHER SPECIFIED POSTPROCEDURAL STATES (2) C. 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 s/p Colostomy reversal / KURTIS POD#1 Hx of Diverticulitis/Abscess Hx of Colouterine fistula s/p Colostomy HTN HLD plan continue abx for now if remains afebrile and stable will stop it rest as per the team
--- NOTE | 2019-08-03 13:11 | PN ---
Progress Note, Physician - Current Medication List Current Medications: Active Medications Acetaminophen (Ofirmev Injection -) 1,000 mg IVPB Q6H [facility] Stop: 08/04/19 04:46 Last Admin: 08/03/19 12:00 Dose: 1,000 mg Enoxaparin Sodium (Lovenox -) 40 mg SQ DAILY [facility] Last Admin: 08/03/19 09:58 Dose: 40 mg Fentanyl (Sublimaze Injection -) 25 mcg IVPUSH [id number] PRN PRN Reason: PAIN-PACU ORDER X 4 DOSES ONLY Hydromorphone HCl (Hydromorphone 10 Mg/50 Ml-Ns) 10 mg DROP PIT WORKER DROP PIT WORKER [facility]; Protocol Stop: 08/08/19 11:21 Last Admin: 08/03/19 07:57 Dose: Not Given Sodium Chloride (Normal Saline -) 1,000 mls @ 125 mls/hr IV ASDIR [facility] Last Admin: 08/03/19 07:56 Dose: Not Given Piperacillin Sod/Tazobactam (Sod 3.375 gm/ Dextrose) 50 mls @ 100 mls/hr IVPB Q8H-IV [facility]; Protocol Last Admin: 08/03/19 09:58 Dose: 100 mls/hr Metoprolol Tartrate (Lopressor Injection -) 5 mg IVPB Q8H-IV [facility] Last Admin: 08/03/19 10:04 Dose: 5 mg Mirtazapine (Remeron -) 15 mg PO HS [facility] Last Admin: 08/02/19 21:13 Dose: Not Given Pantoprazole Sodium (Protonix Iv) 40 mg IVPUSH BID [facility] Last Admin: 08/03/19 09:58 Dose: 40 mg - Objective Vital Signs: Vital Signs Temperature 98.1 F 08/03/19 10:09 Pulse Rate 65 08/03/19 10:09 Respiratory Rate 19 08/03/19 10:09 Blood Pressure 130/57 L 08/03/19 10:09 O2 Sat by Pulse Oximetry (%) 98 08/03/19 09:00 Labs: CBC, BMP 08/03/19 07:57 08/03/19 07:57 Problem List - Problems (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 (2) Diverticulitis Code(s): K57.92 - DVTRCLI OF INTEST, PART UNSP, W/O PERF OR ABSCESS W/O BLEED (3) Diverticulitis of intestine with abscess Code(s): K57.80 - DVTRCLI OF INTEST, PART UNSP, W PERF AND ABSCESS W/O BLEED (4) Dyspepsia Code(s): R10.13 - EPIGASTRIC PAIN (5) HTN (hypertension) Code(s): I10 - ESSENTIAL (PRIMARY) HYPERTENSION (6) Hyperlipidemia Code(s): E78.5 - HYPERLIPIDEMIA, UNSPECIFIED Qualifiers: Hyperlipidemia type: pure hypercholesterolemia Qualified Code(s): E78.00 - Pure hypercholesterolemia, unspecified; E78.0 - Pure hypercholesterolemia (7) Insomnia disorder Code(s): G47.00 - INSOMNIA, UNSPECIFIED (8) History of colostomy reversal Code(s): Z98.890 - OTHER SPECIFIED POSTPROCEDURAL STATES
--- NOTE | 2019-08-03 16:04 | PATH ---
Surgical Pathology Report Patient Name: JONAS CHINO Med. Rec. #: [id number] /Age/Gender: 1940 (Age: 78) / F Account: [id number] Location: [address] [place] [address]/[facility] Taken: 08/01/2019 Received: 08/01/2019 Reported: 08/03/2019 Physicians: Mayda Avila M.D. Specimen(s) Received A: DISTAL SIGMOID DIVERTICULITIS B: COLOSTOMY Clinical History Status post colonoscopy reversal of Santacruz's procedure Patient with prior colouterine fistula status post proximal colostomy; closure of colostomy; pathology in distal colonic segment Final Diagnosis A. DISTAL SIGMOID DIVERTICULITIS, RESECTION: PORTION OF COLON WITH DIVERTICULOSIS. FOCAL FIBROSIS, MILD CHRONIC INFLAMMATION, AND FOREIGN BODY TYPE MULTINUCLEATED GIANT CELLS REACTION IN THE SUBSEROSA. VIABLE MARGINS. B. COLOSTOMY, EXCISION: PORTION OF SKIN AND SEGMENT OF COLON, CONSISTENT WITH COLOSTOMY WITH FOCAL MILD CHRONIC INFLAMMATION. Electronically Signed Tamera Khan M.D. Gross Description A. Received in formalin labeled "distal sigmoid diverticulitis," is a 7.5 cm in length portion of colon with 2 stapled mucosal margins and moderate attached pericolonic adipose tissue. The serosa is velazquez-arredondo and smooth. The mucosa is velazquez with normal folds. No mucosal masses are identified. Sectioning reveals focal small uncomplicated diverticula. Senior Restaurant Manager sections are submitted in 6 cassettes as follows: 9-0-[id number] stapled mucosal margins; 3-5-yhroshbkqjy. B. Received in formalin labeled "colostomy," is a 4.4 x 1.0 cm velazquez, elliptical portion of skin with a central os, consistent with a colostomy. The specimen displays a 7 cm in length portion of bowel attached. The distal bowel displays a stapled margin of resection. The bowel mucosa is velazquez with normal folds. Senior Restaurant Manager sections are submitted in 2 cassettes as follows: 1-ostomy site; 2-distal stapled bowel margin 08/02/201908/02/2019
[2019-08-03] MEDS: MIRTAZAPINE 15 MG TABLET (FP) PO SCH (22:09)
[2019-08-04] MEDS ORDERED: DEXTROSE 5%-WATER - 50 ML IVPB ONE ×2 (01:46→09:25)
[2019-08-04] MEDS ORDERED: PIPERACILLIN/TAZOBACTAM 3.375 GM VIAL IVPB ONE ×2 (01:46→09:25)
[2019-08-04] MEDS: PIPERACILLIN/TAZOB 3.375 GM 3.375 GM in DEXTROSE 5%-WATER - 50 ML IVPB SCH ×2 (01:48→09:37)
[2019-08-04] MEDS: METOPROLOL TARTRATE 5 MG/5 ML VIAL IVPB SCH ×3 (02:29→17:47)
[2019-08-04] MEDS: ACETAMINOPHEN 1000 MG/100 ML VIAL (NON FORMULARY) IVPB SCH (05:00)
[2019-08-04 08:39] LABS: BASO % 0.3 % (0-2.0); EOS % 0.1 % (0-4.5); HEMATOCRIT 26.9 % (32.4-45.2); HEMOGLOBIN 9.3 GM/dL (10.7-15.3); LYMPH % 9.5 % (8-40); MCHC 34.6 g/dl (32.0-36.0); MEAN CELL VOLUME 89.6 fl (80-96); MEAN PLT VOLUME 8.9 fl (7.5-11.1); MONO % 4.5 % (3.8-10.2); NEUT % 85.6 % (42.8-82.8); PLATELET COUNT 179 K/MM3 (134-434); RBC 3.01 M/mm3 (3.60-5.2); RDW 14.9 % (11.6-15.6); WHITE BLOOD COUNT 7.9 K/mm3 (4.0-10.0)
[2019-08-04 09:07] LABS: BLOOD UREA NITROGEN 9.8 mg/dL (7-18); CREATININE 0.5 mg/dL (0.55-1.3)
[2019-08-04 09:12] LABS: POTASSIUM 2.9 mmol/L (3.5-5.1)
[2019-08-04] MEDS: PANTOPRAZOLE SODIUM 40 MG VIAL IVPUSH SCH ×2 (09:37→21:09)
[2019-08-04] MEDS: ENOXAPARIN NA (PORCINE) 40 MG/0.4 ML DISP.SYRIN SQ SCH (09:37)
--- NOTE | 2019-08-04 11:25 | PN ---
Progress Note (short form) - Note Progress Note: Patient stable and has pain score of 2-3/10 on Dilaudid ICE CREAM FREEZER.Will continue ICE CREAM FREEZER today as patient is still NPO.Will f/u tomorrow.
[2019-08-04] MEDS ORDERED: ACETAMINOPHEN 1000 MG/100 ML VIAL (NON FORMULARY) IVPB PRN (12:32)
--- NOTE | 2019-08-04 12:36 | PN ---
Progress Note (short form) - Note Progress Note: POD #3, s/p Hartmans reversal with KURTIS. Patient seen and examined. Pain controlled on current regimen. Has been oob ambulating. Voiding without issue. She denies any CP, SOB, N/V, Fever or chills. Has not passes flatus and is NPO. Vital Signs Temp 97.4 F L 08/04/19 10:00 Pulse 64 08/04/19 10:00 Resp 20 08/04/19 10:00 BP 160/84 08/04/19 10:00 Pulse Ox 98 08/04/19 09:00 Intake & Output 08/03/19 08/04/19 08/04/19 23:59 11:59 23:59 Intake Total 1400 1300 Output Total 700 Balance 700 1300 Intake: IV 1000 1200 Normal Saline - 1,000 ml 1000 1200 @ 125 mls/hr IV ASDIR [facility] Rx#:[id number] IVPB 400 100 Oral 0 0 Output: Urine 700 Void 700 Other: Voiding Method Toilet Toilet # Unmeasured Voids Void 2 2 Bowel Movement No CBC, BMP 08/04/19 08:00 08/04/19 08:00 PE: Gen: A&Ox3, NAD Resp: unlabored resp on RA ABD: soft, minimally distended with diffuse TTP throughout-appropriate to status. Midline incision with crispin in place, mild erythema at proximal portion of incision (?staple reaction). Mild ecchymosis at margins, no evidence of collection or active drainage. Ostomy site-packing removed and irrigated with NS, wound clean with clean edges and beefy red base. Re-packed with Iodoform dressing under sutures. Clean dry dressing applied. LE's: B/L LE compartments soft, supple and non-tender to palpation A/P: 78 y/o F with PMHx HTN, Dyslipedemia anxiety, diverticulitis/colouterine fistula, s/p Laparoscopy , lysis of adhesions, descending colostomy in January 2019, now POD #3, s/p Hartmans reversal with KURTIS. afebrile, vss WBC normalized, h/h 9.3/26.9 today from 10.7/31.5 yesterday Wound stable, no flatus -KDUR ordered for hypokalemia -Monitor h/h, recheck potassium tomorrow -OOB as tolerated, encourage up to chair at least TID in addition to ambulation with assist. -Pain control with INFORMATION SECURITY SYSTEMS INSTRUCTOR, ofirmev 1g q6hrs prn -Strict NPO until passing flatus -encourage IS -daily dressing/packing change -d/c planning to rehab vs home with VNS message sent to Dr Avila regarding above
[2019-08-04] MEDS ORDERED: LACTATED RINGERS SOLUTION 1000 ML INFUS.BAG IV SCH (12:45)
[2019-08-04] MEDS ORDERED: KCL 10 MEQ IVPB 10 MEQ/100 ML INFUS.BAG IVPB SCH (12:50)
--- NOTE | 2019-08-04 13:00 | PN ---
Progress Note, Physician Chief Complaint: Pt had Reversal of Colostomy post op day2 Pt having Low K supplemeted No Fever Did not pass flatus/Stool - Current Medication List Current Medications: Active Medications Acetaminophen (Ofirmev Injection -) 1,000 mg IVPB Q6H PRN PRN Reason: PAIN Enoxaparin Sodium (Lovenox -) 40 mg SQ DAILY [facility] Last Admin: 08/04/19 09:37 Dose: 40 mg Hydromorphone HCl (Hydromorphone 10 Mg/50 Ml-Ns) 10 mg METROLOGY ENGINEER METROLOGY ENGINEER [facility]; Protocol Stop: 08/08/19 11:21 Last Admin: 08/03/19 15:41 Dose: 10 mg Piperacillin Sod/Tazobactam (Sod 3.375 gm/ Dextrose) 50 mls @ 100 mls/hr IVPB Q8H-IV [facility]; Protocol Last Admin: 08/04/19 09:37 Dose: 100 mls/hr Potassium Chloride (Potassium Chloride 10 Meq Premix Ivpb -) 10 meq in 100 mls @ 100 mls/hr IVPB Q60M [facility] Stop: 08/04/19 13:49 Potassium Chloride/Dextrose/Sod Cl (D5-1/2ns+20 Meq Kcl -) 20 meq in 1,000 mls @ 125 mls/hr IV ASDIR [facility] Lactated Ringer's (Lactated Ringers Solution) 125 ml IV ASDIR [facility] Metoprolol Tartrate (Lopressor Injection -) 5 mg IVPB Q8H-IV [facility] Last Admin: 08/04/19 09:36 Dose: 5 mg Mirtazapine (Remeron -) 15 mg PO HS [facility] Last Admin: 08/03/19 22:09 Dose: Not Given Pantoprazole Sodium (Protonix Iv) 40 mg IVPUSH BID [facility] Last Admin: 08/04/19 09:37 Dose: 40 mg - Objective Vital Signs: Vital Signs Temperature 97.4 F L 08/04/19 10:00 Pulse Rate 64 08/04/19 10:00 Respiratory Rate 20 08/04/19 10:00 Blood Pressure 160/84 08/04/19 10:00 O2 Sat by Pulse Oximetry (%) 98 08/04/19 09:00 Constitutional: Yes: Calm Eyes: Yes: Conjunctiva Clear, EOM Intact HENT: Yes: Atraumatic, Normocephalic Neck: Yes: Supple, Trachea Midline Cardiovascular: Yes: Regular Rate and Rhythm, S1, S2, Other Respiratory: Yes: Regular, CTA Bilaterally Gastrointestinal: Yes: Soft, Hypoactive Bowel Sounds Musculoskeletal: Yes: Joint Stiffness Edema: No Peripheral Pulses WNL: Yes Labs: CBC, BMP 08/04/19 08:00 08/04/19 08:00 Problem List - Problems (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 (2) Diverticulitis Code(s): K57.92 - DVTRCLI OF INTEST, PART UNSP, W/O PERF OR ABSCESS W/O BLEED (3) Diverticulitis of intestine with abscess Code(s): K57.80 - DVTRCLI OF INTEST, PART UNSP, W PERF AND ABSCESS W/O BLEED (4) Dyspepsia Code(s): R10.13 - EPIGASTRIC PAIN (5) HTN (hypertension) Code(s): I10 - ESSENTIAL (PRIMARY) HYPERTENSION (6) Hyperlipidemia Code(s): E78.5 - HYPERLIPIDEMIA, UNSPECIFIED Qualifiers: Hyperlipidemia type: pure hypercholesterolemia Qualified Code(s): E78.00 - Pure hypercholesterolemia, unspecified; E78.0 - Pure hypercholesterolemia (7) Insomnia disorder Code(s): G47.00 - INSOMNIA, UNSPECIFIED (8) History of colostomy reversal Code(s): Z98.890 - OTHER SPECIFIED POSTPROCEDURAL STATES Assessment/Plan (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 (2) Diverticulitis Code(s): K57.92 - DVTRCLI OF INTEST, PART UNSP, W/O PERF OR ABSCESS W/O BLEED (3) Diverticulitis of intestine with abscess Code(s): K57.80 - DVTRCLI OF INTEST, PART UNSP, W PERF AND ABSCESS W/O BLEED (4) Dyspepsia Code(s): R10.13 - EPIGASTRIC PAIN (5) HTN (hypertension) Code(s): I10 - ESSENTIAL (PRIMARY) HYPERTENSION (6) Hyperlipidemia Code(s): E78.5 - HYPERLIPIDEMIA, UNSPECIFIED Qualifiers: Hyperlipidemia type: pure hypercholesterolemia Qualified Code(s): E78.00 - Pure hypercholesterolemia, unspecified; E78.0 - Pure hypercholesterolemia (7) Insomnia disorder Code(s): G47.00 - INSOMNIA, UNSPECIFIED (8) History of colostomy reversal Problems reviewed: Yes Code(s): Z98.890 - OTHER SPECIFIED POSTPROCEDURAL STATES Flexible sigmoidoscopy ,. Take down of colostomy . Mobilisation of the splenic flexure of colon ,. Colocolostomy . Lysis of small intestinal adhesions. Posop day 1 IV antibiotics IV Metoprolol to control BP WBC normal Pt havin Low K 20 meq in IV and oral K
[2019-08-04] MEDS: D5-1/2NS+20 MEQ KCL - 20 MEQ/1,000 ML INFUS.BAG IV SCH (13:25)
[2019-08-04] MEDS ORDERED: LACTATED RINGERS SOLUTION 1,000 ML IV SCH (13:45)
--- NOTE | 2019-08-04 15:01 | PN ---
Progress Note, Physician - Current Medication List Current Medications: Active Medications Acetaminophen (Ofirmev Injection -) 1,000 mg IVPB Q6H PRN PRN Reason: PAIN Enoxaparin Sodium (Lovenox -) 40 mg SQ DAILY [facility] Last Admin: 08/04/19 09:37 Dose: 40 mg Hydromorphone HCl (Hydromorphone 10 Mg/50 Ml-Ns) 10 mg INFANTRY SENIOR SERGEANT INFANTRY SENIOR SERGEANT [facility]; Protocol Stop: 08/08/19 11:21 Last Admin: 08/03/19 15:41 Dose: 10 mg Piperacillin Sod/Tazobactam (Sod 3.375 gm/ Dextrose) 50 mls @ 100 mls/hr IVPB Q8H-IV [facility]; Protocol Last Admin: 08/04/19 09:37 Dose: 100 mls/hr Potassium Chloride/Dextrose/Sod Cl (D5-1/2ns+20 Meq Kcl -) 20 meq in 1,000 mls @ 125 mls/hr IV ASDIR [facility] Potassium Chloride (Potassium Chloride 10 Meq Premix Ivpb -) 10 meq in 100 mls @ 100 mls/hr IVPB Q1H [facility] Stop: 08/04/19 17:59 Lactated Ringer's (Lactated Ringers Solution) 1,000 mls @ 125 mls/hr IV ASDIR [facility] Metoprolol Tartrate (Lopressor Injection -) 5 mg IVPB Q8H-IV [facility] Last Admin: 08/04/19 09:36 Dose: 5 mg Mirtazapine (Remeron -) 15 mg PO HS [facility] Last Admin: 08/03/19 22:09 Dose: Not Given Pantoprazole Sodium (Protonix Iv) 40 mg IVPUSH BID [facility] Last Admin: 08/04/19 09:37 Dose: 40 mg - Objective Vital Signs: Vital Signs Temperature 97.4 F L 08/04/19 10:00 Pulse Rate 64 08/04/19 10:00 Respiratory Rate 20 08/04/19 10:00 Blood Pressure 160/84 08/04/19 10:00 O2 Sat by Pulse Oximetry (%) 98 08/04/19 09:00 Labs: CBC, BMP 08/04/19 08:00 08/04/19 08:00 Assessment/Plan Surgery: Patient is alert and oriented. Ambulating, Abdomen is soft , not distended. Has not passed flatus. Hypokalemia, being replaced. Wound is clean , no sign of imfection. Continue NPO, correct hypokalemia. Dvt prophylaxis. Hold oral feeding , until flatus is passed.
--- NOTE | 2019-08-04 15:34 | PN ---
Progress Note, Physician History of Present Illness: stable no new issues - Current Medication List Current Medications: Active Medications Acetaminophen (Ofirmev Injection -) 1,000 mg IVPB Q6H PRN PRN Reason: PAIN Enoxaparin Sodium (Lovenox -) 40 mg SQ DAILY [facility] Last Admin: 08/04/19 09:37 Dose: 40 mg Hydromorphone HCl (Hydromorphone 10 Mg/50 Ml-Ns) 10 mg MOLD YARD WORKER MOLD YARD WORKER [facility]; Protocol Stop: 08/08/19 11:21 Last Admin: 08/03/19 15:41 Dose: 10 mg Potassium Chloride/Dextrose/Sod Cl (D5-1/2ns+20 Meq Kcl -) 20 meq in 1,000 mls @ 125 mls/hr IV ASDIR [facility] Potassium Chloride (Potassium Chloride 10 Meq Premix Ivpb -) 10 meq in 100 mls @ 100 mls/hr IVPB Q1H [facility] Stop: 08/04/19 17:59 Lactated Ringer's (Lactated Ringers Solution) 1,000 mls @ 125 mls/hr IV ASDIR [facility] Metoprolol Tartrate (Lopressor Injection -) 5 mg IVPB Q8H-IV [facility] Last Admin: 08/04/19 09:36 Dose: 5 mg Mirtazapine (Remeron -) 15 mg PO HS [facility] Last Admin: 08/03/19 22:09 Dose: Not Given Pantoprazole Sodium (Protonix Iv) 40 mg IVPUSH BID [facility] Last Admin: 08/04/19 09:37 Dose: 40 mg - Objective Vital Signs: Vital Signs Temperature 97.4 F L 08/04/19 10:00 Pulse Rate 64 08/04/19 10:00 Respiratory Rate 20 08/04/19 10:00 Blood Pressure 160/84 08/04/19 10:00 O2 Sat by Pulse Oximetry (%) 98 08/04/19 09:00 Constitutional: Yes: No Distress, Calm Cardiovascular: Yes: S1, S2 Respiratory: Yes: Regular, CTA Bilaterally Gastrointestinal: Yes: Normal Bowel Sounds, Soft, Other (colostomy) Musculoskeletal: Yes: WNL Extremities: Yes: WNL Neurological: Yes: Alert, Oriented Psychiatric: Yes: Alert, Oriented Labs: CBC, BMP 08/04/19 08:00 08/04/19 08:00 Assessment/Plan Problem List - Problems (1) History of colostomy reversal Code(s): Z98.890 - OTHER SPECIFIED POSTPROCEDURAL STATES (2) C. 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 s/p Colostomy reversal / KURTIS POD#1 Hx of Diverticulitis/Abscess Hx of Colouterine fistula s/p Colostomy HTN HLD plan will stop abx rest as per the team
[2019-08-04] MEDS: KCL 10 MEQ IVPB 10 MEQ/100 ML INFUS.BAG IVPB SCH ×4 (15:49→22:05)
--- NOTE | 2019-08-04 16:41 | PN ---
Progress Note (short form) - Note Progress Note: s: no chest pain, palps, dizziness, dyspnea. remains NPO Current Medications Acetaminophen (Ofirmev Injection -) 1,000 mg IVPB Q6H PRN PRN Reason: PAIN Enoxaparin Sodium (Lovenox -) 40 mg SQ DAILY [facility] Last Admin: 08/04/19 09:37 Dose: 40 mg Hydromorphone HCl (Hydromorphone 10 Mg/50 Ml-Ns) 10 mg EDI ARCHITECT EDI ARCHITECT [facility]; Protocol Stop: 08/08/19 11:21 Last Admin: 08/03/19 15:41 Dose: 10 mg Potassium Chloride/Dextrose/Sod Cl (D5-1/2ns+20 Meq Kcl -) 20 meq in 1,000 mls @ 125 mls/hr IV ASDIR [facility] Last Admin: 08/04/19 13:25 Dose: 125 mls/hr Potassium Chloride (Potassium Chloride 10 Meq Premix Ivpb -) 10 meq in 100 mls @ 100 mls/hr IVPB Q1H [facility] Stop: 08/04/19 17:59 Last Admin: 08/04/19 15:49 Dose: 100 mls/hr Lactated Ringer's (Lactated Ringers Solution) 1,000 mls @ 125 mls/hr IV ASDIR [facility] Metoprolol Tartrate (Lopressor Injection -) 5 mg IVPB Q8H-IV [facility] Last Admin: 08/04/19 09:36 Dose: 5 mg Mirtazapine (Remeron -) 15 mg PO HS [facility] Last Admin: 08/03/19 22:09 Dose: Not Given Pantoprazole Sodium (Protonix Iv) 40 mg IVPUSH BID [facility] Last Admin: 08/04/19 09:37 Dose: 40 mg Vital Signs Period Temp Pulse Resp BP Sys/Zhong Pulse Ox Last 24 Hr 97.4 F-98.4 F 63-70 19-20 131-160/59-84 98-98 Constitutional: Yes: Well Nourished, No Distress, Calm Eyes: Yes: Conjunctiva Clear, EOM Intact HENT: Yes: Atraumatic, Normocephalic Neck: Yes: Supple, Trachea Midline Respiratory: Yes: Regular, CTA Bilaterally Gastrointestinal: Yes: Normal Bowel Sounds, Soft Cardiovascular: Yes: Regular Rate and Rhythm JVD: No Carotid Bruit: No PMI: Non-Displaced Heart Sounds: Yes: S1, S2 Murmur: No: Systolic Murmur Musculoskeletal: No: Back Pain Extremities: No: Cold Edema: No Peripheral Pulses WNL: Yes Peripheral Pulses: 2+ Left Doralis Pedis, 2+ Right Dorsalis Pedis Integumentary: No: Jaundice Neurological: Yes: Alert, Oriented Psychiatric: No: Agitated Assessment/Plan EKG: sinus, nl intervals, no ischemic changes echo 12/2018 nl LV/RV function, LA mildly dilated, mild MAC, mild to mod MR, mild TR, PASP at leat 41 mmHG, tr PA s/p colostomy reversal - manage per surgery HTN - pain control - continue IV metoprolol while NPO, restart home meds when able to take PO HLD - cont statin when able to take PO
[2019-08-04] MEDS: MIRTAZAPINE 15 MG TABLET (FP) PO SCH (21:08)
[2019-08-05] MEDS: METOPROLOL TARTRATE 5 MG/5 ML VIAL IVPB SCH ×4 (02:06→23:56)
[2019-08-05 08:28] LABS: BASO % 0.1 % (0-2.0); EOS % 0.1 % (0-4.5); HEMATOCRIT 29.7 % (32.4-45.2); HEMOGLOBIN 10.1 GM/dL (10.7-15.3); LYMPH % 14.7 % (8-40); MCH 30.3 pg (25.7-33.7); MEAN CELL VOLUME 89.2 fl (80-96); MEAN PLT VOLUME 8.8 fl (7.5-11.1); MONO % 4.8 % (3.8-10.2); NEUT % 80.3 % (42.8-82.8); PLATELET COUNT 238 K/MM3 (134-434); RBC 3.33 M/mm3 (3.60-5.2); RDW 14.8 % (11.6-15.6); WHITE BLOOD COUNT 8.6 K/mm3 (4.0-10.0)
[2019-08-05 08:36] LABS: BLOOD UREA NITROGEN 7.4 mg/dL (7-18); CALCIUM 8.1 mg/dL (8.5-10.1); CREATININE 0.5 mg/dL (0.55-1.3); POTASSIUM 3.5 mmol/L (3.5-5.1)
--- NOTE | 2019-08-05 08:51 | PN ---
Progress Note (short form) - Note Progress Note: Pain Management Rounds Examined patient at bedside, pain well controlled, not taking PO yet, will continue staff nuclear weapons officer until able to tolerate pills
[2019-08-05] MEDS: PANTOPRAZOLE SODIUM 40 MG VIAL IVPUSH SCH ×2 (09:36→21:43)
[2019-08-05] MEDS: ENOXAPARIN NA (PORCINE) 40 MG/0.4 ML DISP.SYRIN SQ SCH (09:36)
--- NOTE | 2019-08-05 09:39 | PN ---
Progress Note, Physician History of Present Illness: stable improving - Current Medication List Current Medications: Active Medications Acetaminophen (Ofirmev Injection -) 1,000 mg IVPB Q6H PRN PRN Reason: PAIN Enoxaparin Sodium (Lovenox -) 40 mg SQ DAILY [facility] Last Admin: 08/05/19 09:36 Dose: 40 mg Hydromorphone HCl (Hydromorphone 10 Mg/50 Ml-Ns) 10 mg FISHERY BIOLOGIST FISHERY BIOLOGIST [facility]; Protocol Stop: 08/08/19 11:21 Last Admin: 08/03/19 15:41 Dose: 10 mg Potassium Chloride/Dextrose/Sod Cl (D5-1/2ns+20 Meq Kcl -) 20 meq in 1,000 mls @ 125 mls/hr IV ASDIR [facility] Last Admin: 08/04/19 13:25 Dose: 125 mls/hr Metoprolol Tartrate (Lopressor Injection -) 5 mg IVPB Q8H-IV [facility] Last Admin: 08/05/19 09:36 Dose: 5 mg Mirtazapine (Remeron -) 15 mg PO HS [facility] Last Admin: 08/04/19 21:08 Dose: Not Given Pantoprazole Sodium (Protonix Iv) 40 mg IVPUSH BID [facility] Last Admin: 08/05/19 09:36 Dose: 40 mg - Objective Vital Signs: Vital Signs Temperature 98.4 F 08/05/19 06:39 Pulse Rate 65 08/05/19 09:36 Respiratory Rate 20 08/05/19 08:40 Blood Pressure 186/81 H 08/05/19 09:36 O2 Sat by Pulse Oximetry (%) 98 08/04/19 21:00 Constitutional: Yes: No Distress, Calm Cardiovascular: Yes: S1, S2 Respiratory: Yes: Regular, CTA Bilaterally Gastrointestinal: Yes: Normal Bowel Sounds, Soft Musculoskeletal: Yes: WNL Extremities: Yes: Other Integumentary: Yes: Other Wound/Incision: Yes: Dressing Dry and Intact Psychiatric: Yes: Alert Labs: CBC, BMP 08/05/19 07:33 08/05/19 07:33 Assessment/Plan Problem List - Problems (1) History of colostomy reversal Code(s): Z98.890 - OTHER SPECIFIED POSTPROCEDURAL STATES (2) C. 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 s/p Colostomy reversal / KURTIS POD#1 Hx of Diverticulitis/Abscess Hx of Colouterine fistula s/p Colostomy HTN HLD plan stable no new issues rest as per the team
--- NOTE | 2019-08-05 10:21 | PN ---
Progress Note, Physician - Current Medication List Current Medications: Active Medications Acetaminophen (Ofirmev Injection -) 1,000 mg IVPB Q6H PRN PRN Reason: PAIN Enoxaparin Sodium (Lovenox -) 40 mg SQ DAILY [facility] Last Admin: 08/05/19 09:36 Dose: 40 mg Hydromorphone HCl (Hydromorphone 10 Mg/50 Ml-Ns) 10 mg ENGINEER ASSISTANT ENGINEER ASSISTANT [facility]; Protocol Stop: 08/08/19 11:21 Last Admin: 08/03/19 15:41 Dose: 10 mg Potassium Chloride/Dextrose/Sod Cl (D5-1/2ns+20 Meq Kcl -) 20 meq in 1,000 mls @ 125 mls/hr IV ASDIR [facility] Last Admin: 08/04/19 13:25 Dose: 125 mls/hr Metoprolol Tartrate (Lopressor Injection -) 5 mg IVPB Q8H-IV [facility] Last Admin: 08/05/19 09:36 Dose: 5 mg Mirtazapine (Remeron -) 15 mg PO HS [facility] Last Admin: 08/04/19 21:08 Dose: Not Given Pantoprazole Sodium (Protonix Iv) 40 mg IVPUSH BID [facility] Last Admin: 08/05/19 09:36 Dose: 40 mg - Objective Vital Signs: Vital Signs Temperature 98.4 F 08/05/19 06:39 Pulse Rate 65 08/05/19 09:36 Respiratory Rate 20 08/05/19 08:40 Blood Pressure 186/81 H 08/05/19 09:36 O2 Sat by Pulse Oximetry (%) 98 08/04/19 21:00 Labs: CBC, BMP 08/05/19 07:33 08/05/19 07:33 Assessment/Plan Surgery: Patient is aleret and oriented. C/O intestinal peristalsis, but has not passed flatus, or bowel movement, Wound is clean . Has not passed flatus or had a bowel movement. Colostomy site wound is approximated. Wound appears clean. Both lower extremities are swollen , no calf tenderness. Patient has been on lovenox. Will do duplex ultrasound of lower extremities. Hold oral feeding.
[2019-08-05] MEDS: HYDROmorphone *PCA* 10MG/50ML DISP.SYRIN PCA SCH (13:46)
--- NOTE | 2019-08-05 14:48 | PN ---
Progress Note (short form) - Note Progress Note: s: no chest pain, palps, dizziness, dyspnea. remains NPO Current Medications Generic Name Dose Route Start Last Admin Trade Name Freq PRN Reason Stop Dose Admin Acetaminophen 1,000 mg 08/04/19 12:32 Ofirmev Injection - IVPB Q6H PRN PAIN Enoxaparin Sodium 40 mg 08/02/19 10:00 08/05/19 09:36 Lovenox - SQ 40 mg DAILY [facility] Administration Hydromorphone HCl 10 mg 08/01/19 11:30 08/05/19 13:46 Hydromorphone 10 Mg/50 Ml-Ns ANIMATION CAMERA OPERATOR 08/08/19 11:21 Not Given ANIMATION CAMERA OPERATOR [facility] Protocol Potassium Chloride/Dextrose/Sod Cl 20 meq in 1,000 mls @ 125 mls/hr 08/04/19 12:00 08/04/19 13:25 D5-1/2ns+20 Meq Kcl - IV 125 mls/hr ASDIR [facility] Administration Metoprolol Tartrate 5 mg 08/02/19 16:30 08/05/19 09:36 Lopressor Injection - IVPB 5 mg Q8H-IV [facility] Administration Mirtazapine 15 mg 08/01/19 22:00 08/04/19 21:08 Remeron - PO Not Given HS [facility] Pantoprazole Sodium 40 mg 08/01/19 22:00 08/05/19 09:36 Protonix Iv IVPUSH 40 mg BID [facility] Administration Vital Signs Period Temp Pulse Resp BP Sys/Zhong Pulse Ox Last 24 Hr 98.0 F-98.4 F 64-74 18-20 140-186/65-81 98 Constitutional: Yes: Well Nourished, No Distress, Calm Eyes: Yes: Conjunctiva Clear Neck: Yes: Supple, Trachea Midline Respiratory: Yes: Regular, CTA Bilaterally Gastrointestinal: Yes: Normal Bowel Sounds, Soft Cardiovascular: Yes: Regular Rate and Rhythm JVD: No Carotid Bruit: No PMI: Non-Displaced Heart Sounds: Yes: S1, S2 Murmur: No: Systolic Murmur Musculoskeletal: No: Back Pain Extremities: No: Cold Edema: trace le edema bl Peripheral Pulses: 2+ Left Doralis Pedis, 2+ Right Dorsalis Pedis Integumentary: No: Jaundice Neurological: Yes: Alert, Oriented Psychiatric: No: Agitated CBC, BMP 08/05/19 07:33 08/05/19 07:33 Assessment/Plan EKG: sinus, nl intervals, no ischemic changes echo 12/2018 nl LV/RV function, LA mildly dilated, mild MAC, mild to mod MR, mild TR, PASP at leat 41 mmHG, tr [facility] s/p colostomy reversal - manage per surgery, remains npo -some le edema likely 2/2 to ivfs, should begin to improve once ivfs stop HTN - pain control - continue IV metoprolol while NPO, restart home meds when able to take PO HLD - cont statin when able to take PO
[2019-08-05] MEDS: D5-1/2NS+20 MEQ KCL - 20 MEQ/1,000 ML INFUS.BAG IV SCH (17:23)
[2019-08-05] MEDS ORDERED: FUROSEMIDE 40 MG/4 ML INJECTABLE VIAL IVPUSH ONE (18:24)
[2019-08-05] MEDS ORDERED: METOPROLOL TARTRATE 5 MG/5 ML VIAL IVPB SCH ×2 (18:25→19:45)
--- NOTE | 2019-08-05 18:31 | PN ---
Progress Note, Physician Chief Complaint: Pt having High BP Did not pass flatus K better History of Present Illness: Patient is aleret and oriented. Pt has not passed flatus, or bowel movement, Wound is clean . B/L Leg oedema on lovenox we will give 40 lasix once today - Current Medication List Current Medications: Active Medications Acetaminophen (Ofirmev Injection -) 1,000 mg IVPB Q6H PRN PRN Reason: PAIN Enoxaparin Sodium (Lovenox -) 40 mg SQ DAILY [facility] Last Admin: 08/05/19 09:36 Dose: 40 mg Hydromorphone HCl (Hydromorphone 10 Mg/50 Ml-Ns) 10 mg REFRIGERATION OPERATOR REFRIGERATION OPERATOR [facility]; Protocol Stop: 08/08/19 11:21 Last Admin: 08/05/19 13:46 Dose: Not Given Potassium Chloride/Dextrose/Sod Cl (D5-1/2ns+20 Meq Kcl -) 20 meq in 1,000 mls @ 125 mls/hr IV ASDIR [facility] Last Admin: 08/05/19 17:23 Dose: 125 mls/hr Metoprolol Tartrate (Lopressor Injection -) 10 mg IVPB Q8H-IV [facility] Mirtazapine (Remeron -) 15 mg PO HS [facility] Last Admin: 08/04/19 21:08 Dose: Not Given Pantoprazole Sodium (Protonix Iv) 40 mg IVPUSH BID [facility] Last Admin: 08/05/19 09:36 Dose: 40 mg - Objective Vital Signs: Vital Signs Temperature 97.6 F 08/05/19 17:54 Pulse Rate 60 08/05/19 17:54 Respiratory Rate 20 08/05/19 17:54 Blood Pressure 189/72 H 08/05/19 17:54 O2 Sat by Pulse Oximetry (%) 98 08/04/19 21:00 Constitutional: Yes: Anxious Eyes: Yes: Conjunctiva Clear, EOM Intact HENT: Yes: Atraumatic, Normocephalic Neck: Yes: Supple, Trachea Midline Cardiovascular: Yes: Regular Rate and Rhythm, S1, S2 Respiratory: Yes: Regular, CTA Bilaterally Gastrointestinal: Yes: Normal Bowel Sounds, Soft Musculoskeletal: Yes: Other (B/L leg oedema) Edema: Yes Edema: LLE: 2+, RLE: 2+ Peripheral Pulses WNL: Yes Neurological: Yes: Alert, Oriented Labs: CBC, BMP 08/05/19 07:33 08/05/19 07:33 Problem List - Problems (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 (2) Diverticulitis Code(s): K57.92 - DVTRCLI OF INTEST, PART UNSP, W/O PERF OR ABSCESS W/O BLEED (3) Diverticulitis of intestine with abscess Code(s): K57.80 - DVTRCLI OF INTEST, PART UNSP, W PERF AND ABSCESS W/O BLEED (4) Dyspepsia Code(s): R10.13 - EPIGASTRIC PAIN (5) HTN (hypertension) Code(s): I10 - ESSENTIAL (PRIMARY) HYPERTENSION (6) Hyperlipidemia Code(s): E78.5 - HYPERLIPIDEMIA, UNSPECIFIED Qualifiers: Hyperlipidemia type: pure hypercholesterolemia Qualified Code(s): E78.00 - Pure hypercholesterolemia, unspecified; E78.0 - Pure hypercholesterolemia (7) Insomnia disorder Code(s): G47.00 - INSOMNIA, UNSPECIFIED (8) History of colostomy reversal Code(s): Z98.890 - OTHER SPECIFIED POSTPROCEDURAL STATES (9) Bilateral lower extremity edema Code(s): R60.0 - LOCALIZED EDEMA (10) Bilateral lower extremity edema Code(s): R60.0 - LOCALIZED EDEMA Assessment/Plan (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 (2) Diverticulitis Code(s): K57.92 - DVTRCLI OF INTEST, PART UNSP, W/O PERF OR ABSCESS W/O BLEED (3) Diverticulitis of intestine with abscess Code(s): K57.80 - DVTRCLI OF INTEST, PART UNSP, W PERF AND ABSCESS W/O BLEED (4) Dyspepsia Code(s): R10.13 - EPIGASTRIC PAIN (5) HTN (hypertension) Code(s): I10 - ESSENTIAL (PRIMARY) HYPERTENSION (6) Hyperlipidemia Code(s): E78.5 - HYPERLIPIDEMIA, UNSPECIFIED Qualifiers: Hyperlipidemia type: pure hypercholesterolemia Qualified Code(s): E78.00 - Pure hypercholesterolemia, unspecified; E78.0 - Pure hypercholesterolemia (7) Insomnia disorder Code(s): G47.00 - INSOMNIA, UNSPECIFIED (8) History of colostomy reversal Problems reviewed: Yes Code(s): Z98.890 - OTHER SPECIFIED POSTPROCEDURAL STATES Flexible sigmoidoscopy ,. Take down of colostomy . Mobilisation of the splenic flexure of colon ,. Colocolostomy . Lysis of small intestinal adhesions. Posop day 1 IV antibiotics increaseIV Metoprolol to 10mg Q 8 control BP WBC normal Pt K is better today lasix one dose IV 40
[2019-08-05] MEDS: MIRTAZAPINE 15 MG TABLET (FP) PO SCH (21:43)
[2019-08-06] MEDS: METOPROLOL TARTRATE 5 MG/5 ML VIAL IVPB SCH ×3 (05:59→17:12)
[2019-08-06] MEDS: D5-1/2NS+20 MEQ KCL - 20 MEQ/1,000 ML INFUS.BAG IV SCH ×2 (06:00→12:24)
[2019-08-06 08:50] LABS: BASO % 0.4 % (0-2.0); EOS % 0.6 % (0-4.5); HEMATOCRIT 28.6 % (32.4-45.2); HEMOGLOBIN 9.8 GM/dL (10.7-15.3); MCH 30.1 pg (25.7-33.7); MCHC 34.2 g/dl (32.0-36.0); MEAN CELL VOLUME 87.9 fl (80-96); MEAN PLT VOLUME 8.4 fl (7.5-11.1); MONO % 6.8 % (3.8-10.2); NEUT % 73.2 % (42.8-82.8); PLATELET COUNT 249 K/MM3 (134-434); RBC 3.25 M/mm3 (3.60-5.2); RDW 14.1 % (11.6-15.6); WHITE BLOOD COUNT 6.4 K/mm3 (4.0-10.0)
[2019-08-06 09:34] LABS: CREATININE 0.4 mg/dL (0.55-1.3)
[2019-08-06] MEDS: ENOXAPARIN NA (PORCINE) 40 MG/0.4 ML DISP.SYRIN SQ SCH (09:50)
[2019-08-06] MEDS: PANTOPRAZOLE SODIUM 40 MG VIAL IVPUSH SCH (09:50)
--- NOTE | 2019-08-06 10:53 | PN ---
Progress Note, Physician History of Present Illness: theo no new issues dvt studies noted - Current Medication List Current Medications: Active Medications Acetaminophen (Ofirmev Injection -) 1,000 mg IVPB Q6H PRN PRN Reason: PAIN Enoxaparin Sodium (Lovenox -) 40 mg SQ DAILY [facility] Last Admin: 08/06/19 09:50 Dose: 40 mg Hydromorphone HCl (Hydromorphone 10 Mg/50 Ml-Ns) 10 mg ACCOUNTS PAYABLE LEAD ACCOUNTS PAYABLE LEAD [facility]; Protocol Stop: 08/08/19 11:21 Last Admin: 08/05/19 13:46 Dose: Not Given Potassium Chloride/Dextrose/Sod Cl (D5-1/2ns+20 Meq Kcl -) 20 meq in 1,000 mls @ 125 mls/hr IV ASDIR [facility] Last Admin: 08/06/19 06:00 Dose: 125 mls/hr Metoprolol Tartrate (Lopressor Injection -) 5 mg IVPB Q6H [facility] Last Admin: 08/06/19 05:59 Dose: 5 mg Mirtazapine (Remeron -) 15 mg PO HS [facility] Last Admin: 08/05/19 21:43 Dose: Not Given Pantoprazole Sodium (Protonix Iv) 40 mg IVPUSH BID [facility] Last Admin: 08/06/19 09:50 Dose: 40 mg - Objective Vital Signs: Vital Signs Temperature 98.2 F 08/06/19 05:48 Pulse Rate 60 08/06/19 05:59 Respiratory Rate 20 08/06/19 05:48 Blood Pressure 152/73 08/06/19 05:59 O2 Sat by Pulse Oximetry (%) 98 08/04/19 21:00 Constitutional: Yes: Calm, Mild Distress Cardiovascular: Yes: S1, S2 Respiratory: Yes: Regular, CTA Bilaterally Gastrointestinal: Yes: Soft, Hypoactive Bowel Sounds Extremities: Yes: Other (b/l swollen) Wound/Incision: Yes: Clean/Dry Neurological: Yes: Alert, Oriented Psychiatric: Yes: Alert, Oriented Labs: CBC, BMP 08/06/19 08:32 08/06/19 08:32 Assessment/Plan Problem List - Problems (1) History of colostomy reversal Code(s): Z98.890 - OTHER SPECIFIED POSTPROCEDURAL STATES (2) C. 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 s/p Colostomy reversal / KURTIS POD#1 Hx of Diverticulitis/Abscess Hx of Colouterine fistula s/p Colostomy HTN HLD plan stable no new issues rest as per the team continue to monitor rest as per surgery
--- NOTE | 2019-08-06 11:44 | PN ---
Progress Note, Physician Chief Complaint: Pt passing Flatus Pt moved Bowels will resmue oral meds No fever - Current Medication List Current Medications: Active Medications Acetaminophen (Ofirmev Injection -) 1,000 mg IVPB Q6H PRN PRN Reason: PAIN Enoxaparin Sodium (Lovenox -) 40 mg SQ DAILY [facility] Last Admin: 08/06/19 09:50 Dose: 40 mg Hydromorphone HCl (Hydromorphone 10 Mg/50 Ml-Ns) 10 mg CAST ASSOCIATE CAST ASSOCIATE [facility]; Protocol Stop: 08/08/19 11:21 Last Admin: 08/05/19 13:46 Dose: Not Given Potassium Chloride/Dextrose/Sod Cl (D5-1/2ns+20 Meq Kcl -) 20 meq in 1,000 mls @ 125 mls/hr IV ASDIR [facility] Last Admin: 08/06/19 06:00 Dose: 125 mls/hr Metoprolol Tartrate (Lopressor Injection -) 5 mg IVPB Q6H [facility] Last Admin: 08/06/19 05:59 Dose: 5 mg Mirtazapine (Remeron -) 15 mg PO HS [facility] Last Admin: 08/05/19 21:43 Dose: Not Given Pantoprazole Sodium (Protonix Iv) 40 mg IVPUSH BID [facility] Last Admin: 08/06/19 09:50 Dose: 40 mg - Objective Vital Signs: Vital Signs Temperature 98.2 F 08/06/19 05:48 Pulse Rate 56 L 08/06/19 10:00 Respiratory Rate 18 08/06/19 10:00 Blood Pressure 189/72 H 08/06/19 10:00 O2 Sat by Pulse Oximetry (%) 98 08/04/19 21:00 Constitutional: Yes: No Distress Eyes: Yes: Conjunctiva Clear, EOM Intact HENT: Yes: Atraumatic, Normocephalic Neck: Yes: Supple, Trachea Midline Cardiovascular: Yes: Regular Rate and Rhythm Respiratory: Yes: Regular, CTA Bilaterally Gastrointestinal: Yes: Normal Bowel Sounds, Soft Labs: CBC, BMP 08/06/19 08:32 08/06/19 08:32 Problem List - Problems (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 (2) Diverticulitis Code(s): K57.92 - DVTRCLI OF INTEST, PART UNSP, W/O PERF OR ABSCESS W/O BLEED (3) Diverticulitis of intestine with abscess Code(s): K57.80 - DVTRCLI OF INTEST, PART UNSP, W PERF AND ABSCESS W/O BLEED (4) Dyspepsia Code(s): R10.13 - EPIGASTRIC PAIN (5) HTN (hypertension) Code(s): I10 - ESSENTIAL (PRIMARY) HYPERTENSION (6) Hyperlipidemia Code(s): E78.5 - HYPERLIPIDEMIA, UNSPECIFIED Qualifiers: Hyperlipidemia type: pure hypercholesterolemia Qualified Code(s): E78.00 - Pure hypercholesterolemia, unspecified; E78.0 - Pure hypercholesterolemia (7) Insomnia disorder Code(s): G47.00 - INSOMNIA, UNSPECIFIED (8) History of colostomy reversal Code(s): Z98.890 - OTHER SPECIFIED POSTPROCEDURAL STATES (9) Bilateral lower extremity edema Code(s): R60.0 - LOCALIZED EDEMA (10) Bilateral lower extremity edema Code(s): R60.0 - LOCALIZED EDEMA Assessment/Plan (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 (2) Diverticulitis Code(s): K57.92 - DVTRCLI OF INTEST, PART UNSP, W/O PERF OR ABSCESS W/O BLEED (3) Diverticulitis of intestine with abscess Code(s): K57.80 - DVTRCLI OF INTEST, PART UNSP, W PERF AND ABSCESS W/O BLEED (4) Dyspepsia Code(s): R10.13 - EPIGASTRIC PAIN (5) HTN (hypertension) Code(s): I10 - ESSENTIAL (PRIMARY) HYPERTENSION (6) Hyperlipidemia Code(s): E78.5 - HYPERLIPIDEMIA, UNSPECIFIED Qualifiers: Hyperlipidemia type: pure hypercholesterolemia Qualified Code(s): E78.00 - Pure hypercholesterolemia, unspecified; E78.0 - Pure hypercholesterolemia (7) Insomnia disorder Code(s): G47.00 - INSOMNIA, UNSPECIFIED (8) History of colostomy reversal Problems reviewed: Yes Code(s): Z98.890 - OTHER SPECIFIED POSTPROCEDURAL STATES Pt moved Bowels No Fever Liquid diet Resume Oral BP meds
--- NOTE | 2019-08-06 15:02 | PN ---
Progress Note, Physician - Current Medication List Current Medications: Active Medications Acetaminophen (Ofirmev Injection -) 1,000 mg IVPB Q6H PRN PRN Reason: PAIN Enoxaparin Sodium (Lovenox -) 40 mg SQ DAILY [facility] Last Admin: 08/06/19 09:50 Dose: 40 mg Hydromorphone HCl (Hydromorphone 10 Mg/50 Ml-Ns) 10 mg FIBERGLASS CONTAINER WINDING OPERATOR FIBERGLASS CONTAINER WINDING OPERATOR [facility]; Protocol Stop: 08/08/19 11:21 Last Admin: 08/05/19 13:46 Dose: Not Given Potassium Chloride/Dextrose/Sod Cl (D5-1/2ns+20 Meq Kcl -) 20 meq in 1,000 mls @ 125 mls/hr IV ASDIR [facility] Last Admin: 08/06/19 12:24 Dose: Not Given Metoprolol Tartrate (Lopressor Injection -) 5 mg IVPB Q6H [facility] Last Admin: 08/06/19 12:22 Dose: 5 mg Mirtazapine (Remeron -) 15 mg PO HS [facility] Last Admin: 08/05/19 21:43 Dose: Not Given Pantoprazole Sodium (Protonix Iv) 40 mg IVPUSH BID [facility] Last Admin: 08/06/19 09:50 Dose: 40 mg - Objective Vital Signs: Vital Signs Temperature 98.2 F 08/06/19 05:48 Pulse Rate 56 L 08/06/19 12:22 Respiratory Rate 18 08/06/19 10:00 Blood Pressure 189/72 H 08/06/19 12:22 O2 Sat by Pulse Oximetry (%) 98 08/04/19 21:00 Labs: CBC, BMP 08/06/19 08:32 08/06/19 08:32 Assessment/Plan Patient is afebrile. C/O Crampy abdominal pain. Has had multiple bowel movements. Wants a diet. Wound is clean. Colostomy site : claen. Resume oral liquids and diet. D/C pain medications. Oral medications. Ultrasound of legs are normal. No DVT. PO day # 5
[2019-08-06] MEDS: MIRTAZAPINE 15 MG TABLET (FP) PO SCH (21:48)
[2019-08-06] MEDS: POTASSIUM CHLORIDE ORAL LIQUID 20 MEQ/15 ML PO SCH (21:48)
[2019-08-07 09:02] LABS: BASO % 0.4 % (0-2.0); EOS % 0.9 % (0-4.5); HEMATOCRIT 33.5 % (32.4-45.2); HEMOGLOBIN 11.2 GM/dL (10.7-15.3); LYMPH % 15.8 % (8-40); MCH 29.9 pg (25.7-33.7); MCHC 33.3 g/dl (32.0-36.0); MEAN CELL VOLUME 89.7 fl (80-96); MEAN PLT VOLUME 8.7 fl (7.5-11.1); MONO % 4.7 % (3.8-10.2); NEUT % 78.2 % (42.8-82.8); PLATELET COUNT 299 K/MM3 (134-434); RBC 3.74 M/mm3 (3.60-5.2); RDW 14.6 % (11.6-15.6)
[2019-08-07] MEDS: ENOXAPARIN NA (PORCINE) 40 MG/0.4 ML DISP.SYRIN SQ SCH (09:19)
[2019-08-07] MEDS: POTASSIUM CHLORIDE ORAL LIQUID 20 MEQ/15 ML PO SCH (09:20)
[2019-08-07 09:52] LABS: BLOOD UREA NITROGEN 6.2 mg/dL (7-18); CALCIUM 8.5 mg/dL (8.5-10.1); CREATININE 0.6 mg/dL (0.55-1.3)
[2019-08-07] MEDS ORDERED: PANTOPRAZOLE SOD 40 MG SUSPENSION PACKET PO SCH (10:00)
[2019-08-07] MEDS: ACETAMINOPHEN 325 MG TABLET (FP) PO PRN ×2 (12:13→21:07)
--- NOTE | 2019-08-07 20:38 | PN ---
Progress Note, Physician History of Present Illness: Pt is alert, without distress. Remains afebrile. Has been moving her bowels, denies significant abd discomfort. - Current Medication List Current Medications: Active Medications Acetaminophen (Ofirmev Injection -) 1,000 mg IVPB Q6H PRN PRN Reason: PAIN Acetaminophen (Tylenol -) 650 mg PO Q6H PRN PRN Reason: PAIN 3-7 Last Admin: 08/07/19 12:13 Dose: 650 mg Enoxaparin Sodium (Lovenox -) 40 mg SQ DAILY [facility] Last Admin: 08/07/19 09:19 Dose: 40 mg Metoprolol Succinate (Toprol Xl -) 50 mg PO DAILY [facility] Last Admin: 08/07/19 09:19 Dose: 50 mg Mirtazapine (Remeron -) 15 mg PO HS [facility] Last Admin: 08/06/19 21:48 Dose: 15 mg Pantoprazole Sodium (Protonix Packets For Oral Suspension -) 40 mg PO DAILY [facility] Last Admin: 08/07/19 09:19 Dose: 40 mg Potassium Chloride (K-Dur -) 20 meq PO BID [facility] - Objective Vital Signs: Vital Signs Temperature 98.7 F 08/07/19 14:16 Pulse Rate 63 08/07/19 14:16 Respiratory Rate 18 08/07/19 10:00 Blood Pressure 162/74 08/07/19 14:16 O2 Sat by Pulse Oximetry (%) 95 08/07/19 09:00 Constitutional: Yes: No Distress, Calm Cardiovascular: Yes: Regular Rate and Rhythm Respiratory: Yes: CTA Bilaterally Gastrointestinal: Yes: Normal Bowel Sounds, Soft Genitourinary: Yes: WNL Edema: LLE: 1+, RLE: 1+ Peripheral Pulses WNL: Yes Integumentary: Yes: WNL Wound/Incision: Yes: Other (abd wall sutures and crispin intact) Neurological: Yes: Alert, Oriented Labs: CBC, BMP 08/07/19 08:25 08/07/19 08:25 Problem List - Problems (1) History of colostomy reversal Code(s): Z98.890 - OTHER SPECIFIED POSTPROCEDURAL STATES (2) C. 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 s/p Colostomy reversal / KURTIS POD#7 Hx of Diverticulitis/Abscess Hx of Colouterine fistula s/p Colostomy HTN HLD -- pt is starting to have BMs, remains afebrile -- continue monitor off antibiotics Surgery following
--- NOTE | 2019-08-07 20:59 | PN ---
Progress Note, Physician Chief Complaint: Pt is moving her bowels Off Antibiotics Afebrile History of Present Illness: Pt is having B/L Leg swelling US is Negative for DVT. - Current Medication List Current Medications: Active Medications Acetaminophen (Ofirmev Injection -) 1,000 mg IVPB Q6H PRN PRN Reason: PAIN Acetaminophen (Tylenol -) 650 mg PO Q6H PRN PRN Reason: PAIN 3-7 Last Admin: 08/07/19 12:13 Dose: 650 mg Enoxaparin Sodium (Lovenox -) 40 mg SQ DAILY [facility] Last Admin: 08/07/19 09:19 Dose: 40 mg Lactobacillus Acidophilus (Bacid -) 1 tab PO DAILY [facility] Metoprolol Succinate (Toprol Xl -) 50 mg PO DAILY [facility] Last Admin: 08/07/19 09:19 Dose: 50 mg Mirtazapine (Remeron -) 15 mg PO HS [facility] Last Admin: 08/06/19 21:48 Dose: 15 mg Pantoprazole Sodium (Protonix Packets For Oral Suspension -) 40 mg PO DAILY [facility] Last Admin: 08/07/19 09:19 Dose: 40 mg Potassium Chloride (K-Dur -) 20 meq PO BID [facility] - Objective Vital Signs: Vital Signs Temperature 98.7 F 08/07/19 14:16 Pulse Rate 63 08/07/19 14:16 Respiratory Rate 18 08/07/19 10:00 Blood Pressure 162/74 08/07/19 14:16 O2 Sat by Pulse Oximetry (%) 95 08/07/19 09:00 Constitutional: Yes: No Distress Eyes: Yes: Conjunctiva Clear, EOM Intact HENT: Yes: Atraumatic, Normocephalic Neck: Yes: Supple, Trachea Midline Cardiovascular: Yes: Regular Rate and Rhythm Respiratory: Yes: Regular, CTA Bilaterally Gastrointestinal: Yes: Normal Bowel Sounds, Soft Musculoskeletal: Yes: Joint Stiffness Edema: Yes Edema: LLE: 1+, RLE: 1+ Peripheral Pulses WNL: Yes Labs: CBC, BMP 08/07/19 08:25 08/07/19 08:25 Problem List - Problems (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 (2) Diverticulitis Code(s): K57.92 - DVTRCLI OF INTEST, PART UNSP, W/O PERF OR ABSCESS W/O BLEED (3) Diverticulitis of intestine with abscess Code(s): K57.80 - DVTRCLI OF INTEST, PART UNSP, W PERF AND ABSCESS W/O BLEED (4) Dyspepsia Code(s): R10.13 - EPIGASTRIC PAIN (5) HTN (hypertension) Code(s): I10 - ESSENTIAL (PRIMARY) HYPERTENSION (6) Hyperlipidemia Code(s): E78.5 - HYPERLIPIDEMIA, UNSPECIFIED Qualifiers: Hyperlipidemia type: pure hypercholesterolemia Qualified Code(s): E78.00 - Pure hypercholesterolemia, unspecified; E78.0 - Pure hypercholesterolemia (7) Insomnia disorder Code(s): G47.00 - INSOMNIA, UNSPECIFIED (8) History of colostomy reversal Code(s): Z98.890 - OTHER SPECIFIED POSTPROCEDURAL STATES (9) Bilateral lower extremity edema Code(s): R60.0 - LOCALIZED EDEMA (10) Bilateral lower extremity edema Code(s): R60.0 - LOCALIZED EDEMA Assessment/Plan (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 (2) Diverticulitis Code(s): K57.92 - DVTRCLI OF INTEST, PART UNSP, W/O PERF OR ABSCESS W/O BLEED (3) Diverticulitis of intestine with abscess Code(s): K57.80 - DVTRCLI OF INTEST, PART UNSP, W PERF AND ABSCESS W/O BLEED (4) Dyspepsia Code(s): R10.13 - EPIGASTRIC PAIN (5) HTN (hypertension) Code(s): I10 - ESSENTIAL (PRIMARY) HYPERTENSION (6) Hyperlipidemia Code(s): E78.5 - HYPERLIPIDEMIA, UNSPECIFIED Qualifiers: Hyperlipidemia type: pure hypercholesterolemia Qualified Code(s): E78.00 - Pure hypercholesterolemia, unspecified; E78.0 - Pure hypercholesterolemia (7) Insomnia disorder Code(s): G47.00 - INSOMNIA, UNSPECIFIED (8) History of colostomy reversal Problems reviewed: Yes Code(s): Z98.890 - OTHER SPECIFIED POSTPROCEDURAL STATES Pt moved Bowels No Fever Liquid diet Resume Oral BP meds B/L leg swelling one more dose of lasix in Am Off Antibiotics Loose stools Monitor for C.diff Bacid
[2019-08-07] MEDS: LACTOBACILLUS ACIDOPHILUS 1 TABLET PO SCH (21:07)
[2019-08-07] MEDS: POTASSIUM CHLORIDE TABS 20 MEQ TABLET.ER (FP) PO SCH (21:07)
[2019-08-07] MEDS: MIRTAZAPINE 15 MG TABLET (FP) PO SCH (21:07)
[2019-08-08 08:01] LABS: BASO % 0.5 % (0-2.0); EOS % 1.5 % (0-4.5); HEMATOCRIT 33.7 % (32.4-45.2); HEMOGLOBIN 11.5 GM/dL (10.7-15.3); LYMPH % 21.2 % (8-40); MCH 30.2 pg (25.7-33.7); MCHC 34.1 g/dl (32.0-36.0); MEAN CELL VOLUME 88.7 fl (80-96); MEAN PLT VOLUME 8.6 fl (7.5-11.1); MONO % 5.2 % (3.8-10.2); NEUT % 71.6 % (42.8-82.8); PLATELET COUNT 349 K/MM3 (134-434); RDW 14.5 % (11.6-15.6); WHITE BLOOD COUNT 6.2 K/mm3 (4.0-10.0)
[2019-08-08 08:35] LABS: BLOOD UREA NITROGEN 5.5 mg/dL (7-18); CALCIUM 8.8 mg/dL (8.5-10.1); CREATININE 0.5 mg/dL (0.55-1.3); POTASSIUM 3.3 mmol/L (3.5-5.1)
[2019-08-08] MEDS: POTASSIUM CHLORIDE TABS 20 MEQ TABLET.ER (FP) PO SCH ×2 (10:49→21:34)
[2019-08-08] MEDS: ENOXAPARIN NA (PORCINE) 40 MG/0.4 ML DISP.SYRIN SQ SCH (10:49)
[2019-08-08] MEDS: LACTOBACILLUS ACIDOPHILUS 1 TABLET PO SCH (10:49)
--- NOTE | 2019-08-08 14:46 | PN ---
Progress Note, Physician History of Present Illness: stable no new issues - Current Medication List Current Medications: Active Medications Acetaminophen (Ofirmev Injection -) 1,000 mg IVPB Q6H PRN PRN Reason: PAIN Acetaminophen (Tylenol -) 650 mg PO Q6H PRN PRN Reason: PAIN 3-7 Last Admin: 08/07/19 21:07 Dose: 650 mg Enoxaparin Sodium (Lovenox -) 40 mg SQ DAILY [facility] Last Admin: 08/08/19 10:49 Dose: 40 mg Lactobacillus Acidophilus (Bacid -) 1 tab PO DAILY [facility] Last Admin: 08/08/19 10:49 Dose: 1 tab Metoprolol Succinate (Toprol Xl -) 50 mg PO DAILY [facility] Last Admin: 08/08/19 10:49 Dose: 50 mg Mirtazapine (Remeron -) 15 mg PO HS [facility] Last Admin: 08/07/19 21:07 Dose: 15 mg Pantoprazole Sodium (Protonix Packets For Oral Suspension -) 40 mg PO DAILY [facility] Last Admin: 08/07/19 09:19 Dose: 40 mg Potassium Chloride (K-Dur -) 20 meq PO BID [facility] Last Admin: 08/08/19 10:49 Dose: 20 meq - Objective Vital Signs: Vital Signs Temperature 98.2 F 08/08/19 13:58 Pulse Rate 63 08/08/19 13:58 Respiratory Rate 18 08/08/19 06:00 Blood Pressure 159/76 08/08/19 13:58 O2 Sat by Pulse Oximetry (%) 96 08/07/19 21:00 Constitutional: Yes: No Distress, Calm Cardiovascular: Yes: S1, S2 Respiratory: Yes: Regular, CTA Bilaterally Gastrointestinal: Yes: Normal Bowel Sounds, Soft Musculoskeletal: Yes: WNL Extremities: Yes: WNL Wound/Incision: Yes: Dressing Dry and Intact Neurological: Yes: Alert, Oriented Psychiatric: Yes: Alert, Oriented Labs: CBC, BMP 08/08/19 07:25 08/08/19 07:25 Assessment/Plan Problem List - Problems (1) History of colostomy reversal Code(s): Z98.890 - OTHER SPECIFIED POSTPROCEDURAL STATES (2) C. 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 s/p Colostomy reversal / KURTIS POD#1 Hx of Diverticulitis/Abscess Hx of Colouterine fistula s/p Colostomy HTN HLD plan stable no new issues rest as per the team continue to monitor rest as per surgery
--- NOTE | 2019-08-08 16:15 | PN ---
Progress Note, Physician - Current Medication List Current Medications: Active Medications Acetaminophen (Ofirmev Injection -) 1,000 mg IVPB Q6H PRN PRN Reason: PAIN Acetaminophen (Tylenol -) 650 mg PO Q6H PRN PRN Reason: PAIN 3-7 Last Admin: 08/07/19 21:07 Dose: 650 mg Enoxaparin Sodium (Lovenox -) 40 mg SQ DAILY [facility] Last Admin: 08/08/19 10:49 Dose: 40 mg Lactobacillus Acidophilus (Bacid -) 1 tab PO DAILY [facility] Last Admin: 08/08/19 10:49 Dose: 1 tab Metoprolol Succinate (Toprol Xl -) 50 mg PO DAILY [facility] Last Admin: 08/08/19 10:49 Dose: 50 mg Mirtazapine (Remeron -) 15 mg PO HS [facility] Last Admin: 08/07/19 21:07 Dose: 15 mg Pantoprazole Sodium (Protonix Packets For Oral Suspension -) 40 mg PO DAILY [facility] Last Admin: 08/07/19 09:19 Dose: 40 mg Potassium Chloride (K-Dur -) 20 meq PO BID [facility] Last Admin: 08/08/19 10:49 Dose: 20 meq - Objective Vital Signs: Vital Signs Temperature 98.2 F 08/08/19 13:58 Pulse Rate 63 08/08/19 13:58 Respiratory Rate 18 08/08/19 06:00 Blood Pressure 159/76 08/08/19 13:58 O2 Sat by Pulse Oximetry (%) 96 08/07/19 21:00 Labs: CBC, BMP 08/08/19 07:25 08/08/19 07:25 Assessment/Plan Surgery: C/O abdominal pain , Passing flatus and has Bms. Tolerated diet , No nausea. Wound is clean. Discharge planning. Will do abdominal x-ray. Social service consult.
[2019-08-08] MEDS: ACETAMINOPHEN 325 MG TABLET (FP) PO PRN (21:34)
[2019-08-08] MEDS: MIRTAZAPINE 15 MG TABLET (FP) PO SCH (21:34)
--- NOTE | 2019-08-08 22:54 | PN ---
Progress Note, Physician Chief Complaint: Pt is doing better Pt has B/L Leg swelling we will give lasix 40 mg in AM No Fever Loose stools Pt had C.diff in the past - Current Medication List Current Medications: Active Medications Acetaminophen (Ofirmev Injection -) 1,000 mg IVPB Q6H PRN PRN Reason: PAIN Acetaminophen (Tylenol -) 650 mg PO Q6H PRN PRN Reason: PAIN 3-7 Last Admin: 08/08/19 21:34 Dose: 650 mg Enoxaparin Sodium (Lovenox -) 40 mg SQ DAILY [facility] Last Admin: 08/08/19 10:49 Dose: 40 mg Lactobacillus Acidophilus (Bacid -) 1 tab PO DAILY [facility] Last Admin: 08/08/19 10:49 Dose: 1 tab Metoprolol Succinate (Toprol Xl -) 50 mg PO DAILY [facility] Last Admin: 08/08/19 10:49 Dose: 50 mg Mirtazapine (Remeron -) 15 mg PO HS [facility] Last Admin: 08/08/19 21:34 Dose: 15 mg Potassium Chloride (K-Dur -) 20 meq PO BID [facility] Last Admin: 08/08/19 21:34 Dose: 20 meq - Objective Vital Signs: Vital Signs Temperature 98.9 F 08/08/19 18:45 Pulse Rate 62 08/08/19 18:45 Respiratory Rate 20 08/08/19 21:00 Blood Pressure 164/81 08/08/19 18:45 O2 Sat by Pulse Oximetry (%) 100 08/08/19 21:00 Constitutional: Yes: Anxious Eyes: Yes: Conjunctiva Clear, EOM Intact HENT: Yes: Atraumatic, Normocephalic Neck: Yes: Supple, Trachea Midline Cardiovascular: Yes: Regular Rate and Rhythm, S1, S2 Respiratory: Yes: Regular, CTA Bilaterally Gastrointestinal: Yes: Normal Bowel Sounds, Soft Musculoskeletal: Yes: Joint Stiffness Edema: No Peripheral Pulses WNL: Yes Labs: CBC, BMP 08/08/19 07:25 08/08/19 07:25 Problem List - Problems (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 (2) Diverticulitis Code(s): K57.92 - DVTRCLI OF INTEST, PART UNSP, W/O PERF OR ABSCESS W/O BLEED (3) Diverticulitis of intestine with abscess Code(s): K57.80 - DVTRCLI OF INTEST, PART UNSP, W PERF AND ABSCESS W/O BLEED (4) Dyspepsia Code(s): R10.13 - EPIGASTRIC PAIN (5) HTN (hypertension) Code(s): I10 - ESSENTIAL (PRIMARY) HYPERTENSION (6) Hyperlipidemia Code(s): E78.5 - HYPERLIPIDEMIA, UNSPECIFIED Qualifiers: Hyperlipidemia type: pure hypercholesterolemia Qualified Code(s): E78.00 - Pure hypercholesterolemia, unspecified; E78.0 - Pure hypercholesterolemia (7) Insomnia disorder Code(s): G47.00 - INSOMNIA, UNSPECIFIED (8) History of colostomy reversal Code(s): Z98.890 - OTHER SPECIFIED POSTPROCEDURAL STATES (9) Bilateral lower extremity edema Code(s): R60.0 - LOCALIZED EDEMA (10) Bilateral lower extremity edema Code(s): R60.0 - LOCALIZED EDEMA Assessment/Plan (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 (2) Diverticulitis Code(s): K57.92 - DVTRCLI OF INTEST, PART UNSP, W/O PERF OR ABSCESS W/O BLEED (3) Diverticulitis of intestine with abscess Code(s): K57.80 - DVTRCLI OF INTEST, PART UNSP, W PERF AND ABSCESS W/O BLEED (4) Dyspepsia Code(s): R10.13 - EPIGASTRIC PAIN (5) HTN (hypertension) Code(s): I10 - ESSENTIAL (PRIMARY) HYPERTENSION (6) Hyperlipidemia Code(s): E78.5 - HYPERLIPIDEMIA, UNSPECIFIED Qualifiers: Hyperlipidemia type: pure hypercholesterolemia Qualified Code(s): E78.00 - Pure hypercholesterolemia, unspecified; E78.0 - Pure hypercholesterolemia (7) Insomnia disorder Code(s): G47.00 - INSOMNIA, UNSPECIFIED (8) History of colostomy reversal Problems reviewed: Yes Code(s): Z98.890 - OTHER SPECIFIED POSTPROCEDURAL STATES Pt moved Bowels No Fever Liquid diet Resume Oral BP meds B/L leg swelling one more dose of lasix in Am Off Antibiotics Loose stools Monitor for C.diff Bacid PT eval and FU Pt will be benift with PT
[2019-08-09] MEDS ORDERED: FUROSEMIDE 40 MG/4 ML INJECTABLE VIAL IVPUSH ONE (06:00)
[2019-08-09 08:32] LABS: BASO % 0.4 % (0-2.0); EOS % 1.6 % (0-4.5); HEMATOCRIT 35.8 % (32.4-45.2); HEMOGLOBIN 12.3 GM/dL (10.7-15.3); LYMPH % 25.2 % (8-40); MCH 30.8 pg (25.7-33.7); MCHC 34.4 g/dl (32.0-36.0); MEAN CELL VOLUME 89.6 fl (80-96); MEAN PLT VOLUME 8.2 fl (7.5-11.1); MONO % 6.6 % (3.8-10.2); NEUT % 66.2 % (42.8-82.8); PLATELET COUNT 459 K/MM3 (134-434); RDW 14.5 % (11.6-15.6); WHITE BLOOD COUNT 5.7 K/mm3 (4.0-10.0)
[2019-08-09 08:51] LABS: BLOOD UREA NITROGEN 4.4 mg/dL (7-18); CALCIUM 9.4 mg/dL (8.5-10.1); CREATININE 0.6 mg/dL (0.55-1.3); POTASSIUM 3.8 mmol/L (3.5-5.1)
[2019-08-09] MEDS: POTASSIUM CHLORIDE TABS 20 MEQ TABLET.ER (FP) PO SCH ×2 (11:02→21:09)
[2019-08-09] MEDS: LACTOBACILLUS ACIDOPHILUS 1 TABLET PO SCH (11:03)
--- NOTE | 2019-08-09 12:23 | CONSULT ---
Consult Consult Specialty:: PM&R Dr Torres for Dr Boyd Reason for Consultation:: deconditioning - History of Present Illness Chief Complaint: abdominal discomfort History of Present Illness: This is a 78 year old woman with a medical history of anxiety, HTN, HLD, diverticulitis c/b microperforation c/b diverticular abscess and colouterine fistula s/p colostomy/ Brian procedure 02/04/19, who presented 08/01/19 for planned reversal of colostomy. Zosyn was given post- op as er ID consult. Cardiology was consulted for HTN control. BLE doppler US was done for BLE edema , which was negative for DVT. 08/04/19 colonoscopy was performed, and diet was successfully advanced. She was seen by PT, and on 08/03/19 she was Contact Guard in Transfers, and ambulated 300 feet Supervision without Assistive Device ; she has been ambulating ad lily on the unit per PT note and pt. Physiatry is being consulted for further recommendations. 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), Diverticulosis, Other (Diverticular abscess, colovaginal fistula) Psych: Yes: Anxiety - Past Surgical History Past Surgical History: Yes: None - Alcohol/Substance Use Hx Alcohol Use: No History of Substance Use: reports: None - Smoking History Smoking history: Never smoked Have you smoked in the past 12 months: No Aproximately how many cigarettes per day: 0 - Social History Usual Living Arrangement: Alone (in elevator apartment without stairs) ADL: Independent (without assistive device) 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 History of Recent Travel: No Home Medications - Allergies Allergies/Adverse Reactions: Allergies Allergy/AdvReac Type Severity Reaction Status Date / Time No Known Allergies Allergy Verified 08/01/19 06:45 - Home Medications Home Medications: Ambulatory Orders Lisinopril [Prinivil] 20 mg PO DAILY 07/01/14 Aspirin [ASA -] 81 mg PO DAILY 07/10/18 Simvastatin 5 mg PO HS 07/10/18 Ascorbic Acid/Ascorbate Sodium [Vitamin C 250 mg Tablet Chew] 500 mg PO DAILY Metoprolol Succinate [Toprol Xl] 50 mg PO DAILY 05/31/19 Mirtazapine [Remeron -] 7.5 mg PO HS 05/31/19 Vitamin B Complex 1 each PO DAILY 05/31/19 Hydralazine HCl 10 mg PO DAILY 08/01/19 Review of Systems Findings/Remarks: Denies fevers, chills, changes in vision/ hearing/ mood, CP, SOB, nausea, vomiting, constipation, dysuria, muscle/ joint pain, numbness/ paresthesias BUE / BLE. Notes abdominal discomfort, small loose stools, and intermittent throbbing YUAN. Physical Exam Vital Signs: Vital Signs Temperature 98.2 F 08/09/19 05:28 Pulse Rate 74 08/09/19 05:28 Respiratory Rate 20 08/09/19 05:28 Blood Pressure 156/80 08/09/19 05:28 O2 Sat by Pulse Oximetry (%) 100 08/08/19 21:00 Musculoskeletal: Yes: Other (General: calm elderly F sitting EOB NAD, AAO x3; B shoulder flexion to 130 degrees, 5-/5 BUE, 4+/5 BLE; Pinprick Intact BUE/ BLE; 2+ BLE pitting edema, no B calf tenderness) Labs: CBC, BMP 08/09/19 07:50 08/09/19 07:50 Assessment/Plan Impression: 1) Deficits mobility/ ADLs 2) Deconditioning 3) Gait abnormality 4) Diverticulitis c/b microperforation c/b diverticular abscess and colouterine fistula s/p colostomy/ Brian procedure 02/04/19, s/p 08/01/19 reversal of colostomy 5) BLE edema with US negative 6) hx anxiety 7) hx HTN, HLD 8) BMI WNL 9) No documented flu shot/ pneumovax Recommendations: 1) PT for stretching strengthening ROM, endurance and functional mobility 2) Falls, safety precautions 3) Cardiac precautions 4) DVT ppx: ambulating well 5) Bowel regimen as per Surgery 6) Skin protection: float heels, frequent turning 7) Consider TEDs vs joseluis wrap BLE during the day 8) Discharge planning: once medically stable, she will likely be able to return home with services Thank you for this referral.
--- NOTE | 2019-08-09 12:33 | PN ---
Progress Note (short form) - Note Progress Note: s: tolerating PO, no chest pain, palps, dizziness, dyspnea. complained of LE edema, improving with IV lasix Current Medications Acetaminophen (Ofirmev Injection -) 1,000 mg IVPB Q6H PRN PRN Reason: PAIN Acetaminophen (Tylenol -) 650 mg PO Q6H PRN PRN Reason: PAIN 3-7 Last Admin: 08/08/19 21:34 Dose: 650 mg Hydralazine HCl (Apresoline -) 10 mg PO BID [facility] Lactobacillus Acidophilus (Bacid -) 1 tab PO DAILY [facility] Last Admin: 08/09/19 11:03 Dose: 1 tab Metoprolol Succinate (Toprol Xl -) 50 mg PO DAILY [facility] Last Admin: 08/09/19 11:02 Dose: 50 mg Mirtazapine (Remeron -) 15 mg PO HS [facility] Last Admin: 08/08/19 21:34 Dose: 15 mg Potassium Chloride (K-Dur -) 20 meq PO BID [facility] Last Admin: 08/09/19 11:02 Dose: 20 meq Vital Signs Period Temp Pulse Resp BP Sys/Zhong Pulse Ox Last 24 Hr 98.2 F-98.9 F 62-74 20-20 156-164/76-81 100 Constitutional: Yes: Well Nourished, No Distress, Calm Eyes: Yes: Conjunctiva Clear Neck: Yes: Supple, Trachea Midline Respiratory: Yes: Regular, CTA Bilaterally Gastrointestinal: Yes: Normal Bowel Sounds, Soft Cardiovascular: Yes: Regular Rate and Rhythm JVD: No Carotid Bruit: No PMI: Non-Displaced Heart Sounds: Yes: S1, S2 Murmur: No: Systolic Murmur Musculoskeletal: No: Back Pain Extremities: No: Cold Edema: trace le edema bl Peripheral Pulses: 2+ Left Doralis Pedis, 2+ Right Dorsalis Pedis Integumentary: No: Jaundice Neurological: Yes: Alert, Oriented Psychiatric: No: Agitated Assessment/Plan EKG: sinus, nl intervals, no ischemic changes echo 12/2018 nl LV/RV function, LA mildly dilated, mild MAC, mild to mod MR, mild TR, PASP at leat 41 mmHG, tr [place] s/p colostomy reversal - manage per surgery, remains npo - le edema likely 2/2 to ivfs, received IV lasix - improving HTN - pain control - cont metoprolol PO - restart home hydralazine 10 mg PO BID HLD - cont statin
[2019-08-09] MEDS: hydrALAZINE HCL 10 MG TABLET PO SCH ×2 (14:57→21:09)
--- NOTE | 2019-08-09 15:12 | PN ---
Progress Note, Physician - Current Medication List Current Medications: Active Medications Acetaminophen (Ofirmev Injection -) 1,000 mg IVPB Q6H PRN PRN Reason: PAIN Acetaminophen (Tylenol -) 650 mg PO Q6H PRN PRN Reason: PAIN 3-7 Last Admin: 08/08/19 21:34 Dose: 650 mg Hydralazine HCl (Apresoline -) 10 mg PO BID [facility] Last Admin: 08/09/19 14:57 Dose: 10 mg Lactobacillus Acidophilus (Bacid -) 1 tab PO DAILY [facility] Last Admin: 08/09/19 11:03 Dose: 1 tab Metoprolol Succinate (Toprol Xl -) 50 mg PO DAILY [facility] Last Admin: 08/09/19 11:02 Dose: 50 mg Mirtazapine (Remeron -) 15 mg PO HS [facility] Last Admin: 08/08/19 21:34 Dose: 15 mg Potassium Chloride (K-Dur -) 20 meq PO BID [facility] Last Admin: 08/09/19 11:02 Dose: 20 meq - Objective Vital Signs: Vital Signs Temperature 98.0 F 08/09/19 14:57 Pulse Rate 76 08/09/19 14:57 Respiratory Rate 20 08/09/19 05:28 Blood Pressure 149/73 08/09/19 14:57 O2 Sat by Pulse Oximetry (%) 100 08/08/19 21:00 Labs: CBC, BMP 08/09/19 07:50 08/09/19 07:50 Assessment/Plan SurgeryL All sutures are removed. Wound healing without infection. Steristrips applied. Abdominal X-ray is normal. She has no abdominal pain. Has been having bowel movements. Can be discharged. Abdominal binder , social service for assistance art home.
--- NOTE | 2019-08-09 15:33 | PN ---
Progress Note, Physician History of Present Illness: stable no new issues - Current Medication List Current Medications: Active Medications Acetaminophen (Ofirmev Injection -) 1,000 mg IVPB Q6H PRN PRN Reason: PAIN Acetaminophen (Tylenol -) 650 mg PO Q6H PRN PRN Reason: PAIN 3-7 Last Admin: 08/08/19 21:34 Dose: 650 mg Hydralazine HCl (Apresoline -) 10 mg PO BID [facility] Last Admin: 08/09/19 14:57 Dose: 10 mg Lactobacillus Acidophilus (Bacid -) 1 tab PO DAILY [facility] Last Admin: 08/09/19 11:03 Dose: 1 tab Metoprolol Succinate (Toprol Xl -) 50 mg PO DAILY [facility] Last Admin: 08/09/19 11:02 Dose: 50 mg Mirtazapine (Remeron -) 15 mg PO HS [facility] Last Admin: 08/08/19 21:34 Dose: 15 mg Potassium Chloride (K-Dur -) 20 meq PO BID [facility] Last Admin: 08/09/19 11:02 Dose: 20 meq - Objective Vital Signs: Vital Signs Temperature 98.0 F 08/09/19 14:57 Pulse Rate 76 08/09/19 14:57 Respiratory Rate 20 08/09/19 05:28 Blood Pressure 149/73 08/09/19 14:57 O2 Sat by Pulse Oximetry (%) 100 08/08/19 21:00 Constitutional: Yes: Calm, Mild Distress Cardiovascular: Yes: S1, S2 Respiratory: Yes: Regular, CTA Bilaterally Gastrointestinal: Yes: Normal Bowel Sounds, Soft Musculoskeletal: Yes: WNL Extremities: Yes: WNL Wound/Incision: Yes: Dressing Dry and Intact Neurological: Yes: Alert, Oriented Psychiatric: Yes: Alert, Oriented Labs: CBC, BMP 08/09/19 07:50 08/09/19 07:50 Assessment/Plan Problem List - Problems (1) History of colostomy reversal Code(s): Z98.890 - OTHER SPECIFIED POSTPROCEDURAL STATES (2) C. 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 s/p Colostomy reversal / KURTIS POD#1 Hx of Diverticulitis/Abscess Hx of Colouterine fistula s/p Colostomy HTN HLD plan stable no new issues rest as per the team continue to monitor rest as per surgery
[2019-08-09] MEDS: MIRTAZAPINE 15 MG TABLET (FP) PO SCH (21:09)
--- NOTE | 2019-08-09 21:26 | PN ---
Progress Note, Physician History of Present Illness: Pt is doing well No Fever No SOB Moving Bowels - Current Medication List Current Medications: Active Medications Acetaminophen (Ofirmev Injection -) 1,000 mg IVPB Q6H PRN PRN Reason: PAIN Acetaminophen (Tylenol -) 650 mg PO Q6H PRN PRN Reason: PAIN 3-7 Last Admin: 08/08/19 21:34 Dose: 650 mg Hydralazine HCl (Apresoline -) 10 mg PO BID [facility] Last Admin: 08/09/19 21:09 Dose: 10 mg Lactobacillus Acidophilus (Bacid -) 1 tab PO DAILY [facility] Last Admin: 08/09/19 11:03 Dose: 1 tab Metoprolol Succinate (Toprol Xl -) 50 mg PO DAILY [facility] Last Admin: 08/09/19 11:02 Dose: 50 mg Mirtazapine (Remeron -) 15 mg PO HS [facility] Last Admin: 08/09/19 21:09 Dose: 15 mg Potassium Chloride (K-Dur -) 20 meq PO BID [facility] Last Admin: 08/09/19 21:09 Dose: 20 meq - Objective Vital Signs: Vital Signs Temperature 94.7 F L 08/09/19 21:12 Pulse Rate 71 08/09/19 21:12 Respiratory Rate 18 08/09/19 21:12 Blood Pressure 143/66 08/09/19 21:12 O2 Sat by Pulse Oximetry (%) 100 08/09/19 09:00 Constitutional: Yes: Anxious Eyes: Yes: Conjunctiva Clear, EOM Intact HENT: Yes: Atraumatic, Normocephalic Neck: Yes: Supple, Trachea Midline Cardiovascular: Yes: Regular Rate and Rhythm, S1, S2 Respiratory: Yes: Regular, CTA Bilaterally Gastrointestinal: Yes: Normal Bowel Sounds, Soft Musculoskeletal: Yes: Joint Stiffness Edema: No Peripheral Pulses WNL: Yes Neurological: Yes: Alert, Oriented, Cran Nerves II-XII Intact Labs: CBC, BMP 08/09/19 07:50 08/09/19 07:50 Problem List - Problems (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 (2) Diverticulitis Code(s): K57.92 - DVTRCLI OF INTEST, PART UNSP, W/O PERF OR ABSCESS W/O BLEED (3) Diverticulitis of intestine with abscess Code(s): K57.80 - DVTRCLI OF INTEST, PART UNSP, W PERF AND ABSCESS W/O BLEED (4) Dyspepsia Code(s): R10.13 - EPIGASTRIC PAIN (5) HTN (hypertension) Code(s): I10 - ESSENTIAL (PRIMARY) HYPERTENSION (6) Hyperlipidemia Code(s): E78.5 - HYPERLIPIDEMIA, UNSPECIFIED Qualifiers: Hyperlipidemia type: pure hypercholesterolemia Qualified Code(s): E78.00 - Pure hypercholesterolemia, unspecified; E78.0 - Pure hypercholesterolemia (7) Insomnia disorder Code(s): G47.00 - INSOMNIA, UNSPECIFIED (8) History of colostomy reversal Code(s): Z98.890 - OTHER SPECIFIED POSTPROCEDURAL STATES (9) Bilateral lower extremity edema Code(s): R60.0 - LOCALIZED EDEMA (10) Bilateral lower extremity edema Code(s): R60.0 - LOCALIZED EDEMA Assessment/Plan (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 (2) Diverticulitis Code(s): K57.92 - DVTRCLI OF INTEST, PART UNSP, W/O PERF OR ABSCESS W/O BLEED (3) Diverticulitis of intestine with abscess Code(s): K57.80 - DVTRCLI OF INTEST, PART UNSP, W PERF AND ABSCESS W/O BLEED (4) Dyspepsia Code(s): R10.13 - EPIGASTRIC PAIN (5) HTN (hypertension) Code(s): I10 - ESSENTIAL (PRIMARY) HYPERTENSION (6) Hyperlipidemia Code(s): E78.5 - HYPERLIPIDEMIA, UNSPECIFIED Qualifiers: Hyperlipidemia type: pure hypercholesterolemia Qualified Code(s): E78.00 - Pure hypercholesterolemia, unspecified; E78.0 - Pure hypercholesterolemia (7) Insomnia disorder Code(s): G47.00 - INSOMNIA, UNSPECIFIED (8) History of colostomy reversal Problems reviewed: Yes Code(s): Z98.890 - OTHER SPECIFIED POSTPROCEDURAL STATES Pt is asymptomatic No Fever No SOB
[2019-08-10 08:07] LABS: BASO % 0.5 % (0-2.0); EOS % 1.9 % (0-4.5); HEMATOCRIT 33.1 % (32.4-45.2); HEMOGLOBIN 10.9 GM/dL (10.7-15.3); LYMPH % 27.1 % (8-40); MCH 29.9 pg (25.7-33.7); MEAN CELL VOLUME 90.6 fl (80-96); MEAN PLT VOLUME 8.1 fl (7.5-11.1); MONO % 7.4 % (3.8-10.2); NEUT % 63.1 % (42.8-82.8); PLATELET COUNT 392 K/MM3 (134-434); RBC 3.65 M/mm3 (3.60-5.2); RDW 15.7 % (11.6-15.6); WHITE BLOOD COUNT 4.9 K/mm3 (4.0-10.0)
[2019-08-10 08:16] LABS: BLOOD UREA NITROGEN 4.9 mg/dL (7-18); CALCIUM 8.8 mg/dL (8.5-10.1); CREATININE 0.5 mg/dL (0.55-1.3)
[2019-08-10] MEDS: LACTOBACILLUS ACIDOPHILUS 1 TABLET PO SCH (09:12)
[2019-08-10] MEDS: hydrALAZINE HCL 10 MG TABLET PO SCH ×2 (09:12→21:19)
[2019-08-10] MEDS: POTASSIUM CHLORIDE TABS 20 MEQ TABLET.ER (FP) PO SCH ×2 (09:12→21:19)
--- NOTE | 2019-08-10 11:31 | PN ---
Progress Note (short form) - Note Progress Note: s: edema improving. no chest pain, palps, dizziness, dyspnea. Current Medications Acetaminophen (Ofirmev Injection -) 1,000 mg IVPB Q6H PRN PRN Reason: PAIN Acetaminophen (Tylenol -) 650 mg PO Q6H PRN PRN Reason: PAIN 3-7 Last Admin: 08/08/19 21:34 Dose: 650 mg Hydralazine HCl (Apresoline -) 10 mg PO BID [facility] Last Admin: 08/10/19 09:12 Dose: 10 mg Lactobacillus Acidophilus (Bacid -) 1 tab PO DAILY [facility] Last Admin: 08/10/19 09:12 Dose: 1 tab Metoprolol Succinate (Toprol Xl -) 50 mg PO DAILY [facility] Last Admin: 08/10/19 09:12 Dose: 50 mg Mirtazapine (Remeron -) 15 mg PO HS [facility] Last Admin: 08/09/19 21:09 Dose: 15 mg Potassium Chloride (K-Dur -) 20 meq PO BID [facility] Last Admin: 08/10/19 09:12 Dose: 20 meq Vital Signs Period Temp Pulse Resp BP Sys/Zhong Pulse Ox Last 24 Hr 94.7 F-98.4 F 60-76 18-20 128-152/66-96 96-100 Constitutional: Yes: Well Nourished, No Distress, Calm Eyes: Yes: Conjunctiva Clear Neck: Yes: Supple, Trachea Midline Respiratory: Yes: Regular, CTA Bilaterally Gastrointestinal: Yes: Normal Bowel Sounds, Soft Cardiovascular: Yes: Regular Rate and Rhythm JVD: No Carotid Bruit: No PMI: Non-Displaced Heart Sounds: Yes: S1, S2 Murmur: No: Systolic Murmur Musculoskeletal: No: Back Pain Extremities: No: Cold Edema: trace le edema bl Peripheral Pulses: 2+ Left Doralis Pedis, 2+ Right Dorsalis Pedis Integumentary: No: Jaundice Neurological: Yes: Alert, Oriented Psychiatric: No: Agitated Assessment/Plan EKG: sinus, nl intervals, no ischemic changes echo 12/2018 nl LV/RV function, LA mildly dilated, mild MAC, mild to mod MR, mild TR, PASP at leat 41 mmHG, tr [place] s/p colostomy reversal - manage per surgery, remains npo - le edema likely 2/2 to ivfs, received IV lasix - improving HTN - pain control - cont metoprolol, hydralazine 10 mg PO BID - restart home lisinopril HLD - cont statin
[2019-08-10] MEDS: LISINOPRIL 10 MG TABLET (FP) PO SCH (12:09)
--- NOTE | 2019-08-10 12:56 | PN ---
Progress Note, Physician - Current Medication List Current Medications: Active Medications Acetaminophen (Ofirmev Injection -) 1,000 mg IVPB Q6H PRN PRN Reason: PAIN Acetaminophen (Tylenol -) 650 mg PO Q6H PRN PRN Reason: PAIN 3-7 Last Admin: 08/08/19 21:34 Dose: 650 mg Hydralazine HCl (Apresoline -) 10 mg PO BID [facility] Last Admin: 08/10/19 09:12 Dose: 10 mg Lactobacillus Acidophilus (Bacid -) 1 tab PO DAILY [facility] Last Admin: 08/10/19 09:12 Dose: 1 tab Lisinopril (Prinivil) 20 mg PO DAILY [facility] Last Admin: 08/10/19 12:09 Dose: 20 mg Metoprolol Succinate (Toprol Xl -) 50 mg PO DAILY [facility] Last Admin: 08/10/19 09:12 Dose: 50 mg Mirtazapine (Remeron -) 15 mg PO HS [facility] Last Admin: 08/09/19 21:09 Dose: 15 mg Potassium Chloride (K-Dur -) 20 meq PO BID [facility] Last Admin: 08/10/19 09:12 Dose: 20 meq - Objective Vital Signs: Vital Signs Temperature 97.9 F 08/10/19 10:00 Pulse Rate 75 08/10/19 10:00 Respiratory Rate 18 08/10/19 10:00 Blood Pressure 128/96 08/10/19 10:00 O2 Sat by Pulse Oximetry (%) 96 08/10/19 10:00 Labs: CBC, BMP 08/10/19 07:20 08/10/19 07:20 Problem List - Problems (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 (2) Diverticulitis Code(s): K57.92 - DVTRCLI OF INTEST, PART UNSP, W/O PERF OR ABSCESS W/O BLEED (3) Diverticulitis of intestine with abscess Code(s): K57.80 - DVTRCLI OF INTEST, PART UNSP, W PERF AND ABSCESS W/O BLEED (4) Dyspepsia Code(s): R10.13 - EPIGASTRIC PAIN (5) HTN (hypertension) Code(s): I10 - ESSENTIAL (PRIMARY) HYPERTENSION (6) Hyperlipidemia Code(s): E78.5 - HYPERLIPIDEMIA, UNSPECIFIED Qualifiers: Hyperlipidemia type: pure hypercholesterolemia Qualified Code(s): E78.00 - Pure hypercholesterolemia, unspecified; E78.0 - Pure hypercholesterolemia (7) Insomnia disorder Code(s): G47.00 - INSOMNIA, UNSPECIFIED (8) History of colostomy reversal Code(s): Z98.890 - OTHER SPECIFIED POSTPROCEDURAL STATES (9) Bilateral lower extremity edema Code(s): R60.0 - LOCALIZED EDEMA (10) Bilateral lower extremity edema Code(s): R60.0 - LOCALIZED EDEMA
--- NOTE | 2019-08-10 12:56 | PN ---
Progress Note, Physician History of Present Illness: Pt is doing well wound site looks well colostomy closure site has slight gaping - Current Medication List Current Medications: Active Medications Acetaminophen (Ofirmev Injection -) 1,000 mg IVPB Q6H PRN PRN Reason: PAIN Acetaminophen (Tylenol -) 650 mg PO Q6H PRN PRN Reason: PAIN 3-7 Last Admin: 08/08/19 21:34 Dose: 650 mg Hydralazine HCl (Apresoline -) 10 mg PO BID [facility] Last Admin: 08/10/19 09:12 Dose: 10 mg Lactobacillus Acidophilus (Bacid -) 1 tab PO DAILY [facility] Last Admin: 08/10/19 09:12 Dose: 1 tab Lisinopril (Prinivil) 20 mg PO DAILY [facility] Last Admin: 08/10/19 12:09 Dose: 20 mg Metoprolol Succinate (Toprol Xl -) 50 mg PO DAILY [facility] Last Admin: 08/10/19 09:12 Dose: 50 mg Mirtazapine (Remeron -) 15 mg PO [facility] Last Admin: 08/09/19 21:09 Dose: 15 mg Potassium Chloride (K-Dur -) 20 meq PO BID [facility] Last Admin: 08/10/19 09:12 Dose: 20 meq - Objective Vital Signs: Vital Signs Temperature 97.9 F 08/10/19 10:00 Pulse Rate 75 08/10/19 10:00 Respiratory Rate 18 08/10/19 10:00 Blood Pressure 128/96 08/10/19 10:00 O2 Sat by Pulse Oximetry (%) 96 08/10/19 10:00 Constitutional: Yes: Anxious Eyes: Yes: Conjunctiva Clear, EOM Intact HENT: Yes: Atraumatic, Normocephalic Neck: Yes: Supple, Trachea Midline Cardiovascular: Yes: Regular Rate and Rhythm, S1, S2 Respiratory: Yes: Regular, CTA Bilaterally Gastrointestinal: Yes: Normal Bowel Sounds, Soft Musculoskeletal: Yes: Joint Stiffness Edema: Yes Peripheral Pulses WNL: Yes Labs: CBC, BMP 08/10/19 07:20 08/10/19 07:20 Problem List - Problems (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 (2) Diverticulitis Code(s): K57.92 - DVTRCLI OF INTEST, PART UNSP, W/O PERF OR ABSCESS W/O BLEED (3) Diverticulitis of intestine with abscess Code(s): K57.80 - DVTRCLI OF INTEST, PART UNSP, W PERF AND ABSCESS W/O BLEED (4) Dyspepsia Code(s): R10.13 - EPIGASTRIC PAIN (5) HTN (hypertension) Code(s): I10 - ESSENTIAL (PRIMARY) HYPERTENSION (6) Hyperlipidemia Code(s): E78.5 - HYPERLIPIDEMIA, UNSPECIFIED Qualifiers: Hyperlipidemia type: pure hypercholesterolemia Qualified Code(s): E78.00 - Pure hypercholesterolemia, unspecified; E78.0 - Pure hypercholesterolemia (7) Insomnia disorder Code(s): G47.00 - INSOMNIA, UNSPECIFIED (8) History of colostomy reversal Code(s): Z98.890 - OTHER SPECIFIED POSTPROCEDURAL STATES (9) Bilateral lower extremity edema Code(s): R60.0 - LOCALIZED EDEMA (10) Bilateral lower extremity edema Code(s): R60.0 - LOCALIZED EDEMA Assessment/Plan (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 (2) Diverticulitis Code(s): K57.92 - DVTRCLI OF INTEST, PART UNSP, W/O PERF OR ABSCESS W/O BLEED (3) Diverticulitis of intestine with abscess Code(s): K57.80 - DVTRCLI OF INTEST, PART UNSP, W PERF AND ABSCESS W/O BLEED (4) Dyspepsia Code(s): R10.13 - EPIGASTRIC PAIN (5) HTN (hypertension) Code(s): I10 - ESSENTIAL (PRIMARY) HYPERTENSION (6) Hyperlipidemia Code(s): E78.5 - HYPERLIPIDEMIA, UNSPECIFIED Qualifiers: Hyperlipidemia type: pure hypercholesterolemia Qualified Code(s): E78.00 - Pure hypercholesterolemia, unspecified; E78.0 - Pure hypercholesterolemia (7) Insomnia disorder Code(s): G47.00 - INSOMNIA, UNSPECIFIED (8) History of colostomy reversal Problems reviewed: Yes Code(s): Z98.890 - OTHER SPECIFIED POSTPROCEDURAL STATES Pt is asymptomatic No Fever No SOB Pt will have visiting nurse services Bactroban to wound site on colostomy site area
[2019-08-10] MEDS: MIRTAZAPINE 15 MG TABLET (FP) PO SCH (21:19)
[2019-08-10] MEDS: ACETAMINOPHEN 325 MG TABLET (FP) PO PRN (21:19)
[2019-08-11] MEDS: MUPIROCIN 2% TOPICAL OINTMENT 22 GM TUBE TP SCH ×3 (06:07→14:03)
[2019-08-11] MEDS: LISINOPRIL 10 MG TABLET (FP) PO SCH (09:33)
[2019-08-11] MEDS: LACTOBACILLUS ACIDOPHILUS 1 TABLET PO SCH (09:33)
[2019-08-11] MEDS: hydrALAZINE HCL 10 MG TABLET PO SCH (09:33)
[2019-08-11] MEDS: POTASSIUM CHLORIDE TABS 20 MEQ TABLET.ER (FP) PO SCH (09:34)
--- NOTE | 2019-08-11 10:20 | PN ---
Progress Note (short form) - Note Progress Note: s: no chest pain, palps, dizziness, dyspnea. Current Medications Generic Name Dose Route Start Last Admin Trade Name Freq PRN Reason Stop Dose Admin Acetaminophen 1,000 mg 08/04/19 12:32 Ofirmev Injection - IVPB Q6H PRN PAIN Acetaminophen 650 mg 08/07/19 12:03 08/10/19 21:19 Tylenol - PO 650 mg Q6H PRN Administration PAIN 3-7 Hydralazine HCl 10 mg 08/09/19 12:45 08/11/19 09:33 Apresoline - PO 10 mg BID [facility] Administration Lactobacillus Acidophilus 1 tab 08/07/19 21:00 08/11/19 09:33 Bacid - PO 1 tab DAILY [facility] Administration Lisinopril 20 mg 08/10/19 11:30 08/11/19 09:33 Prinivil PO 20 mg DAILY [facility] Administration Metoprolol Succinate 50 mg 08/07/19 10:00 08/11/19 09:33 Toprol Xl - PO 50 mg DAILY [facility] Administration Mirtazapine 15 mg 08/01/19 22:00 08/10/19 21:19 Remeron - PO 15 mg HS [facility] Administration Mupirocin 1 applic 08/10/19 23:45 08/11/19 06:07 Bactroban 2% Ointment - TP 1 applic TID [facility] Administration Potassium Chloride 20 meq 08/07/19 22:00 08/11/19 09:34 K-Dur - PO 20 meq BID [facility] Administration Vital Signs Period Temp Pulse Resp BP Sys/Zhong Pulse Ox Last 24 Hr 98.2 F-98.9 F 62-72 18-20 137-143/62-76 96 Constitutional: Yes: Well Nourished, No Distress, Calm Eyes: Yes: Conjunctiva Clear Neck: Yes: Supple, Trachea Midline Respiratory: Yes: Regular, CTA Bilaterally Gastrointestinal: Yes: Normal Bowel Sounds, Soft Cardiovascular: Yes: Regular Rate and Rhythm JVD: No Carotid Bruit: No PMI: Non-Displaced Heart Sounds: Yes: S1, S2 Murmur: No: Systolic Murmur Musculoskeletal: No: Back Pain Extremities: No: Cold Edema: trace le edema bl Peripheral Pulses: 2+ Left Doralis Pedis, 2+ Right Dorsalis Pedis Integumentary: No: Jaundice Neurological: Yes: Alert, Oriented Psychiatric: No: Agitated CBC, BMP 08/10/19 07:20 08/10/19 07:20 Assessment/Plan EKG: sinus, nl intervals, no ischemic changes echo 12/2018 nl LV/RV function, LA mildly dilated, mild MAC, mild to mod MR, mild TR, PASP at leat 41 mmHG, tr WA s/p colostomy reversal - manage per surgery, remains npo - le edema likely 2/2 to ivfs, improving HTN - cont home meds HLD - cont statin
--- NOTE | 2019-08-11 11:09 | PN ---
Progress Note, Physician History of Present Illness: stable no new issues - Current Medication List Current Medications: Active Medications Acetaminophen (Ofirmev Injection -) 1,000 mg IVPB Q6H PRN PRN Reason: PAIN Acetaminophen (Tylenol -) 650 mg PO Q6H PRN PRN Reason: PAIN 3-7 Last Admin: 08/10/19 21:19 Dose: 650 mg Hydralazine HCl (Apresoline -) 10 mg PO BID [facility] Last Admin: 08/11/19 09:33 Dose: 10 mg Lactobacillus Acidophilus (Bacid -) 1 tab PO DAILY [facility] Last Admin: 08/11/19 09:33 Dose: 1 tab Lisinopril (Prinivil) 20 mg PO DAILY [facility] Last Admin: 08/11/19 09:33 Dose: 20 mg Metoprolol Succinate (Toprol Xl -) 50 mg PO DAILY [facility] Last Admin: 08/11/19 09:33 Dose: 50 mg Mirtazapine (Remeron -) 15 mg PO HS [facility] Last Admin: 08/10/19 21:19 Dose: 15 mg Mupirocin (Bactroban 2% Ointment -) 1 applic TP TID [facility] Last Admin: 08/11/19 06:07 Dose: 1 applic Potassium Chloride (K-Dur -) 20 meq PO BID [facility] Last Admin: 08/11/19 09:34 Dose: 20 meq - Objective Vital Signs: Vital Signs Temperature 98.4 F 08/11/19 10:00 Pulse Rate 60 08/11/19 10:00 Respiratory Rate 18 08/11/19 10:00 Blood Pressure 147/65 08/11/19 10:00 O2 Sat by Pulse Oximetry (%) 94 L 08/11/19 10:00 Constitutional: Yes: No Distress, Calm Cardiovascular: Yes: S1, S2 Respiratory: Yes: Regular, CTA Bilaterally Gastrointestinal: Yes: Normal Bowel Sounds, Soft Musculoskeletal: Yes: WNL Extremities: Yes: WNL Wound/Incision: Yes: Dressing Dry and Intact Neurological: Yes: Alert, Oriented Psychiatric: Yes: Alert, Oriented Labs: CBC, BMP 08/10/19 07:20 08/10/19 07:20 Assessment/Plan Problem List - Problems (1) History of colostomy reversal Code(s): Z98.890 - OTHER SPECIFIED POSTPROCEDURAL STATES (2) C. 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 s/p Colostomy reversal / KURTIS POD#1 Hx of Diverticulitis/Abscess Hx of Colouterine fistula s/p Colostomy HTN HLD plan stable no new issues rest as per the team continue to monitor rest as per surgery
--- NOTE | 2019-08-11 14:44 | DS ---
Physical Examination Vital Signs: Vital Signs Temperature 98.4 F 08/11/19 10:00 Pulse Rate 60 08/11/19 10:00 Respiratory Rate 18 08/11/19 10:00 Blood Pressure 147/65 08/11/19 10:00 O2 Sat by Pulse Oximetry (%) 94 L 08/11/19 10:00 Constitutional: Yes: Calm, Anxious Eyes: Yes: Conjunctiva Clear, EOM Intact HENT: Yes: Atraumatic, Normocephalic Neck: Yes: Supple, Trachea Midline Cardiovascular: Yes: Regular Rate and Rhythm, S1, S2 Respiratory: Yes: Regular, CTA Bilaterally Gastrointestinal: Yes: Normal Bowel Sounds, Soft Edema: No Peripheral Pulses WNL: Yes Labs: CBC, BMP 08/10/19 07:20 08/10/19 07:20 Discharge Summary Reason For Visit: S/P COLONOSCOPY Current Active Problems Bilateral lower extremity edema (Acute) Bilateral lower extremity edema (Acute) History of colostomy reversal (Acute) Procedures: Principal: Flexible sigmoidoscopy ,. Take down of colostomy . Mobilisation of the splenic flexure of colon ,. Colocolostomy . Lysis of small intestinal adhesions. Hospital Course: Flexible sigmoidoscopy ,. Take down of colostomy . Mobilisation of the splenic flexure of colon ,. Colocolostomy . Lysis of small intestinal adhesions. Plan of Treatment: FU with Surgery and FU with PMD in One week Condition: Improved - Instructions Diet, Activity, Other Instructions: Dr. López Discharge Instructions Dear JONAS CHINO, Post Operative Instructions Physical activity Resume your normal everyday activity as tolerated no heavy lifting or exercise until seen by your surgeon. You may walk unlimited amounts of and climb stairs. You may resume driving the car when you feel safe and comfortable behind the wheel and no longer taking narcotics. Wound care Keep midline incision clean and dry. Do not shower/bathe or apply lotion or ointments to incisions. Irrigate colostomy site with normal saline and pack with iodoform packing. Cover with clean dry dressing. Diet There are no dietary restrictions. Eat healthy, high-fiber foods. Drink 6 to 8 glasses of liquid each day. This will assist in keeping your bowels are regular. Pain management You may take Tylenol or acetaminophen or Ibuprofen (for example, Motrin, Advil etc.) Any pain prescription medication ordered should be taken as prescribed for moderate to severe pain. Call Dr. López for any of the following: Severe pain not relieved by medication Fever of 101 or higher Excessive bleeding or drainage on dressing Inability to urinate If you experience any chest pain or shortness of breath please seek emergency treatment immediately. Call Dr Avila's office to confirm your post op appointment. Disposition: [facility]NS/HOME HEALTH CARE - Home Medications Comprehensive Discharge Medication List: Ambulatory Orders Lisinopril [Prinivil] 20 mg PO DAILY 07/01/14 Aspirin [ASA -] 81 mg PO DAILY 07/10/18 Simvastatin 5 mg PO HS 07/10/18 Ascorbic Acid/Ascorbate Sodium [Vitamin C 250 mg Tablet Chew] 500 mg PO DAILY Metoprolol Succinate [Toprol Xl] 50 mg PO DAILY 05/31/19 Mirtazapine [Remeron -] 7.5 mg PO HS 05/31/19 Vitamin B Complex 1 each PO DAILY 05/31/19 Hydralazine HCl 10 mg PO DAILY 08/01/19
[2019-08-11 15:13] VITALS: BP 155/67; PULSE 64; TEMP 98
== END 2019-08-11 17:47 | disposition home or self-care (01) | DRG 330 ==
LOC: JSAMEDAYSX 06:23 → J6S 18:43
PROVIDERS: ADMIT Internal Medicine; ATTEND Internal Medicine
PROC: 0DBN0ZZ Excision of Sigmoid Colon, Open Approach (ICD-10-PCS; 2019-08-01)
PROC: 0DSM0ZZ Reposition Descending Colon, Open Approach (ICD-10-PCS; 2019-08-01)
PROC: 0DN80ZZ Release Small Intestine, Open Approach (ICD-10-PCS; 2019-08-01)
PROC: 0DJD8ZZ Inspection of Lower Intestinal Tract, Via Natural or Artificial Opening Endoscopic (ICD-10-PCS; principal; 2019-08-01 08:57)
DX: Z43.3 Encounter for attention to colostomy (principal); N82.8 Other female genital tract fistulae; K57.92 Diverticulitis of intestine, part unspecified, without perforation or abscess without bleeding; I10 Essential (primary) hypertension; E78.5 Hyperlipidemia, unspecified; K57.90 Diverticulosis of intestine, part unspecified, without perforation or abscess without bleeding; F41.9 Anxiety disorder, unspecified; R10.13 Epigastric pain; G47.00 Insomnia, unspecified; E87.6 Hypokalemia; R26.9 Unspecified abnormalities of gait and mobility
CPT/HCPCS: 36415; 74018-TC-FY; 80048; 83036; 85025; 88304-TC; 88307-TC; 93970-TC; 94760; 97116-GP; 97161-GP; J0131; J1644; J7030

== ENCOUNTER 2019-08-14 16:11 | Emergency (ER) | payer OTHER, MEDICARE ==
[2019-08-14 16:24] VITALS: TEMP 98; BMI 24.0
--- NOTE | 2019-08-14 18:24 | PDOC ---
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 States that she was watching television when she started to have some blurred vision only on the left side. States she never lost vision in that eye it was only blurry. There was no association of headache, dizziness, chest pain, LOC. Patient states that 1 year ago had similar symptoms however at that time she passed out. She was subsequently admitted to the hospital and had a work-up done which included MRI and MRA. There were no acute findings at that time. Patient states that for the past 2 months she has had intermittent symptoms of like a heartbeat in her head on the right side. States this also occurred today. She seen her PMD for this symptoms and was assured she was fine. Patient is concerned that she might of had a stroke because on arrival her blood pressure was elevated. Patient takes a baby aspirin daily. PMD: Dr. Yee Neuro: Dr. Escudero PMHX: as above PSOCHX: lives alone, no cig, drug, etoh ALL: NKDA GENERAL/CONSTITUTIONAL: [No fever or chills. No weakness. No weight change.] HEAD, EYES, EARS, NOSE AND THROAT: [(+) change in vision. No ear pain or discharge. No sore throat.] CARDIOVASCULAR: [No chest pain or shortness of breath.] RESPIRATORY: [No cough, wheezing, or hemoptysis.] GASTROINTESTINAL: [No nausea, vomiting, diarrhea or constipation. No rectal bleeding.] GENITOURINARY: [No dysuria, frequency, or change in urination.] MUSCULOSKELETAL: [No joint or muscle swelling or pain. No neck or back pain.] SKIN AND BREASTS: [No rash or easy bruising.] NEUROLOGIC: [No headache, vertigo, loss of consciousness, or loss of sensation.] PSYCHIATRIC: [No depression or anxiety.] ENDOCRINE: [No increased thirst. No abnormal weight change.] HEMATOLOGIC/LYMPHATIC: [No anemia, easy bleeding, or history of blood clots.] ALLERGIC/IMMUNOLOGIC: [No hives or skin allergy. No latex allergy.] GENERAL: [The patient is awake, alert, and fully oriented, in no acute distress. ] HEAD: [Normal with no signs of trauma.] EYES: [Pupils equal, round and reactive to light, extraocular movements intact, sclera anicteric, conjunctiva clear.] VA: 20/70 left eye, 20/50 right eye ENT: [Ears normal, nares patent, oropharynx clear without exudates. Moist mucous membranes.] NECK: [Normal range of motion, supple without lymphadenopathy, JVD, or masses.] LUNGS: [Breath sounds equal, clear to auscultation bilaterally. No wheezes, and no crackles.] HEART: [Regular rate and rhythm, normal S1 and S2 without murmur, rub.] ABDOMEN: [Soft, mild tender over surgical site, wound is intact no redness, no drainage noted, normoactive bowel sounds. No guarding, no rebound. No masses.] EXTREMITIES: [Normal range of motion, no edema. No clubbing or cyanosis. No cords, erythema, or tenderness.] NEUROLOGICAL: [Cranial nerves II through XII grossly intact. Normal speech, normal gait, face symmetrical, no pronator drift, strength 5/5 bilaterally, cerebellar function intact normal [id number]. PSYCH: [Normal mood, normal affect.] SKIN: [Warm, Dry, normal turgor, no rashes or lesions noted.] <Graciela Salguero - Last Filed: 08/15/19 02:59> <Bari Toure - Last Filed: 08/16/19 18:03> - General Chief Complaint: Eye Problem Stated Complaint: BLURRY VISION LT. EYE Time Seen by Provider: 08/14/19 17:44 Past History - Past Medical History Anemia: No Asthma: No Cancer: No Cardiac Disorders: No CVA: No COPD: No CHF: No Dementia: No Diabetes: No GI Disorders: Yes (GASTRIC INTESTINAL METAPLASIA) Disorders: No HTN: Yes Hypercholesterolemia: Yes Liver Disease: No (DIVERTICULITIS) Seizures: No Thyroid Disease: No - Surgical History Abdominal Surgery: Yes (SHEILA PROCEDURE) Appendectomy: No Cardiac Surgery: No Cholecystectomy: No Lung Surgery: No Neurologic Surgery: No Orthopedic Surgery: No - Immunization History Immunization Up to Date: Yes - Psycho Social/Smoking Cessation Hx Smoking Status: No Smoking History: Never smoked Have you smoked in the past 12 months: No Number of Cigarettes Smoked Daily: 0 Hx Alcohol Use: No Drug/Substance Use Hx: No Substance Use Type: None Hx Substance Use Treatment: No <Graciela Salguero - Last Filed: 08/15/19 02:59> <Bari Toure - Last Filed: 08/16/19 18:03> - Past Medical History Allergies/Adverse Reactions: Allergies Allergy/AdvReac Type Severity Reaction Status Date / Time No Known Allergies Allergy Verified 08/14/19 16:24 Home Medications: Ambulatory Orders Lisinopril [Prinivil] 20 mg PO DAILY 07/01/14 Aspirin [ASA -] 81 mg PO DAILY 07/10/18 Simvastatin 5 mg PO HS 07/10/18 Ascorbic Acid/Ascorbate Sodium [Vitamin C 250 mg Tablet Chew] 500 mg PO DAILY Metoprolol Succinate [Toprol Xl] 50 mg PO DAILY 05/31/19 Mirtazapine [Remeron -] 7.5 mg PO HS 05/31/19 Vitamin B Complex 1 each PO DAILY 05/31/19 Hydralazine HCl 10 mg PO DAILY 08/01/19 *Physical Exam - Vital Signs Last Vital Signs Temp Pulse Resp BP Pulse Ox 98 F 63 18 186/57 H 96 08/14/19 16:22 08/14/19 16:22 08/14/19 16:22 08/14/19 16:22 08/14/19 16:22 <Graciela Salguero - Last Filed: 08/15/19 02:59> - Vital Signs Last Vital Signs Temp Pulse Resp BP Pulse Ox 98 F 64 18 174/70 H 98 08/14/19 16:22 08/14/19 21:00 08/14/19 21:00 08/14/19 21:00 08/14/19 21:00 <Bari Toure - Last Filed: 08/16/19 18:03> ED Treatment Course - LABORATORY CBC & Chemistry Diagram: 08/14/19 19:00 08/14/19 19:00 - RADIOLOGY Radiology Studies Ordered: Category Date Time Status HEAD CT WITHOUT CONTRAST [CT] Stat CT Scan 08/14/19 17:36 Ordered <Graciela Salguero - Last Filed: 08/15/19 02:59> - LABORATORY CBC & Chemistry Diagram: 08/14/19 19:00 08/14/19 19:00 - ADDITIONAL ORDERS Additional order review: 08/14/19 19:00 RBC 3.74 MCV 90.6 MCHC 33.2 RDW 15.5 MPV 7.5 Neutrophils % 72.4 Lymphocytes % 18.0 D Monocytes % 8.4 Eosinophils % 0.5 Basophils % 0.7 - Medications Given in the ED: ED Medications Discontinued Medications Generic Name Dose Route Start Last Admin Trade Name Freq PRN Reason Stop Dose Admin Hydralazine HCl 10 mg 08/14/19 20:12 08/14/19 21:15 Apresoline - PO 08/14/19 20:13 10 mg ONCE ONE Administration <Bari Toure - Last Filed: 08/16/19 18:03> Medical Decision Making - Medical Decision Making 08/14/19 18:13 Patient is a 78-year-old female with history of HTN, HLD, diverticulitis, perforated bowel, 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 States that she was watching television when she started to have some blurred vision only on the left side. States she never lost vision in that eye it was only blurry. There was no association of headache, dizziness, chest pain, LOC. Patient states that 1 year ago had similar symptoms however at that time she passed out. She was subsequently admitted to the hospital and had a work-up done which included MRI and MRA. There were no acute findings at that time. Patient states that for the past 2 months she has had intermittent symptoms of like a heartbeat in her head on the right side. States this also occurred today. She seen her PMD for this symptoms and was assured she was fine. Patient is concerned that she might of had a stroke because on arrival her blood pressure was elevated. Patient takes a baby aspirin daily. Possible TIA ct head, labs, ekg Case was discussed with Dr. Hernandez of neurology who request with us to do an ESR and the patient and he will see her at 1 PM on Thursday08/15/19. 08/14/19 19:30 Patient Full Name: MATTI MCDANIEL Patient Accession No: [id number] Patient : 1940 Reason for Exam: blurry vsion Referring Physician: Patient Name: JONAS CHINO THIS IS A PRELIMINARY REPORT FROM [facility] DATE OF SERVICE: 2019-08-14 18:10:09 IMAGES: 229 EXAM: CT HEAD WITHOUT IV CONTRAST TECHNIQUE: Axial images from the skull base to the vertex. Bone and soft tissue windows were reviewed. One or more of the following dose reduction techniques were used: automated exposure control, adjustment of the mA and/or kV according to patient size, use of iterative reconstructive technique. Contrast: None REASON FOR EXAM: Blurry vision COMPARISON: None. FINDINGS: Mild to moderate degree diffuse brain parenchymal atrophy with preservation of the mitchell-white differentiation. There is no acute intracranial hemorrhage, mass effect or midline shift. No abnormal intra-axial or extra-axial fluid collection is seen. Mild chronic microvascular ischemic changes involving the supratentorial periventricular deep white matter with small calcification of the left basal ganglia. The ventricles and basilar cisterns are maintained. The bones of the calvarium and imaged skull base demonstrate no acute abnormality. The imaged paranasal sinuses and mastoid air cells : Unremarkable. IMPRESSION: 1. No acute territorial infarct, hemorrhage, or space-occupying mass. One or more of the following dose reduction techniques were used: automated exposure control, adjustment of the mA and/or kV according to patient size, use of iterative reconstructive technique. THIS DOCUMENT HAS BEEN ELECTRONICALLY SIGNED Don Bowman MD 08/14/2019 19:26 PRINCESS Lynch Please call [facility] [phone] ([phone]) with questions. INTERPRETING RADIOLOGIST: Don Bowman MD Electronically Signed: Aug 14, 2019 07:26PM EST EKG: SR rate 63, normal axis, no ST-T wave changes. The labs were reviewed noted no acute findings except for an ESR of 49 Patient concerned about blood pressure requested hydralazine 10 mg p.o. Selected Entries 08/14/19 21:00 Pulse Rate [ 64 Apical] Respiratory 18 Rate Blood Pressure 174/70 H [Right Arm] O2 Sat by Pulse 98 Oximetry (%) Patient at discharge is neurologically intact has no continued eye complaints. Will discharge patient home with instructions to follow-up with neurology at 1 PM tomorrow for further evaluation and treatment I discussed the physical exam findings, ancillary test results and final diagnoses with the patient. I answered all of the patient's questions. The patient was satisfied with the care received and felt comfortable with the discharge plan and treatment plan. The Patient agrees to follow up with the primary care physician within 24-72 hours. <Graciela Salguero - Last Filed: 08/15/19 02:59> - Medical Decision Making The patient was seen and evaluated in conjunction with EMERY Carty under my direct supervision, ancillary studies were reviewed. I independently interviewed and evaluated the patient and I agree with the plan as outlined by EMERY Carty. 08/16/19 18:03 <Bari Toure - Last Filed: 08/16/19 18:03> Discharge - Discharge Information Problems reviewed: Yes <Graciela Salguero - Last Filed: 08/15/19 02:59> <Bari Toure - Last Filed: 08/16/19 18:03> - Discharge Information Clinical Impression/Diagnosis: Blurred vision, left eye Condition: Stable Disposition: HOME - Follow up/Referral Referrals: Jessie Elliott MD [Primary Care Provider] - Samuel Espana MD [Staff Physician] - - Patient Discharge Instructions Patient Printed Discharge Instructions: DI for Visual Field Disturbances Additional Instructions: Your Discharge Instructions: You must call primary care physician within 24 hours to arrange follow-up. Return to the Emergency Department with any new, persistent or worsening symptoms, for fever, chills, SOB, dizziness or any other concerning changes that may occur. You must follow-up with Dr. Hernandez at 1 PM in his office on Thursday08/15/19 - Post Discharge Activity
[2019-08-14 19:11] LABS: BASO % 0.7 % (0-2.0); EOS % 0.5 % (0-4.5); HEMATOCRIT 33.9 % (32.4-45.2); HEMOGLOBIN 11.3 GM/dL (10.7-15.3); MCH 30.1 pg (25.7-33.7); MCHC 33.2 g/dl (32.0-36.0); MEAN CELL VOLUME 90.6 fl (80-96); MEAN PLT VOLUME 7.5 fl (7.5-11.1); MONO % 8.4 % (3.8-10.2); NEUT % 72.4 % (42.8-82.8); PLATELET COUNT 495 K/MM3 (134-434); RBC 3.74 M/mm3 (3.60-5.2); RDW 15.5 % (11.6-15.6); WHITE BLOOD COUNT 6.7 K/mm3 (4.0-10.0)
[2019-08-14 19:29] LABS: INR 0.96 (0.83-1.09); PROTHROMBIN TIME (PATIENT) 11.3 SEC (9.7-13.0)
[2019-08-14 19:40] LABS: ALBUMIN 3.5 g/dl (3.4-5.0); ALK PHOS 57 U/L (45-117); ANION GAP 7 MMOL/L (8-16); BILIRUBIN,TOTAL 0.3 mg/dL (0.2-1); BLOOD UREA NITROGEN 6.1 mg/dL (7-18); CALCIUM 9.4 mg/dL (8.5-10.1); CHLORIDE 106 mmol/L (98-107); CO2 26 mmol/L (21-32); CREATININE 0.5 mg/dL (0.55-1.3); GLUCOSE,RANDOM 106 mg/dL (74-106); POTASSIUM 3.9 mmol/L (3.5-5.1); SGOT/AST 13 U/L (15-37); SGPT/ALT 24 U/L (13-61); SODIUM 139 mmol/L (136-145); TOT PROT 7.2 g/dl (6.4-8.2)
[2019-08-14] MEDS ORDERED: hydrALAZINE HCL 10 MG TABLET PO ONE (20:12)
[2019-08-14 22:25] VITALS: BP 174/70; PULSE 64
--- NOTE | 2019-08-15 11:28 | EKG ---
Test Reason : Blood Pressure : / mmHG Vent. Rate : 063 BPM Atrial Rate : 063 BPM P-R Int : 146 ms QRS Dur : 074 ms QT Int : 414 ms P-R-T Axes : 016 022 045 degrees QTc Int : 423 ms NORMAL SINUS RHYTHM NORMAL ECG WHEN COMPARED WITH ECG OF 26-JUL-2019 11:47, NO SIGNIFICANT CHANGE WAS FOUND Confirmed by DAGO RAE MD ([id number]) on 08/15/2019 11:28:37 AM Referred By: Confirmed By:DAGO RAE MD
== END 2019-08-14 21:15 | disposition home or self-care (01) ==
LOC: JER 16:11
PROC: 4A07X0Z Measurement of Visual Acuity, External Approach (ICD-10-PCS; principal; 2019-08-14)
DX: H53.8 Other visual disturbances (principal); I10 Essential (primary) hypertension; E78.5 Hyperlipidemia, unspecified; Z87.19 Personal history of other diseases of the digestive system
CPT/HCPCS: 36415; 70450-TC; 80053; 82550; 84484; 85025; 85610; 85651; 93005; 93010; 99173; 99283-25

== ENCOUNTER 2019-08-22 15:21 | Emergency (ER) | payer OTHER, MEDICARE ==
[2019-08-22 15:53] VITALS: BMI 22.8
[2019-08-22] MEDS ORDERED: SODIUM CHLORIDE 1,000 ML IV STA (15:55)
--- NOTE | 2019-08-22 15:55 | PDOC ---
Rapid Medical Evaluation Medical Evaluation: Allergies Allergy/AdvReac Type Severity Reaction Status Date / Time No Known Allergies Allergy Verified 08/14/19 16:24 I have performed a brief in-person evaluation of this patient. The patient presents with a chief complaint of: had reversal of colostomy last month; was d/beto 08/11 but having diarrhea since 08/11; was tested positive for C. diff and been on vanc and flagyl since 08/16, but still having diarrhea; has lost 10 pounds; saw PCP today and advised to come to ED for dehydrated Pertinent physical exam findings: Appears weak I have ordered the following: labs, IVF The patient will proceed to the ED for further evaluation. 08/22/19 15:52
--- NOTE | 2019-08-22 16:26 | PDOC ---
History of Present Illness - General Chief Complaint: Diarrhea Stated Complaint: DEHYDRATED Time Seen by Provider: 08/22/19 15:50 Past History - Past Medical History Allergies/Adverse Reactions: Allergies Allergy/AdvReac Type Severity Reaction Status Date / Time No Known Allergies Allergy Verified 08/22/19 15:54 Home Medications: Ambulatory Orders Lisinopril [Prinivil] 20 mg PO DAILY 07/01/14 Aspirin [ASA -] 81 mg PO DAILY 07/10/18 Simvastatin 5 mg PO HS 07/10/18 Ascorbic Acid/Ascorbate Sodium [Vitamin C 250 mg Tablet Chew] 500 mg PO DAILY Metoprolol Succinate [Toprol Xl] 50 mg PO DAILY 05/31/19 Mirtazapine [Remeron -] 7.5 mg PO HS 05/31/19 Vitamin B Complex 1 each PO DAILY 05/31/19 Hydralazine HCl 10 mg PO DAILY 08/01/19 Anemia: No Asthma: No Cancer: No Cardiac Disorders: No CVA: No COPD: No CHF: No Dementia: No Diabetes: No GI Disorders: Yes (GASTRIC INTESTINAL METAPLASIA) Disorders: No HTN: Yes Hypercholesterolemia: Yes Liver Disease: No (DIVERTICULITIS) Seizures: No Thyroid Disease: No - Surgical History Abdominal Surgery: Yes (SHEILA PROCEDURE) Appendectomy: No Cardiac Surgery: No Cholecystectomy: No Lung Surgery: No Neurologic Surgery: No Orthopedic Surgery: No - Immunization History Immunization Up to Date: Yes - Psycho Social/Smoking Cessation Hx Smoking Status: No Smoking History: Never smoked Have you smoked in the past 12 months: No Number of Cigarettes Smoked Daily: 0 Hx Alcohol Use: No Drug/Substance Use Hx: No Substance Use Type: None Hx Substance Use Treatment: No *Physical Exam - Vital Signs Last Vital Signs Temp Pulse Resp BP Pulse Ox 97.8 F 65 16 142/50 L 97 08/22/19 15:50 08/22/19 15:50 08/22/19 15:50 08/22/19 15:50 08/22/19 15:50
[2019-08-22 16:47] LABS: BASO % 0.6 % (0-2.0); EOS % 0.6 % (0-4.5); HEMATOCRIT 35.6 % (32.4-45.2); HEMOGLOBIN 11.6 GM/dL (10.7-15.3); LYMPH % 21.9 % (8-40); MCH 29.7 pg (25.7-33.7); MCHC 32.6 g/dl (32.0-36.0); MEAN CELL VOLUME 91.1 fl (80-96); MONO % 6.8 % (3.8-10.2); NEUT % 70.1 % (42.8-82.8); PLATELET COUNT 401 K/MM3 (134-434); RBC 3.91 M/mm3 (3.60-5.2); RDW 14.9 % (11.6-15.6); WHITE BLOOD COUNT 5.7 K/mm3 (4.0-10.0)
[2019-08-22 17:09] LABS: ALBUMIN 3.4 g/dl (3.4-5.0); BILIRUBIN,TOTAL 0.4 mg/dL (0.2-1); BLOOD UREA NITROGEN 6.1 mg/dL (7-18); CALCIUM 9.3 mg/dL (8.5-10.1); CREATININE 0.6 mg/dL (0.55-1.3); MAGNESIUM 2.5 mg/dL (1.8-2.4); POTASSIUM 3.9 mmol/L (3.5-5.1); TOT PROT 6.9 g/dl (6.4-8.2)
--- NOTE | 2019-08-22 17:15 | PDOC ---
History of Present Illness - General Chief Complaint: Diarrhea Stated Complaint: DEHYDRATED Time Seen by Provider: 08/22/19 15:50 History Source: Patient Exam Limitations: No Limitations - History of Present Illness Initial Comments: 08/22/19 17:15 78yF w PMHx HTN, HLD, diverticulitis, perforated bowel s/p colostomy 02/07/19 with revision 08/01/19 presenting w diarrhea. Was DC 08/11 but having diarrhea since 08/11, tested positive for c diff, taking vanc/flagyl/pepcid since 08/16. Lost 10 lbs, poor appetite, still having mucoid watery stools every 15 min. Denies fever, AB pain, nausea/vomiting, chest pain, SOB, urinary changes. Dr Avila surgery Past History - Past Medical History Allergies/Adverse Reactions: Allergies Allergy/AdvReac Type Severity Reaction Status Date / Time No Known Allergies Allergy Verified 08/22/19 15:54 Home Medications: Ambulatory Orders Lisinopril [Prinivil] 20 mg PO DAILY 07/01/14 Aspirin [ASA -] 81 mg PO DAILY 07/10/18 Simvastatin 5 mg PO HS 07/10/18 Ascorbic Acid/Ascorbate Sodium [Vitamin C 250 mg Tablet Chew] 500 mg PO DAILY Metoprolol Succinate [Toprol Xl] 50 mg PO DAILY 05/31/19 Mirtazapine [Remeron -] 7.5 mg PO HS 05/31/19 Vitamin B Complex 1 each PO DAILY 05/31/19 Hydralazine HCl 10 mg PO DAILY 08/01/19 Cholestyramine [Cholestyramine Resin] 4 gm MC BID 10 Days #20 powder 08/22/19 Vancomycin HCl 250 mg PO TID 10 Days #30 capsule 08/22/19 Anemia: No Asthma: No Cancer: No Cardiac Disorders: No CVA: No COPD: No CHF: No Dementia: No Diabetes: No GI Disorders: Yes (GASTRIC INTESTINAL METAPLASIA) Disorders: No HTN: Yes Hypercholesterolemia: Yes Liver Disease: No (DIVERTICULITIS) Seizures: No Thyroid Disease: No - Surgical History Abdominal Surgery: Yes (SHEILA PROCEDURE) Appendectomy: No Cardiac Surgery: No Cholecystectomy: No Lung Surgery: No Neurologic Surgery: No Orthopedic Surgery: No - Immunization History Immunization Up to Date: Yes - Psycho Social/Smoking Cessation Hx Smoking Status: No Smoking History: Never smoked Have you smoked in the past 12 months: No Number of Cigarettes Smoked Daily: 0 Hx Alcohol Use: No Drug/Substance Use Hx: No Substance Use Type: None Hx Substance Use Treatment: No Review of Systems - Review of Systems Constitutional: No: Chills, Fever HEENTM: No: Eye Pain, Nose Pain, Throat Pain, Mouth Pain Respiratory: No: Cough, Shortness of Breath Cardiac (ROS): No: Chest Pain, Palpitations, Syncope ABD/GI: Yes: Diarrhea. No: Abdominal Distended, Constipated, Nausea, Vomiting : No: Burning, Dysuria, Discharge, Hematuria Musculoskeletal: No: Back Pain, Joint Pain, Neck Pain Integumentary: No: Bruising, Flushing, Lesions Neurological: No: Headache, Seizure, Tingling Psychiatric: No: Anxiety, Depression, Stressors Endocrine: No: Excessive Sweating, Flushing, Intolerance to Cold, Intolerance to Heat Hematologic/Lymphatic: No: Anemia, Blood Clots *Physical Exam - Vital Signs Last Vital Signs Temp Pulse Resp BP Pulse Ox 97.8 F 65 16 142/50 L 97 08/22/19 15:50 08/22/19 15:50 08/22/19 15:50 08/22/19 15:50 08/22/19 15:50 - Physical Exam General Appearance: Yes: Nourished, Appropriately Dressed, Mild Distress HEENT: positive: EOMI, YUE, Normal Voice, Hearing Grossly Normal. negative: Scleral Icterus (R), Scleral Icterus (L), Nasal Congestion, Rhinorrhea Respiratory/Chest: positive: Lungs Clear, Normal Breath Sounds. negative: Chest Tender, Respiratory Distress, Crackles, Rales, Rhonchi, Stridor, Wheezing Cardiovascular: positive: Regular Rhythm, Regular Rate, S1, S2. negative: Edema , Murmur Gastrointestinal/Abdominal: positive: Normal Bowel Sounds, Flat, Soft, Other ( healing surgical sites not red/tender/warm). negative: Tender, Organomegaly Musculoskeletal: negative: CVA Tenderness (R), CVA Tenderness (L) Extremity: positive: Delayed Capillary Refill Integumentary: positive: Normal Color, Dry Neurologic: positive: Fully Oriented, Alert, Normal Response, Responsive. negative: Confused, Disoriented ED Treatment Course - LABORATORY CBC & Chemistry Diagram: 08/22/19 16:20 08/22/19 16:20 - ADDITIONAL ORDERS Additional order review: Laboratory Results 08/22/19 16:20 Sodium 139 Potassium 3.9 Chloride 105 Carbon Dioxide 26 Anion Gap 8 BUN 6.1 L Creatinine 0.6 Est GFR (CKD-EPI)AfAm 101.18 Est GFR (CKD-EPI)NonAf 87.30 Random Glucose 97 Calcium 9.3 Magnesium 2.5 H Total Bilirubin 0.4 AST 21 ALT 18 Alkaline Phosphatase 48 Total Protein 6.9 Albumin 3.4 08/22/19 16:20 RBC 3.91 MCV 91.1 MCHC 32.6 RDW 14.9 MPV 8.0 Neutrophils % 70.1 Lymphocytes % 21.9 D Monocytes % 6.8 Eosinophils % 0.6 Basophils % 0.6 Medical Decision Making - Medical Decision Making 08/22/19 17:44 CBC CMP normal --- 78yF w PMHx HTN, HLD, diverticulitis, perforated bowel s/p colostomy 02/07/19 with revision 08/01/19 presenting w 11d mucoid diarrhea, poor appetite, dehydration d/t undertreated c diff colitis. Low concern for SBO (non distended AB) vs ABD infection (non tender) Consulted Dr Guaman GI - advised stop flagyl, stop pepcid, continue PO vanc +10d , start cholestyramine 4g without taking any food/meds 2hrs before or after. Given 1L NS, tolerate PO fluids. DC home w PCP/GI f/u, cholestyramine and vanc prescriptions Discharge - Discharge Information Problems reviewed: Yes Clinical Impression/Diagnosis: C. difficile colitis Condition: Improved Disposition: HOME - Admission No - Additional Discharge Information Prescriptions: Cholestyramine [Cholestyramine Resin] 4 gm MC BID 10 Days #20 powder Vancomycin HCl 250 mg PO TID 10 Days #30 capsule - Follow up/Referral Referrals: Jessie Elliott MD [Primary Care Provider] - Jordy Guaman MD [Staff Physician] - - Patient Discharge Instructions Patient Printed Discharge Instructions: DI for Clostridium difficile Infection Additional Instructions: You were seen for diarrhea. You were given fluids Stop taking Pepcid and Flagyl Start taking the prescribed Cholestyramine and Vancomycin as directed for the next 10 days. Take Cholestyramine at least 2 hours before or after any foods or medication Follow up with your primary care doctor or referred oracle database consultant Dr Guaman in the next 3-5 days Drink lots of water Come back to the ED if you start vomiting, fevers, or worsening abdominal pain. - Post Discharge Activity
[2019-08-22] MEDS ORDERED: SODIUM CHLORIDE 0.9% 500 ML INFUS.BAG IV ONE (17:36)
--- NOTE | 2019-08-22 18:14 | PDOC ---
Documentation entered by Liliana Troncoso SCRIBE, acting as scribe for Monika Carreon MD. Monika Carreon MD: This documentation has been prepared by the Karyna muniz Nirvannie, SCRIBE, under my direction and personally reviewed by me in its entirety. I confirm that the documentation accurately reflects all work, treatment, procedures, and medical decision making performed by me. Attending Attestation - Resident Resident Name: Everett Linton - ED Attending Attestation I have performed the following: I have examined & evaluated the patient, The case was reviewed & discussed with the resident, I agree w/resident's findings & plan, Exceptions are as noted - HPI HPI: 08/22/19 18:09 78-year-old female has been diagnosed with C. difficile presents after 6 days of continuing loose stools HPI she was placed on Vanco and Flagyl but has complaints her symptoms have not improved - Physicial Exam PE: 08/22/19 18:14 78 yo female w c/o loose stools head ncat neck supple lungs cta b/l cvs [id number] abd no rebound,no guarding neuro alert,conversant 08/22/19 18:25 - Medical Decision Making 08/22/19 18:10 Patient does not have a fever Labs reviewed and she has no leukocytosis no significant anemia her chemistries show normal creatinine normal LFTs normal renal function and her electrolytes are unremarkable Case was discussed with the Dr. Jordy Guaman from GI and the plan is to stop her Pepcid and flagyl , extend her vancomycin to 10 days and to add cholestyamine pt will be d/c home imp c diff 08/22/19 18:26
[2019-08-22 20:00] VITALS: BP 132/63; PULSE 72; TEMP 98.1
== END 2019-08-22 20:01 | disposition home or self-care (01) ==
LOC: JER 15:21
PROC: 3E0337Z Introduction of Electrolytic and Water Balance Substance into Peripheral Vein, Percutaneous Approach (ICD-10-PCS; principal; 2019-08-22)
DX: A04.72 Enterocolitis due to Clostridium difficile, not specified as recurrent (principal); I10 Essential (primary) hypertension; E78.00 Pure hypercholesterolemia, unspecified; Z87.19 Personal history of other diseases of the digestive system; Z98.890 Other specified postprocedural states; R63.4 Abnormal weight loss; Z68.22 Body mass index [BMI] 22.0-22.9, adult
CPT/HCPCS: 36415; 80053; 83735; 85025; 96360; 99282-25; J7030

== ENCOUNTER 2019-09-24 21:11 | Emergency (ER) | payer OTHER, MEDICARE ==
[2019-09-24 21:29] VITALS: TEMP 98.2; BMI 23.0
--- NOTE | 2019-09-24 22:28 | PDOC ---
History of Present Illness - General Chief Complaint: Blood Pressure Problem Stated Complaint: HIGH BP Time Seen by Provider: 09/24/19 22:06 History Source: Patient Exam Limitations: No Limitations - History of Present Illness Initial Comments: 09/24/19 22:22 HPI: 79yo F pmh HTN, presenting with elevated blood pressure. Patient reports multiple changes in her blood pressure medication regimen, with increased hydralazine (25 > 50 BID) yesterday per cardiology. Was admitted to the hospital recently for GI complaints, at that time had BP in 170s-180s. Seen in the ED Aug 15, 2019 with blurred vision, negative CT, neuro f/u with negative MRI. Today with pulse in her ears - similar to multiple episodes over the past 3 months. Denies any nausea, vomiting, visual changes, weakness, numbness, tingling, chest pain, back pain today. Called EMS for BP 210s at home, 191 on arrival, 182 during my encounter. Reports taking all of her antihypertensives today including her increased dose of hydralazine. All: NKDA Meds: Metoprolol 50 daily, Hydralazine 50 BID, Lisinopril 20 daily PMH: As above PSH: Per chart Past History - Past Medical History Allergies/Adverse Reactions: Allergies Allergy/AdvReac Type Severity Reaction Status Date / Time No Known Allergies Allergy Verified 08/22/19 15:54 Home Medications: Ambulatory Orders Lisinopril [Prinivil] 20 mg PO DAILY 07/01/14 Aspirin [ASA -] 81 mg PO DAILY 07/10/18 Simvastatin 5 mg PO HS 07/10/18 Ascorbic Acid/Ascorbate Sodium [Vitamin C 250 mg Tablet Chew] 500 mg PO DAILY Metoprolol Succinate [Toprol Xl] 50 mg PO DAILY 05/31/19 Mirtazapine [Remeron -] 7.5 mg PO HS 05/31/19 Vitamin B Complex 1 each PO DAILY 05/31/19 Hydralazine HCl 10 mg PO DAILY 08/01/19 Cholestyramine [Cholestyramine Resin] 4 gm MC BID 10 Days #20 powder 08/22/19 Vancomycin HCl 250 mg PO TID 10 Days #30 capsule 08/22/19 Anemia: No Asthma: No Cancer: No Cardiac Disorders: No CVA: No COPD: No CHF: No Dementia: No Diabetes: No GI Disorders: Yes (GASTRIC INTESTINAL METAPLASIA) Disorders: No HTN: Yes Hypercholesterolemia: Yes Liver Disease: No (DIVERTICULITIS) Seizures: No Thyroid Disease: No - Surgical History Abdominal Surgery: Yes (SHEILA PROCEDURE) Appendectomy: No Cardiac Surgery: No Cholecystectomy: No Lung Surgery: No Neurologic Surgery: No Orthopedic Surgery: No - Immunization History Immunization Up to Date: Yes - Psycho Social/Smoking Cessation Hx Smoking Status: No Smoking History: Never smoked Have you smoked in the past 12 months: No Number of Cigarettes Smoked Daily: 0 Hx Alcohol Use: No Drug/Substance Use Hx: No Substance Use Type: None Hx Substance Use Treatment: No Review of Systems - Review of Systems Able to Perform ROS?: Yes Is the patient limited [place] proficient: Yes Constitutional: No: Chills, Diaphoresis, Fever HEENTM: No: Recent change in vision, Nose Congestion, Throat Pain Respiratory: No: Cough, Shortness of Breath Cardiac (ROS): No: Chest Pain, Irregular Heart Rate, Lightheadedness, Palpitations, Syncope, Chest Tightness ABD/GI: No: Constipated, Diarrhea, Nausea, Vomiting : No: Burning, Dysuria, Frequency Musculoskeletal: No: Muscle Pain, Muscle Weakness Integumentary: No: Pruritus, Rash, Sweating Neurological: No: Headache, Numbness, Pre-Existing Deficit, Tingling, Weakness, Unsteady Gait Psychiatric: No: Stressors, Change in Appetite Endocrine: No: Increased Thirst, Increased Urine Hematologic/Lymphatic: No: Anemia, Blood Clots, Easy Bleeding All Other Systems: Reviewed and Negative *Physical Exam - Vital Signs Last Vital Signs Temp Pulse Resp BP Pulse Ox 98.2 F 68 19 191/61 H 97 09/24/19 21:25 09/24/19 21:25 09/24/19 21:25 09/24/19 21:25 09/24/19 21:25 - Physical Exam 09/24/19 22:36 Vitals reviewed, AF, hypertensive to SBP 182 GEN: Well appearing, appears stated age, NAD, comfortable. AAOx3. HEENT: NCAT, EOMI, PERRL. Sclera anicteric, noninjected. No facial asymmetry. Moist mucous membranes. Normal voice. Trachea midline. CV: RRR, S1/S2, no murmurs / rubs / gallops appreciated. LUNG: CTAB, normal work of breathing. No wheezes, rales, rhonchi. No cough. Speaking full sentences. GI: Soft, NTND, +BS, no guarding, no rebound. No masses. Neg CVAT b/l. EXTREMITIES: 2+ distal pulses. No LE edema. No obvious deformities of all extremities. SKIN: Warm, dry, no rashes appreciated, non-jaundiced. PSYCH: Normal mood and affect. Cooperative and appropriate. NEURO: CN 2-12 intact. Moving all extremities well with normal gait. 5+ strength and symmetric sensation throughout. 09/24/19 23:49 Repeat pressures 160s/70s in both arms ED Treatment Course - LABORATORY CBC & Chemistry Diagram: 09/24/19 23:25 09/24/19 23:25 Medical Decision Making - Medical Decision Making 09/24/19 22:28 79yo F pmh HTN, presenting with elevated blood pressure without acute symptoms. Closely followed by PCP and Cardiology for BP management. Recent changes. Asymptomatic, blood pressure resolving. DDX: Hypertensive urgency vs hypertensive emergency. - CBC, CMP, Cardiac, UA - EKG - Serial BP measurements 09/24/19 23:34 - BP now 160s both arms x2 readings, no additional medications - Patient provided with copy of MRI/MRA reports 09/08/19, atherosclerosis, no stroke - Labs sent, pending 09/24/19 23:59 - Patient endorsed to Dr. Linton - F/u labs, dispo Discharge - Discharge Information Problems reviewed: Yes Clinical Impression/Diagnosis: HTN (hypertension) Qualifiers: Hypertension type: unspecified Qualified Code(s): I10 - Essential (primary) hypertension Condition: Improved Disposition: HOME - Admission No - Follow up/Referral Referrals: Jessie Elliott MD [Primary Care Provider] - - Patient Discharge Instructions Patient Printed Discharge Instructions: DI for High Blood Pressure - Post Discharge Activity
[2019-09-24 23:37] LABS: BASO % 0.5 % (0-2.0); EOS % 0.2 % (0-4.5); HEMATOCRIT 36.7 % (32.4-45.2); HEMOGLOBIN 12.2 GM/dL (10.7-15.3); LYMPH % 20.6 % (8-40); MCHC 33.3 g/dl (32.0-36.0); MEAN CELL VOLUME 89.9 fl (80-96); MEAN PLT VOLUME 8.2 fl (7.5-11.1); MONO % 6.3 % (3.8-10.2); NEUT % 72.4 % (42.8-82.8); PLATELET COUNT 264 K/MM3 (134-434); RBC 4.08 M/mm3 (3.60-5.2); RDW 14.4 % (11.6-15.6); WHITE BLOOD COUNT 5.9 K/mm3 (4.0-10.0)
--- NOTE | 2019-09-24 23:48 | PDOC ---
Attending Attestation - Resident Resident Name: Antonio Marte - ED Attending Attestation I have performed the following: I have examined & evaluated the patient, The case was reviewed & discussed with the resident, I agree w/resident's findings & plan - HPI HPI: 09/24/19 23:47 Pt comes with uncontrolled BP. Her systolic is 190s on arrival; in the ER we repeated the BP and it has been 160s systolic in bilat arms. Pt takes metoprolol and hydralazine and she states that her PMD is Dr. Elliott. She will be treated with another dose of amlodipine here 09/25/19 21:15 - Physicial Exam PE: 09/24/19 23:51 Pt is afebrile VSS She has a normal exam No CP and no SOB and she has no abd pain and no flank pain Pt has a normal exam Pt appears well and she feels well. She was just worried that her BP was elevated. No pitting edema. Pt has normal neuro exam. - Medical Decision Making 09/25/19 21:15 Pt will be signed out to team for reeval. If she feesl better, she can go home.
[2019-09-24] MEDS ORDERED: hydrALAZINE HCL 10 MG TABLET PO ONE (23:49)
--- NOTE | 2019-09-24 23:58 | PDOC ---
*Physical Exam - Vital Signs Last Vital Signs Temp Pulse Resp BP Pulse Ox 98.2 F 73 18 160/77 97 09/24/19 21:25 09/24/19 23:24 09/24/19 23:24 09/24/19 23:24 09/24/19 23:24 ED Treatment Course - LABORATORY CBC & Chemistry Diagram: 09/24/19 23:25 09/24/19 23:25 Medical Decision Making - Medical Decision Making 09/24/19 23:57 Signed out from day team 79yo F pmh HTN, presenting with elevated blood pressure without acute symptoms d /t Hypertensive urgency Repeat BP 160/70. No signs of organ injury DC home w PCP f/u Discharge - Discharge Information Problems reviewed: Yes Clinical Impression/Diagnosis: HTN (hypertension) Qualifiers: Hypertension type: unspecified Qualified Code(s): I10 - Essential (primary) hypertension Condition: Improved Disposition: HOME - Follow up/Referral Referrals: Jessie Elliott MD [Primary Care Provider] - - Patient Discharge Instructions Patient Printed Discharge Instructions: DI for High Blood Pressure Additional Instructions: Follow up with your primary care doctor - Post Discharge Activity
[2019-09-25 00:01] LABS: ALBUMIN 3.6 g/dl (3.4-5.0); ALK PHOS 54 U/L (45-117); ANION GAP 6 MMOL/L (8-16); BILIRUBIN,TOTAL 0.3 mg/dL (0.2-1); BLOOD UREA NITROGEN 7.2 mg/dL (7-18); CALCIUM 9.4 mg/dL (8.5-10.1); CHLORIDE 108 mmol/L (98-107); CO2 28 mmol/L (21-32); CREATININE 0.5 mg/dL (0.55-1.3); GLUCOSE,RANDOM 112 mg/dL (74-106); POTASSIUM 3.6 mmol/L (3.5-5.1); SGOT/AST 13 U/L (15-37); SGPT/ALT 20 U/L (13-61); SODIUM 142 mmol/L (136-145); TOT PROT 7.2 g/dl (6.4-8.2)
[2019-09-25] MEDS ORDERED: hydrALAZINE HCL 25 MG TABLET (FP) ONE (00:12)
[2019-09-25 00:35] LABS: URINE APPEARANCE CLEAR; URINE BILIRUBIN NEGATIVE (NEGATIVE); URINE COLOR YELLOW; URINE GLUCOSE (UA) NEGATIVE (NEGATIVE); URINE KETONE NEGATIVE (NEGATIVE); URINE LEUK ESTERASE NEGATIVE (NEGATIVE); URINE NITRITE NEGATIVE (NEGATIVE); URINE PROTEIN NEGATIVE (NEGATIVE); URINE UROBILINOGEN 0.2 mg/dL (0.2-1.0)
[2019-09-25 00:55] VITALS: BP 155/63; PULSE 69
--- NOTE | 2019-09-25 14:13 | EKG ---
Test Reason : Blood Pressure : / mmHG Vent. Rate : 064 BPM Atrial Rate : 064 BPM P-R Int : 152 ms QRS Dur : 074 ms QT Int : 440 ms P-R-T Axes : 049 022 038 degrees QTc Int : 453 ms NORMAL SINUS RHYTHM NORMAL ECG Confirmed by MD BAY GREGORY ([id number]) on 09/25/2019 2:12:43 PM Referred By: Confirmed By:BRENNA BAY MD
== END 2019-09-25 00:55 | disposition home or self-care (01) ==
LOC: JER 21:11
DX: I10 Essential (primary) hypertension (principal); E78.00 Pure hypercholesterolemia, unspecified; Z87.19 Personal history of other diseases of the digestive system; Z79.82 Long term (current) use of aspirin
CPT/HCPCS: 36415; 80053; 81003; 82550; 84484; 85025; 93005; 93010; 99283-25

== ENCOUNTER 2021-07-02 04:27 | Day surgery (SDC) | payer OTHER, MEDICARE ==
[2021-06-28 16:23] VITALS: BMI 23.3
[2021-07-02] MEDS ORDERED: MIDAZOLAM HCL 2 MG/2 ML SINGLE DOSE VIAL ONE (11:11)
[2021-07-02] MEDS ORDERED: PROPOFOL 20 ML ONE (11:11)
[2021-07-02] MEDS ORDERED: SUCCINYLCHOLINE CHLORIDE 200 MG/10 ML SYRINGE ONE (11:13)
[2021-07-02] MEDS ORDERED: ONDANSETRON 4 MG/2 ML VIAL IVPUSH PRN ×2 (11:18→12:04)
[2021-07-02] MEDS ORDERED: oxyCODONE HCL 5 MG TABLET PO PRN ×2 (11:18→12:04)
[2021-07-02] MEDS ORDERED: LACTATED RINGERS SOLUTION 1,000 ML IV SCH (11:30)
[2021-07-02] MEDS ORDERED: IBUPROFEN 800 MG/8 ML IJ IVPB PRN (12:04)
[2021-07-02] MEDS ORDERED: IBUPROFEN 600 MG TABLET (FP) PO PRN (12:04)
[2021-07-02] MEDS ORDERED: ELECTROLYTE-148 SOLN 1,000 ML IV SCH (12:15)
[2021-07-02] MEDS ORDERED: ONDANSETRON *ODT* 4 MG TABLET SL ONE (13:50)
[2021-07-02] MEDS ORDERED: ONDANSETRON *ODT* 4 MG TABLET ONE (13:51)
[2021-07-02] MEDS ORDERED: ONDANSETRON 4 MG TABLET PO ONE (13:53)
[2021-07-02 14:04] VITALS: BP 120/75; PULSE 67; TEMP 97.1
== END 2021-07-02 14:30 | disposition home or self-care (01) ==
LOC: JASU-SURG 04:27
PROVIDERS: ATTEND Obstetrics & Gynecology
PROC: 0UB98ZX Excision of Uterus, Via Natural or Artificial Opening Endoscopic, Diagnostic (ICD-10-PCS; principal; 2021-07-02 11:00)
PROC: 0UDB7ZX Extraction of Endometrium, Via Natural or Artificial Opening, Diagnostic (ICD-10-PCS; 2021-07-02 11:00)
DX: N95.0 Postmenopausal bleeding (principal); N84.0 Polyp of corpus uteri
CPT/HCPCS: 88305-TC; 94760; Q0162

== ENCOUNTER 2022-03-13 04:30 | Day surgery (SDC) | payer OTHER, MEDICARE ==
[2022-03-12 08:29] VITALS: BMI 21.9
[2022-03-13 08:14] VITALS: TEMP 97
[2022-03-13 08:48] VITALS: BP 138/67; PULSE 63; RESP 17
== END 2022-03-13 09:31 | disposition home or self-care (01) ==
LOC: JASU-ENDO 04:30
PROVIDERS: ATTEND Internal Medicine Gastroenterology
PROC: 0DB78ZX Excision of Stomach, Pylorus, Via Natural or Artificial Opening Endoscopic, Diagnostic (ICD-10-PCS; 2022-03-13)
PROC: 0DB68ZX Excision of Stomach, Via Natural or Artificial Opening Endoscopic, Diagnostic (ICD-10-PCS; principal; 2022-03-13 08:45)
DX: K29.50 Unspecified chronic gastritis without bleeding (principal)
CPT/HCPCS: 88305-TC; 88342-TC

== ENCOUNTER 2022-08-03 16:30 | Emergency (ER) | payer OTHER, MEDICARE ==
[2022-08-03 16:55] VITALS: BP 177/62; PULSE 95; RESP 18; TEMP 97; BMI 27.4
[2022-08-03 19:55] LABS: BASO % 0.4 % (0-2.0); EOS % 0.2 % (0-4.5); HEMATOCRIT 40.4 % (32.4-45.2); HEMOGLOBIN 13.4 GM/dL (10.7-15.3); LYMPH % 22.5 % (8-40); MCH 29.7 pg (25.7-33.7); MCHC 33.1 g/dl (32.0-36.0); MEAN CELL VOLUME 89.8 fl (80-96); MONO % 6.3 % (3.8-10.2); NEUT % 70.6 % (42.8-82.8); PLATELET COUNT 283 10^3/uL (134-434); RDW 13.8 % (11.6-15.6); URINE APPEARANCE CLEAR; URINE BILIRUBIN NEGATIVE (NEGATIVE); URINE COLOR YELLOW; URINE GLUCOSE (UA) NEGATIVE (NEGATIVE); URINE KETONE 1+ (NEGATIVE); URINE LEUK ESTERASE NEGATIVE (NEGATIVE); URINE NITRITE NEGATIVE (NEGATIVE); URINE PROTEIN NEGATIVE (NEGATIVE); URINE UROBILINOGEN 0.2 mg/dL (0.2-1.0); WHITE BLOOD COUNT 6.1 K/mm3 (4.0-10.0)
[2022-08-03 20:09] LABS: INR 0.94 (0.83-1.09); PROTHROMBIN TIME (PATIENT) 10.8 SEC (9.7-13.0)
[2022-08-03 20:16] LABS: ALBUMIN 3.9 g/dl (3.4-5.0); CALCIUM 9.4 mg/dL (8.5-10.1)
[2022-08-03 20:17] LABS: BLOOD UREA NITROGEN 12.9 mg/dL (7-18)
[2022-08-03 20:20] LABS: CREATININE 0.6 mg/dL (0.55-1.3)
[2022-08-03 20:21] LABS: BILIRUBIN,TOTAL 0.4 mg/dL (0.2-1); TOT PROT 7.3 g/dl (6.4-8.2)
== END 2022-08-03 20:56 | disposition home or self-care (01) ==
LOC: JER 16:30 → JERFT 16:30
DX: I10 Essential (primary) hypertension (principal)
CPT/HCPCS: 36415; 70450-TC; 71046-TC-FY; 80053; 81003; 84439; 84443; 84484; 85025; 85610; 87086; 93005; 93010; 99285-25

== ENCOUNTER 2023-06-10 14:12 | Inpatient (IN) | payer OTHER, MEDICARE ==
[2023-06-10] MEDS ORDERED: FAMOTIDINE 20 MG/50 ML IVPB 20 MG/50 ML MG IVPB ONE ×2 (15:11→15:36)
[2023-06-10] MEDS ORDERED: SODIUM CHLORIDE 1,000 ML IV STA (15:11)
[2023-06-10] MEDS ORDERED: ONDANSETRON 4 MG/2 ML VIAL IVPUSH ONE (15:11)
[2023-06-10] MEDS ORDERED: ACETAMINOPHEN 1000 MG/100 ML BAG IVPB ONE (15:14)
[2023-06-10] MEDS ORDERED: ONDANSETRON 4 MG/2 ML VIAL ONE (15:36)
[2023-06-10] MEDS ORDERED: ACETAMINOPHEN INJECTION 100 ML IVPB ONE (15:36)
[2023-06-10] MEDS ORDERED: METOCLOPRAMIDE HCL INJECTION 10 MG/2 ML VIAL IVPUSH ONE (16:47)
[2023-06-10 17:26] LABS: BASO % 0.2 % (0-2.0); HEMOGLOBIN 13.1 GM/dL (10.7-15.3); LYMPH % 7.3 % (8-40); MCH 29.3 pg (25.7-33.7); MCHC 33.6 g/dl (32.0-36.0); MEAN CELL VOLUME 87.3 fl (80-96); MEAN PLT VOLUME 8.2 fl (7.5-11.1); MONO % 8.4 % (3.8-10.2); NEUT % 84.1 % (42.8-82.8); PLATELET COUNT 200 10^3/uL (134-434); RBC 4.47 M/mm3 (3.60-5.2); WHITE BLOOD COUNT 4.7 K/mm3 (4.0-10.0)
[2023-06-10 17:30] LABS: EPI CELLS 14 /uL (0-25.1); HYALINE CASTS 1 /uL (0-3.1); PH,URINE 6.5 (5.0-8.0); URINE APPEARANCE CLEAR; URINE BACTERIA 12 /uL (0-1359); URINE BILIRUBIN NEGATIVE (NEGATIVE); URINE COLOR YELLOW; URINE GLUCOSE (UA) 1+ (NEGATIVE); URINE KETONE 2+ (NEGATIVE); URINE LEUK ESTERASE NEGATIVE (NEGATIVE); URINE NITRITE NEGATIVE (NEGATIVE); URINE PROTEIN 2+ (NEGATIVE); URINE RBC 37 /uL (0-23.9); URINE WBC 5 /uL (0-25.8)
[2023-06-10 17:33] LABS: INR 0.94 (0.83-1.09); PROTHROMBIN TIME (PATIENT) 10.9 SEC (9.7-13.0)
[2023-06-10 17:35] LABS: ACTIVATED PTT 27.4 SECONDS (25.2-36.5)
[2023-06-10] MEDS ORDERED: METOCLOPRAMIDE HCL INJECTION 10 MG/2 ML VIAL ONE (17:56)
[2023-06-10 18:24] LABS: POTASSIUM 3.8 mmol/L (3.5-5.1)
[2023-06-10 18:27] LABS: BLOOD UREA NITROGEN 13.2 mg/dL (7-18); CALCIUM 9.4 mg/dL (8.5-10.1); MAGNESIUM 2.3 mg/dL (1.8-2.4)
[2023-06-10 18:30] LABS: CREATININE 0.6 mg/dL (0.55-1.3); PHOSPHOROUS 3.3 mg/dL (2.5-4.9)
[2023-06-10 18:32] LABS: BILIRUBIN,TOTAL 0.5 mg/dL (0.2-1); TOT PROT 7.4 g/dl (6.4-8.2)
[2023-06-11 01:51] LABS: BLOOD UREA NITROGEN 9.9 mg/dL (7-18); CALCIUM 8.3 mg/dL (8.5-10.1); CREATININE 0.5 mg/dL (0.55-1.3); POTASSIUM 3.3 mmol/L (3.5-5.1)
[2023-06-11] MEDS ORDERED: KCL 10 MEQ IVPB 20 MEQ/200 ML INFUS.BAG IVPB ONE (03:50)
[2023-06-11] MEDS: DEXTROSE 5%-0.45% SALINE 1,000 ML IV SCH (04:03)
[2023-06-11] MEDS: KCL 10 MEQ IVPB 10 MEQ/100 ML INFUS.BAG IVPB SCH (04:08)
[2023-06-11] MEDS ORDERED: POTASSIUM CHLORIDE TABS 20 MEQ TABLET.ER (FP) PO ONE (04:09)
[2023-06-11] MEDS ORDERED: POTASSIUM CHLORIDE ORAL LIQUID 20 MEQ/15 ML ONE (04:12)
[2023-06-11 07:43] LABS: BASO % 0.5 % (0-2.0); HEMATOCRIT 34.2 % (32.4-45.2); HEMOGLOBIN 11.2 GM/dL (10.7-15.3); LYMPH % 31.1 % (8-40); MCH 29.3 pg (25.7-33.7); MCHC 32.8 g/dl (32.0-36.0); MEAN CELL VOLUME 89.5 fl (80-96); MONO % 17.4 % (3.8-10.2); PLATELET COUNT 178 10^3/uL (134-434); RBC 3.82 M/mm3 (3.60-5.2); RDW 13.7 % (11.6-15.6); WHITE BLOOD COUNT 2.5 K/mm3 (4.0-10.0)
[2023-06-11] MEDS ORDERED: ONDANSETRON 4 MG/2 ML VIAL IVPUSH PRN (10:48)
[2023-06-11] MEDS ORDERED: hydrALAZINE HCL 10 MG TABLET ONE (10:54)
[2023-06-11] MEDS ORDERED: LISINOPRIL 10 MG TABLET ONE (10:54)
[2023-06-11] MEDS ORDERED: ONDANSETRON 4 MG/2 ML VIAL ONE (10:54)
[2023-06-11] MEDS ORDERED: PARoxetine HCL 10 MG TABLET ONE (10:54)
[2023-06-11 10:55] LABS: ALBUMIN 2.9 g/dl (3.4-5.0); BILIRUBIN,TOTAL 0.4 mg/dL (0.2-1); BLOOD UREA NITROGEN 8.9 mg/dL (7-18); CALCIUM 8.5 mg/dL (8.5-10.1); CREATININE 0.5 mg/dL (0.55-1.3); POTASSIUM 4.6 mmol/L (3.5-5.1); TOT PROT 5.6 g/dl (6.4-8.2)
[2023-06-11] MEDS: hydrALAZINE HCL 10 MG TABLET PO SCH ×2 (11:08→22:59)
[2023-06-11] MEDS: PARoxetine HCL 10 MG TABLET PO SCH (11:09)
[2023-06-11] MEDS: LISINOPRIL 10 MG TABLET PO SCH (11:09)
[2023-06-11 15:36] VITALS: BMI 17.5
[2023-06-11] MEDS: ATORVASTATIN CA 10 MG TABLET (FP) PO SCH (22:59)
[2023-06-12] MEDS: LISINOPRIL 10 MG TABLET PO SCH (10:08)
[2023-06-12] MEDS: hydrALAZINE HCL 10 MG TABLET PO SCH ×2 (10:09→22:10)
[2023-06-12] MEDS: PARoxetine HCL 10 MG TABLET PO SCH (10:09)
[2023-06-12] MEDS: DEXTROSE 5%-0.45% SALINE 1,000 ML IV SCH (10:14)
[2023-06-12] MEDS ORDERED: DEXTROSE 5%-NORMAL SALINE 1,000 ML IV SCH (12:30)
[2023-06-12] MEDS: ATORVASTATIN CA 10 MG TABLET (FP) PO SCH (22:10)
[2023-06-13] MEDS: hydrALAZINE HCL 10 MG TABLET PO SCH ×2 (10:16→22:02)
[2023-06-13] MEDS: LISINOPRIL 10 MG TABLET PO SCH (10:17)
[2023-06-13] MEDS: PARoxetine HCL 10 MG TABLET PO SCH (10:17)
[2023-06-13 12:58] LABS: BASO % 0.3 % (0-2.0); EOS % 0.1 % (0-4.5); HEMATOCRIT 38.5 % (32.4-45.2); HEMOGLOBIN 12.9 GM/dL (10.7-15.3); LYMPH % 29.1 % (8-40); MCH 29.7 pg (25.7-33.7); MCHC 33.6 g/dl (32.0-36.0); MEAN CELL VOLUME 88.5 fl (80-96); MEAN PLT VOLUME 8.2 fl (7.5-11.1); MONO % 14.1 % (3.8-10.2); NEUT % 56.4 % (42.8-82.8); PLATELET COUNT 194 10^3/uL (134-434); RBC 4.35 M/mm3 (3.60-5.2); RDW 13.9 % (11.6-15.6); WHITE BLOOD COUNT 3.1 K/mm3 (4.0-10.0)
[2023-06-13 13:27] LABS: POTASSIUM 3.5 mmol/L (3.5-5.1)
[2023-06-13 13:29] LABS: ALBUMIN 3.3 g/dl (3.4-5.0); CALCIUM 8.8 mg/dL (8.5-10.1)
[2023-06-13 13:30] LABS: BLOOD UREA NITROGEN 7.4 mg/dL (7-18)
[2023-06-13 13:33] LABS: CREATININE 0.4 mg/dL (0.55-1.3)
[2023-06-13 13:34] LABS: BILIRUBIN,TOTAL 0.3 mg/dL (0.2-1); TOT PROT 6.6 g/dl (6.4-8.2)
[2023-06-13] MEDS: ATORVASTATIN CA 10 MG TABLET (FP) PO SCH (22:02)
[2023-06-13 23:01] VITALS: RESP 18
[2023-06-14] MEDS: PARoxetine HCL 10 MG TABLET PO SCH (10:06)
[2023-06-14] MEDS: LISINOPRIL 10 MG TABLET PO SCH (10:06)
[2023-06-14] MEDS: hydrALAZINE HCL 10 MG TABLET PO SCH (10:06)
[2023-06-14 14:26] VITALS: BP 155/58; PULSE 80; TEMP 98.3
== END 2023-06-14 17:00 | disposition home or self-care (01) | DRG 640 ==
LOC: JER 14:12 → JERBED 18:32 → J8W 06-11 14:51
PROVIDERS: ADMIT Internal Medicine; ATTEND Internal Medicine
DX: E87.1 Hypo-osmolality and hyponatremia (principal); U07.1 COVID-19; Z68.1 Body mass index [BMI] 19.9 or less, adult; I10 Essential (primary) hypertension; E78.5 Hyperlipidemia, unspecified; E86.0 Dehydration; F41.8 Other specified anxiety disorders; E87.6 Hypokalemia; R62.7 Adult failure to thrive
CPT/HCPCS: 0241U-QW; 36415; 71045-TC-FY; 74177-TC; 80048; 80053; 81003; 82728; 83605; 83615; 83690; 83735; 84100; 84484; 85025; 85379; 85610; 85730; 86140; 93005; 93010; 99285-25; Q9967

== ENCOUNTER 2024-06-14 04:22 | Day surgery (SDC) | payer OTHER, MEDICARE ==
[2024-06-10 16:02] VITALS: BMI 19.7
[2024-06-14] MEDS ORDERED: ONDANSETRON 4 MG/2 ML VIAL IVPUSH PRN ×2 (09:56→11:14)
[2024-06-14] MEDS ORDERED: PROPOFOL 40 ML ONE (10:11)
[2024-06-14] MEDS ORDERED: DEXAMETHASONE SOD PHOSPHATE 4 MG/1 ML VIAL ONE (11:05)
[2024-06-14] MEDS ORDERED: LIDOCAINE HCL/PF 2% SDV 5ML VIAL ONE (11:05)
[2024-06-14] MEDS ORDERED: ONDANSETRON 4 MG/2 ML VIAL ONE (11:05)
[2024-06-14] MEDS ORDERED: IBUPROFEN 600 MG TABLET (FP) PO PRN (11:14)
[2024-06-14] MEDS ORDERED: oxyCODONE HCL 5 MG TABLET PO PRN (11:14)
[2024-06-14] MEDS ORDERED: IBUPROFEN 800 MG/8 ML IJ IVPB PRN (11:14)
[2024-06-14] MEDS ORDERED: ELECTROLYTE-148 SOLN 1,000 ML IV SCH (11:15)
[2024-06-14] MEDS ORDERED: ACETAMINOPHEN INJECTION 100 ML ONE (11:17)
[2024-06-14] MEDS: LACTATED RINGERS SOLUTION 1,000 ML IV SCH (11:21)
[2024-06-14] MEDS: ACETAMINOPHEN 1000 MG/100 ML BAG IVPB ONE (11:21)
[2024-06-14 11:39] VITALS: RESP 18
[2024-06-14 13:47] VITALS: BP 142/58; PULSE 84; TEMP 97.8
== END 2024-06-14 13:05 | disposition home or self-care (01) ==
LOC: JASU-SURG 04:22
PROVIDERS: ATTEND Obstetrics & Gynecology
PROC: 0UDB8ZX Extraction of Endometrium, Via Natural or Artificial Opening Endoscopic, Diagnostic (ICD-10-PCS; principal; 2024-06-14 10:00)
DX: N95.0 Postmenopausal bleeding (principal); N84.0 Polyp of corpus uteri
CPT/HCPCS: 88305-TC; 94760; J0131

== ENCOUNTER 2024-09-08 10:27 | Emergency (ER) | payer OTHER, MEDICARE ==
[2024-09-08 10:35] VITALS: BP 165/59; PULSE 87; RESP 20; TEMP 98.4; BMI 20.5
[2024-09-08] MEDS ORDERED: guaiFENesin/CODEINE 10 ML UNIT-DOSE CUPS ONE (11:48)
[2024-09-08] MEDS: guaiFENesin 200 MG/10 ML 10 ML UNIT-DOSE CUPS PO ONE (11:56)
[2024-09-08 13:55] LABS: BASO % 0.6 % (0-2.0); EOS % 0.5 % (0-4.5); HEMATOCRIT 36.5 % (32.4-45.2); HEMOGLOBIN 11.9 GM/dL (10.7-15.3); LYMPH % 16.8 % (8-40); MCH 29.5 pg (25.7-33.7); MCHC 32.7 g/dl (32.0-36.0); MEAN CELL VOLUME 90.3 fl (80-96); MEAN PLT VOLUME 7.6 fl (7.5-11.1); NEUT % 74.1 % (42.8-82.8); PLATELET COUNT 205 10^3/uL (134-434); RBC 4.04 M/mm3 (3.60-5.2); RDW 13.3 % (11.6-15.6); WHITE BLOOD COUNT 4.7 K/mm3 (4.0-10.0)
[2024-09-08 14:24] LABS: POTASSIUM 4.2 mmol/L (3.5-5.1)
[2024-09-08 14:26] LABS: ALBUMIN 3.3 g/dl (3.4-5.0)
[2024-09-08 14:27] LABS: BLOOD UREA NITROGEN 13.5 mg/dL (7-18)
[2024-09-08 14:30] LABS: CREATININE 0.7 mg/dL (0.55-1.3)
[2024-09-08 14:31] LABS: BILIRUBIN,TOTAL 0.5 mg/dL (0.2-1); TOT PROT 6.6 g/dl (6.4-8.2)
== END 2024-09-08 15:07 | disposition home or self-care (01) ==
LOC: JER 10:27
DX: J98.4 Other disorders of lung (principal); J04.0 Acute laryngitis; R05.9 Cough, unspecified; Z20.822 Contact with and (suspected) exposure to COVID-19
CPT/HCPCS: 0241U-QW; 36415; 71045-TC-FY; 80053; 85025; 99284-25

== ENCOUNTER → 2025-02-16 | Day surgery (SDC) | payer OTHER, MEDICARE ==
[2025-02-15 11:41] VITALS: BMI 18.8
[2025-02-16 10:44] VITALS: TEMP 98
[2025-02-16 10:56] VITALS: RESP 18
[2025-02-16 11:10] VITALS: BP 135/55; PULSE 85
== END | disposition home or self-care (01) ==
LOC: JASU-ENDO 06:25
PROVIDERS: ATTEND Internal Medicine Gastroenterology
PROC: 0DB68ZX Excision of Stomach, Via Natural or Artificial Opening Endoscopic, Diagnostic (ICD-10-PCS; 2025-02-16)
PROC: 0DB78ZX Excision of Stomach, Pylorus, Via Natural or Artificial Opening Endoscopic, Diagnostic (ICD-10-PCS; 2025-02-16)
PROC: 0DJD8ZZ Inspection of Lower Intestinal Tract, Via Natural or Artificial Opening Endoscopic (ICD-10-PCS; principal; 2025-02-16 09:00)
DX: Z12.11 Encounter for screening for malignant neoplasm of colon (principal); K57.30 Diverticulosis of large intestine without perforation or abscess without bleeding; Z98.0 Intestinal bypass and anastomosis status; Z80.0 Family history of malignant neoplasm of digestive organs; K29.50 Unspecified chronic gastritis without bleeding; B96.81 Helicobacter pylori [H. pylori] as the cause of diseases classified elsewhere; K31.A11 Gastric intestinal metaplasia without dysplasia, involving the antrum
CPT/HCPCS: 43239; G0105; 88305-TC; 88342-TC